=== PATIENT | female | born 1940 | race Caucasian/White ===

== ENCOUNTER → 2016-11-04 | Outpatient (CLI) | payer MEDICARE, BC ==
--- NOTE | 2016-11-06 09:23 | MM ---
Reason for exam: screening (asymptomatic). Last mammogram was performed 1 year and 6 months ago. History: Patient is postmenopausal. Family history of breast cancer in 2 maternal cousins at age 60 and breast cancer in maternal cousin. Physical Findings: A clinical breast exam by your physician is recommended on an annual basis and results should be correlated with mammographic findings. MG Screening Mammo w CAD Bilateral CC and MLO view(s) were taken. XCCM view(s) were taken of the right breast. Prior study comparison: May 02, 2015, left breast MG work up mamm w CAD LT. April 23, 2015, bilateral MG screening mammo w CAD. There are scattered fibroglandular densities. Left sided generator device. No significant changes when compared with prior studies. ASSESSMENT: Negative, BI-RAD 1 RECOMMENDATION: Routine screening mammogram of both breasts in 1 year.
== END ==
LOC: RADMAMWWP 11:15
PROVIDERS: ATTEND Internal Medicine
DX: Z12.31 Encounter for screening mammogram for malignant neoplasm of breast (principal)

== ENCOUNTER → 2017-04-24 | Outpatient (CLI) | payer MEDICARE, BC ==
--- NOTE | 2017-04-24 12:50 | XR ---
EXAMINATION TYPE: XR chest 2V DATE OF EXAM: 04/24/2017 COMPARISON: 02/20/2016 TECHNIQUE: PA and lateral views submitted. HISTORY: Shortness FINDINGS: Heart is prominent there is tiny bilateral pleural effusions with basilar subsegmental consolidation. Somewhat prominent interstitium noted. Cardiac device with atherosclerotic change aorta. Diffuse ost eopenia with arthritic changes involving the shoulders. No pneumothorax. IMPRESSION: 1. Tiny bilateral effusion with basilar atelectasis or infiltrate. Correlate for mild central venous congestion.
== END | disposition home or self-care (01) ==
LOC: RADXRMAIN 12:26
PROVIDERS: ATTEND Internal Medicine
DX: R06.02 Shortness of breath (principal); R05 Cough
CPT/HCPCS: 71046

== ENCOUNTER 2017-05-01 10:51 | Inpatient (IN) | payer MEDICARE, BC ==
[2017-05-01 12:27] LABS: Glucose,Whole Blood 152 mg/dL (75-99)
[2017-05-01] MEDS ORDERED: HYDROcodone/APAP 7.5-325MG 1 EACH TAB PO PRN (13:04)
--- NOTE | 2017-05-01 15:14 | P.HPIM ---
History of Present Illness H&P Date: 05/01/17 Chief Complaint: Right leg pain and cellulitis This is a 76-year-old female with a known past medical history of atrial fibrillation, hypertension, hypothyroidism, diabetes mellitus type 2, chronic respiratory failure home O2 dependent and congestive heart failure. Patient had been treated outpatient recently for about 10 days for an acute bronchitis. She had been on azithromycin. 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 I then developed pain and swelling of the area over the last few days. Also starting to develop a blister. Patient has multiple antibiotic ALLERGIES. She denies any fever, chills, sweats , chest pain or shortness of breath. Denies any nausea or vomiting, bowel movement changes or urinary symptoms. Venous Doppler of that right leg has been ordered to rule out DVT. We'll x-ray the right leg tibia and fibula to rule out fracture. Resume her [place] and home medications. Infectious disease has been consulted for antibiotic recommendations. Review of Systems Please refer to HPI otherwise unremarkable Past Medical History Past Medical History: Atrial Fibrillation, Asthma, Coronary Artery Disease (CAD) , Heart Failure, COPD, Diabetes Mellitus, Deep Vein Thrombosis (DVT), Eye Disorder, Hyperlipidemia, Hypertension, Myocardial Infarction (CT) Additional Past Medical History / Comment(s): Chronic respiratory failure with O2 dependence-2L/NC ATC, bronchitis, ischemic cardiomyopathy, murmur, thoracic outlet syndrome, IDDM type II, DVT left leg twice after childbirths, glaucoma R eye, arthritis multiple joints, osteoporosis, pancreatitis once, hypothyroid, past cellulitis R knee and L leg, R eye cataract, varicosities. Last Myocardial Infarction Date:: 1999 History of Any Multi-Drug Resistant Organisms: None Reported Past Surgical History: Adenoidectomy, AICD, Heart Catheterization With Stent, Hernia Repair, Hysterectomy, Tonsillectomy Additional Past Surgical History / Comment(s): 1999 PCI with stents (3), 2014 BiV AICD, L upper rib removed d/t thoracic outlet syndrome, R knee I&D, bilateral carpal tunnel releases, colonoscopy, D&C, bladder suspension, umbilical hernia repair. Past Anesthesia/Blood Transfusion Reactions: No Reported Reaction Additional Past Anesthesia/Blood Transfusion Reaction / Comment(s): Pt has never had a blood transfusion. Date of Last Stent Placement:: 1999 Type of Cardiac Device: AICD Device Placement Date:: 06-27-14 Smoking Status: Former smoker - Past Family History Brother(s) Family Medical History: Cancer Additional Family Medical History / Comment(s): Pt had 2 brothers with lung cancer. Father Family Medical History: Coronary Artery Disease (CAD), CVA/TIA, Myocardial Infarction (CT) Additional Family Medical History / Comment(s): fATHER AT 57 YRS OF AGE Mother Family Medical History: Cancer, Dementia Additional Family Medical History / Comment(s): throat cancer Medications and Allergies Home Medications Medication Instructions Recorded Confirmed Type Isosorbide Mononitrate ER [Imdur] 30 mg PO DAILY 04/24/14 03/12/15 History Montelukast [Singulair] 10 mg PO HS 04/24/14 03/12/15 History glipiZIDE [Glipizide] 10 mg PO TID 04/29/14 03/12/15 History metFORMIN HCL 1,000 mg PO DAILY 04/29/14 03/12/15 History Atorvastatin [Lipitor] 40 mg PO HS #60 tab 05/01/14 03/12/15 Rx Apixaban [Eliquis] 2.5 mg PO BID 06/02/14 03/12/15 History Nitroglycerin Sl Tabs [Nitrostat] 0.4 mg SUBLINGUAL Q5M PRN 06/02/14 03/12/15 History Amiodarone [Cordarone] 200 mg PO DAILY 06/26/14 03/12/15 History Metoprolol Tartrate [Lopressor] 50 mg PO BID 06/26/14 03/12/15 History Aspirin EC [Ecotrin Low Dose] 81 mg PO DAILY 11/18/14 03/12/15 History Bisacodyl [Dulcolax] 15 mg PO DAILY PRN 11/18/14 03/12/15 History Budesonide [Pulmicort] 0.5 mg INHALATION RT-BID 11/18/14 03/12/15 History Docusate Sodium [Dulcolax Stool 300 mg PO DAILY PRN 11/18/14 03/12/15 History Softener] Insulin Glargine [Lantus] 17 unit SQ HS 11/18/14 03/12/15 History Ipratropium-Albuterol Nebulize 3 ml INHALATION RT-QID 11/18/14 03/12/15 History [Duoneb 0.5 mg-3 mg/3 ml Soln] Latanoprost Ophth [Xalatan 0.005%] 1 drop RIGHT EYE HS 11/18/14 03/12/15 History Levothyroxine Sodium [Synthroid] 25 mcg PO AC-BRKFST 11/18/14 03/12/15 History Furosemide [Lasix] 20 mg PO DAILY #0 11/27/14 03/12/15 Rx Clindamycin [Cleocin] 300 mg PO TID #15 capsule 03/16/15 Rx Losartan-Hctz 50-12.5 mg [Hyzaar 1 each PO DAILY #30 tab 03/16/15 Rx 50-12.5] Spironolactone [Aldactone] 12.5 mg PO DAILY #30 tab 03/16/15 Rx predniSONE 10 mg PO DIRECTED #30 tab 03/16/15 Rx Allergies Allergy/AdvReac Type Severity Reaction Status Date / Time meperidine HCl [From Demerol] Allergy Severe Anaphylaxis Verified 05/01/17 11:35 cephalexin monohydrate Allergy Rash/Hives Verified 05/01/17 11:35 [From Keflex] erythromycin base Allergy Rapid Verified 05/01/17 11:35 Heart Rate lorazepam [From Ativan] Allergy Dyspnea Verified 05/01/17 11:35 Penicillins Allergy Rash/Hives Verified 05/01/17 11:35 doxycycline calcium AdvReac Nausea & Verified 05/01/17 11:35 [From Vibramycin] Vomiting doxycycline hyclate AdvReac Nausea & Verified 05/01/17 11:35 [From Vibramycin] Vomiting doxycycline monohydrate AdvReac Nausea & Verified 05/01/17 11:35 [From Vibramycin] Vomiting tetracycline AdvReac Nausea & Verified 05/01/17 11:35 Vomiting Physical Exam Vitals: Vital Signs Temp Pulse Resp BP Pulse Ox 05/01/17 12:01 99.3 F 71 16 144/55 97 Intake and Output 05/01/17 05/01/17 05/01/17 06:59 14:59 22:59 Other: Weight 108.7 kg Patient Weight 05/02/17 06:59 Weight 108.7 kg Head normocephalic Neck supple Lungs a few coarse breath sounds no wheezing no crackles Heart regular rate and rhythm S1-S2, no rub or gallop Abdomen is soft nontender nondistended positive bowel sounds no hepatosplenomegaly Extremities right leg red and swollen and tender with palpation especially along the tibia. The redness wraps all the way around the lower extremity about mid deng. There is a blister about an inch in size noted along the right tibia. Area is warm with palpation Neuro alert and orientated to 3 Results Labs: Abnormal Lab Results - Last 24 Hours (Table) 05/01/17 Range/Units 12:25 POC Glucose (mg/dL) 152 H (75-99) mg/dL Thrombosis Risk Factor Assmnt - Choose All That Apply Any of the Below Risk Factors Present?: Yes Each Factor Represents 1 point: Abnormal pulmonary function (COPD), Obesity ( BMI >25) Other Risk Factors: Yes Each Risk Factor Represents 2 Points: Age 61-74 years Each Risk Factor Represents 3 Points: History of DVT/PE Other congenital or acquired thrombophilia - If yes, enter type in comment: No Thrombosis Risk Factor Assessment Total Risk Factor Score: 7 Thrombosis Risk Factor Assessment Level: High Risk Assessment and Plan Assessment: 1. Right lower extremity cellulitis with pain and swelling. Consult infectious disease for antibiotic recommendations. Check venous Doppler to rule out DVT. Check x-ray of the right leg to rule out any fracture. Resume patient's [place] for pain control. Check blood culture and we'll place patient on normal saline at 50 mL an hour 2. Recent bronchitis treated outpatient 3. Diabetes mellitus type 2: Resume home medications metformin, glipizide and Lantus. Add sliding scale coverage 4. Hypothyroidism resume Synthroid 5. History of proximal atrial fibrillation on Eliquis for anticoagulation. Resume amiodarone 6. Chronic respiratory failure home O2 dependent 7. COPD: Stable. resume nebulizer treatments and inhalers 8. History of chronic systolic and diastolic congestive heart failure. Resume Lasix. No evidence of exacerbation 9. Essential hypertension: Stable. resume home medications GI prophylaxis Pepcid and DVT prophylaxis Eliquis Time with Patient: Greater than 30 (Greater than 50% of the total time spent in counseling and coordination of care.I performed an examination of the patient and discussed their management with the physician Director Industrial Relations. I have reviewed the Physician Director Industrial Relations's notes and agree with the documented findings and plan of care)
--- NOTE | 2017-05-01 15:22 | US ---
EXAMINATION TYPE: US venous doppler duplex LE RT DATE OF EXAM: 05/01/2017 3:06 PM COMPARISON: US dated 11/20/2014 CLINICAL HISTORY: leg swelling and pain, rule out DVT. SIDE PERFORMED: Right TECHNIQUE: The lower extremity deep venous system is examined utilizing real time linear array sonog christi with graded compression, doppler sonography and color-flow sonography. VESSELS IMAGED: External Iliac Vein (EIV) Common Femoral Vein Deep Femoral Vein Greater Saphenous Vein * Femoral Vein Popliteal Vein Proximal Calf Veins (* superficial vessels) large anechoic focus down right lower leg with increased through transmission, irregular wall, measur es15.5 x 2.1 cm at the medial aspect of the leg. Right Leg: Negative for DVT Grayscale, color doppler, spectral doppler imaging performed of the deep veins of the lower extremiti es. There is normal flow, compressibility, vascular waveforms. IMPRESSION: No evident deep venous thrombosis at or above the knee right knee. Indeterminate fluid collection could represent seroma, hematoma, correlate for possible infection
--- NOTE | 2017-05-01 15:25 | XR ---
Right leg HISTORY: Right leg pain and erythema, swelling 2 views of the right leg Correlation to lower extremity Doppler duplex 05/01/2017 Soft tissue density at the medial length corresponds to be fluid collection seen on ultrasound. Soft tissue swelling is noted. Arthropathy change noted incidentally in the right knee, chondrocalcinosis, consider crystal deposition arthropathy, osteoarthritis. Alignment is maintained. No periostitis to suggest osteomyelitis. Soft tissue calcifications likely represent vascular changes within the lower extremity. IMPRESSION: Correlate for cellulitis, indeterminate fluid collection as described in ultrasound repor [place]
[2017-05-01] MEDS: SODIUM CHLORIDE 0.9% 1,000 ML IV SCH (15:51)
[2017-05-01] MEDS ORDERED: NITROGLYCERIN SL TABS 0.4 MG TAB SUBLINGUAL PRN (16:17)
[2017-05-01] MEDS ORDERED: AMIODARONE 200 MG TAB PO SCH (16:30)
[2017-05-01] MEDS: LEVOFLOXACIN 500MG-D5W PMX 500 MG in DEXTROSE/WATER 1 100ML.BAG IVPB SCH ×2 (16:40→18:20)
[2017-05-01 16:44] LABS: Basophils # (A) 0.1 k/uL (0-0.2); Basophils % (A) 1 %; Eosinophils # (A) 0.4 k/uL (0-0.7); Eosinophils % (A) 3 %; HCT 35.6 % (34.0-46.0); HGB 10.9 gm/dL (11.4-16.0); Hypochromasia Slight; Lymphocytes # (A) 2.5 k/uL (1.0-4.8); Lymphocytes % (A) 19 %; MCH 28.7 pg (25.0-35.0); MCHC 30.5 g/dL (31.0-37.0); MCV 93.9 fL (80.0-100.0); Mean Platelet Volume 7.5; Monocytes % (A) 8 %; Neutrophils # (A) 8.9 k/uL (1.3-7.7); Neutrophils % (A) 68 %; Platelet Count 304 k/uL (150-450); RBC 3.79 m/uL (3.80-5.40); RDW 13.3 % (11.5-15.5); WBC 12.9 k/uL (3.8-10.6)
[2017-05-01 16:58] LABS: Albumin 3.1 g/dL (3.5-5.0); Calcium 9.6 mg/dL (8.4-10.2); Potassium 4.9 mmol/L (3.5-5.1); Total Bilirubin 0.5 mg/dL (0.2-1.3); Total Protein 5.5 g/dL (6.3-8.2)
[2017-05-01] MEDS: IPRATROPIUM-ALBUTEROL 3 ML NEB INHALATION SCH ×2 (17:10→19:05)
[2017-05-01] MEDS ORDERED: CLINDAMYCIN 600 MG in DEXTROSE 5% IN WATER 50 ML IVPB SCH ×2 (17:15)
[2017-05-01 17:39] LABS: Glucose,Whole Blood 181 mg/dL (75-99)
[2017-05-01] MEDS: HYDROcodone/APAP 10-325MG 1 EACH TAB PO PRN (18:16)
[2017-05-01] MEDS: INSULIN ASPART 100 UNIT/ML 1 ML 10 ML VIAL SQ SCH ×2 (18:17→21:35)
[2017-05-01] MEDS: BUDESONIDE 0.5 MG/2 ML NEBU INHALATION SCH (19:05)
[2017-05-01] MEDS: DAPTOmycin 500 MG in SODIUM CHLORIDE 0.9% 50 ML IV SCH (20:13)
[2017-05-01] MEDS: MONTELUKAST 10 MG TAB PO SCH (21:35)
[2017-05-01] MEDS: APIXABAN 2.5 MG TABLET PO SCH (21:35)
[2017-05-01] MEDS: METOPROLOL TARTRATE 50 MG TAB PO SCH (21:35)
[2017-05-01] MEDS: INSULIN DETEMIR 100 UNIT/ML 10 ML VIAL SQ SCH (21:35)
[2017-05-01] MEDS: ATORVASTATIN 40 MG TAB PO SCH (21:35)
[2017-05-01] MEDS: LATANOPROST 0.005% OPHTH DROPS 2.5 ML BTL RIGHT EYE SCH (21:35)
[2017-05-01 21:44] LABS: Glucose,Whole Blood 207 mg/dL (75-99)
--- NOTE | 2017-05-02 00:02 | P.CONS ---
History of Present Illness - Reason for Consult Consult date: 05/01/17 - Chief Complaint Right leg pain - History of Present Illness 76-year-old female presents to Hospital for further evaluation of ongoing swelling tenderness and drainage to the right lower extremity. The patient relates known history of chronic venous stasis and does utilize compression garments. She over developed significant pain and swelling to the right leg. Despite outpatient therapy she had no improvement. She was having some difficulty with exacerbation of underlying COPD. She was treated with a azithromycin. Despite that she has had some ongoing symptoms and does not feel well. She has minimal shortness of breath and cough she has some wheezing and not much sputum production. She however does have the significant discomfort swelling ulceration drainage the right lower extremity. She is denying high- grade fever chills rigors or sweats but does feel poorly overall. She has many drug ALLERGIES which makes it challenging for her antibiotic therapy. Review of Systems 76 year old a woman relates she is feeling slightly better HEENT:Denies headache or acute visual change. Denies sinus or mouth discomforts. Denies neck stiffness or pain. Denies significant oral cavity pain. Denies difficulty on swallowing. Lungs: Denies significant shortness of breath, cough, sputum production, or hemoptysis. Cardiovascular: Denies significant shortness of breath, chest pain, chest wall pain, orthopnea, dyspnea on exertion, syncope Gastrointestinal:Denies nausea, vomiting, diarrhea, constipation, hematemesis, melena, hematochezia. No no significant change of bowel habit noticed. Musculoskeletal: denies significant myalgias or arthralgias. No new joint swelling. Denies new back pain. Skin: Pain and swelling erythema and drainage right leg Neuro: Denies headache or visual change. Denies any new onset weakness or difficulty with ambulation. Denies falls or seizures. Psychiatric:Denies anxiety or depression. Endocrine: Significant fatigue Past Medical History Past Medical History: Atrial Fibrillation, Asthma, Coronary Artery Disease (CAD) , Heart Failure, COPD, Diabetes Mellitus, Deep Vein Thrombosis (DVT), Eye Disorder, Hyperlipidemia, Hypertension, Myocardial Infarction ([place]) Additional Past Medical History / Comment(s): Chronic respiratory failure with O2 dependence-2L/NC ATC, bronchitis, ischemic cardiomyopathy, murmur, thoracic outlet syndrome, IDDM type II, DVT left leg twice after childbirths, glaucoma R eye, arthritis multiple joints, osteoporosis, pancreatitis once, hypothyroid, past cellulitis R knee and L leg, R eye cataract, varicosities. Last Myocardial Infarction Date:: 1999 History of Any Multi-Drug Resistant Organisms: None Reported Past Surgical History: Adenoidectomy, AICD, Heart Catheterization With Stent, Hernia Repair, Hysterectomy, Tonsillectomy Additional Past Surgical History / Comment(s): 1999 PCI with stents (3), 2014 BiV AICD, L upper rib removed d/t thoracic outlet syndrome, R knee I&D, bilateral carpal tunnel releases, colonoscopy, D&C, bladder suspension, umbilical hernia repair. Past Anesthesia/Blood Transfusion Reactions: No Reported Reaction Additional Past Anesthesia/Blood Transfusion Reaction / Comm: Pt has never had a blood transfusion. Date of Last Stent Placement:: 1999 Type of Cardiac Device: AICD Device Placement Date:: 06-27-14 Additional Psychological History / Comment(s): and lives independently. No current tobacco use no current alcohol use. No experience no international travel no animal exposures Smoking Status: Former smoker - Past Family History Brother(s) Family Medical History: Cancer Additional Family Medical History / Comment(s): Pt had 2 brothers with lung cancer. Father Family Medical History: Coronary Artery Disease (CAD), CVA/TIA, Myocardial Infarction ([place]) Additional Family Medical History / Comment(s): fATHER AT 57 YRS OF AGE Mother Family Medical History: Cancer, Dementia Additional Family Medical History / Comment(s): throat cancer Medications and Allergies Home Medications and Allergies Comment(s): Current Medications Hydrocodone Bitart/Acetaminophen ([place] 10) 1 each PO Q6H PRN PRN Reason: Pain Last Admin: 05/01/17 18:16 Dose: 1 each Albuterol/Ipratropium (Duoneb 0.5 Mg-3 Mg/3 Ml Soln) 3 ml INHALATION RT-QID [facility] Last Admin: 05/01/17 19:05 Dose: 3 ml Amiodarone HCl (Cordarone) 100 mg PO DAILY [facility] Apixaban (Eliquis) 2.5 mg PO BID [facility] Last Admin: 05/01/17 21:35 Dose: 2.5 mg Aspirin (Aspirin) 81 mg PO DAILY [facility] Atorvastatin Calcium (Lipitor) 40 mg PO HS [facility] Last Admin: 05/01/17 21:35 Dose: 40 mg Budesonide (Pulmicort) 0.5 mg INHALATION RT-BID [facility] Last Admin: 05/01/17 19:05 Dose: 0.5 mg Ergocalciferol (Vitamin D2) 50,000 unit PO TU [facility] Famotidine (Pepcid) 20 mg PO DAILY [facility] Furosemide (Lasix) 20 mg PO DAILY@1200 [facility] HCTZ/Losartan Potassium (Hyzaar 50-12.5) 1 each PO DAILY@1200 [facility] Sodium Chloride (Saline 0.9%) 1,000 mls @ 50 mls/hr IV .Q20H [facility] Last Admin: 05/01/17 15:51 Dose: 50 mls/hr Daptomycin 500 mg/ Sodium (Chloride) 50 mls @ 100 mls/hr IV Q24H [facility] Last Admin: 05/01/17 20:13 Dose: 100 mls/hr Insulin Aspart (Novolog) 0 unit SQ ACHS [facility] PRN Reason: Protocol Last Admin: 05/01/17 21:35 Dose: 4 unit Insulin Detemir (Levemir) 44 unit SQ [facility] Last Admin: 05/01/17 21:35 Dose: 44 unit Isosorbide Mononitrate (Imdur) 30 mg PO DAILY [facility] Latanoprost (Xalatan 0.005%) 1 drops RIGHT EYE [facility] Last Admin: 05/01/17 21:35 Dose: 1 drops Levothyroxine Sodium (Synthroid) 50 mcg PO 0630 [facility] Metformin HCl (Glucophage) 1,000 mg PO W/BRKFST [facility] Metoprolol Tartrate (Lopressor) 50 mg PO BID [facility] Last Admin: 05/01/17 21:35 Dose: 50 mg Montelukast Sodium (Singulair) 10 mg PO [facility] Last Admin: 05/01/17 21:35 Dose: 10 mg Nitroglycerin (Nitrostat) 0.4 mg SUBLINGUAL Q5M PRN PRN Reason: Chest Pain Silver Sulfadiazine (Silvadene Cream) 1 applic TOPICAL DAILY [facility] Last Admin: 05/01/17 18:17 Dose: 1 applic Spironolactone (Aldactone) 12.5 mg PO DAILY@1200 [facility] Home Medications Medication Instructions Recorded Confirmed Type Isosorbide Mononitrate ER [Imdur] 30 mg PO DAILY 04/24/14 05/01/17 History Montelukast [Singulair] 10 mg PO HS 04/24/14 05/01/17 History metFORMIN HCL 1,000 mg PO DAILY 04/29/14 05/01/17 History Atorvastatin [Lipitor] 40 mg PO HS #60 tab 05/01/14 05/01/17 Rx Apixaban [Eliquis] 2.5 mg PO BID 06/02/14 05/01/17 History Nitroglycerin Sl Tabs [Nitrostat] 0.4 mg SUBLINGUAL Q5M PRN 06/02/14 05/01/17 History Amiodarone [Cordarone] 200 mg PO DAILY 06/26/14 05/01/17 History Metoprolol Tartrate [Lopressor] 50 mg PO BID 06/26/14 05/01/17 History Aspirin EC [Ecotrin Low Dose] 81 mg PO DAILY 11/18/14 05/01/17 History Budesonide [Pulmicort] 0.5 mg INHALATION RT-BID 11/18/14 05/01/17 History Insulin Glargine [Lantus] 44 unit SQ HS 11/18/14 05/01/17 History Ipratropium-Albuterol Nebulize 3 ml INHALATION RT-QID 11/18/14 05/01/17 History [Duoneb 0.5 mg-3 mg/3 ml Soln] Latanoprost Ophth [Xalatan 0.005%] 1 drop RIGHT EYE HS 11/18/14 05/01/17 History Ergocalciferol [Vitamin D2] 50,000 unit PO TU 05/01/17 05/01/17 History Furosemide [Lasix] 20 mg PO DAILY@1200 05/01/17 05/01/17 History INSULIN LISPRO (HumaLOG) [HumaLOG] 3 - 8 units SQ AC-TID 05/01/17 05/01/17 History Levothyroxine Sodium [Synthroid] 50 mcg PO DAILY 05/01/17 05/01/17 History Losartan-Hctz 50-12.5 mg [Hyzaar 1 tab PO DAILY@1200 05/01/17 05/01/17 History 50-12.5] Spironolactone [Aldactone] 12.5 mg PO DAILY@1200 05/01/17 05/01/17 History Allergies Allergy/AdvReac Type Severity Reaction Status Date / Time meperidine HCl [From Demerol] Allergy Severe Anaphylaxis Verified 05/01/17 16:08 cephalexin monohydrate Allergy Rash/Hives Verified 05/01/17 16:08 [From Keflex] erythromycin base Allergy Rapid Verified 05/01/17 16:08 Heart Rate lorazepam [From Ativan] Allergy Dyspnea Verified 05/01/17 16:08 Penicillins Allergy Rash/Hives Verified 05/01/17 16:08 doxycycline calcium AdvReac Nausea & Verified 05/01/17 16:08 [From Vibramycin] Vomiting doxycycline hyclate AdvReac Nausea & Verified 05/01/17 16:08 [From Vibramycin] Vomiting doxycycline monohydrate AdvReac Nausea & Verified 05/01/17 16:08 [From Vibramycin] Vomiting tetracycline AdvReac Nausea & Verified 05/01/17 16:08 Vomiting Physical Exam Vitals: Vital Signs Temp Pulse Pulse Resp BP Pulse Ox 05/01/17 19:15 80 05/01/17 19:05 80 05/01/17 17:23 76 05/01/17 17:12 74 05/01/17 15:00 97.3 F L 76 18 134/63 95 05/01/17 12:01 99.3 F 71 16 144/55 97 Intake and Output 05/01/17 05/01/17 05/02/17 14:59 22:59 06:59 Intake Total 1100 Balance 1100 Intake: Oral 1100 Other: Voiding Method Bedside Commode # Voids 4 Weight 108.7 kg Patient Weight 05/02/17 06:59 Weight 108.7 kg 76-year-old woman who is more comfortable at admission. HEENT: Anicteric conjunctiva are pink and moist nasal mucosa grossly intact without significant lesions, there is no thrush. Neck: The neck is supple without significant lymphadenopathy or thyromegaly. Lungs: Good bilateral air entry without significant crackles or wheezing. There is no significant bronchial sounds. There is no egophony or dullness. Heart: Regular rate and rhythm with an audible S1-S2, no S3 no S4. There is no significant murmur click or rub, PMI was nondisplaced. Abdomen: Positive bowel sounds soft and nontender without palpable masses or organomegaly. There was no guarding or rebound. Extremities: T upper extremities without open lesions. IV sites intact. Left lower extremity without new open ulcerations. Her lower extremity has evidence of the swelling, the palpable edema to the tissue of the right leg. Blister is noted. No yazmin drainage at the moment. Pulses diminished but palpable. Neuro: Awake alert oriented to person place and time. There are no acute new gross focal sensory motor deficits. Results CBC & Chem 7: 05/01/17 16:15 05/01/17 16:15 Labs: Abnormal Lab Results - Last 24 Hours (Table) 05/01/17 05/01/17 05/01/17 Range/Units 12:25 16:15 16:15 WBC 12.9 H (3.8-10.6) k/uL RBC 3.79 L (3.80-5.40) m/uL Hgb 10.9 L (11.4-16.0) gm/dL MCHC 30.5 L (31.0-37.0) g/dL Neutrophils # 8.9 H (1.3-7.7) k/uL Chloride 97 L (98-107) mmol/L Carbon Dioxide 36 H (22-30) mmol/L BUN 28 H (7-17) mg/dL Glucose 177 H (74-99) mg/dL POC Glucose (mg/dL) 152 H (75-99) mg/dL Total Protein 5.5 L (6.3-8.2) g/dL Albumin 3.1 L (3.5-5.0) g/dL 05/01/17 05/01/17 Range/Units 17:27 21:22 WBC (3.8-10.6) k/uL RBC (3.80-5.40) m/uL Hgb (11.4-16.0) gm/dL MCHC (31.0-37.0) g/dL Neutrophils # (1.3-7.7) k/uL Chloride (98-107) mmol/L Carbon Dioxide (22-30) mmol/L BUN (7-17) mg/dL Glucose (74-99) mg/dL POC Glucose (mg/dL) 181 H 207 H (75-99) mg/dL Total Protein (6.3-8.2) g/dL Albumin (3.5-5.0) g/dL Assessment and Plan (1) Cellulitis of right leg Narrative/Plan: 76-year-old female who has a history of many medical troubles that includes her lower extremity chronic edema but is developed the significant swelling and edema to the right leg with intense erythema pain and tenderness. If this time the plan will be elevation of the right lower extremity. Local wound care with Silvadene in the wrap is applied because the duplex is negative for deep venous thrombosis. Given her ALLERGIES intravenous antibiotic therapy will be utilized with daptomycin and attempts to have rapid improvement of her cellulitis. We'll then have to determine the outpatient course if she has improvement. As noted she has leukocytosis and this will be monitored. No evidence of renal failure. There is an outpatient culture from over 1 year ago that reveals evidence of MSSA. However with her penicillin and cephalosporin ALLERGY daptomycin is chosen. Patient will be monitored and expect with the current interventions that there will be somewhat rapid improvement. Current Visit: Yes Status: Acute Code(s): L03.115 - CELLULITIS OF RIGHT LOWER LIMB SNOMED Code(s): 099593324 (2) Systolic CHF, acute on chronic Current Visit: No Status: Acute Code(s): I50.23 - ACUTE ON CHRONIC SYSTOLIC (CONGESTIVE) HEART FAILURE SNOMED Code(s): 138192705 (3) Leukocytosis Current Visit: Yes Status: Acute Code(s): D72.829 - ELEVATED WHITE BLOOD CELL COUNT, UNSPECIFIED SNOMED Code(s): 729230740
[2017-05-02] MEDS: HYDROcodone/APAP 10-325MG 1 EACH TAB PO PRN ×4 (00:40→20:27)
[2017-05-02 04:47] LABS: Hemoglobin A1C 8.2 % (4.0-6.0)
[2017-05-02] MEDS: LEVOTHYROXINE 50 MCG TAB PO SCH (06:47)
[2017-05-02 07:07] LABS: Glucose,Whole Blood 70 mg/dL (75-99)
[2017-05-02] MEDS: INSULIN ASPART 100 UNIT/ML 1 ML 10 ML VIAL SQ SCH ×4 (07:32→23:05)
[2017-05-02] MEDS: metFORMIN 500 MG TAB PO SCH (07:58)
[2017-05-02] MEDS: AMIODARONE 100 MG TAB PO SCH (07:59)
[2017-05-02] MEDS: ISOSORBIDE MONONITRATE ER 30 MG TAB.ER.24H PO SCH (08:00)
[2017-05-02] MEDS: FAMOTIDINE 20 MG TAB PO SCH (08:00)
[2017-05-02] MEDS: METOPROLOL TARTRATE 50 MG TAB PO SCH ×2 (08:00→20:22)
[2017-05-02] MEDS: APIXABAN 2.5 MG TABLET PO SCH ×2 (08:00→20:22)
[2017-05-02] MEDS: ASPIRIN 81 MG PO SCH (08:00)
[2017-05-02] MEDS: SODIUM CHLORIDE 0.9% 1,000 ML IV SCH (08:01)
[2017-05-02] MEDS: IPRATROPIUM-ALBUTEROL 3 ML NEB INHALATION SCH ×4 (08:10→20:14)
[2017-05-02] MEDS: BUDESONIDE 0.5 MG/2 ML NEBU INHALATION SCH ×2 (08:10→20:13)
[2017-05-02 08:40] LABS: Basophils # (A) 0.1 k/uL (0-0.2); Basophils % (A) 1 %; Eosinophils # (A) 0.5 k/uL (0-0.7); Eosinophils % (A) 4 %; HCT 37.8 % (34.0-46.0); HGB 11.5 gm/dL (11.4-16.0); Hypochromasia Moderate; Lymphocytes # (A) 1.9 k/uL (1.0-4.8); Lymphocytes % (A) 14 %; MCH 28.8 pg (25.0-35.0); MCHC 30.4 g/dL (31.0-37.0); MCV 94.8 fL (80.0-100.0); Mean Platelet Volume 7.4; Monocytes # (A) 0.9 k/uL (0-1.0); Monocytes % (A) 7 %; Neutrophils # (A) 9.9 k/uL (1.3-7.7); Neutrophils % (A) 73 %; Platelet Count 327 k/uL (150-450); RBC 3.98 m/uL (3.80-5.40); RDW 13.2 % (11.5-15.5); WBC 13.5 k/uL (3.8-10.6)
[2017-05-02 08:56] LABS: ALT 22 U/L (9-52); AST 18 U/L (14-36); Albumin 3.2 g/dL (3.5-5.0); Alkaline Phosphatase 82 U/L (38-126); Anion Gap 7 mmol/L; Blood Urea Nitrogen 20 mg/dL (7-17); Calcium 9.3 mg/dL (8.4-10.2); Carbon Dioxide 35 mmol/L (22-30); Chloride 99 mmol/L (98-107); Glucose 100 mg/dL (74-99); Potassium 4.7 mmol/L (3.5-5.1); Sodium 141 mmol/L (137-145); Total Bilirubin 0.6 mg/dL (0.2-1.3); Total Protein 5.7 g/dL (6.3-8.2)
[2017-05-02] MEDS: SPIRONOLACTONE 25 MG TAB PO SCH (11:35)
[2017-05-02] MEDS: LOSARTAN-HCTZ 50-12.5 MG 1 EACH TAB PO SCH (11:35)
[2017-05-02] MEDS: FUROSEMIDE 20 MG TAB PO SCH (11:35)
[2017-05-02] MEDS ORDERED: IPRATROPIUM-ALBUTEROL 3 ML NEB INHALATION PRN ×2 (11:38→11:39)
--- NOTE | 2017-05-02 11:46 | P.PN ---
Subjective Progress Note Date: 05/02/17 This is a 76-year-old female with a known past medical history of atrial fibrillation, hypertension, hypothyroidism, diabetes mellitus type 2, chronic respiratory failure home O2 dependent and congestive heart failure. Patient had been treated outpatient recently for about 10 days for an acute bronchitis. She had been on azithromycin. 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 I then developed pain and swelling of the area over the last few days. Also starting to develop a blister. Patient has multiple antibiotic ALLERGIES. She denies any fever, chills, sweats , chest pain or shortness of breath. Denies any nausea or vomiting, bowel movement changes or urinary symptoms. Venous Doppler of that right leg has been ordered to rule out DVT. We'll x-ray the right leg tibia and fibula to rule out fracture. Resume her [place] and home medications. Infectious disease has been consulted for antibiotic recommendations. On 05/02/2017 patient is alert and oriented 3 she is complaining of cough and chest congestion she is complaining of back and right lower extremity pain otherwise no complaints. Objective - Vital Signs Vital signs: Vital Signs Temp 96.8 F L 05/02/17 07:00 Pulse 88 05/02/17 08:42 Resp 20 05/02/17 07:00 BP 125/68 05/02/17 07:00 Pulse Ox 94 L 05/02/17 07:00 Intake & Output 05/01/17 05/02/17 05/02/17 18:59 06:59 18:59 Intake Total 1100 1100 240 Balance 1100 1100 240 Weight 108.7 kg Intake: Oral 1100 1100 240 Other: Voiding Method Bedside Commode # Voids 4 6 - Exam In general patient is alert and oriented 3 HEENT head normocephalic and atraumatic Neck is supple no JVD no goiter no lymphadenopathy Chest exam reveals a few scattered rhonchi no wheezing Cardiac exam reveals regular heart sounds no gallops no murmurs Abdomen is soft nontender no organomegaly Extremity exam reveals minimal edema right lower extremity is wrapped was gauze wrap and [place] wrap - Labs CBC & Chem 7: 05/02/17 08:15 05/02/17 08:15 Labs: Abnormal Lab Results - Last 24 Hours (Table) 03/09/18 03/09/18 03/09/18 Range/Units 12:25 16:15 16:15 WBC 12.9 H (3.8-10.6) k/uL RBC 3.79 L (3.80-5.40) m/uL Hgb 10.9 L (11.4-16.0) gm/dL MCHC 30.5 L (31.0-37.0) g/dL Neutrophils # 8.9 H (1.3-7.7) k/uL Chloride 97 L (98-107) mmol/L Carbon Dioxide 36 H (22-30) mmol/L BUN 28 H (7-17) mg/dL Glucose 177 H (74-99) mg/dL POC Glucose (mg/dL) 152 H (75-99) mg/dL Hemoglobin A1c (4.0-6.0) % Total Protein 5.5 L (6.3-8.2) g/dL Albumin 3.1 L (3.5-5.0) g/dL 05/01/17 05/01/17 05/01/17 Range/Units 16:15 17:27 21:22 WBC (3.8-10.6) k/uL RBC (3.80-5.40) m/uL Hgb (11.4-16.0) gm/dL MCHC (31.0-37.0) g/dL Neutrophils # (1.3-7.7) k/uL Chloride (98-107) mmol/L Carbon Dioxide (22-30) mmol/L BUN (7-17) mg/dL Glucose (74-99) mg/dL POC Glucose (mg/dL) 181 H 207 H (75-99) mg/dL Hemoglobin A1c 8.2 H (4.0-6.0) % Total Protein (6.3-8.2) g/dL Albumin (3.5-5.0) g/dL 05/02/17 05/02/17 05/02/17 Range/Units 07:00 08:15 08:15 WBC 13.5 H (3.8-10.6) k/uL RBC (3.80-5.40) m/uL Hgb (11.4-16.0) gm/dL MCHC 30.4 L (31.0-37.0) g/dL Neutrophils # 9.9 H (1.3-7.7) k/uL Chloride (98-107) mmol/L Carbon Dioxide 35 H (22-30) mmol/L BUN 20 H (7-17) mg/dL Glucose 100 H (74-99) mg/dL POC Glucose (mg/dL) 70 L (75-99) mg/dL Hemoglobin A1c (4.0-6.0) % Total Protein 5.7 L (6.3-8.2) g/dL Albumin 3.2 L (3.5-5.0) g/dL Assessment and Plan Plan: #1 right lower extremity cellulitis patient was seen by Dr. Jorge and was started on IV daptomycin #2 acute bronchitis, will add Mucinex, continue DuoNeb updraft treatment, will check chest x-ray #3 underlying history of diabetes mellitus, A1c is 8.2 #4 dehydration was prerenal azotemia on presentation BUN was elevated to 28, it' s down to 20 today #5 hypothyroidism maintained on Synthroid #6 paroxysmal atrial fibrillation maintained on Eliquis and amiodarone #7 hypertension well-controlled on current medications #8 underlying history of COPD Today patient was seen and examined reviewed labs and infectious disease input, I added Colace and Mucinex to medication regimen Will recheck labs and will follow in a.m.
[2017-05-02 12:33] LABS: Glucose,Whole Blood 86 mg/dL (75-99)
[2017-05-02] MEDS: DOCUSATE 100 MG CAP PO SCH ×2 (14:19→20:22)
[2017-05-02] MEDS: guaiFENesin 600 MG TABLET.ER PO SCH ×2 (14:19→20:22)
[2017-05-02 17:43] LABS: Glucose,Whole Blood 195 mg/dL (75-99)
[2017-05-02] MEDS: DAPTOmycin 500 MG in SODIUM CHLORIDE 0.9% 50 ML IV SCH (17:59)
[2017-05-02] MEDS: MONTELUKAST 10 MG TAB PO SCH (20:22)
[2017-05-02] MEDS: ATORVASTATIN 40 MG TAB PO SCH (20:22)
[2017-05-02] MEDS: LATANOPROST 0.005% OPHTH DROPS 2.5 ML BTL RIGHT EYE SCH (20:23)
[2017-05-02 21:38] LABS: Glucose,Whole Blood 180 mg/dL (75-99)
--- NOTE | 2017-05-02 22:49 | P.PN ---
Subjective Progress Note Date: 05/02/17 Principal diagnosis: Pain and swelling to the right leg 76-year-old female presents to Hospital for further evaluation of ongoing swelling tenderness and drainage to the right lower extremity. The patient relates known history of chronic venous stasis and does utilize compression garments. She over developed significant pain and swelling to the right leg. Despite outpatient therapy she had no improvement. She was having some difficulty with exacerbation of underlying COPD. She was treated with a azithromycin. Despite that she has had some ongoing symptoms and does not feel well. She has minimal shortness of breath and cough she has some wheezing and not much sputum production. She however does have the significant discomfort swelling ulceration drainage the right lower extremity. She is denying high- grade fever chills rigors or sweats but does feel poorly overall. She has many drug ALLERGIES which makes it challenging for her antibiotic therapy. 05/02/2017 reveals the patient to have further improvement. The swelling to the leg is improved. The pain is much improved. She is quite pleased that she' s had such a rapid improvement in such a short period of time. Objective - Vital Signs Vital signs: Vital Signs Temp 97.0 F L 05/02/17 15:00 Pulse 80 05/02/17 20:27 Resp 20 05/02/17 15:00 BP 121/58 05/02/17 15:00 Pulse Ox 98 05/02/17 20:14 Intake & Output 05/02/17 05/02/17 05/03/17 06:59 18:59 07:59 Intake Total 1100 480 Balance 1100 480 Intake: Oral 1100 480 Other: Voiding Method Bedside Commode Bedside Commode # Voids 6 4 # Bowel Movements 0 - Exam 76-year-old woman who is more comfortable at admission. HEENT: Anicteric conjunctiva are pink and moist nasal mucosa grossly intact without significant lesions, there is no thrush. Neck: The neck is supple without significant lymphadenopathy or thyromegaly. Lungs: Good bilateral air entry without significant crackles or wheezing. There is no significant bronchial sounds. There is no egophony or dullness. Heart: Regular rate and rhythm with an audible S1-S2, no S3 no S4. There is no significant murmur click or rub, PMI was nondisplaced. Abdomen: Positive bowel sounds soft and nontender without palpable masses or organomegaly. There was no guarding or rebound. Extremities: The upper extremities without open lesions. IV sites intact. Left lower extremity without new open ulcerations. Her lower extremity has evidence of the swelling, the right lower extremity reveals the improvement in the last 24 hours in that there is decreased edema, increased erythema, decreased tenderness. Blister is noted. No yazmin drainage at the moment. Pulses diminished but palpable. Neuro: Awake alert oriented to person place and time. There are no acute new gross focal sensory motor deficits. - Labs CBC & Chem 7: 05/02/17 08:15 05/02/17 08:15 Labs: Abnormal Lab Results - Last 24 Hours (Table) 05/01/17 05/02/17 05/02/17 Range/Units 16:15 07:00 08:15 WBC 13.5 H (3.8-10.6) k/uL MCHC 30.4 L (31.0-37.0) g/dL Neutrophils # 9.9 H (1.3-7.7) k/uL Carbon Dioxide (22-30) mmol/L BUN (7-17) mg/dL Glucose (74-99) mg/dL POC Glucose (mg/dL) 70 L (75-99) mg/dL Hemoglobin A1c 8.2 H (4.0-6.0) % Total Protein (6.3-8.2) g/dL Albumin (3.5-5.0) g/dL 05/02/17 05/02/17 05/02/17 Range/Units 08:15 17:34 21:36 WBC (3.8-10.6) k/uL MCHC (31.0-37.0) g/dL Neutrophils # (1.3-7.7) k/uL Carbon Dioxide 35 H (22-30) mmol/L BUN 20 H (7-17) mg/dL Glucose 100 H (74-99) mg/dL POC Glucose (mg/dL) 195 H 180 H (75-99) mg/dL Hemoglobin A1c (4.0-6.0) % Total Protein 5.7 L (6.3-8.2) g/dL Albumin 3.2 L (3.5-5.0) g/dL Microbiology - Last 24 Hours (Table) 05/01/17 16:15 Blood Culture - Preliminary Blood No Growth after 24 hours Laboratory Results WBC 13.5 k/uL (3.8-10.6) H 05/02/17 08:15 RBC 3.98 m/uL (3.80-5.40) 05/02/17 08:15 Hgb 11.5 gm/dL (11.4-16.0) 05/02/17 08:15 Hct 37.8 % (34.0-46.0) 05/02/17 08:15 MCV 94.8 fL (80.0-100.0) 05/02/17 08:15 MCH 28.8 pg (25.0-35.0) 05/02/17 08:15 MCHC 30.4 g/dL (31.0-37.0) L 05/02/17 08:15 RDW 13.2 % (11.5-15.5) 05/02/17 08:15 Plt Count 327 k/uL (150-450) 05/02/17 08:15 Neutrophils % 73 % 05/02/17 08:15 Lymphocytes % 14 % 05/02/17 08:15 Monocytes % 7 % 05/02/17 08:15 Eosinophils % 4 % 05/02/17 08:15 Basophils % 1 % 05/02/17 08:15 Neutrophils # 9.9 k/uL (1.3-7.7) H 05/02/17 08:15 Lymphocytes # 1.9 k/uL (1.0-4.8) 05/02/17 08:15 Monocytes # 0.9 k/uL (0-1.0) 05/02/17 08:15 Eosinophils # 0.5 k/uL (0-0.7) 05/02/17 08:15 Basophils # 0.1 k/uL (0-0.2) 05/02/17 08:15 Hypochromasia Moderate 05/02/17 08:15 Sodium 141 mmol/L (137-145) 05/02/17 08:15 Potassium 4.7 mmol/L (3.5-5.1) 05/02/17 08:15 Chloride 99 mmol/L (98-107) 05/02/17 08:15 Carbon Dioxide 35 mmol/L (22-30) H 05/02/17 08:15 Anion Gap 7 mmol/L 05/02/17 08:15 BUN 20 mg/dL (7-17) H 05/02/17 08:15 Creatinine 0.74 mg/dL (0.52-1.04) 05/02/17 08:15 Est GFR (CKD-EPI)AfAm >90 (>60 ml/min/1.73 sqM) 05/02/17 08:15 Est GFR (CKD-EPI)NonAf 81 (>60 ml/min/1.73 sqM) 05/02/17 08:15 Glucose 100 mg/dL (74-99) H 05/02/17 08:15 POC Glucose (mg/dL) 180 mg/dL (75-99) H 05/02/17 21:36 POC Glu Saturator Operator ID Zoey Champion 05/02/17 21:[address] Glu mg/dL 189 05/01/17 16:15 Hemoglobin A1c 8.2 % (4.0-6.0) H 05/01/17 16:15 Calcium 9.3 mg/dL (8.4-10.2) 05/02/17 08:15 Total Bilirubin 0.6 mg/dL (0.2-1.3) 05/02/17 08:15 AST 18 U/L (14-36) 05/02/17 08:15 ALT 22 U/L (9-52) 05/02/17 08:15 Alkaline Phosphatase 82 U/L (38-126) 05/02/17 08:15 Total Protein 5.7 g/dL (6.3-8.2) L 05/02/17 08:15 Albumin 3.2 g/dL (3.5-5.0) L 05/02/17 08:15 Microbiology 05/01/17 16:15 Blood Blood Culture - Preliminary No Growth after 24 hours Assessment and Plan (1) Cellulitis of right leg Narrative/Plan: 76-year-old female who has a history of many medical troubles that includes her lower extremity chronic edema but is developed the significant swelling and edema to the right leg with intense erythema pain and tenderness. If this time the plan will be elevation of the right lower extremity. Local wound care with Silvadene in the wrap is applied because the duplex is negative for deep venous thrombosis. Given her ALLERGIES intravenous antibiotic therapy will be utilized with daptomycin and attempts to have rapid improvement of her cellulitis. We'll then have to determine the outpatient course if she has improvement. As noted she has leukocytosis and this will be monitored. No evidence of renal failure. There is an outpatient culture from over 1 year ago that reveals evidence of MSSA. However with her penicillin and cephalosporin ALLERGY daptomycin is chosen. Patient will be monitored and expect with the current interventions that there will be somewhat rapid improvement. 05/02/2017 reveals the patient to have a significant improvement within the last days time. Excellent response to elevation, Silvadene and local wrap as well as antibiotic therapy. The patient is pleased with her improvement. As she improves we'll have to consider the options for antibiotic therapy at discharge. Current Visit: Yes Status: Acute Code(s): L03.115 - CELLULITIS OF RIGHT LOWER LIMB SNOMED Code(s): 522590794 (2) Systolic CHF, acute on chronic Current Visit: No Status: Acute Code(s): I50.23 - ACUTE ON CHRONIC SYSTOLIC (CONGESTIVE) HEART FAILURE SNOMED Code(s): 112910582 (3) Leukocytosis Current Visit: Yes Status: Acute Code(s): D72.829 - ELEVATED WHITE BLOOD CELL COUNT, UNSPECIFIED SNOMED Code(s): 880956719
[2017-05-02] MEDS: INSULIN DETEMIR 100 UNIT/ML 10 ML VIAL SQ SCH (23:05)
[2017-05-03 00:06] LABS: Glucose,Whole Blood 179 mg/dL (75-99)
[2017-05-03] MEDS: HYDROcodone/APAP 10-325MG 1 EACH TAB PO PRN ×2 (06:29→16:14)
[2017-05-03] MEDS: LEVOTHYROXINE 50 MCG TAB PO SCH (06:29)
[2017-05-03] MEDS: SODIUM CHLORIDE 0.9% 1,000 ML IV SCH (06:33)
[2017-05-03 07:42] LABS: Glucose,Whole Blood 76 mg/dL (75-99)
[2017-05-03] MEDS: INSULIN ASPART 100 UNIT/ML 1 ML 10 ML VIAL SQ SCH ×4 (07:42→21:00)
[2017-05-03] MEDS: APIXABAN 2.5 MG TABLET PO SCH ×2 (08:02→20:19)
[2017-05-03] MEDS: DOCUSATE 100 MG CAP PO SCH ×2 (08:02→20:19)
[2017-05-03] MEDS: AMIODARONE 100 MG TAB PO SCH (08:02)
[2017-05-03] MEDS: metFORMIN 500 MG TAB PO SCH (08:02)
[2017-05-03] MEDS: ASPIRIN 81 MG PO SCH (08:02)
[2017-05-03] MEDS: FAMOTIDINE 20 MG TAB PO SCH (08:03)
[2017-05-03] MEDS: ISOSORBIDE MONONITRATE ER 30 MG TAB.ER.24H PO SCH (08:03)
[2017-05-03] MEDS: guaiFENesin 600 MG TABLET.ER PO SCH ×2 (08:03→20:19)
[2017-05-03] MEDS: METOPROLOL TARTRATE 50 MG TAB PO SCH ×2 (08:03→20:19)
[2017-05-03] MEDS: BUDESONIDE 0.5 MG/2 ML NEBU INHALATION SCH ×2 (08:16→20:46)
[2017-05-03] MEDS: IPRATROPIUM-ALBUTEROL 3 ML NEB INHALATION SCH ×4 (08:16→20:46)
[2017-05-03 09:26] LABS: Basophils % (A) 0 %; Eosinophils # (A) 0.4 k/uL (0-0.7); Eosinophils % (A) 3 %; HCT 35.5 % (34.0-46.0); HGB 10.8 gm/dL (11.4-16.0); Hypochromasia Slight; Lymphocytes # (A) 1.7 k/uL (1.0-4.8); Lymphocytes % (A) 13 %; MCH 28.6 pg (25.0-35.0); MCHC 30.3 g/dL (31.0-37.0); MCV 94.3 fL (80.0-100.0); Mean Platelet Volume 7.9; Monocytes # (A) 0.8 k/uL (0-1.0); Monocytes % (A) 7 %; Neutrophils # (A) 9.7 k/uL (1.3-7.7); Neutrophils % (A) 76 %; Platelet Count 298 k/uL (150-450); RBC 3.76 m/uL (3.80-5.40); RDW 13.2 % (11.5-15.5); WBC 12.7 k/uL (3.8-10.6)
[2017-05-03 09:41] LABS: ALT 26 U/L (9-52); AST 17 U/L (14-36); Albumin 2.9 g/dL (3.5-5.0); Alkaline Phosphatase 78 U/L (38-126); Anion Gap 6 mmol/L; Blood Urea Nitrogen 23 mg/dL (7-17); Calcium 8.8 mg/dL (8.4-10.2); Carbon Dioxide 36 mmol/L (22-30); Chloride 99 mmol/L (98-107); Glucose 144 mg/dL (74-99); Potassium 4.3 mmol/L (3.5-5.1); Sodium 141 mmol/L (137-145); Total Bilirubin 0.5 mg/dL (0.2-1.3); Total Protein 5.2 g/dL (6.3-8.2)
[2017-05-03] MEDS: FUROSEMIDE 20 MG TAB PO SCH (12:26)
[2017-05-03] MEDS: SPIRONOLACTONE 25 MG TAB PO SCH (12:27)
[2017-05-03] MEDS: LOSARTAN-HCTZ 50-12.5 MG 1 EACH TAB PO SCH (12:27)
[2017-05-03 12:33] LABS: Glucose,Whole Blood 226 mg/dL (75-99)
--- NOTE | 2017-05-03 13:59 | P.PN ---
Subjective Progress Note Date: 05/03/17 Principal diagnosis: Pain and swelling to the right leg 76-year-old female presents to Hospital for further evaluation of ongoing swelling tenderness and drainage to the right lower extremity. The patient relates known history of chronic venous stasis and does utilize compression garments. She over developed significant pain and swelling to the right leg. Despite outpatient therapy she had no improvement. She was having some difficulty with exacerbation of underlying COPD. She was treated with a azithromycin. Despite that she has had some ongoing symptoms and does not feel well. She has minimal shortness of breath and cough she has some wheezing and not much sputum production. She however does have the significant discomfort swelling ulceration drainage the right lower extremity. She is denying high- grade fever chills rigors or sweats but does feel poorly overall. She has many drug ALLERGIES which makes it challenging for her antibiotic therapy. 05/02/2017 reveals the patient to have further improvement. The swelling to the leg is improved. The pain is much improved. She is quite pleased that she' s had such a rapid improvement in such a short period of time. 05/03/2017 with the patient having further improvement. Her pain and discomfort improved. Swelling and erythema have improved. She is not back to baseline but is definitely feeling better. She is eating well without nausea or emesis. Does not believe she's had any further fever or chills. Objective - Vital Signs Vital signs: Vital Signs Temp 97.4 F L 05/03/17 07:00 Pulse 88 05/03/17 12:28 Resp 18 05/03/17 07:00 BP 143/79 05/03/17 07:00 Pulse Ox 94 L 05/03/17 07:00 Intake & Output 05/02/17 05/03/17 05/03/17 17:59 06:59 18:59 Intake Total 240 Balance 240 Intake: Oral 240 Other: Voiding Method # Voids # Bowel Movements - Exam 76-year-old woman who is more comfortable at admission. HEENT: Anicteric conjunctiva are pink and moist nasal mucosa grossly intact without significant lesions, there is no thrush. Neck: The neck is supple without significant lymphadenopathy or thyromegaly. Lungs: Good bilateral air entry without significant crackles or wheezing. There is no significant bronchial sounds. There is no egophony or dullness. Heart: Regular rate and rhythm with an audible S1-S2, no S3 no S4. There is no significant murmur click or rub, PMI was nondisplaced. Abdomen: Positive bowel sounds soft and nontender without palpable masses or organomegaly. There was no guarding or rebound. Extremities: The upper extremities without open lesions. IV sites intact. Left lower extremity without new open ulcerations. Her lower extremity has evidence of the swelling, the right lower extremity reveals further improvement in the last 24 hours in that there is decreased edema, increased erythema, decreased tenderness. Blister is noted. No yazmin drainage at the moment. Pulses diminished but palpable. Neuro: Awake alert oriented to person place and time. There are no acute new gross focal sensory motor deficits. - Labs CBC & Chem 7: 05/03/17 09:13 05/03/17 09:13 Labs: Abnormal Lab Results - Last 24 Hours (Table) 05/02/17 05/02/17 05/03/17 Range/Units 17:34 21:36 00:05 WBC (3.8-10.6) k/uL RBC (3.80-5.40) m/uL Hgb (11.4-16.0) gm/dL MCHC (31.0-37.0) g/dL Neutrophils # (1.3-7.7) k/uL Carbon Dioxide (22-30) mmol/L BUN (7-17) mg/dL Glucose (74-99) mg/dL POC Glucose (mg/dL) 195 H 180 H 179 H (75-99) mg/dL Total Protein (6.3-8.2) g/dL Albumin (3.5-5.0) g/dL 05/03/17 05/03/17 05/03/17 Range/Units 09:13 09:13 12:23 WBC 12.7 H (3.8-10.6) k/uL RBC 3.76 L (3.80-5.40) m/uL Hgb 10.8 L (11.4-16.0) gm/dL MCHC 30.3 L (31.0-37.0) g/dL Neutrophils # 9.7 H (1.3-7.7) k/uL Carbon Dioxide 36 H (22-30) mmol/L BUN 23 H (7-17) mg/dL Glucose 144 H (74-99) mg/dL POC Glucose (mg/dL) 226 H (75-99) mg/dL Total Protein 5.2 L (6.3-8.2) g/dL Albumin 2.9 L (3.5-5.0) g/dL Microbiology - Last 24 Hours (Table) 05/01/17 16:15 Blood Culture - Preliminary Blood No Growth after 24 hours Assessment and Plan (1) Cellulitis of right leg Narrative/Plan: 76-year-old female who has a history of many medical troubles that includes her lower extremity chronic edema but is developed the significant swelling and edema to the right leg with intense erythema pain and tenderness. If this time the plan will be elevation of the right lower extremity. Local wound care with Silvadene in the wrap is applied because the duplex is negative for deep venous thrombosis. Given her ALLERGIES intravenous antibiotic therapy will be utilized with daptomycin and attempts to have rapid improvement of her cellulitis. We'll then have to determine the outpatient course if she has improvement. As noted she has leukocytosis and this will be monitored. No evidence of renal failure. There is an outpatient culture from over 1 year ago that reveals evidence of MSSA. However with her penicillin and cephalosporin ALLERGY daptomycin is chosen. Patient will be monitored and expect with the current interventions that there will be somewhat rapid improvement. 05/02/2017 reveals the patient to have a significant improvement within the last days time. Excellent response to elevation, Silvadene and local wrap as well as antibiotic therapy. The patient is pleased with her improvement. As she improves we'll have to consider the options for antibiotic therapy at discharge. 05/03/2017 patient with further improvement over the last day. With elevation wrap and antibiotic therapy she is much more comfortable. Still has some tenderness in the pretibial area in the posterior aspect of the calf. Suggest at this time another 24 hours of elevation wrap and intravenous antibiotic therapy initiated being transitioned to oral antibiotic therapy at that time to complete her course of therapy. She understands the importance of protein intake, multivitamin and elevation at home to continue to allow improvement. Current Visit: Yes Status: Acute Code(s): L03.115 - CELLULITIS OF RIGHT LOWER LIMB SNOMED Code(s): 099758150 (2) Systolic CHF, acute on chronic Current Visit: No Status: Acute Code(s): I50.23 - ACUTE ON CHRONIC SYSTOLIC (CONGESTIVE) HEART FAILURE SNOMED Code(s): 733995381 (3) Leukocytosis Current Visit: Yes Status: Acute Code(s): D72.829 - ELEVATED WHITE BLOOD CELL COUNT, UNSPECIFIED SNOMED Code(s): 035904248
--- NOTE | 2017-05-03 15:15 | P.PN ---
Subjective Progress Note Date: 05/03/17 This is a 76-year-old female with a known past medical history of atrial fibrillation, hypertension, hypothyroidism, diabetes mellitus type 2, chronic respiratory failure home O2 dependent and congestive heart failure. Patient had been treated outpatient recently for about 10 days for an acute bronchitis. She had been on azithromycin. 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 I then developed pain and swelling of the area over the last few days. Also starting to develop a blister. Patient has multiple antibiotic ALLERGIES. She denies any fever, chills, sweats , chest pain or shortness of breath. Denies any nausea or vomiting, bowel movement changes or urinary symptoms. Venous Doppler of that right leg has been ordered to rule out DVT. We'll x-ray the right leg tibia and fibula to rule out fracture. Resume her [place] and home medications. Infectious disease has been consulted for antibiotic recommendations. On 05/02/2017 patient is alert and oriented 3 she is complaining of cough and chest congestion she is complaining of back and right lower extremity pain otherwise no complaints. 05/03/2017 patient is feeling better swelling and erythema in her leg has improved white blood count is down to 12.7 Objective - Vital Signs Vital signs: Vital Signs Temp 97.4 F L 05/03/17 07:00 Pulse 88 05/03/17 12:28 Resp 18 05/03/17 07:00 BP 143/79 05/03/17 07:00 Pulse Ox 94 L 05/03/17 07:00 Intake & Output 05/02/17 05/03/17 05/03/17 17:59 06:59 18:59 Intake Total 240 Balance 240 Intake: Oral 240 Other: Voiding Method # Voids # Bowel Movements - Exam In general patient is alert and oriented 3 HEENT head normocephalic and atraumatic Neck is supple no JVD no goiter no lymphadenopathy Chest exam reveals a few scattered rhonchi no wheezing Cardiac exam reveals regular heart sounds no gallops no murmurs Abdomen is soft nontender no organomegaly Extremity exam reveals minimal edema right lower extremity is wrapped was gauze wrap and [place] wrap - Labs CBC & Chem 7: 05/03/17 09:13 05/03/17 09:13 Labs: Abnormal Lab Results - Last 24 Hours (Table) 0305/02/17 05/03/17 Range/Units 17:34 21:36 00:05 WBC (3.8-10.6) k/uL RBC (3.80-5.40) m/uL Hgb (11.4-16.0) gm/dL MCHC (31.0-37.0) g/dL Neutrophils # (1.3-7.7) k/uL Carbon Dioxide (22-30) mmol/L BUN (7-17) mg/dL Glucose (74-99) mg/dL POC Glucose (mg/dL) 195 H 180 H 179 H (75-99) mg/dL Total Protein (6.3-8.2) g/dL Albumin (3.5-5.0) g/dL 05/03/17 05/03/17 05/03/17 Range/Units 09:13 09:13 12:23 WBC 12.7 H (3.8-10.6) k/uL RBC 3.76 L (3.80-5.40) m/uL Hgb 10.8 L (11.4-16.0) gm/dL MCHC 30.3 L (31.0-37.0) g/dL Neutrophils # 9.7 H (1.3-7.7) k/uL Carbon Dioxide 36 H (22-30) mmol/L BUN 23 H (7-17) mg/dL Glucose 144 H (74-99) mg/dL POC Glucose (mg/dL) 226 H (75-99) mg/dL Total Protein 5.2 L (6.3-8.2) g/dL Albumin 2.9 L (3.5-5.0) g/dL Microbiology - Last 24 Hours (Table) 05/01/17 16:15 Blood Culture - Preliminary Blood No Growth after 24 hours Assessment and Plan Plan: #1 right lower extremity cellulitis patient was seen by Dr. Jorge and was started on IV daptomycin #2 acute bronchitis, will add Mucinex, continue DuoNeb updraft treatment, will check chest x-ray #3 underlying history of diabetes mellitus, A1c is 8.2 #4 dehydration was prerenal azotemia on presentation BUN was elevated to 28, it' s down to 20 today #5 hypothyroidism maintained on Synthroid #6 paroxysmal atrial fibrillation maintained on Eliquis and amiodarone #7 hypertension well-controlled on current medications #8 underlying history of COPD Today patient was seen and examined reviewed labs and infectious disease input, Will recheck labs and will follow in a.m. Possible discharge to home tomorrow
[2017-05-03 17:47] LABS: Glucose,Whole Blood 111 mg/dL (75-99)
[2017-05-03] MEDS: MONTELUKAST 10 MG TAB PO SCH (20:19)
[2017-05-03] MEDS: ATORVASTATIN 40 MG TAB PO SCH (20:19)
[2017-05-03] MEDS: LATANOPROST 0.005% OPHTH DROPS 2.5 ML BTL RIGHT EYE SCH (20:19)
[2017-05-03] MEDS: DAPTOmycin 500 MG in SODIUM CHLORIDE 0.9% 50 ML IV SCH (20:19)
[2017-05-03 20:42] LABS: Glucose,Whole Blood 156 mg/dL (75-99)
[2017-05-03] MEDS: INSULIN DETEMIR 100 UNIT/ML 10 ML VIAL SQ SCH (21:00)
[2017-05-04] MEDS: SODIUM CHLORIDE 0.9% 1,000 ML IV SCH (01:51)
[2017-05-04] MEDS: HYDROcodone/APAP 10-325MG 1 EACH TAB PO PRN ×2 (01:51→11:22)
[2017-05-04] MEDS: LEVOTHYROXINE 50 MCG TAB PO SCH (06:29)
[2017-05-04 06:37] VITALS: TEMP 97.2
[2017-05-04] MEDS: IPRATROPIUM-ALBUTEROL 3 ML NEB INHALATION SCH ×3 (06:58→15:44)
[2017-05-04] MEDS: BUDESONIDE 0.5 MG/2 ML NEBU INHALATION SCH (06:58)
[2017-05-04 07:57] LABS: Glucose,Whole Blood 81 mg/dL (75-99)
[2017-05-04] MEDS: INSULIN ASPART 100 UNIT/ML 1 ML 10 ML VIAL SQ SCH ×2 (08:49→11:21)
[2017-05-04] MEDS: metFORMIN 500 MG TAB PO SCH (08:50)
[2017-05-04] MEDS: DOCUSATE 100 MG CAP PO SCH (08:50)
[2017-05-04] MEDS: FAMOTIDINE 20 MG TAB PO SCH (08:50)
[2017-05-04] MEDS: ASPIRIN 81 MG PO SCH (08:50)
[2017-05-04] MEDS: AMIODARONE 100 MG TAB PO SCH (08:51)
[2017-05-04] MEDS: guaiFENesin 600 MG TABLET.ER PO SCH (08:51)
[2017-05-04] MEDS: METOPROLOL TARTRATE 50 MG TAB PO SCH (08:51)
[2017-05-04] MEDS: APIXABAN 2.5 MG TABLET PO SCH (08:51)
[2017-05-04] MEDS: ISOSORBIDE MONONITRATE ER 30 MG TAB.ER.24H PO SCH (08:51)
[2017-05-04 09:51] LABS: Basophils # (A) 0.1 k/uL (0-0.2); Basophils % (A) 0 %; Eosinophils # (A) 0.4 k/uL (0-0.7); Eosinophils % (A) 4 %; HCT 36.4 % (34.0-46.0); HGB 11.4 gm/dL (11.4-16.0); Lymphocytes % (A) 17 %; MCH 29.1 pg (25.0-35.0); MCHC 31.3 g/dL (31.0-37.0); MCV 92.9 fL (80.0-100.0); Monocytes # (A) 0.7 k/uL (0-1.0); Monocytes % (A) 7 %; Neutrophils # (A) 8.2 k/uL (1.3-7.7); Neutrophils % (A) 71 %; Platelet Count 315 k/uL (150-450); RBC 3.92 m/uL (3.80-5.40); RDW 13.2 % (11.5-15.5); WBC 11.5 k/uL (3.8-10.6)
[2017-05-04 10:01] LABS: ALT 24 U/L (9-52); AST 20 U/L (14-36); Albumin 2.9 g/dL (3.5-5.0); Alkaline Phosphatase 80 U/L (38-126); Anion Gap 5 mmol/L; Blood Urea Nitrogen 20 mg/dL (7-17); Carbon Dioxide 36 mmol/L (22-30); Chloride 98 mmol/L (98-107); Glucose 186 mg/dL (74-99); Potassium 4.5 mmol/L (3.5-5.1); Sodium 139 mmol/L (137-145); Total Bilirubin 0.5 mg/dL (0.2-1.3); Total Protein 5.3 g/dL (6.3-8.2)
[2017-05-04 11:18] LABS: Glucose,Whole Blood 137 mg/dL (75-99)
[2017-05-04] MEDS: FUROSEMIDE 20 MG TAB PO SCH (11:21)
[2017-05-04] MEDS: SPIRONOLACTONE 25 MG TAB PO SCH (11:22)
[2017-05-04] MEDS: LOSARTAN-HCTZ 50-12.5 MG 1 EACH TAB PO SCH (11:22)
--- NOTE | 2017-05-04 14:57 | P.DS ---
Providers Date of admission: 05/01/17 10:56 Expected date of discharge: 05/04/17 Attending physician: Farzana Levine Consults: 05/01/17 14:20 Consult Physician Routine Consulting Provider: Pawel Jorge Consult Reason/Comments: right leg cellulitis Do you want consulting provider notified?: Yes Primary care physician: Farzana [facility] Hospital Course: Discharge diagnosis #1 right lower extremity cellulitis patient was seen by Dr. Jorge. Her leg is improving. Dr. Jorge is recommending Bactrim at time of discharge #2 acute bronchitis, will add Mucinex, continue DuoNeb updraft treatment, #3 underlying history of diabetes mellitus, A1c is 8.2 #4 dehydration was prerenal azotemia on presentation BUN was elevated to 28, it' s down to 20 today #5 hypothyroidism maintained on Synthroid #6 paroxysmal atrial fibrillation maintained on Eliquis and amiodarone #7 hypertension well-controlled on current medications #8 underlying history of COPD Hospital course This is a 76-year-old female with a known past medical history of atrial fibrillation, hypertension, hypothyroidism, diabetes mellitus type 2, chronic respiratory failure home O2 dependent and congestive heart failure. Patient had been treated outpatient recently for about 10 days for an acute bronchitis. She had been on azithromycin. Patient reports she went to see her maintenance person and had bumped her right leg. I then developed pain and swelling of the area over the last few days. Also starting to develop a blister. Patient has multiple antibiotic ALLERGIES. She denies any fever, chills, sweats , chest pain or shortness of breath. Denies any nausea or vomiting, bowel movement changes or urinary symptoms. Venous Doppler of that right leg has been ordered to rule out DVT. We'll x-ray the right leg tibia and fibula to rule out fracture. Resume her [place] and home medications. Infectious disease has been consulted for antibiotic recommendations. Patient was seen by infectious disease. She was placed on IV daptomycin. She is remained afebrile. White count has trended down. White count at discharge is 11.5. Blood culture remains negative. Venous Doppler was negative for DVT and x-ray of the right tibia fibula reports correlate for cellulitis and indeterminate fluid collection. Venous Doppler shows no evidence of DVT of the right leg indeterminate fluid collection could represent a seroma, hematoma or correlate for possible infection. Again patient seen by infectious disease. The recommending Bactrim at time of discharge for 5 more days. Patient's symptoms have improved. Patient will follow up with Dr. Levine in 1 week I performed an examination of the patient and discussed their management with the physician Cob Sawyer. I have reviewed the Physician Cob Sawyer's notes and agree with the documented findings and plan of care Patient Condition at Discharge: Stable Plan - Discharge Summary Discharge Rx Participant: No New Discharge Prescriptions: New Sulfamethox-Tmp 400-80Mg [Bactrim SS 400-80 mg] 1 tab PO Q12HR #10 tablet Amiodarone [Cordarone] 100 mg PO DAILY tab Continue Montelukast [Singulair] 10 mg PO HS Isosorbide Mononitrate ER [Imdur] 30 mg PO DAILY metFORMIN HCL 1,000 mg PO DAILY Atorvastatin [Lipitor] 40 mg PO HS #60 tab Nitroglycerin Sl Tabs [Nitrostat] 0.4 mg SUBLINGUAL Q5M PRN PRN Reason: Chest Pain Apixaban [Eliquis] 2.5 mg PO BID Metoprolol Tartrate [Lopressor] 50 mg PO BID Insulin Glargine [Lantus] 44 unit SQ HS Ipratropium-Albuterol Nebulize [Duoneb 0.5 mg-3 mg/3 ml Soln] 3 ml INHALATION RT-QID Aspirin EC [Ecotrin Low Dose] 81 mg PO DAILY Budesonide [Pulmicort] 0.5 mg INHALATION RT-BID Latanoprost Ophth [Xalatan 0.005%] 1 drop RIGHT EYE HS INSULIN LISPRO (HumaLOG) [humaLOG] 3 - 8 units SQ AC-TID Ergocalciferol [Vitamin D2 (DRISDOL)] 50,000 unit PO TU Spironolactone [Aldactone] 12.5 mg PO DAILY@1200 Levothyroxine Sodium [Synthroid] 50 mcg PO DAILY Furosemide [Lasix] 20 mg PO DAILY@1200 Losartan-Hctz 50-12.5 mg [Hyzaar 50-12.5] 1 tab PO DAILY@1200 Discontinued Amiodarone [Cordarone] 200 mg PO DAILY Discharge Medication List Isosorbide Mononitrate ER [Imdur] 30 mg PO DAILY 04/24/14 [History] Montelukast [Singulair] 10 mg PO HS 03/02/15 [History] metFORMIN HCL 1,000 mg PO DAILY 04/29/14 [History] Atorvastatin [Lipitor] 40 mg PO HS #60 tab 05/01/14 [Rx] Apixaban [Eliquis] 2.5 mg PO BID 06/02/14 [History] Nitroglycerin Sl Tabs [Nitrostat] 0.4 mg SUBLINGUAL Q5M PRN 06/02/14 [History] Metoprolol Tartrate [Lopressor] 50 mg PO BID 06/26/14 [History] Aspirin EC [Ecotrin Low Dose] 81 mg PO DAILY 11/18/14 [History] Budesonide [Pulmicort] 0.5 mg INHALATION RT-BID 11/18/14 [History] Insulin Glargine [Lantus] 44 unit SQ HS 11/18/14 [History] Ipratropium-Albuterol Nebulize [Duoneb 0.5 mg-3 mg/3 ml Soln] 3 ml INHALATION RT -QID 11/18/14 [History] Latanoprost Ophth [Xalatan 0.005%] 1 drop RIGHT EYE HS 11/18/14 [History] Ergocalciferol [Vitamin D2 (DRISDOL)] 50,000 unit PO TU 05/01/17 [History] Furosemide [Lasix] 20 mg PO DAILY@1200 05/01/17 [History] INSULIN LISPRO (HumaLOG) [humaLOG] 3 - 8 units SQ AC-TID 05/01/17 [History] Levothyroxine Sodium [Synthroid] 50 mcg PO DAILY 05/01/17 [History] Losartan-Hctz 50-12.5 mg [Hyzaar 50-12.5] 1 tab PO DAILY@1200 05/01/17 [History] Spironolactone [Aldactone] 12.5 mg PO DAILY@1200 05/01/17 [History] Amiodarone [Cordarone] 100 mg PO DAILY tab 05/04/17 [Rx] Sulfamethox-Tmp 400-80Mg [Bactrim SS 400-80 mg] 1 tab PO Q12HR #10 tablet [Rx] Follow up Appointment(s)/Referral(s): Farzana Levine MD [Primary Care Provider] - 1 Week Patient Instructions/Handouts: Cellulitis (DC) Activity/Diet/Wound Care/Special Instructions: Diet: cardiac, diabetic Activity: as tolerated. keep leg elevated Discharge Disposition: HOME SELF-CARE
[2017-05-04 14:58] VITALS: BP 111/60; RESP 18
[2017-05-04 16:00] VITALS: PULSE 88
--- NOTE | 2017-05-04 23:55 | P.PN ---
Subjective Progress Note Date: 05/04/17 Principal diagnosis: Pain and swelling to the right leg 76-year-old female presents to Hospital for further evaluation of ongoing swelling tenderness and drainage to the right lower extremity. The patient relates known history of chronic venous stasis and does utilize compression garments. She over developed significant pain and swelling to the right leg. Despite outpatient therapy she had no improvement. She was having some difficulty with exacerbation of underlying COPD. She was treated with a azithromycin. Despite that she has had some ongoing symptoms and does not feel well. She has minimal shortness of breath and cough she has some wheezing and not much sputum production. She however does have the significant discomfort swelling ulceration drainage the right lower extremity. She is denying high- grade fever chills rigors or sweats but does feel poorly overall. She has many drug ALLERGIES which makes it challenging for her antibiotic therapy. 05/02/2017 reveals the patient to have further improvement. The swelling to the leg is improved. The pain is much improved. She is quite pleased that she' s had such a rapid improvement in such a short period of time. 05/03/2017 with the patient having further improvement. Her pain and discomfort improved. Swelling and erythema have improved. She is not back to baseline but is definitely feeling better. She is eating well without nausea or emesis. Does not believe she's had any further fever or chills. 05/04/2017 reveals a patient with much further improvement. Feeling quite well. Looks for to going home. Pain fever chills all resolved. Objective - Vital Signs Vital signs: Vital Signs Temp 97.2 F L 05/04/17 14:58 Pulse 88 05/04/17 15:59 Resp 18 05/04/17 14:58 BP 111/60 05/04/17 14:58 Pulse Ox 93 L 05/04/17 14:58 Intake & Output 05/04/17 05/04/17 05/05/17 06:59 18:59 06:59 Intake Total 480 Balance 480 Intake: Oral 480 Other: # Voids 3 4 - Exam 76-year-old woman who is more comfortable at admission. HEENT: Anicteric conjunctiva are pink and moist nasal mucosa grossly intact without significant lesions, there is no thrush. Neck: The neck is supple without significant lymphadenopathy or thyromegaly. Lungs: Good bilateral air entry without significant crackles or wheezing. There is no significant bronchial sounds. There is no egophony or dullness. Heart: Regular rate and rhythm with an audible S1-S2, no S3 no S4. There is no significant murmur click or rub, PMI was nondisplaced. Abdomen: Positive bowel sounds soft and nontender without palpable masses or organomegaly. There was no guarding or rebound. Extremities: The upper extremities without open lesions. IV sites intact. Left lower extremity without new open ulcerations. Her lower extremity has evidence of the swelling, the right lower extremity reveals further improvement in the last 24 hours in that there is decreased edema, improved erythema, decreased tenderness. Blister is resolved. No yazmin drainage at the moment. Pulses diminished but palpable. Neuro: Awake alert oriented to person place and time. There are no acute new gross focal sensory motor deficits. - Labs CBC & Chem 7: 05/04/17 09:02 05/04/17 09:02 Labs: Abnormal Lab Results - Last 24 Hours (Table) 05/04/17 05/04/17 05/04/17 Range/Units 09: 09:02 11:16 WBC 11.5 H (3.8-10.6) k/uL Neutrophils # 8.2 H (1.3-7.7) k/uL Carbon Dioxide 36 H (22-30) mmol/L BUN 20 H (7-17) mg/dL Glucose 186 H (74-99) mg/dL POC Glucose (mg/dL) 137 H (75-99) mg/dL Total Protein 5.3 L (6.3-8.2) g/dL Albumin 2.9 L (3.5-5.0) g/dL Microbiology - Last 24 Hours (Table) 05/01/17 16:15 Blood Culture - Preliminary Blood No Growth after 72 hours Laboratory Results WBC 11.5 k/uL (3.8-10.6) H 05/04/17 09:02 RBC 3.92 m/uL (3.80-5.40) 05/04/17 09:02 Hgb 11.4 gm/dL (11.4-16.0) 05/04/17 09:02 Hct 36.4 % (34.0-46.0) 05/04/17 09:02 MCV 92.9 fL (80.0-100.0) 05/04/17 09:02 MCH 29.1 pg (25.0-35.0) 05/04/17 09:02 MCHC 31.3 g/dL (31.0-37.0) 05/04/17 09:02 RDW 13.2 % (11.5-15.5) 05/04/17 09:02 Plt Count 315 k/uL (150-450) 05/04/17 09: Neutrophils % 71 % 05/04/17 09:02 Lymphocytes % 17 % 05/04/17 09:02 Monocytes % 7 % 05/04/17 09:02 Eosinophils % 4 % 05/04/17 09: Basophils % 0 % 05/04/17 09:02 Neutrophils # 8.2 k/uL (1.3-7.7) H 05/04/17 09:02 Lymphocytes # 2.0 k/uL (1.0-4.8) 05/04/17 09:02 Monocytes # 0.7 k/uL (0-1.0) 05/04/17 09: Eosinophils # 0.4 k/uL (0-0.7) 05/04/17 09: Basophils # 0.1 k/uL (0-0.2) 05/04/17 09:02 Hypochromasia Slight 05/03/17 09:13 Sodium 139 mmol/L (137-145) 05/04/17 09:02 Potassium 4.5 mmol/L (3.5-5.1) 05/04/17 09: Chloride 98 mmol/L (98-107) 05/04/17 09:02 Carbon Dioxide 36 mmol/L (22-30) H 05/04/17 09:02 Anion Gap 5 mmol/L 05/04/17 09:02 BUN 20 mg/dL (7-17) H 05/04/17 09:02 Creatinine 0.68 mg/dL (0.52-1.04) 05/04/17 09:02 Est GFR (CKD-EPI)AfAm >90 (>60 ml/min/1.73 sqM) 05/04/17: Est GFR (CKD-EPI)NonAf 86 (>60 ml/min/1.73 sqM) 05/04/17 09: Glucose 186 mg/dL (74-99) H 05/04/17 09:02 POC Glucose (mg/dL) 137 mg/dL (75-99) H 05/04/17 11:16 POC Glu [employer] Debbi Morales 05/04/17 11:[address] Glu mg/dL 189 05/01/17 16:15 Hemoglobin A1c 8.2 % (4.0-6.0) H 05/01/17 16:15 Calcium 9.0 mg/dL (8.4-10.2) 05/04/17 09:02 Total Bilirubin 0.5 mg/dL (0.2-1.3) 05/04/17 09:02 AST 20 U/L (14-36) 05/04/17 09:02 ALT 24 U/L (9-52) 05/04/17 09:02 Alkaline Phosphatase 80 U/L (38-126) 05/04/17 09:02 Total Protein 5.3 g/dL (6.3-8.2) L 05/04/17 09:02 Albumin 2.9 g/dL (3.5-5.0) L 05/04/17 09:02 Assessment and Plan (1) Cellulitis of right leg Narrative/Plan: 76-year-old female who has a history of many medical troubles that includes her lower extremity chronic edema but is developed the significant swelling and edema to the right leg with intense erythema pain and tenderness. If this time the plan will be elevation of the right lower extremity. Local wound care with Silvadene in the wrap is applied because the duplex is negative for deep venous thrombosis. Given her ALLERGIES intravenous antibiotic therapy will be utilized with daptomycin and attempts to have rapid improvement of her cellulitis. We'll then have to determine the outpatient course if she has improvement. As noted she has leukocytosis and this will be monitored. No evidence of renal failure. There is an outpatient culture from over 1 year ago that reveals evidence of MSSA. However with her penicillin and cephalosporin ALLERGY daptomycin is chosen. Patient will be monitored and expect with the current interventions that there will be somewhat rapid improvement. 05/02/2017 reveals the patient to have a significant improvement within the last days time. Excellent response to elevation, Silvadene and local wrap as well as antibiotic therapy. The patient is pleased with her improvement. As she improves we'll have to consider the options for antibiotic therapy at discharge. 05/03/2017 patient with further improvement over the last day. With elevation wrap and antibiotic therapy she is much more comfortable. Still has some tenderness in the pretibial area in the posterior aspect of the calf. Suggest at this time another 24 hours of elevation wrap and intravenous antibiotic therapy initiated being transitioned to oral antibiotic therapy at that time to complete her course of therapy. She understands the importance of protein intake, multivitamin and elevation at home to continue to allow improvement. 05/04/2017 the patient is now much improved. She ready for discharge to home. Outpatient oral antibiotic therapy is sent to pharmacy with trimethoprim sulfamethoxazole single strength one twice per day 5 days to complete a course of therapy. She can follow in the office if there is no further improvement. Status: Acute Code(s): L03.115 - CELLULITIS OF RIGHT LOWER LIMB SNOMED Code( s): 892091484 (2) Systolic CHF, acute on chronic Status: Acute Code(s): I50.23 - ACUTE ON CHRONIC SYSTOLIC (CONGESTIVE) HEART FAILURE SNOMED Code(s): 916085646 (3) Leukocytosis Status: Acute Code(s): D72.829 - ELEVATED WHITE BLOOD CELL COUNT, UNSPECIFIED SNOMED Code(s): 038501697
[2017-05-05] MEDS ORDERED: ERGOCALCIFEROL 50,000 UNIT CAP PO SCH (12:00)
--- NOTE | 2017-05-06 11:14 | CDI ---
Documentation Clarification Form Date: 05/07/2017 12:00:00 AM From: Kristin Zacarias Phone: If you have question, contact Tatum Cabelloseamusmiriam, Leadership Development Manager at [phone] Admit Date: 05/01/2017 10:56:00 AM Patient Name: Maryam Rhodes Visit Number: [id number] Discharge Date: 05/04/17 ATTENTION: The Clinical Documentation Specialists (CDI) and [facility] Coding Staff appreciate your assistance in clarifying documentation. Please respond to the clarification below the line at the bottom and electronically sign. The CDI & [facility] Coding staff will review the response and follow-up if needed. Please note: Queries are made part of the Legal Health Record. If you have any questions, please contact the author of this message via ITS. Dr. Farzana Levine Conflicting documentation has been found in the medical record. On the H&P, dated 05/01, it is documented "history of chronic systolic and diastolic congestive heart failure. Resume Lasix. No evidence of exacerbation." In the progress notes, starting 05/02, it is documented "systolic CHF, acute on chronic". The type and acuity of this patient's CHF isn't clarified on the discharge summary. Further clarification regarding the type and acuity of CHF is needed for proper reporting purposes. In your opinion what is the most clinically appropriate diagnosis for this patient? *acute on chronic systolic CHF *chronic systolic CHF *acute on chronic diastolic CHF *chronic diastolic CHF *acute on chronic systolic and diastolic CHF *chronic systolic and diastolic CHF *Other explanation of clinical findings *Unable to determine (no explanation for clinical findings) Thank you for your time. MTDD
--- NOTE | 2017-05-13 07:46 | CDI ---
Documentation Clarification Form Date: 05/07/2017 12:00:00 AM From: Kristin Zacarias Phone: If you have question, contact Tatum Cabelloseamusmiriam, Voice Systems Engineer at Admit Date: 05/01/2017 10:56:00 AM Patient Name: Maryam Rhodes Visit Number: [id number] Discharge Date: 05/04/17 ATTENTION: The Clinical Documentation Specialists (CDI) and [facility] Coding Staff appreciate your assistance in clarifying documentation. Please respond to the clarification below the line at the bottom and electronically sign. The CDI & [facility] Coding staff will review the response and follow-up if needed. Please note: Queries are made part of the Legal Health Record. If you have any questions, please contact the author of this message via ITS. Dr. Farzana Levine Conflicting documentation has been found in the medical record. On the H&P, dated 05/01, it is documented "history of chronic systolic and diastolic congestive heart failure. Resume Lasix. No evidence of exacerbation." In the progress notes, starting 05/02, it is documented "systolic CHF, acute on chronic". The type and acuity of this patient's CHF isn't clarified on the discharge summary. Further clarification regarding the type and acuity of CHF is needed for proper reporting purposes. In your opinion what is the most clinically appropriate diagnosis for this patient? *acute on chronic systolic CHF *chronic systolic CHF *acute on chronic diastolic CHF *chronic diastolic CHF *acute on chronic systolic and diastolic CHF *chronic systolic and diastolic CHF *Other explanation of clinical findings *Unable to determine (no explanation for clinical findings) Thank you for your time. MTDD
== END 2017-05-04 16:48 | disposition home or self-care (01) | DRG 603 ==
LOC: 4MS4W 10:56
PROVIDERS: ADMIT Internal Medicine; ATTEND Internal Medicine
DX: L03.115 Cellulitis of right lower limb (principal); J96.10 Chronic respiratory failure, unspecified whether with hypoxia or hypercapnia; I48.0 Paroxysmal atrial fibrillation; I11.0 Hypertensive heart disease with heart failure; Z99.81 Dependence on supplemental oxygen; I50.22 Chronic systolic (congestive) heart failure; J44.0 Chronic obstructive pulmonary disease with (acute) lower respiratory infection; E86.0 Dehydration; E03.9 Hypothyroidism, unspecified; E11.9 Type 2 diabetes mellitus without complications; J20.9 Acute bronchitis, unspecified; I87.8 Other specified disorders of veins; E78.5 Hyperlipidemia, unspecified; I25.10 Atherosclerotic heart disease of native coronary artery without angina pectoris; H57.9 Unspecified disorder of eye and adnexa; R01.1 Cardiac murmur, unspecified; I25.5 Ischemic cardiomyopathy; Z79.02 Long term (current) use of antithrombotics/antiplatelets; Z79.899 Other long term (current) drug therapy; Z87.891 Personal history of nicotine dependence; Z82.49 Family history of ischemic heart disease and other diseases of the circulatory system; Z80.1 Family history of malignant neoplasm of trachea, bronchus and lung; Z88.1 Allergy status to other antibiotic agents; Z88.0 Allergy status to penicillin; Z86.19 Personal history of other infectious and parasitic diseases; I25.2 Old myocardial infarction; Z98.61 Coronary angioplasty status; Z79.4 Long term (current) use of insulin; Z80.8 Family history of malignant neoplasm of other organs or systems; Z90.710 Acquired absence of both cervix and uterus
CPT/HCPCS: 80053; 83036; 85025; 87040; 94640; 94760

== ENCOUNTER 2017-05-05 10:08 | Inpatient (IN) | payer MEDICARE, BC ==
[2017-05-05 10:50] LABS: Basophils % (A) 0 %; Eosinophils # (A) 0.2 k/uL (0-0.7); Eosinophils % (A) 2 %; HCT 36.6 % (34.0-46.0); HGB 11.4 gm/dL (11.4-16.0); Hypochromasia Slight; Lymphocytes # (A) 1.6 k/uL (1.0-4.8); Lymphocytes % (A) 12 %; MCH 28.9 pg (25.0-35.0); MCHC 31.1 g/dL (31.0-37.0); MCV 92.8 fL (80.0-100.0); Mean Platelet Volume 7.3; Monocytes # (A) 0.7 k/uL (0-1.0); Monocytes % (A) 6 %; Neutrophils # (A) 10.4 k/uL (1.3-7.7); Neutrophils % (A) 80 %; Platelet Count 309 k/uL (150-450); RBC 3.94 m/uL (3.80-5.40); RDW 13.4 % (11.5-15.5); WBC 13.1 k/uL (3.8-10.6)
[2017-05-05 10:59] LABS: ALT 25 U/L (9-52); AST 20 U/L (14-36); Albumin 3.1 g/dL (3.5-5.0); Alkaline Phosphatase 92 U/L (38-126); Anion Gap 7 mmol/L; Blood Urea Nitrogen 25 mg/dL (7-17); Calcium 9.1 mg/dL (8.4-10.2); Carbon Dioxide 33 mmol/L (22-30); Chloride 100 mmol/L (98-107); Glucose 222 mg/dL (74-99); Magnesium 1.6 mg/dL (1.6-2.3); Potassium 4.8 mmol/L (3.5-5.1); Sodium 140 mmol/L (137-145); Total Bilirubin 0.5 mg/dL (0.2-1.3); Total Protein 5.5 g/dL (6.3-8.2)
[2017-05-05 11:00] LABS: Prothrombin Time 9.5 sec (9.0-12.0)
--- NOTE | 2017-05-05 11:05 | ED ---
General Adult HPI - General Chief complaint: Recheck/Abnormal Lab/Rx Stated complaint: defibrillator Time Seen by Provider: 05/05/17 10:25 Source: patient, EMS, RN notes reviewed, old records reviewed Mode of arrival: EMS Limitations: no limitations - History of Present Illness Initial comments: 76-year-old female presents for evaluation of defibrillator discharge. Patient was at home, no specific complaints, she felt a sharp pain in her chest. Patient states that prior to this her pulse oximeter was reading high heart rates in the 130s to 160s. She did not have any palpitations. No chest pain. Patient was recently discharged from the hospital she was admitted with a case of right lower extremity cellulitis. Denies any symptoms at the time of my evaluation. She's had no nausea vomiting or diarrhea. No fever or chills. - Related Data Home Medications Medication Instructions Recorded Confirmed Isosorbide Mononitrate ER [Imdur] 30 mg PO DAILY 04/24/14 05/05/17 Montelukast [Singulair] 10 mg PO HS 04/24/14 05/05/17 metFORMIN HCL 1,000 mg PO DAILY 04/29/14 05/05/17 Apixaban [Eliquis] 2.5 mg PO BID 06/02/14 05/05/17 Nitroglycerin Sl Tabs [Nitrostat] 0.4 mg SUBLINGUAL Q5M PRN 06/02/14 05/05/17 Metoprolol Tartrate [Lopressor] 50 mg PO BID 06/26/14 05/05/17 Aspirin EC [Ecotrin Low Dose] 81 mg PO DAILY 11/18/14 05/05/17 Budesonide [Pulmicort] 0.5 mg INHALATION RT-BID 11/18/14 05/05/17 Insulin Glargine [Lantus] 44 unit SQ 11/18/14 05/05/17 Ipratropium-Albuterol Nebulize 3 ml INHALATION RT-QID 11/18/14 05/05/17 [Duoneb 0.5 mg-3 mg/3 ml Soln] Latanoprost Ophth [Xalatan 0.005%] 1 drop RIGHT EYE 11/18/14 05/05/17 Ergocalciferol [Vitamin D2 50,000 unit PO TU 05/01/17 05/05/17 (DRISDOL)] Furosemide [Lasix] 20 mg PO DAILY@1200 05/01/17 05/05/17 INSULIN LISPRO (HumaLOG) [humaLOG] 3 - 8 units SQ AC-TID 05/01/17 05/05/17 Levothyroxine Sodium [Synthroid] 50 mcg PO DAILY 05/01/17 05/05/17 Losartan-Hctz 50-12.5 mg [Hyzaar 1 tab PO DAILY@1200 05/01/17 05/05/17 50-12.5] Spironolactone [Aldactone] 12.5 mg PO DAILY@1200 05/01/17 05/05/17 Previous Rx's Medication Instructions Recorded Atorvastatin [Lipitor] 40 mg PO HS #60 tab 05/01/14 Amiodarone [Cordarone] 100 mg PO DAILY tab 05/04/17 HYDROcodone/APAP 10-325MG [[place] 1 tab PO Q6H PRN #40 tab 05/04/17 10-325] Sulfamethox-Tmp 400-80Mg [Bactrim 1 tab PO Q12HR #10 tablet 05/04/17 SS 400-80 mg] Allergies Allergy/AdvReac Type Severity Reaction Status Date / Time meperidine HCl [From Demerol] Allergy Severe Anaphylaxis Verified 05/05/17 10:43 cephalexin monohydrate Allergy Rash/Hives Verified 05/05/17 10:43 [From Keflex] erythromycin base Allergy Rapid Verified 05/05/17 10:43 Heart Rate lorazepam [From Ativan] Allergy Dyspnea Verified 05/05/17 10:43 Penicillins Allergy Rash/Hives Verified 05/05/17 10:43 doxycycline calcium AdvReac Nausea & Verified 05/05/17 10:43 [From Vibramycin] Vomiting doxycycline hyclate AdvReac Nausea & Verified 05/05/17 10:43 [From Vibramycin] Vomiting doxycycline monohydrate AdvReac Nausea & Verified 05/05/17 10:43 [From Vibramycin] Vomiting tetracycline AdvReac Nausea & Verified 05/05/17 10:43 Vomiting Review of Systems ROS Statement: Those systems with pertinent positive or pertinent negative responses have been documented in the HPI. ROS Other: All systems not noted in ROS Statement are negative. Past Medical History Past Medical History: Atrial Fibrillation, Asthma, Coronary Artery Disease (CAD) , Heart Failure, COPD, Diabetes Mellitus, Deep Vein Thrombosis (DVT), Eye Disorder, Hyperlipidemia, Hypertension, Myocardial Infarction ([place]) Additional Past Medical History / Comment(s): Chronic respiratory failure with O2 dependence-2L/NC ATC, bronchitis, ischemic cardiomyopathy, murmur, thoracic outlet syndrome, IDDM type II, DVT left leg twice after childbirths, glaucoma R eye, arthritis multiple joints, osteoporosis, pancreatitis once, hypothyroid, past cellulitis R knee and L leg, R eye cataract, varicosities. Last Myocardial Infarction Date:: 1999 History of Any Multi-Drug Resistant Organisms: None Reported Past Surgical History: Adenoidectomy, AICD, Heart Catheterization With Stent, Hernia Repair, Hysterectomy, Tonsillectomy Additional Past Surgical History / Comment(s): 1999 PCI with stents (3), 2014 BiV AICD, L upper rib removed d/t thoracic outlet syndrome, R knee I&D, bilateral carpal tunnel releases, colonoscopy, D&C, bladder suspension, umbilical hernia repair. Past Anesthesia/Blood Transfusion Reactions: No Reported Reaction Additional Past Anesthesia/Blood Transfusion Reaction / Comment(s): Pt has never had a blood transfusion. Date of Last Stent Placement:: 1999 Type of Cardiac Device: AICD Device Placement Date:: 06-27-14 Past Psychological History: No Psychological Hx Reported Smoking Status: Former smoker - Past Family History Brother(s) Family Medical History: Cancer Additional Family Medical History / Comment(s): Pt had 2 brothers with lung cancer. Father Family Medical History: Coronary Artery Disease (CAD), CVA/TIA, Myocardial Infarction ([place]) Additional Family Medical History / Comment(s): fATHER AT 57 YRS OF AGE Mother Family Medical History: Cancer, Dementia Additional Family Medical History / Comment(s): throat cancer General Exam Limitations: no limitations General appearance: alert, in no apparent distress Head exam: Present: atraumatic, normocephalic Eye exam: Present: normal appearance, PERRL, EOMI ENT exam: Present: normal exam Neck exam: Present: normal inspection. Absent: tenderness, meningismus Respiratory exam: Present: normal lung sounds bilaterally. Absent: respiratory distress Cardiovascular Exam: Present: regular rate, normal rhythm GI/Abdominal exam: Present: soft. Absent: distended, tenderness Neurological exam: Present: alert, oriented X3 Psychiatric exam: Present: normal affect, normal mood Skin exam: Present: warm, dry. Absent: cyanosis, diaphoretic Course Vital Signs 05/05/17 05/05/17 05/05/17 10:22 11:18 12:57 Temperature 99 F Pulse Rate 99 90 97 Respiratory 16 16 19 Rate Blood Pressure 163/74 152/69 171/73 O2 Sat by Pulse 93 L 95 96 Oximetry EKG Findings - EKG Comments: EKG Findings:: EKG shows atrial sensed ventricular paced rhythm, biventricular pacing, rate of 96, IL interval 124, QRS duration 142, QTC 507 Medical Decision Making - Medical Decision Making 76-year-old female presenting with AICD discharge. Patient is asymptomatic at the time my evaluation. She denied any preceding symptoms. White blood cell count mildly elevated at 13.1, hemoglobin 11.4, magnesium 1.6 which is replaced , all other electrolytes are within normal limits. Troponin is mildly elevated at 0.038 likely secondary to discharge, chest x-ray negative for heart failure or focal pneumonia. Patient will be placed in observation, serial cardiac enzymes will be obtained to ensure down trending, cardiology will be placed on consult. Patient is anticoagulated on Eliquis. - Lab Data Result diagrams: 05/05/17 10:36 05/05/17 10:36 Lab Results 05/05/17 05/05/17 05/05/17 Range/Units 10:36 10:36 10:36 WBC 13.1 H (3.8-10.6) k/uL RBC 3.94 (3.80-5.40) m/uL Hgb 11.4 (11.4-16.0) gm/dL Hct 36.6 (34.0-46.0) % MCV 92.8 (80.0-100.0) fL MCH 28.9 (25.0-35.0) pg MCHC 31.1 (31.0-37.0) g/dL RDW 13.4 (11.5-15.5) % Plt Count 309 (150-450) k/uL Neutrophils % 80 % Lymphocytes % 12 % Monocytes % 6 % Eosinophils % 2 % Basophils % 0 % Neutrophils # 10.4 H (1.3-7.7) k/uL Lymphocytes # 1.6 (1.0-4.8) k/uL Monocytes # 0.7 (0-1.0) k/uL Eosinophils # 0.2 (0-0.7) k/uL Basophils # 0.0 (0-0.2) k/uL Hypochromasia Slight PT (9.0-12.0) sec INR (<1.2) APTT (22.0-30.0) sec Sodium 140 (137-145) mmol/L Potassium 4.8 (3.5-5.1) mmol/L Chloride 100 (98-107) mmol/L Carbon Dioxide 33 H (22-30) mmol/L Anion Gap 7 mmol/L BUN 25 H (7-17) mg/dL Creatinine 0.68 (0.52-1.04) mg/dL Est GFR (CKD-EPI)AfAm >90 (>60 ml/min/1.73 sqM) Est GFR (CKD-EPI)NonAf 86 (>60 ml/min/1.73 sqM) Glucose 222 H (74-99) mg/dL POC Glucose (mg/dL) (75-99) mg/dL POC Glu [employer]ater Room Helper ID Calcium 9.1 (8.4-10.2) mg/dL Magnesium 1.6 (1.6-2.3) mg/dL Total Bilirubin 0.5 (0.2-1.3) mg/dL AST 20 (14-36) U/L ALT 25 (9-52) U/L Alkaline Phosphatase 92 (38-126) U/L Total Creatine Kinase 54 (30-135) U/L CK-MB (CK-2) 1.4 (0.0-2.4) ng/mL CK-MB (CK-2) Rel Index 2.6 Troponin I 0.038 H* (0.000-0.034) ng/mL NT-Pro-B Natriuret Pep pg/mL Total Protein 5.5 L (6.3-8.2) g/dL Albumin 3.1 L (3.5-5.0) g/dL 05/05/17 05/05/17 05/05/17 Range/Units 10:36 10:36 12:13 WBC (3.8-10.6) k/uL RBC (3.80-5.40) m/uL Hgb (11.4-16.0) gm/dL Hct (34.0-46.0) % MCV (80.0-100.0) fL MCH (25.0-35.0) pg MCHC (31.0-37.0) g/dL RDW (11.5-15.5) % Plt Count (150-450) k/uL Neutrophils % % Lymphocytes % % Monocytes % % Eosinophils % % Basophils % % Neutrophils # (1.3-7.7) k/uL Lymphocytes # (1.0-4.8) k/uL Monocytes # (0-1.0) k/uL Eosinophils # (0-0.7) k/uL Basophils # (0-0.2) k/uL Hypochromasia PT 9.5 (9.0-12.0) sec INR 1.0 (<1.2) APTT 20.9 L (22.0-30.0) sec Sodium (137-145) mmol/L Potassium (3.5-5.1) mmol/L Chloride (98-107) mmol/L Carbon Dioxide (22-30) mmol/L Anion Gap mmol/L BUN (7-17) mg/dL Creatinine (0.52-1.04) mg/dL Est GFR (CKD-EPI)AfAm (>60 ml/min/1.73 sqM) Est GFR (CKD-EPI)NonAf (>60 ml/min/1.73 sqM) Glucose (74-99) mg/dL POC Glucose (mg/dL) 205 H (75-99) mg/dL POC Glu [employer]ater Room Helper ID Stacey Omer Calcium (8.4-10.2) mg/dL Magnesium (1.6-2.3) mg/dL Total Bilirubin (0.2-1.3) mg/dL AST (14-36) U/L ALT (9-52) U/L Alkaline Phosphatase (38-126) U/L Total Creatine Kinase (30-135) U/L CK-MB (CK-2) (0.0-2.4) ng/mL CK-MB (CK-2) Rel Index Troponin I (0.000-0.034) ng/mL NT-Pro-B Natriuret Pep 1110 pg/mL Total Protein (6.3-8.2) g/dL Albumin (3.5-5.0) g/dL Disposition Clinical Impression: AICD discharge Disposition: ADMITTED IP TO THIS HOSP Condition: Stable Referrals: Farzana Levine MD [Primary Care Provider] - 1-2 days Decision to Admit Reason: Admit from EC Decision Date: 05/05/17 Decision Time: 13:23
[2017-05-05 11:14] LABS: Partial Thromboplastin Time 20.9 sec (22.0-30.0)
--- NOTE | 2017-05-05 11:21 | XR ---
EXAMINATION TYPE: XR chest 1V portable DATE OF EXAM: 05/05/2017 HISTORY: Shortness of breath. COMPARISON: April 24, 2017 TECHNIQUE: Single view of the chest is submitted. FINDINGS: Demonstrated are scattered senescent parenchymal change. There is no evidence for focal infiltrate. The heart is enlarged. No evidence for overt failure. Pacer device unchanged. Hilar and mediastinal structures are within normal limits. Degenerative changes are seen of the dorsal spine. IMPRESSION: 1. Chronic changes without evidence for acute pulmonary disease.
[2017-05-05 11:27] LABS: Creatine Kinase MB 1.4 ng/mL (0.0-2.4); Troponin I 0.038 ng/mL (0.000-0.034)
[2017-05-05 12:17] LABS: Glucose,Whole Blood 205 mg/dL (75-99)
[2017-05-05] MEDS ORDERED: MAGNESIUM SULFATE-D5W PMX 1 GM in DEXTROSE/WATER 1 100ML.BAG IVPB ONE (12:28)
[2017-05-05] MEDS ORDERED: NALOXONE 0.4 MG/ML 1 ML VIAL IV PRN (13:20)
[2017-05-05] MEDS ORDERED: HYDROcodone/APAP 5-325MG 1 EACH TAB PO STA (13:26)
[2017-05-05] MEDS ORDERED: NITROGLYCERIN SL TABS 0.4 MG TAB SUBLINGUAL PRN (15:12)
--- NOTE | 2017-05-05 15:36 | P.HPIM ---
History of Present Illness H&P Date: 05/05/17 Chief Complaint: AICD discharge This is a 76-year-old female with a known past medical history of ischemic cardiomyopathy status post AICD placed about 3 years ago, atrial fibrillation, hypertension, hypothyroidism, diabetes mellitus type 2, chronic respiratory failure home O2 dependent, congestive heart failure and COPD. Patient was just discharged from the hospital yesterday for being treated for right lower extremity cellulitis. She was discharged home with Bactrim for 5 more days. Patient at that time had a venous Doppler which was negative for DVT and x-ray of the right tibia fibula which showed evidence of cellulitis but no fracture. Patient reports this morning she was plugging in her toaster to make bagel for breakfast and she felt this shock in her chest from her AICD. Initially she thought she got shocked from the toaster. She was concerned she called EMS and was brought into the emergency room for further evaluation and treatment. Patient reports that she was having a heart rate last night that was in the 130s to 160s at home. She reports she was having difficulty sleeping and Checking her heart rate. She denies any chest pain or heart palpitations. She does admit to having some shortness of breath in which she had been treated for acute bronchitis during her hospitalization as well. She denies any dizziness or lightheadedness. Denies any vomiting. She reports her chest pain was right at the defibrillator site. Denies a bowel movement changes or urinary symptoms. She is still complaining of some swelling and redness and pain in her right leg. Cardiology has been consulted for AICD interrogation. Review of Systems Please refer to HPI otherwise unremarkable Past Medical History Past Medical History: Atrial Fibrillation, Asthma, Coronary Artery Disease (CAD) , Heart Failure, COPD, Diabetes Mellitus, Deep Vein Thrombosis (DVT), Eye Disorder, Hyperlipidemia, Hypertension, Myocardial Infarction (NE) Additional Past Medical History / Comment(s): Pt recently admitted to [facility] on with R lower extremity cellulitis. Other Hx: Chronic respiratory failure with O2 dependence-2L/NC ATC, bronchitis, ischemic cardiomyopathy, murmur, thoracic outlet syndrome, IDDM type II, DVT left leg twice after childbirths, glaucoma R eye, arthritis multiple joints, osteoporosis, pancreatitis once, hypothyroid, past cellulitis R knee and L leg, R eye cataract , varicosities. Last Myocardial Infarction Date:: 1999 History of Any Multi-Drug Resistant Organisms: None Reported Past Surgical History: Adenoidectomy, AICD, Heart Catheterization With Stent, Hernia Repair, Hysterectomy, Tonsillectomy Additional Past Surgical History / Comment(s): 1999 PCI with stents (3), 2014 BiV AICD, L upper rib removed d/t thoracic outlet syndrome, R knee I&D, bilateral carpal tunnel releases, colonoscopy, D&C, bladder suspension, umbilical hernia repair. Past Anesthesia/Blood Transfusion Reactions: No Reported Reaction Additional Past Anesthesia/Blood Transfusion Reaction / Comment(s): Pt has never had a blood transfusion. Date of Last Stent Placement:: 1999 Type of Cardiac Device: AICD Device Placement Date:: 06-27-14 Smoking Status: Former smoker - Past Family History Brother(s) Family Medical History: Cancer Additional Family Medical History / Comment(s): Pt had 2 brothers with lung cancer. Father Family Medical History: Coronary Artery Disease (CAD), CVA/TIA, Myocardial Infarction (NE) Additional Family Medical History / Comment(s): fATHER AT 57 YRS OF AGE Mother Family Medical History: Cancer, Dementia Additional Family Medical History / Comment(s): throat cancer Medications and Allergies Home Medications Medication Instructions Recorded Confirmed Type Isosorbide Mononitrate ER [Imdur] 30 mg PO DAILY 04/24/14 05/05/17 History Montelukast [Singulair] 10 mg PO HS 04/24/14 05/05/17 History metFORMIN HCL 1,000 mg PO DAILY 04/29/14 05/05/17 History Atorvastatin [Lipitor] 40 mg PO HS #60 tab 05/01/14 05/05/17 Rx Apixaban [Eliquis] 2.5 mg PO BID 06/02/14 05/05/17 History Nitroglycerin Sl Tabs [Nitrostat] 0.4 mg SUBLINGUAL Q5M PRN 06/02/14 05/05/17 History Metoprolol Tartrate [Lopressor] 50 mg PO BID 06/26/14 05/05/17 History Aspirin EC [Ecotrin Low Dose] 81 mg PO DAILY 11/18/14 05/05/17 History Budesonide [Pulmicort] 0.5 mg INHALATION RT-BID 11/18/14 05/05/17 History Insulin Glargine [Lantus] 44 unit SQ HS 11/18/14 05/05/17 History Ipratropium-Albuterol Nebulize 3 ml INHALATION RT-QID 11/18/14 05/05/17 History [Duoneb 0.5 mg-3 mg/3 ml Soln] Latanoprost Ophth [Xalatan 0.005%] 1 drop RIGHT EYE HS 11/18/14 05/05/17 History Ergocalciferol [Vitamin D2 50,000 unit PO TU 05/01/17 05/05/17 History (DRISDOL)] Furosemide [Lasix] 20 mg PO DAILY@1200 05/01/17 05/05/17 History INSULIN LISPRO (HumaLOG) [humaLOG] 3 - 8 units SQ AC-TID 05/01/17 05/05/17 History Levothyroxine Sodium [Synthroid] 50 mcg PO DAILY 05/01/17 05/05/17 History Losartan-Hctz 50-12.5 mg [Hyzaar 1 tab PO DAILY@1200 05/01/17 05/05/17 History 50-12.5] Spironolactone [Aldactone] 12.5 mg PO DAILY@1200 05/01/17 05/05/17 History Amiodarone [Cordarone] 100 mg PO DAILY tab 05/04/17 05/05/17 Rx HYDROcodone/APAP 10-325MG [[place] 1 tab PO Q6H PRN #40 tab 05/04/17 05/05/17 Rx 10-325] Sulfamethox-Tmp 400-80Mg [Bactrim 1 tab PO Q12HR #10 tablet 05/04/17 05/05/17 Rx SS 400-80 mg] Allergies Allergy/AdvReac Type Severity Reaction Status Date / Time meperidine HCl [From Demerol] Allergy Severe Anaphylaxis Verified 05/05/17 10:43 cephalexin monohydrate Allergy Rash/Hives Verified 05/05/17 10:43 [From Keflex] erythromycin base Allergy Rapid Verified 05/05/17 10:43 Heart Rate lorazepam [From Ativan] Allergy Dyspnea Verified 05/05/17 10:43 Penicillins Allergy Rash/Hives Verified 05/05/17 10:43 doxycycline calcium AdvReac Nausea & Verified 05/05/17 10:43 [From Vibramycin] Vomiting doxycycline hyclate AdvReac Nausea & Verified 05/05/17 10:43 [From Vibramycin] Vomiting doxycycline monohydrate AdvReac Nausea & Verified 05/05/17 10:43 [From Vibramycin] Vomiting tetracycline AdvReac Nausea & Verified 05/05/17 10:43 Vomiting Physical Exam Vitals: Vital Signs Temp Pulse Resp BP Pulse Ox 05/05/17 13:41 91 20 139/63 94 L 05/05/17 12:57 97 19 171/73 96 05/05/17 11:18 90 16 152/69 95 05/05/17 10:22 99 F 99 16 163/74 93 L Intake and Output 05/05/17 05/05/17 05/05/17 06:59 14:59 22:59 Other: Weight 108.862 kg Patient Weight 05/06/17 06:59 Weight 108.862 kg Head normocephalic Neck supple Lungs clear to auscultation bilaterally no wheezing or crackles Heart regular rate and rhythm S1-S2, no rub or gallop Abdomen is soft nontender nondistended positive bowel sounds no hepatosplenomegaly Extremities right leg erythema in the tibia area is warm and red wraps around calf. There is a hematoma along the right tibia about an inch in size. The blister on the medial aspect of the right tibia has drained. Bruising noted along the tibia area as well Neuro alert and orientated to 3 Results CBC & Chem 7: 05/05/17 10:36 05/05/17 10:36 Labs: Abnormal Lab Results - Last 24 Hours (Table) 05/05/17 05/05/17 05/05/17 Range/Units 10:36 10:36 10:36 WBC 13.1 H (3.8-10.6) k/uL Neutrophils # 10.4 H (1.3-7.7) k/uL APTT (22.0-30.0) sec Carbon Dioxide 33 H (22-30) mmol/L BUN 25 H (7-17) mg/dL Glucose 222 H (74-99) mg/dL POC Glucose (mg/dL) (75-99) mg/dL Troponin I 0.038 H* (0.000-0.034) ng/mL Total Protein 5.5 L (6.3-8.2) g/dL Albumin 3.1 L (3.5-5.0) g/dL 05/05/17 05/05/17 Range/Units 10:36 12:13 WBC (3.8-10.6) k/uL Neutrophils # (1.3-7.7) k/uL APTT 20.9 L (22.0-30.0) sec Carbon Dioxide (22-30) mmol/L BUN (7-17) mg/dL Glucose (74-99) mg/dL POC Glucose (mg/dL) 205 H (75-99) mg/dL Troponin I (0.000-0.034) ng/mL Total Protein (6.3-8.2) g/dL Albumin (3.5-5.0) g/dL Thrombosis Risk Factor Assmnt - Choose All That Apply Any of the Below Risk Factors Present?: Yes Each Factor Represents 1 point: Abnormal pulmonary function (COPD), Obesity ( BMI >25) Other Risk Factors: Yes Each Risk Factor Represents 2 Points: Age 61-74 years Each Risk Factor Represents 3 Points: History of DVT/PE Other congenital or acquired thrombophilia - If yes, enter type in comment: No Thrombosis Risk Factor Assessment Total Risk Factor Score: 7 Thrombosis Risk Factor Assessment Level: High Risk Assessment and Plan Assessment: 1. AICD discharge: Cardiology consulted for AICD interrogation. Minimal elevation in troponin of 0.038 possibly related to the AICD discharge. Repeat cardiac enzymes ordered in the ER 2. History of ischemic cardiomyopathy status post AICD placement about 3 years ago 3. Right lower extremity cellulitis recently discharged from the hospital on May 04. Resume Bactrim twice a day. Keep leg elevated. Restart Silvadene cream with Kerlix wrap 4. Recent bronchitis. Continue nebulizer treatment. Chest x-ray shows chronic changes with no acute change 5. Leukocytosis could be reactive from the AICD discharge as well as her cellulitis. 6. Diabetes mellitus type 2 with A1c of 8.2. Resume metformin and home insulin. Add sliding scale coverage. Blood sugar on admission elevated at 222 7. History of paroxysmal atrial fibrillation maintained on Eliquis and amiodarone 8. Chronic respiratory failure home O2 dependent 9. Hypomagnesemia: Magnesium 1.6. Received magnesium sulfate 1 g in the ER. Repeat magnesium level and AM DVT prophylaxis Eliquis and GI prophylaxis Time with Patient: Greater than 30 (Greater than 50% of the total time spent in counseling and coordination of care.I performed an examination of the patient and discussed their management with the physician [facility] Specialist. I have reviewed the Physician [facility] Specialist's notes and agree with the documented findings and plan of care)
[2017-05-05] MEDS: IPRATROPIUM-ALBUTEROL 3 ML NEB INHALATION SCH ×2 (17:47→20:04)
[2017-05-05 17:48] LABS: Creatine Kinase MB 1.5 ng/mL (0.0-2.4)
[2017-05-05 17:54] LABS: Troponin I 0.083 ng/mL (0.000-0.034)
[2017-05-05] MEDS: ASPIRIN 81 MG PO SCH (18:12)
[2017-05-05] MEDS: FUROSEMIDE 20 MG TAB PO SCH ×2 (18:13→18:14)
[2017-05-05 18:14] LABS: Glucose,Whole Blood 213 mg/dL (75-99)
[2017-05-05] MEDS: LEVOTHYROXINE 50 MCG TAB PO SCH (18:14)
[2017-05-05] MEDS: ISOSORBIDE MONONITRATE ER 30 MG TAB.ER.24H PO SCH (18:14)
[2017-05-05] MEDS: INSULIN ASPART 100 UNIT/ML 1 ML 10 ML VIAL SQ SCH ×3 (18:19→21:26)
[2017-05-05] MEDS: DAPTOmycin 500 MG in SODIUM CHLORIDE 0.9% 50 ML IVPB SCH (18:37)
[2017-05-05] MEDS: HYDROcodone/APAP 10-325MG 1 EACH TAB PO PRN (20:01)
[2017-05-05] MEDS: BUDESONIDE 0.5 MG/2 ML NEBU INHALATION SCH (20:04)
[2017-05-05] MEDS: ATORVASTATIN 40 MG TAB PO SCH (20:48)
[2017-05-05] MEDS: APIXABAN 2.5 MG TABLET PO SCH (20:48)
[2017-05-05] MEDS: LATANOPROST 0.005% OPHTH DROPS 2.5 ML BTL RIGHT EYE SCH (20:49)
[2017-05-05] MEDS: METOPROLOL TARTRATE 50 MG TAB PO SCH (20:49)
[2017-05-05 20:59] LABS: Glucose,Whole Blood 184 mg/dL (75-99)
[2017-05-05] MEDS ORDERED: INSULIN DETEMIR 100 UNIT/ML 10 ML VIAL SQ SCH (21:00)
[2017-05-05] MEDS ORDERED: SULFAMETHOX-TMP 400-80MG 1 EACH TAB PO SCH (21:00)
[2017-05-05 23:01] LABS: Creatine Kinase MB 1.3 ng/mL (0.0-2.4)
[2017-05-05 23:06] LABS: Troponin I 0.088 ng/mL (0.000-0.034)
[2017-05-06] MEDS: HYDROcodone/APAP 10-325MG 1 EACH TAB PO PRN ×3 (05:15→20:09)
[2017-05-06 05:52] LABS: Glucose,Whole Blood 109 mg/dL (75-99)
[2017-05-06] MEDS: INSULIN ASPART 100 UNIT/ML 1 ML 10 ML VIAL SQ SCH ×7 (06:00→21:13)
[2017-05-06] MEDS: LEVOTHYROXINE 50 MCG TAB PO SCH (06:05)
[2017-05-06] MEDS: metFORMIN 500 MG TAB PO SCH (06:05)
[2017-05-06 07:06] LABS: Basophils % (A) 0 %; Eosinophils # (A) 0.4 k/uL (0-0.7); Eosinophils % (A) 4 %; HGB 11.3 gm/dL (11.4-16.0); Hypochromasia Slight; Lymphocytes # (A) 1.6 k/uL (1.0-4.8); Lymphocytes % (A) 16 %; MCH 29.4 pg (25.0-35.0); MCHC 31.3 g/dL (31.0-37.0); MCV 93.9 fL (80.0-100.0); Monocytes # (A) 0.7 k/uL (0-1.0); Monocytes % (A) 7 %; Neutrophils # (A) 7.1 k/uL (1.3-7.7); Neutrophils % (A) 72 %; Platelet Count 328 k/uL (150-450); RBC 3.84 m/uL (3.80-5.40); RDW 13.2 % (11.5-15.5); WBC 9.9 k/uL (3.8-10.6)
[2017-05-06 07:17] LABS: Anion Gap 5 mmol/L; Blood Urea Nitrogen 21 mg/dL (7-17); Calcium 9.3 mg/dL (8.4-10.2); Carbon Dioxide 37 mmol/L (22-30); Chloride 101 mmol/L (98-107); Glucose 90 mg/dL (74-99); Potassium 4.6 mmol/L (3.5-5.1); Sodium 143 mmol/L (137-145)
[2017-05-06] MEDS: APIXABAN 2.5 MG TABLET PO SCH ×2 (09:02→20:05)
[2017-05-06] MEDS: METOPROLOL TARTRATE 50 MG TAB PO SCH (09:02)
[2017-05-06] MEDS: AMIODARONE 100 MG TAB PO SCH (09:02)
[2017-05-06] MEDS: FAMOTIDINE 20 MG TAB PO SCH (09:02)
[2017-05-06] MEDS: ASPIRIN 81 MG PO SCH (09:03)
[2017-05-06] MEDS: ISOSORBIDE MONONITRATE ER 30 MG TAB.ER.24H PO SCH (09:03)
[2017-05-06] MEDS: IPRATROPIUM-ALBUTEROL 3 ML NEB INHALATION SCH ×4 (09:33→21:19)
[2017-05-06] MEDS: BUDESONIDE 0.5 MG/2 ML NEBU INHALATION SCH ×2 (09:33→21:19)
[2017-05-06 11:37] LABS: Glucose,Whole Blood 171 mg/dL (75-99)
[2017-05-06] MEDS ORDERED: LOSARTAN-HCTZ 50-12.5 MG 1 EACH TAB PO SCH (12:00)
[2017-05-06] MEDS ORDERED: SPIRONOLACTONE 25 MG TAB PO SCH (12:00)
[2017-05-06] MEDS: FUROSEMIDE 20 MG TAB PO SCH (12:31)
[2017-05-06] MEDS ORDERED: ONDANSETRON 4 MG/2 ML VIAL IVP PRN (13:07)
[2017-05-06] MEDS: DOCUSATE 100 MG CAP PO SCH ×2 (13:25→20:05)
--- NOTE | 2017-05-06 13:38 | P.PN ---
Subjective Progress Note Date: 05/06/17 This is a 76-year-old female with a known past medical history of ischemic cardiomyopathy status post AICD placed about 3 years ago, atrial fibrillation, hypertension, hypothyroidism, diabetes mellitus type 2, chronic respiratory failure home O2 dependent, congestive heart failure and COPD. Patient was just discharged from the hospital yesterday for being treated for right lower extremity cellulitis. She was discharged home with Bactrim for 5 more days. Patient at that time had a venous Doppler which was negative for DVT and x-ray of the right tibia fibula which showed evidence of cellulitis but no fracture. Patient reports this morning she was plugging in her toaster to make bagel for breakfast and she felt this shock in her chest from her AICD. Initially she thought she got shocked from the toaster. She was concerned she called EMS and was brought into the emergency room for further evaluation and treatment. Patient reports that she was having a heart rate last night that was in the 130s to 160s at home. She reports she was having difficulty sleeping and Checking her heart rate. She denies any chest pain or heart palpitations. She does admit to having some shortness of breath in which she had been treated for acute bronchitis during her hospitalization as well. She denies any dizziness or lightheadedness. Denies any vomiting. She reports her chest pain was right at the defibrillator site. Denies a bowel movement changes or urinary symptoms. She is still complaining of some swelling and redness and pain in her right leg. Cardiology has been consulted for AICD interrogation. On 05/06/2017 patient is alert and oriented she is complaining of severe nausea she is complaining of constipation she denies any chest pain or shortness of breath no palpitation no cough no dizziness Patient was recently discharged from [facility] after being admitted for right lower extremity cellulitis She felt a shock from her AICD and was brought to [facility] emergency room and readmitted to telemetry floor for further evaluation by cardiology Objective - Vital Signs Vital signs: Vital Signs Temp 97.3 F L 05/06/17 12:00 Pulse 84 05/06/17 12:00 Resp 18 05/06/17 12:00 BP 147/75 05/06/17 12:00 Pulse Ox 93 L 05/06/17 12:00 Intake & Output 03/05/06/17 05/06/17 18:59 06:59 18:59 Intake Total 240 Output Total 200 1000 Balance -200 -760 Weight 108.862 kg 109 kg Intake: Oral 240 Output: Urine 200 1000 Other: # Voids 4 - Exam Head normocephalic and atraumatic Neck supple no JVD no goiter no lymphadenopathy Lungs clear to auscultation bilaterally no wheezing or crackles Heart regular rate and rhythm S1-S2, no rub or gallop Abdomen is soft nontender nondistended positive bowel sounds no hepatosplenomegaly Extremities right leg erythema in the tibia area is warm and red wraps around calf. There is a hematoma along the right tibia about an inch in size. The blister on the medial aspect of the right tibia has drained. Bruising noted along the tibia area as well Neuro alert and orientated to 3 - Labs CBC & Chem 7: 05/06/17 06:03 05/06/17 06:03 Labs: Abnormal Lab Results - Last 24 Hours (Table) 05/05/17 05/05/17 05/05/17 Range/Units 16:36 18:09 20:55 Hgb (11.4-16.0) gm/dL Carbon Dioxide (22-30) mmol/L BUN (7-17) mg/dL POC Glucose (mg/dL) 213 H 184 H (75-99) mg/dL Troponin I 0.083 H* (0.000-0.034) ng/mL 05/05/17 05/06/17 05/06/17 Range/Units 22:15 05:51 06:03 Hgb 11.3 L (11.4-16.0) gm/dL Carbon Dioxide (22-30) mmol/L BUN (7-17) mg/dL POC Glucose (mg/dL) 109 H (75-99) mg/dL Troponin I 0.088 H* (0.000-0.034) ng/mL 05/06/17 05/06/17 Range/Units 06:03 11:31 Hgb (11.4-16.0) gm/dL Carbon Dioxide 37 H (22-30) mmol/L BUN 21 H (7-17) mg/dL POC Glucose (mg/dL) 171 H (75-99) mg/dL Troponin I (0.000-0.034) ng/mL Assessment and Plan Plan: 1. AICD discharge: Cardiology consulted for AICD interrogation. Minimal elevation in troponin of 0.038 possibly related to the AICD discharge. Repeat cardiac enzymes ordered in the ER 2. History of ischemic cardiomyopathy status post AICD placement about 3 years ago 3. Right lower extremity cellulitis recently discharged from the hospital on May 04. Resume Bactrim twice a day. Keep leg elevated. Restart Silvadene cream with Kerlix wrap 4. Recent bronchitis. Continue nebulizer treatment. Chest x-ray shows chronic changes with no acute change 5. Leukocytosis could be reactive from the AICD discharge as well as her cellulitis. 6. Diabetes mellitus type 2 with A1c of 8.2. Resume metformin and home insulin. Add sliding scale coverage. Blood sugar on admission elevated at 222 7. History of paroxysmal atrial fibrillation maintained on Eliquis and amiodarone 8. Chronic respiratory failure home O2 dependent 9. Hypomagnesemia: Magnesium 1.6. Received magnesium sulfate 1 g in the ER. Repeat magnesium level and AM DVT prophylaxis Eliquis and GI prophylaxis
--- NOTE | 2017-05-06 13:41 | P.CRDCN ---
History of Present Illness History of present illness: 76-year-old female presented with an ICD shock. She is a biventricular ICD She denied any premonitory symptoms such as chest discomfort dizziness shortness of breath or palpitations. She was at home when she suddenly received the ICD shock. The ICD was interrogated and it shows atrial fibrillation related ICD shock, inappropriate ICD shock. She is already on metoprolol 50 g twice daily and amiodarone 100 mg daily She denies any chest discomfort or undue shortness of breath no dizziness lightheadedness for palpitations My review of systems she does have swelling in the right leg Telemetry shows A. fib with RVR Past medical history of atrial fibrillation as well as CAD heart failure COPD diabetes DVT On examination pulse rate is in the 70s respirations 14-16, blood pressure 147/ 75 and his mercury afebrile 97.3F Breath sounds are reduced battery with the no rhonchi no crackles Heart sounds S1 and S2 are irregular Abdomen soft nontender 70s warm no edema Impression Atrial fibrillation with RVR with inappropriate ICD shock Normally functioning biventricular ICD Ischemic cardiomyopathy Chronic heart failure Suggest Increase the dose of metoprolol to 75 mg twice daily In the future if need be the dose can be increased further to 100 mg twice daily or even switch to long-acting metoprolol If blood pressure becomes an issue hydrochlorothiazide can be withdrawn Continue low-dose amiodarone Check TSH Past Medical History Past Medical History: Atrial Fibrillation, Asthma, Coronary Artery Disease (CAD) , Heart Failure, COPD, Diabetes Mellitus, Deep Vein Thrombosis (DVT), Eye Disorder, Hyperlipidemia, Hypertension, Myocardial Infarction (TN) Additional Past Medical History / Comment(s): Pt recently admitted to [facility] on with R lower extremity cellulitis. Other Hx: Chronic respiratory failure with O2 dependence-2L/NC ATC, bronchitis, ischemic cardiomyopathy, murmur, thoracic outlet syndrome, IDDM type II, DVT left leg twice after childbirths, glaucoma R eye, arthritis multiple joints, osteoporosis, pancreatitis once, hypothyroid, past cellulitis R knee and L leg, R eye cataract , varicosities. Last Myocardial Infarction Date:: 1999 History of Any Multi-Drug Resistant Organisms: None Reported Past Surgical History: Adenoidectomy, AICD, Heart Catheterization With Stent, Hernia Repair, Hysterectomy, Tonsillectomy Additional Past Surgical History / Comment(s): 1999 PCI with stents (3), 2014 BiV AICD, L upper rib removed d/t thoracic outlet syndrome, R knee I&D, bilateral carpal tunnel releases, colonoscopy, D&C, bladder suspension, umbilical hernia repair. Past Anesthesia/Blood Transfusion Reactions: No Reported Reaction Additional Past Anesthesia/Blood Transfusion Reaction / Comment(s): Pt has never had a blood transfusion. Date of Last Stent Placement:: 1999 Type of Cardiac Device: AICD Device Placement Date:: 06-27-14 Smoking Status: Former smoker - Past Family History Brother(s) Family Medical History: Cancer Additional Family Medical History / Comment(s): Pt had 2 brothers with lung cancer. Father Family Medical History: Coronary Artery Disease (CAD), CVA/TIA, Myocardial Infarction (TN) Additional Family Medical History / Comment(s): fATHER AT 57 YRS OF AGE Mother Family Medical History: Cancer, Dementia Additional Family Medical History / Comment(s): throat cancer Medications and Allergies Home Medications Medication Instructions Recorded Confirmed Type Isosorbide Mononitrate ER [Imdur] 30 mg PO DAILY 04/24/14 05/05/17 History Montelukast [Singulair] 10 mg PO HS 04/24/14 05/05/17 History metFORMIN HCL 1,000 mg PO DAILY 04/29/14 05/05/17 History Atorvastatin [Lipitor] 40 mg PO HS #60 tab 05/01/14 05/05/17 Rx Apixaban [Eliquis] 2.5 mg PO BID 06/02/14 05/05/17 History Nitroglycerin Sl Tabs [Nitrostat] 0.4 mg SUBLINGUAL Q5M PRN 06/02/14 05/05/17 History Metoprolol Tartrate [Lopressor] 50 mg PO BID 06/26/14 05/05/17 History Aspirin EC [Ecotrin Low Dose] 81 mg PO DAILY 11/18/14 05/05/17 History Budesonide [Pulmicort] 0.5 mg INHALATION RT-BID 11/18/14 05/05/17 History Insulin Glargine [Lantus] 44 unit SQ HS 11/18/14 05/05/17 History Ipratropium-Albuterol Nebulize 3 ml INHALATION RT-QID 11/18/14 05/05/17 History [Duoneb 0.5 mg-3 mg/3 ml Soln] Latanoprost Ophth [Xalatan 0.005%] 1 drop RIGHT EYE HS 11/18/14 05/05/17 History Ergocalciferol [Vitamin D2 50,000 unit PO TU 05/01/17 05/05/17 History (DRISDOL)] Furosemide [Lasix] 20 mg PO DAILY@1200 05/01/17 05/05/17 History INSULIN LISPRO (HumaLOG) [humaLOG] 3 - 8 units SQ AC-TID 05/01/17 05/05/17 History Levothyroxine Sodium [Synthroid] 50 mcg PO DAILY 05/01/17 05/05/17 History Losartan-Hctz 50-12.5 mg [Hyzaar 1 tab PO DAILY@1200 05/01/17 05/05/17 History 50-12.5] Spironolactone [Aldactone] 12.5 mg PO DAILY@1200 05/01/17 05/05/17 History Amiodarone [Cordarone] 100 mg PO DAILY tab 05/04/17 05/05/17 Rx HYDROcodone/APAP 10-325MG [[place] 1 tab PO Q6H PRN #40 tab 05/04/17 05/05/17 Rx 10-325] Sulfamethox-Tmp 400-80Mg [Bactrim 1 tab PO Q12HR #10 tablet 05/04/17 05/05/17 Rx SS 400-80 mg] Allergies Allergy/AdvReac Type Severity Reaction Status Date / Time meperidine HCl [From Demerol] Allergy Severe Anaphylaxis Verified 05/05/17 10:43 cephalexin monohydrate Allergy Rash/Hives Verified 05/05/17 10:43 [From Keflex] erythromycin base Allergy Rapid Verified 05/05/17 10:43 Heart Rate lorazepam [From Ativan] Allergy Dyspnea Verified 05/05/17 10:43 Penicillins Allergy Rash/Hives Verified 05/05/17 10:43 doxycycline calcium AdvReac Nausea & Verified 05/05/17 10:43 [From Vibramycin] Vomiting doxycycline hyclate AdvReac Nausea & Verified 05/05/17 10:43 [From Vibramycin] Vomiting doxycycline monohydrate AdvReac Nausea & Verified 05/05/17 10:43 [From Vibramycin] Vomiting tetracycline AdvReac Nausea & Verified 05/05/17 10:43 Vomiting Physical Exam Vitals: Vital Signs Temp Pulse Pulse Resp BP BP Pulse Ox 05/06/17 12:00 97.3 F L 84 18 147/75 93 L 05/06/17 09:49 76 05/06/17 09:34 76 05/06/17 08:00 98.1 F 86 20 125/64 96 05/06/17 03:57 98.2 F 78 13 131/65 98 05/06/17 00:00 98 F 91 16 128/78 92 L 05/05/17 20:18 64 18 05/05/17 20:07 63 18 05/05/17 20:00 98.7 F 91 16 133/65 94 L 05/05/17 18:58 97.4 F L 97 18 139/70 94 L 05/05/17 18:05 100.1 F H 94 18 125/59 94 L 05/05/17 17:47 86 05/05/17 16:33 97.9 F 88 16 140/62 96 Intake and Output 05/05/17 05/06/17 05/06/17 22:59 06:59 14:59 Intake Total 240 Output Total 200 1000 Balance -200 -760 Intake: Oral 240 Output: Urine 200 1000 Other: # Voids 4 Weight 109 kg Results 05/06/17 06:03 05/06/17 06:03 Cardiac Enzymes 05/05/17 05/05/17 Range/Units 16:36 22:15 CK-MB (CK-2) 1.5 1.3 (0.0-2.4) ng/mL Troponin I 0.083 H* 0.088 H* (0.000-0.034) ng/mL CBC 05/06/17 Range/Units 06:03 WBC 9.9 (3.8-10.6) k/uL RBC 3.84 (3.80-5.40) m/uL Hgb 11.3 L (11.4-16.0) gm/dL Hct 36.0 (34.0-46.0) % Plt Count 328 (150-450) k/uL Comprehensive Metabolic Panel 05/06/17 Range/Units 06:03 Sodium 143 (137-145) mmol/L Potassium 4.6 (3.5-5.1) mmol/L Chloride 101 (98-107) mmol/L Carbon Dioxide 37 H (22-30) mmol/L BUN 21 H (7-17) mg/dL Creatinine 0.68 (0.52-1.04) mg/dL Glucose 90 (74-99) mg/dL Calcium 9.3 (8.4-10.2) mg/dL Current Medications Generic Name Dose Route Start Last Admin Trade Name Freq PRN Reason Stop Dose Admin Hydrocodone Bitart/Acetaminophen 1 each 05/05/17 15:12 05/06/17 12:31 [place] 10 PO 1 each Q6H PRN Administration Moderate Pain Albuterol/Ipratropium 3 ml 05/05/17 16:00 05/06/17 13:23 Duoneb 0.5 Mg-3 Mg/3 Ml Soln INHALATION Not Given RT-QID HANNAH Amiodarone HCl 100 mg 05/06/17 09:00 05/06/17 09:02 Cordarone PO 100 mg DAILY HANNAH Administration Apixaban 2.5 mg 05/05/17 21:00 05/06/17 09:02 Eliquis PO 2.5 mg BID HANNAH Administration Aspirin 81 mg 05/05/17 16:00 05/06/17 09:03 Aspirin PO 81 mg DAILY HANNAH Administration Atorvastatin Calcium 40 mg 05/05/17 21:00 05/05/17 20:48 Lipitor PO 40 mg HS HANNAH Administration Budesonide 0.5 mg 05/05/17 20:00 05/06/17 09:33 Pulmicort INHALATION 0.5 mg RT-BID HANNAH Administration Docusate Sodium 100 mg 05/06/17 13:15 05/06/17 13:25 Colace PO 100 mg BID HANNAH Administration Ergocalciferol 50,000 unit 05/12/17 09:00 Vitamin D2 PO TU HANANH Famotidine 20 mg 05/06/17 09:00 05/06/17 09:02 Pepcid PO 20 mg DAILY HANNAH Administration Furosemide 20 mg 05/05/17 16:00 05/06/17 12:31 Lasix PO 20 mg DAILY@1200 HANNAH Administration HCTZ/Losartan Potassium 1 each 05/06/17 12:00 05/06/17 12:30 Hyzaar 50-12.5 PO 1 each DAILY@1200 HANNAH Administration Daptomycin 500 mg/ Sodium 50 mls @ 100 mls/hr 05/05/17 16:00 05/05/17 18:37 Chloride IVPB 100 mls/hr Q24H HANNAH Administration Insulin Aspart 3 unit 05/05/17 17:30 05/06/17 12:42 Novolog SQ 3 unit AC-TID HANNAH Administration Insulin Aspart 0 unit 05/05/17 17:30 05/06/17 12:43 Novolog SQ 2 unit ACHS HANNAH Administration Protocol Insulin Detemir 44 unit 05/06/17 21:00 Levemir SQ HS [facility] Isosorbide Mononitrate 30 mg 05/05/17 16:00 05/06/17 09:03 Imdur PO 30 mg DAILY HANNAH Administration Latanoprost 1 drops 05/05/17 21:00 05/05/17 20:49 Xalatan 0.005% RIGHT EYE 1 drops HS [facility] Administration Levothyroxine Sodium 50 mcg 05/05/17 16:00 05/06/17 06:05 Synthroid PO 50 mcg DAILY@0630 [facility] Administration Metformin HCl 1,000 mg 05/06/17 07:30 05/06/17 06:05 Glucophage PO 1,000 mg AC-[id number] [facility] Administration Metoprolol Tartrate 75 mg 05/06/17 13:37 Lopressor PO BID [facility] Naloxone HCl 0.2 mg 05/05/17 13:20 Narcan IV Q2M PRN Opioid Reversal Nitroglycerin 0.4 mg 05/05/17 15:12 Nitrostat SUBLINGUAL Q5M PRN Chest Pain Ondansetron HCl 4 mg 05/06/17 13:07 05/06/17 13:25 Zofran IVP 4 mg Q6HR PRN Administration Nausea And Vomiting Silver Sulfadiazine 1 applic 05/05/17 16:00 05/06/17 09:03 Silvadene Cream TOPICAL 1 applic DAILY [facility] Administration Spironolactone 12.5 mg 05/06/17 12:00 05/06/17 12:31 Aldactone PO 12.5 mg DAILY@1200 [facility] Administration Intake and Output 05/05/17 05/06/17 05/06/17 22:59 06:59 14:59 Intake Total 240 Output Total 200 1000 Balance -200 -760 Intake: Oral 240 Output: Urine 200 1000 Other: # Voids 4 Weight 109 kg 05/06/17 06:03 05/06/17 06:03
[2017-05-06 17:19] LABS: Glucose,Whole Blood 122 mg/dL (75-99)
[2017-05-06] MEDS: DAPTOmycin 500 MG in SODIUM CHLORIDE 0.9% 50 ML IVPB SCH (18:00)
[2017-05-06] MEDS: ATORVASTATIN 40 MG TAB PO SCH (20:05)
[2017-05-06] MEDS: LATANOPROST 0.005% OPHTH DROPS 2.5 ML BTL RIGHT EYE SCH (20:06)
[2017-05-06] MEDS: METOPROLOL TARTRATE 25 MG TAB PO SCH (20:08)
[2017-05-06 20:42] LABS: Glucose,Whole Blood 203 mg/dL (75-99)
[2017-05-06] MEDS ORDERED: INSULIN DETEMIR 100 UNIT/ML 10 ML VIAL SQ SCH (21:00)
[2017-05-06 23:57] VITALS: RESP 20
[2017-05-07 06:10] LABS: Glucose,Whole Blood 149 mg/dL (75-99)
[2017-05-07 06:19] LABS: Basophils % (A) 0 %; Eosinophils # (A) 0.2 k/uL (0-0.7); Eosinophils % (A) 3 %; HCT 36.8 % (34.0-46.0); HGB 11.8 gm/dL (11.4-16.0); Hypochromasia Slight; Lymphocytes # (A) 1.3 k/uL (1.0-4.8); Lymphocytes % (A) 13 %; MCH 29.9 pg (25.0-35.0); MCHC 31.9 g/dL (31.0-37.0); MCV 93.6 fL (80.0-100.0); Mean Platelet Volume 6.9; Monocytes # (A) 0.5 k/uL (0-1.0); Monocytes % (A) 5 %; Neutrophils # (A) 7.4 k/uL (1.3-7.7); Neutrophils % (A) 78 %; Platelet Count 308 k/uL (150-450); RBC 3.93 m/uL (3.80-5.40); WBC 9.6 k/uL (3.8-10.6)
[2017-05-07] MEDS: metFORMIN 500 MG TAB PO SCH (06:31)
[2017-05-07] MEDS: INSULIN ASPART 100 UNIT/ML 1 ML 10 ML VIAL SQ SCH ×2 (06:31)
[2017-05-07 06:32] LABS: ALT 25 U/L (9-52); AST 26 U/L (14-36); Albumin 3.1 g/dL (3.5-5.0); Alkaline Phosphatase 68 U/L (38-126); Anion Gap 6 mmol/L; Blood Urea Nitrogen 24 mg/dL (7-17); Calcium 8.3 mg/dL (8.4-10.2); Carbon Dioxide 36 mmol/L (22-30); Chloride 98 mmol/L (98-107); Glucose 68 mg/dL (74-99); Potassium 4.6 mmol/L (3.5-5.1); Sodium 140 mmol/L (137-145); Total Bilirubin 0.5 mg/dL (0.2-1.3); Total Protein 5.4 g/dL (6.3-8.2)
[2017-05-07] MEDS: LEVOTHYROXINE 50 MCG TAB PO SCH (06:56)
[2017-05-07] MEDS: IPRATROPIUM-ALBUTEROL 3 ML NEB INHALATION SCH ×2 (08:11→11:42)
[2017-05-07] MEDS: BUDESONIDE 0.5 MG/2 ML NEBU INHALATION SCH (08:11)
[2017-05-07] MEDS ORDERED: APIXABAN 5 MG TAB PO SCH (09:15)
[2017-05-07] MEDS: ASPIRIN 81 MG PO SCH (10:04)
[2017-05-07] MEDS: AMIODARONE 100 MG TAB PO SCH (10:04)
[2017-05-07] MEDS: DOCUSATE 100 MG CAP PO SCH (10:04)
[2017-05-07] MEDS: FAMOTIDINE 20 MG TAB PO SCH (10:04)
[2017-05-07] MEDS: METOPROLOL TARTRATE 25 MG TAB PO SCH (10:05)
[2017-05-07] MEDS: ISOSORBIDE MONONITRATE ER 30 MG TAB.ER.24H PO SCH (10:05)
[2017-05-07 12:13] LABS: Glucose,Whole Blood 77 mg/dL (75-99)
--- NOTE | 2017-05-07 12:36 | P.DS ---
Providers Date of admission: 05/07/17 08:52 Expected date of discharge: 05/07/17 Attending physician: Farzana Levine Consults: 05/05/17 13:21 Consult Physician Urgent Consulting Provider: Timbo Villagomez Consult Reason/Comments: AICD discharge Do you want consulting provider notified?: Yes Primary care physician: Farzana Levine [facility] Course: Discharge diagnosis 1. AICD discharge: With inappropriate shock after atrial fibrillation with rapid ventricular response. Cardiology has increased metoprolol to 150 mg daily. TSH level normal. Minimal elevated troponin levels likely secondary to the AICD discharge. Patient evaluated by cardiology 2. History of ischemic cardiomyopathy status post AICD placement about 3 years ago 3. Right lower extremity cellulitis recently discharged from the hospital on May 04. Resume Bactrim twice a day. Keep leg elevated. Restart Silvadene cream with Kerlix wrap 4. Recent bronchitis. Continue nebulizer treatment. Chest x-ray shows chronic changes with no acute change 5. Leukocytosis could be reactive from the AICD discharge as well as her cellulitis. White count has normalized 6. Diabetes mellitus type 2 with A1c of 8.2. Resume metformin and home insulin. Add sliding scale coverage. Blood sugar on admission elevated at 222 7. History of paroxysmal atrial fibrillation maintained on Eliquis and amiodarone 8. Chronic respiratory failure home O2 dependent 9. Hypomagnesemia: Resolved Hospital course This is a 76-year-old female with a known past medical history of ischemic cardiomyopathy status post AICD placed about 3 years ago, atrial fibrillation, hypertension, hypothyroidism, diabetes mellitus type 2, chronic respiratory failure home O2 dependent, congestive heart failure and COPD. Patient was just discharged from the hospital yesterday for being treated for right lower extremity cellulitis. She was discharged home with Bactrim for 5 more days. Patient at that time had a venous Doppler which was negative for DVT and x-ray of the right tibia fibula which showed evidence of cellulitis but no fracture. Patient reports this morning she was plugging in her toaster to make bagel for breakfast and she felt this shock in her chest from her AICD. Initially she thought she got shocked from the toaster. She was concerned she called EMS and was brought into the emergency room for further evaluation and treatment. Patient reports that she was having a heart rate last night that was in the 130s to 160s at home. She reports she was having difficulty sleeping and Checking her heart rate. She denies any chest pain or heart palpitations. She does admit to having some shortness of breath in which she had been treated for acute bronchitis during her hospitalization as well. She denies any dizziness or lightheadedness. Denies any vomiting. She reports her chest pain was right at the defibrillator site. Denies a bowel movement changes or urinary symptoms. She is still complaining of some swelling and redness and pain in her right leg. Cardiology has been consulted for AICD interrogation Patient was seen and evaluated by cardiology. Her device was interrogated. And found that there was an inappropriate shock for atrial fibrillation with RVR. Cardiology increased metoprolol to 150 mg daily. Patient is medically stable for discharge and cleared by cardiology for discharge. She'll continue her Bactrim for her lower extremity cellulitis. She did go back on the daptomycin while she was in the hospital. The redness has improved she still has some swelling and fluid collection on the right tibia. Again imaging was done on her last admission. I'll keep leg elevated and she is medically stable for discharge. We'll have her follow up with Dr. Levine in 1 week. Also note that cardiology increased the Eliquis to 5 mg twice a day I performed an examination of the patient and discussed their management with the physician Cellophane Bath Mixer. I have reviewed the Physician Cellophane Bath Mixer's notes and agree with the documented findings and plan of care Patient Condition at Discharge: Stable Plan - Discharge Summary Discharge Rx Participant: No New Discharge Prescriptions: New Metoprolol Succinate (ER) [Toprol XL] 150 mg PO DAILY #100 tab Apixaban [Eliquis] 5 mg PO BID #60 tab Continue Montelukast [Singulair] 10 mg PO HS Isosorbide Mononitrate ER [Imdur] 30 mg PO DAILY metFORMIN HCL 1,000 mg PO DAILY Atorvastatin [Lipitor] 40 mg PO HS #60 tab Nitroglycerin Sl Tabs [Nitrostat] 0.4 mg SUBLINGUAL Q5M PRN PRN Reason: Chest Pain Insulin Glargine [Lantus] 44 unit SQ HS Ipratropium-Albuterol Nebulize [Duoneb 0.5 mg-3 mg/3 ml Soln] 3 ml INHALATION RT-QID Aspirin EC [Ecotrin Low Dose] 81 mg PO DAILY Budesonide [Pulmicort] 0.5 mg INHALATION RT-BID Latanoprost Ophth [Xalatan 0.005%] 1 drop RIGHT EYE HS INSULIN LISPRO (HumaLOG) [humaLOG] 3 - 8 units SQ AC-TID Ergocalciferol [Vitamin D2 (DRISDOL)] 50,000 unit PO TU Spironolactone [Aldactone] 12.5 mg PO DAILY@1200 Levothyroxine Sodium [Synthroid] 50 mcg PO DAILY Furosemide [Lasix] 20 mg PO DAILY@1200 Losartan-Hctz 50-12.5 mg [Hyzaar 50-12.5] 1 tab PO DAILY@1200 Sulfamethox-Tmp 400-80Mg [Bactrim SS 400-80 mg] 1 tab PO Q12HR #10 tablet Amiodarone [Cordarone] 100 mg PO DAILY tab HYDROcodone/APAP 10-325MG [[place] 10-325] 1 tab PO Q6H PRN #40 tab PRN Reason: Pain Discontinued Apixaban [Eliquis] 2.5 mg PO BID Metoprolol Tartrate [Lopressor] 50 mg PO BID Discharge Medication List Isosorbide Mononitrate ER [Imdur] 30 mg PO DAILY 04/24/14 [History] Montelukast [Singulair] 10 mg PO HS 04/24/14 [History] metFORMIN HCL 1,000 mg PO DAILY 04/29/14 [History] Atorvastatin [Lipitor] 40 mg PO HS #60 tab 05/01/14 [Rx] Nitroglycerin Sl Tabs [Nitrostat] 0.4 mg SUBLINGUAL Q5M PRN 06/02/14 [History] Aspirin EC [Ecotrin Low Dose] 81 mg PO DAILY 11/18/14 [History] Budesonide [Pulmicort] 0.5 mg INHALATION RT-BID 11/18/14 [History] Insulin Glargine [Lantus] 44 unit SQ HS 11/18/14 [History] Ipratropium-Albuterol Nebulize [Duoneb 0.5 mg-3 mg/3 ml Soln] 3 ml INHALATION RT -QID 11/18/14 [History] Latanoprost Ophth [Xalatan 0.005%] 1 drop RIGHT EYE HS 11/18/14 [History] Ergocalciferol [Vitamin D2 (DRISDOL)] 50,000 unit PO TU 05/01/17 [History] Furosemide [Lasix] 20 mg PO DAILY@1200 05/01/17 [History] INSULIN LISPRO (HumaLOG) [humaLOG] 3 - 8 units SQ AC-TID 05/01/17 [History] Levothyroxine Sodium [Synthroid] 50 mcg PO DAILY 05/01/17 [History] Losartan-Hctz 50-12.5 mg [Hyzaar 50-12.5] 1 tab PO DAILY@1200 05/01/17 [History] Spironolactone [Aldactone] 12.5 mg PO DAILY@1200 05/01/17 [History] Amiodarone [Cordarone] 100 mg PO DAILY tab 05/04/17 [Rx] HYDROcodone/APAP 10-325MG [[place] 10-325] 1 tab PO Q6H PRN #40 tab 05/04/17 [Rx] Sulfamethox-Tmp 400-80Mg [Bactrim SS 400-80 mg] 1 tab PO Q12HR #10 tablet [Rx] Metoprolol Succinate (ER) [Toprol XL] 150 mg PO DAILY #100 tab 05/06/17 [Rx] Apixaban [Eliquis] 5 mg PO BID #60 tab 05/07/17 [Rx] Follow up Appointment(s)/Referral(s): Elda Alfaro MD [STAFF PHYSICIAN] - 05/21/17 3:00 pm ( Previously scheduled appointment) Farzana Levine MD [Primary Care Provider] - 05/11/17 3:00 pm (Previously scheduled appointment) Patient Instructions/Handouts: Implantable Cardioverter Defibrillator (DC) Activity/Diet/Wound Care/Special Instructions: Patient may go home from a cardiac standpoint Metoprolol succinate 150 mg by mouth daily instead of metoprolol tartrate Follow-up with primary cryptoanalysis teacher within 2-4 weeks Diet: cardiac Activity: as tolerated Discharge Disposition: HOME SELF-CARE
--- NOTE | 2017-05-07 12:46 | P.PN ---
Subjective Progress Note Date: 05/07/17 This is a 76-year-old female who presented to the hospital following a shock from her AICD. She has a biventricular AICD. Patient denied any premonitory symptoms such as chest discomfort, dizziness, shortness of breath or palpitations. She was at home when she suddenly received a shock from her AICD. Her AICD was interrogated and revealed atrial fibrillation related ICD shock, inappropriate ICD shock. Patient was seen in consultation by Dr. Villagomez. He increased her dose of metoprolol. Blood pressure today 118/68 with a heart rate in the 70s to 80s. TSH 1.56. Objective - Vital Signs Vital signs: Vital Signs Temp 98.6 F 05/07/17 04:00 Pulse 66 05/07/17 11:44 Resp 20 05/07/17 04:00 BP 118/68 05/07/17 04:00 Pulse Ox 93 L 05/07/17 08:14 Intake & Output 05/06/17 05/07/17 05/07/17 18:59 06:59 18:59 Intake Total 240 150 Output Total 2200 300 Balance -1960 -150 Weight 109.1 kg Intake: Oral 240 150 Output: Urine 2200 300 Other: Voiding Method Bedside Commode Bedside Commode # Voids 4 3 - Exam PHYSICAL EXAMINATION: HEENT: Head is atraumatic, normocephalic. Pupils equal, round. Neck is supple. There is no elevated jugular venous pressure. HEART EXAMINATION: Heart S1, S2 normal. No murmur or gallop heard. CHEST EXAMINATION: Lungs are clear to auscultation and precussion. No chest wall tenderness is noted on palpation or with deep breathing. ABDOMEN: Soft, nontender. Bowel sounds are heard. No organomegaly noted. EXTREMITIES: 1+ peripheral pulses with no evidence of right leg erythema. . NEUROLOGIC patient is awake, alert and oriented -3. . - Labs CBC & Chem 7: 05/07/17 05:33 05/07/17 05:33 Labs: Abnormal Lab Results - Last 24 Hours (Table) 05/06/17 05/06/17 05/07/17 Range/Units 16:43 20:40 05:33 Carbon Dioxide 36 H (22-30) mmol/L BUN 24 H (7-17) mg/dL Glucose 68 L (74-99) mg/dL POC Glucose (mg/dL) 122 H 203 H (75-99) mg/dL Calcium 8.3 L (8.4-10.2) mg/dL Total Protein 5.4 L (6.3-8.2) g/dL Albumin 3.1 L (3.5-5.0) g/dL 05/07/17 Range/Units 06:08 Carbon Dioxide (22-30) mmol/L BUN (7-17) mg/dL Glucose (74-99) mg/dL POC Glucose (mg/dL) 149 H (75-99) mg/dL Calcium (8.4-10.2) mg/dL Total Protein (6.3-8.2) g/dL Albumin (3.5-5.0) g/dL Assessment and Plan Plan: Assessment and plan Assessment and plan 1. AICD discharge: With inappropriate shock after atrial fibrillation with rapid ventricular response. 2. History of ischemic cardiomyopathy status post AICD placement about 3 years ago 3. Right lower extremity cellulitis 4. Recent bronchitis. 5. Hypomagnesemia 6. Diabetes mellitus type 2 with A1c of 8.2. 7. History of paroxysmal atrial fibrillation maintained on Eliquis and amiodarone 8. Chronic respiratory failure home O2 dependent Plan From cardiology's perspective, we'll continue the patient on her current medications. She may be able to be discharged once cleared by primary, a follow -up appointment will be made in the office post discharge.
[2017-05-07 14:22] VITALS: PULSE 64; TEMP 97
[2017-05-07 14:28] VITALS: BP 115/51
[2017-05-07 16:59] LABS: Glucose,Whole Blood 126 mg/dL (75-99)
[2017-05-12] MEDS ORDERED: ERGOCALCIFEROL 50,000 UNIT CAP PO SCH (09:00)
== END 2017-05-07 17:38 | disposition home or self-care (01) | DRG 309 ==
LOC: EC 10:08 → 6SEL 13:20 → OBSVTOIN 05-07 08:52
PROVIDERS: ADMIT Internal Medicine; ATTEND Internal Medicine
DX: I48.0 Paroxysmal atrial fibrillation (principal); I50.22 Chronic systolic (congestive) heart failure; J96.10 Chronic respiratory failure, unspecified whether with hypoxia or hypercapnia; E83.42 Hypomagnesemia; I11.0 Hypertensive heart disease with heart failure; L03.115 Cellulitis of right lower limb; Z99.81 Dependence on supplemental oxygen; I25.5 Ischemic cardiomyopathy; I25.10 Atherosclerotic heart disease of native coronary artery without angina pectoris; E11.9 Type 2 diabetes mellitus without complications; E03.9 Hypothyroidism, unspecified; E78.5 Hyperlipidemia, unspecified; I25.2 Old myocardial infarction; J44.9 Chronic obstructive pulmonary disease, unspecified; Z79.01 Long term (current) use of anticoagulants; Z79.4 Long term (current) use of insulin; Z79.899 Other long term (current) drug therapy; Z80.1 Family history of malignant neoplasm of trachea, bronchus and lung; Z80.8 Family history of malignant neoplasm of other organs or systems; Z82.49 Family history of ischemic heart disease and other diseases of the circulatory system; Z87.891 Personal history of nicotine dependence; Z90.710 Acquired absence of both cervix and uterus; Z95.810 Presence of automatic (implantable) cardiac defibrillator; Z98.61 Coronary angioplasty status; Z88.1 Allergy status to other antibiotic agents; Z88.5 Allergy status to narcotic agent; Z88.0 Allergy status to penicillin
CPT/HCPCS: 36415; 71045; 80048; 80053; 82550; 82553; 83735; 83880; 84443; 84484; 85025; 85610; 85730; 93005; 94640; 94760; 96365; 96366; 99285

== ENCOUNTER 2017-05-12 13:20 | Emergency (ER) | payer MEDICARE, BC ==
[2017-05-12 13:29] VITALS: BP 158/69; PULSE 89; RESP 20; TEMP 98
--- NOTE | 2017-05-12 13:52 | ED ---
Wound/Laceration HPI - General Chief Complaint: Wound/Laceration Stated Complaint: fall/knee lac Time Seen by Provider: 05/12/17 13:30 Source: patient, RN notes reviewed Mode of arrival: wheelchair Limitations: no limitations - History of Present Illness Initial Comments: This a 76-year-old female presents emergency Department chief complaint of right knee laceration. Patient states that she is trying to tripped and fell to her right knee. Patient states his laceration. Patient believes her tetanus was updated 4 years ago when she had surgery for hematoma. Patient states she does have good range of motion the right knee there is mild to moderate discomfort no other injuries noted. Patient states is no active bleeding. - Related Data Home Medications Medication Instructions Recorded Confirmed Isosorbide Mononitrate ER [Imdur] 30 mg PO DAILY 04/24/14 05/05/17 Montelukast [Singulair] 10 mg PO HS 04/24/14 05/05/17 metFORMIN HCL 1,000 mg PO DAILY 04/29/14 05/05/17 Nitroglycerin Sl Tabs [Nitrostat] 0.4 mg SUBLINGUAL Q5M PRN 06/02/14 05/05/17 Aspirin EC [Ecotrin Low Dose] 81 mg PO DAILY 11/18/14 05/05/17 Budesonide [Pulmicort] 0.5 mg INHALATION RT-BID 11/18/14 05/05/17 Insulin Glargine [Lantus] 44 unit SQ HS 11/18/14 05/05/17 Ipratropium-Albuterol Nebulize 3 ml INHALATION RT-QID 11/18/14 05/05/17 [Duoneb 0.5 mg-3 mg/3 ml Soln] Latanoprost Ophth [Xalatan 0.005%] 1 drop RIGHT EYE 11/18/14 05/05/17 Ergocalciferol [Vitamin D2 50,000 unit PO TU 05/01/17 05/05/17 (DRISDOL)] Furosemide [Lasix] 20 mg PO DAILY@1200 05/01/17 05/05/17 INSULIN LISPRO (HumaLOG) [humaLOG] 3 - 8 units SQ AC-TID 05/01/17 05/05/17 Levothyroxine Sodium [Synthroid] 50 mcg PO DAILY 05/01/17 05/05/17 Losartan-Hctz 50-12.5 mg [Hyzaar 1 tab PO DAILY@1200 05/01/17 05/05/17 50-12.5] Spironolactone [Aldactone] 12.5 mg PO DAILY@1200 05/01/17 05/05/17 Previous Rx's Medication Instructions Recorded Atorvastatin [Lipitor] 40 mg PO HS #60 tab 05/01/14 Amiodarone [Cordarone] 100 mg PO DAILY tab 05/04/17 HYDROcodone/APAP 10-325MG [[place] 1 tab PO Q6H PRN #40 tab 05/04/17 10-325] Sulfamethox-Tmp 400-80Mg [Bactrim 1 tab PO Q12HR #10 tablet 05/04/17 SS 400-80 mg] Metoprolol Succinate (ER) [Toprol 150 mg PO DAILY #100 tab 05/06/17 XL] Apixaban [Eliquis] 5 mg PO BID #60 tab 05/07/17 Allergies Allergy/AdvReac Type Severity Reaction Status Date / Time meperidine HCl [From Demerol] Allergy Severe Anaphylaxis Verified 05/12/17 13:29 cephalexin monohydrate Allergy Rash/Hives Verified 05/12/17 13:29 [From Keflex] erythromycin base Allergy Rapid Verified 05/12/17 13:29 Heart Rate lorazepam [From Ativan] Allergy Dyspnea Verified 05/12/17 13:29 Penicillins Allergy Rash/Hives Verified 05/12/17 13:29 doxycycline calcium AdvReac Nausea & Verified 05/12/17 13:29 [From Vibramycin] Vomiting doxycycline hyclate AdvReac Nausea & Verified 05/12/17 13:29 [From Vibramycin] Vomiting doxycycline monohydrate AdvReac Nausea & Verified 05/12/17 13:29 [From Vibramycin] Vomiting tetracycline AdvReac Nausea & Verified 05/12/17 13:29 Vomiting Review of Systems ROS Statement: Those systems with pertinent positive or pertinent negative responses have been documented in the HPI. ROS Other: All systems not noted in ROS Statement are negative. Past Medical History Past Medical History: Atrial Fibrillation, Asthma, Coronary Artery Disease (CAD) , Heart Failure, COPD, Diabetes Mellitus, Deep Vein Thrombosis (DVT), Eye Disorder, Hyperlipidemia, Hypertension, Myocardial Infarction (MA) Additional Past Medical History / Comment(s): Pt recently admitted to [facility] on with R lower extremity cellulitis. Other Hx: Chronic respiratory failure with O2 dependence-2L/NC ATC, bronchitis, ischemic cardiomyopathy, murmur, thoracic outlet syndrome, IDDM type II, DVT left leg twice after childbirths, glaucoma R eye, arthritis multiple joints, osteoporosis, pancreatitis once, hypothyroid, past cellulitis R knee and L leg, R eye cataract , varicosities. Last Myocardial Infarction Date:: 1999 History of Any Multi-Drug Resistant Organisms: None Reported Past Surgical History: Adenoidectomy, AICD, Heart Catheterization With Stent, Hernia Repair, Hysterectomy, Tonsillectomy Additional Past Surgical History / Comment(s): 1999 PCI with stents (3), 2014 BiV AICD, L upper rib removed d/t thoracic outlet syndrome, R knee I&D, bilateral carpal tunnel releases, colonoscopy, D&C, bladder suspension, umbilical hernia repair. Past Anesthesia/Blood Transfusion Reactions: No Reported Reaction Additional Past Anesthesia/Blood Transfusion Reaction / Comment(s): Pt has never had a blood transfusion. Date of Last Stent Placement:: 1999 Type of Cardiac Device: AICD Device Placement Date:: 06-27-14 Past Psychological History: No Psychological Hx Reported Smoking Status: Former smoker Past Alcohol Use History: None Reported Past Drug Use History: None Reported - Past Family History Brother(s) Family Medical History: Cancer Additional Family Medical History / Comment(s): Pt had 2 brothers with lung cancer. Father Family Medical History: Coronary Artery Disease (CAD), CVA/TIA, Myocardial Infarction (MA) Additional Family Medical History / Comment(s): fATHER AT 57 YRS OF AGE Mother Family Medical History: Cancer, Dementia Additional Family Medical History / Comment(s): throat cancer General Exam Limitations: no limitations General appearance: alert, in no apparent distress Eye exam: Present: normal appearance, PERRL, EOMI. Absent: scleral icterus, conjunctival injection, periorbital swelling Respiratory exam: Present: normal lung sounds bilaterally. Absent: respiratory distress, wheezes, rales, rhonchi, stridor Cardiovascular Exam: Present: regular rate, normal rhythm, normal heart sounds. Absent: systolic murmur, diastolic murmur, rubs, gallop, clicks Extremities exam: Present: other (Right knee there is an L-shaped laceration 3 cm x 3 cm, no active bleeding there is some subcutaneous tissue noted patient has full range of motion minimal discomfort there is chronic changes noted to the right lower extremity pedal pulses equal bilaterally) Skin exam: Present: warm, dry, intact, normal color. Absent: rash Course Vital Signs 05/12/17 13:25 Temperature 98.0 F Pulse Rate 89 Respiratory 20 Rate Blood Pressure 158/69 O2 Sat by Pulse 95 Oximetry Procedures - Laceration Laceration #1 Consent Obtained: verbal consent Indication: laceration Site: lower extremity (Right knee) Size (cm): 6 Description: flap, irregular Depth: simple, single layer Anesthetic Used: lidocaine 1%, without epi Anesthesia Technique: local infiltration Amount (mls): 10 Pre-repair: wound explored, irrigated extensively, deep structures intact Type of Sutures: nylon Size of Sutures: 4-0 Number of Sutures: 10 Technique: simple, interrupted Patient Tolerated Procedure: well, no complications Additional Comments: Bacitracin applied Medical Decision Making - Medical Decision Making 76-year-old female presented emergency department For fall, right knee laceration. X-ray reviewed no acute abnormality no foreign body. The wound was thoroughly cleaned, sutured using 4-0 Ethilon 10 sutures. Patient tolerated well no complications. This was dressed with bacitracin nonstick gauze. Patient advised to wash daily soap and water do not soak she is return 14 days for suture removal have a wound recheck in 2 days and return any time for any signs of infection as outlined. Disposition Clinical Impression: Laceration of right knee Disposition: HOME SELF-CARE Condition: Stable Instructions: Laceration (ED), Care For Your Stitches (ED) Additional Instructions: Have sutures removed in 14 days.Please return to the Emergency Department if symptoms worsen or any other concerns. Referrals: Farzana Levine MD [Primary Care Provider] - 1-2 days Time of Disposition: 14:34
--- NOTE | 2017-05-12 14:20 | XR ---
EXAMINATION TYPE: XR knee complete RT DATE OF EXAM: 05/12/2017 CLINICAL HISTORY: Right knee pain TECHNIQUE: Three views of the right knee are obtained. COMPARISON: Right leg x-ray May 01, 2017. FINDINGS: There is no acute fracture/dislocation evident in right knee. Moderate joint space loss an d mild spurring patellofemoral compartment is redemonstrated. Moderate to severe joint space loss and moderate spurring medial tibiofemoral compartment is again seen. Scattered soft tissue phleboliths a re redemonstrated. Mild diffuse subcutaneous edema is noted. More focal fluid remains present in the medial leg subcutaneous tissue below knee joint. IMPRESSION: There is no acute fracture or dislocation in the right knee. No significant change from recent right leg x-ray.
== END 2017-05-12 15:01 | disposition home or self-care (01) ==
LOC: EC 13:20
DX: S81.011A Laceration without foreign body, right knee, initial encounter (principal); I25.10 Atherosclerotic heart disease of native coronary artery without angina pectoris; I11.0 Hypertensive heart disease with heart failure; I50.9 Heart failure, unspecified; J44.9 Chronic obstructive pulmonary disease, unspecified; I25.2 Old myocardial infarction; E11.9 Type 2 diabetes mellitus without complications; E03.9 Hypothyroidism, unspecified; Z95.810 Presence of automatic (implantable) cardiac defibrillator; Z95.5 Presence of coronary angioplasty implant and graft; Z87.891 Personal history of nicotine dependence; Z79.4 Long term (current) use of insulin; Z79.82 Long term (current) use of aspirin; Z79.52 Long term (current) use of systemic steroids; Z79.899 Other long term (current) drug therapy; Z88.5 Allergy status to narcotic agent; Z88.1 Allergy status to other antibiotic agents; Z88.8 Allergy status to other drugs, medicaments and biological substances; Z88.0 Allergy status to penicillin; W01.0XXA Fall on same level from slipping, tripping and stumbling without subsequent striking against object, initial encounter
CPT/HCPCS: 12002; 99283

== ENCOUNTER → 2017-05-18 | Outpatient (CLI) | payer MEDICARE, BC ==
--- NOTE | 2017-05-18 17:34 | XR ---
EXAMINATION TYPE: XR lumbosacral spine min 4V DATE OF EXAM: 05/18/2017 COMPARISON: None HISTORY: Back pain TECHNIQUE: 6 views FINDINGS: The lumbar vertebra have fairly normal alignment. There is narrowing of disc spaces through out the lumbar spine with spurring of the endplates. There is no compression fracture. Abdominal aort a is atheromatous. The posterior elements are intact. Sacroiliac joints are intact. IMPRESSION: Multilevel spondylosis. No fracture seen.
== END | disposition home or self-care (01) ==
LOC: RADXRMAIN 16:36
PROVIDERS: ATTEND Internal Medicine
DX: M47.817 Spondylosis without myelopathy or radiculopathy, lumbosacral region (principal)
CPT/HCPCS: 72110

== ENCOUNTER 2017-05-25 17:26 | Inpatient (IN) | payer MEDICARE, BC ==
[2017-05-25] MEDS ORDERED: SODIUM CHLORIDE 0.9% 1,000 ML IV STA (19:37)
[2017-05-25] MEDS ORDERED: MORPHINE SULF 5MG/10ML VL IVP STA ×3 (19:37→22:30)
--- NOTE | 2017-05-25 19:42 | ED ---
General Adult HPI - General Chief complaint: Abdominal Pain Stated complaint: Back pain Time Seen by Provider: 05/25/17 19:22 Source: patient Mode of arrival: wheelchair Limitations: no limitations - History of Present Illness Initial comments: 76-year-old female patient presents to the emergency department today for evaluation of severe lower back pain and constipation. Patient states that she has had 2 falls over the last month or so. States that since the second fall she has been having severe low back pain. States that she did have a x-ray ordered by her primary care physician that she has not gotten results yet. Patient states she has been taking pain medication for this and they're making her constipated. States that she does have intermittent abdominal discomfort. States that her last bowel movement was 4 days ago. Patient denies any radiation of the pain down her legs. Denies any new numbness or tingling to her lower extremities. Denies any saddle anesthesia. Denies any loss of bowel or bladder control. She denies any fevers or chills with this. Denies any difficulty urinating. Patient denies any recent rash, shortness breath, chest pain, nausea, vomiting, dizziness, weakness, hematuria, dysuria, urinary urgency , urinary frequency, headache, visual changes, or any other complaints. - Related Data Home Medications Medication Instructions Recorded Confirmed Isosorbide Mononitrate ER [Imdur] 30 mg PO DAILY 04/24/14 05/25/17 Montelukast [Singulair] 10 mg PO 04/24/14 05/25/17 metFORMIN HCL 1,000 mg PO DAILY 04/29/14 05/25/17 Nitroglycerin Sl Tabs [Nitrostat] 0.4 mg SUBLINGUAL Q5M PRN 06/02/14 05/25/17 Aspirin EC [Ecotrin Low Dose] 81 mg PO DAILY 11/18/14 05/25/17 Budesonide [Pulmicort] 0.5 mg INHALATION RT-BID 11/18/14 05/25/17 Insulin Glargine [Lantus] 44 unit SQ 11/18/14 05/25/17 Ipratropium-Albuterol Nebulize 3 ml INHALATION RT-QID 11/18/14 05/25/17 [Duoneb 0.5 mg-3 mg/3 ml Soln] Latanoprost Ophth [Xalatan 0.005%] 1 drop RIGHT EYE HS 11/18/14 05/25/17 Ergocalciferol [Vitamin D2 50,000 unit PO TU 05/01/17 05/25/17 (DRISDOL)] Furosemide [Lasix] 20 mg PO DAILY@1200 05/01/17 05/25/17 INSULIN LISPRO (HumaLOG) [humaLOG] 3 - 8 units SQ AC-TID 05/01/17 05/25/17 Levothyroxine Sodium [Synthroid] 50 mcg PO DAILY 05/01/17 05/25/17 Losartan-Hctz 50-12.5 mg [Hyzaar 1 tab PO DAILY@1200 05/01/17 05/25/17 50-12.5] Spironolactone [Aldactone] 12.5 mg PO DAILY@1200 05/01/17 05/25/17 HYDROmorphone [Dilaudid] 4 mg PO QID PRN 05/25/17 05/25/17 Previous Rx's Medication Instructions Recorded Atorvastatin [Lipitor] 40 mg PO HS #60 tab 05/01/14 Amiodarone [Cordarone] 100 mg PO DAILY tab 05/04/17 HYDROcodone/APAP 10-325MG [Stoddard 1 tab PO Q6H PRN #40 tab 05/04/17 10-325] Sulfamethox-Tmp 400-80Mg [Bactrim 1 tab PO Q12HR #10 tablet 05/04/17 SS 400-80 mg] Metoprolol Succinate (ER) [Toprol 150 mg PO DAILY #100 tab 05/06/17 XL] Apixaban [Eliquis] 5 mg PO BID #60 tab 05/07/17 Allergies Allergy/AdvReac Type Severity Reaction Status Date / Time meperidine HCl [From Demerol] Allergy Severe Anaphylaxis Verified 05/25/17 19:39 cephalexin monohydrate Allergy Rash/Hives Verified 05/25/17 19:39 [From Keflex] erythromycin base Allergy Rapid Verified 05/25/17 19:39 Heart Rate lorazepam [From Ativan] Allergy Dyspnea Verified 05/25/17 19:39 Penicillins Allergy Rash/Hives Verified 05/25/17 19:39 doxycycline calcium AdvReac Nausea & Verified 05/25/17 19:39 [From Vibramycin] Vomiting doxycycline hyclate AdvReac Nausea & Verified 05/25/17 19:39 [From Vibramycin] Vomiting doxycycline monohydrate AdvReac Nausea & Verified 05/25/17 19:39 [From Vibramycin] Vomiting tetracycline AdvReac Nausea & Verified 05/25/17 19:39 Vomiting Review of Systems ROS Statement: Those systems with pertinent positive or pertinent negative responses have been documented in the HPI. ROS Other: All systems not noted in ROS Statement are negative. Past Medical History Past Medical History: Atrial Fibrillation, Asthma, Coronary Artery Disease (CAD) , Heart Failure, COPD, Diabetes Mellitus, Deep Vein Thrombosis (DVT), Eye Disorder, Hyperlipidemia, Hypertension, [place]ocardial Infarction ([place]) Additional Past Medical History / Comment(s): Pt recently admitted to [facility] on with R lower extremity cellulitis. Other Hx: Chronic respiratory failure with O2 dependence-2L/NC ATC, bronchitis, ischemic cardiomyopathy, murmur, thoracic outlet syndrome, IDDM type II, DVT left leg twice after childbirths, glaucoma R eye, arthritis multiple joints, osteoporosis, pancreatitis once, hypothyroid, past cellulitis R knee and L leg, R eye cataract , varicosities. Last Myocardial Infarction Date:: 1999 History of Any Multi-Drug Resistant Organisms: None Reported Past Surgical History: Adenoidectomy, AICD, Heart Catheterization With Stent, Hernia Repair, Hysterectomy, Tonsillectomy Additional Past Surgical History / Comment(s): 1999 PCI with stents (3), 2014 BiV AICD, L upper rib removed d/t thoracic outlet syndrome, R knee I&D, bilateral carpal tunnel releases, colonoscopy, D&C, bladder suspension, umbilical hernia repair. Past Anesthesia/Blood Transfusion Reactions: No Reported Reaction Additional Past Anesthesia/Blood Transfusion Reaction / Comment(s): Pt has never had a blood transfusion. Date of Last Stent Placement:: 1999 Type of Cardiac Device: AICD Device Placement Date:: 06-27-14 Past Psychological History: No Psychological Hx Reported Smoking Status: Former smoker Past Alcohol Use History: None Reported Past Drug Use History: None Reported - Past Family History Brother(s) Family Medical History: Cancer Additional Family Medical History / Comment(s): Pt had 2 brothers with lung cancer. Father Family Medical History: Coronary Artery Disease (CAD), CVA/TIA, Myocardial Infarction ([place]) Additional Family Medical History / Comment(s): fATHER AT 57 YRS OF AGE Mother Family Medical History: Cancer, Dementia Additional Family Medical History / Comment(s): throat cancer General Exam Limitations: no limitations General appearance: alert, in no apparent distress, other (This is a well- developed, well-nourished adult female patient in mild distress related to pain. Vital signs upon presentation are temperature 98.5F, pulse 77, respirations 18, blood pressure 107/56, pulse ox 93% on 2 L.) Eye exam: Present: normal appearance, PERRL, EOMI. Absent: scleral icterus, conjunctival injection, periorbital swelling ENT exam: Present: normal exam, normal oropharynx, mucous membranes moist Respiratory exam: Present: normal lung sounds bilaterally. Absent: respiratory distress, wheezes, rales, rhonchi, stridor Cardiovascular Exam: Present: regular rate, normal rhythm, normal heart sounds. Absent: systolic murmur, diastolic murmur, rubs, gallop, clicks Extremities exam: Present: full ROM, normal capillary refill, other (Patient has an L-shaped laceration to the right knee that is well approximated with sutures. Appears well-healed. The right lower leg exhibits brownish discoloration the patient reports is chronic for her.). Absent: normal inspection, tenderness, pedal edema, joint swelling, calf tenderness Neurological exam: Present: alert, oriented X3, CN II-XII intact Psychiatric exam: Present: normal affect, normal mood Skin exam: Present: warm, dry, intact, normal color. Absent: rash Course Vital Signs 05/25/17 05/25/17 05/25/17 17:54 20:47 22:39 Temperature 98.5 F 99.7 F H Pulse Rate 77 73 76 Respiratory 18 22 20 Rate Blood Pressure 107/56 139/67 O2 Sat by Pulse 93 L 97 96 Oximetry 05/25/17 05/26/17 05/26/17 23:34 00:00 00:09 Temperature 98.9 F Pulse Rate 71 77 Respiratory 22 Rate Blood Pressure 104/52 O2 Sat by Pulse 97 100 Oximetry Medical Decision Making - Medical Decision Making 76-year-old female patient presents to the emergency department today complaining of lower back pain, intermittent abdominal pain, and constipation. Physical examination did reveal generalized abdominal tenderness, does have a healing laceration to the right knee. Some brownish discoloration to the right lower leg. Patient is quite uncomfortable during exam due to her back pain. Labs reviewed and did reveal an elevated white blood cell count of 14.5. Neutrophils are 11.8. BUN is 40, creatinine 1.15. Urinalysis did show cloudy appearance with trace protein, trace ketones, small amount of blood, 1+ bilirubin, moderate leukocyte esterase, 54 reds and 13 white cells, few acid crystals, occasional bacteria, 15 hyaline casts, and rare mucous. Did perform CT of the abdomen and pelvis without contrast due to her kidney function, this did show probable ileus and right middle and left lower lobe pneumonia. I did review lumbar x-rays obtained outpatient a couple of days ago, there is no acute osseous abnormalities. I did discuss findings with the patient. I did recommend admission for IV antibiotics. She agrees with this plan. Did discuss the case with Dr. Burnett who spoke to Dr. Diehl who accepts patient. We will start her on Levaquin and aztreonam for possible pseudomonal pneumonia, patient was recently discharged from the hospital. - Lab Data Result diagrams: 05/25/17 20:35 05/25/17 20:35 Lab Results 05/25/17 05/25/17 05/25/17 Range/Units 20:20 20:35 20:35 WBC 14.5 H (3.8-10.6) k/uL RBC 4.54 (3.80-5.40) m/uL Hgb 13.3 (11.4-16.0) gm/dL Hct 41.7 (34.0-46.0) % MCV 91.9 (80.0-100.0) fL MCH 29.3 (25.0-35.0) pg MCHC 31.9 (31.0-37.0) g/dL RDW 13.5 (11.5-15.5) % Plt Count 382 (150-450) k/uL Neutrophils % 81 % Lymphocytes % 12 % Monocytes % 4 % Eosinophils % 1 % Basophils % 0 % Neutrophils # 11.8 H (1.3-7.7) k/uL Lymphocytes # 1.7 (1.0-4.8) k/uL Monocytes # 0.6 (0-1.0) k/uL Eosinophils # 0.2 (0-0.7) k/uL Basophils # 0.0 (0-0.2) k/uL Sodium 137 (137-145) mmol/L Potassium 5.1 (3.5-5.1) mmol/L Chloride 97 L (98-107) mmol/L Carbon Dioxide 30 (22-30) mmol/L Anion Gap 10 mmol/L BUN 40 H (7-17) mg/dL Creatinine 1.15 H (0.52-1.04) mg/dL Est GFR (CKD-EPI)AfAm 54 (>60 ml/min/1.73 sqM) Est GFR (CKD-EPI)NonAf 47 (>60 ml/min/1.73 sqM) Glucose 90 (74-99) mg/dL POC Glucose (mg/dL) (75-99) mg/dL POC Glu Laminating Machine Feeder ID Calcium 9.5 (8.4-10.2) mg/dL Total Bilirubin 0.5 (0.2-1.3) mg/dL AST 26 (14-36) U/L ALT 24 (9-52) U/L Alkaline Phosphatase 119 (38-126) U/L Total Protein 6.2 L (6.3-8.2) g/dL Albumin 3.6 (3.5-5.0) g/dL Amylase 35 (30-110) U/L Lipase 40 (23-300) U/L Urine Color Dark Yellow Urine Appearance Cloudy H (Clear) Urine pH 5.5 (5.0-8.0) Ur Specific Lyle 1.027 (1.001-1.035) Urine Protein Trace H (Negative) Urine Glucose (UA) Negative (Negative) Urine Ketones Trace H (Negative) Urine Blood Small H (Negative) Urine Nitrite Negative (Negative) Urine Bilirubin 1+ H (Negative) Urine Urobilinogen 3.0 (<2.0) mg/dL Ur Leukocyte Esterase Moderate H (Negative) Urine RBC 54 H (0-5) /hpf Urine WBC 13 H (0-5) /hpf Ur Squamous Epith Cells 2 (0-4) /hpf Uric Acid Crystals Few H (None) /hpf Urine Bacteria Occasional H (None) /hpf Hyaline Casts 15 H (0-2) /lpf Urine Mucus Rare H (None) /hpf 05/25/17 Range/Units 23:14 WBC (3.8-10.6) k/uL RBC (3.80-5.40) m/uL Hgb (11.4-16.0) gm/dL Hct (34.0-46.0) % MCV (80.0-100.0) fL MCH (25.0-35.0) pg MCHC (31.0-37.0) g/dL RDW (11.5-15.5) % Plt Count (150-450) k/uL Neutrophils % % Lymphocytes % % Monocytes % % Eosinophils % % Basophils % % Neutrophils # (1.3-7.7) k/uL Lymphocytes # (1.0-4.8) k/uL Monocytes # (0-1.0) k/uL Eosinophils # (0-0.7) k/uL Basophils # (0-0.2) k/uL Sodium (137-145) mmol/L Potassium (3.5-5.1) mmol/L Chloride (98-107) mmol/L Carbon Dioxide (22-30) mmol/L Anion Gap mmol/L BUN (7-17) mg/dL Creatinine (0.52-1.04) mg/dL Est GFR (CKD-EPI)AfAm (>60 ml/min/1.73 sqM) Est GFR (CKD-EPI)NonAf (>60 ml/min/1.73 sqM) Glucose (74-99) mg/dL POC Glucose (mg/dL) 74 L (75-99) mg/dL POC Glu Laminating Machine Feeder ID Ginny Isabel Calcium (8.4-10.2) mg/dL Total Bilirubin (0.2-1.3) mg/dL AST (14-36) U/L ALT (9-52) U/L Alkaline Phosphatase (38-126) U/L Total Protein (6.3-8.2) g/dL Albumin (3.5-5.0) g/dL Amylase (30-110) U/L Lipase (23-300) U/L Urine Color Urine Appearance (Clear) Urine pH (5.0-8.0) Ur Specific Lyle (1.001-1.035) Urine Protein (Negative) Urine Glucose (UA) (Negative) Urine Ketones (Negative) Urine Blood (Negative) Urine Nitrite (Negative) Urine Bilirubin (Negative) Urine Urobilinogen (<2.0) mg/dL Ur Leukocyte Esterase (Negative) Urine RBC (0-5) /hpf Urine WBC (0-5) /hpf Ur Squamous Epith Cells (0-4) /hpf Uric Acid Crystals (None) /hpf Urine Bacteria (None) /hpf Hyaline Casts (0-2) /lpf Urine Mucus (None) /hpf - Radiology Data Radiology results: report reviewed, image reviewed Two-view x-ray of the abdomen shows no sign of intestinal obstruction or pneumoperitoneum. There is air throughout the large bowel. There are no pathologic calcifications over the kidneys. Impression by Dr. Schuler shows large bowel gas consistent with ileus. No free air. CT of the abdomen and pelvis without contrast was obtained. Report was reviewed in its entirety. Impression by Dr. Schuler shows large bowel fluid levels consistent with diarrhea and ileus. No free air. Normal appendix. Atherosclerotic vascular disease. Right middle lobe and left lower lobe linear infiltrate and atelectasis. Cardiomegaly. Nonobstructing right renal calculus. Mild sigmoid diverticulosis. Disposition Clinical Impression: Right middle lobe pneumonia, Right lower lobe pneumonia, Urinary tract infection, Intractable back pain, Ileus Disposition: ADMITTED IP TO THIS [facility] Condition: Serious Decision to Admit Reason: Admit from EC Decision Date: 05/25/17 Decision Time: 23:55
[2017-05-25 20:36] LABS: Appearance,Urine Cloudy (Clear); Bacteria,Urine Occasional /hpf; Bilirubin,Urine 1+ (Negative); Blood,Urine Small (Negative); Color,Urine Dark Yellow; Glucose,Urine (UA) Negative (Negative); Hyaline Casts,Urine 15 /lpf (0-2); Ketones,Urine Trace (Negative); Leukocyte Esterase,Urine Moderate (Negative); Mucus,Urine Rare /hpf; Nitrite,Urine Negative (Negative); PH, Urine 5.5 (5.0-8.0); Protein,Urine Trace (Negative); RBC,Urine 54 /hpf (0-5); Specific Gravity,Urine 1.027 (1.001-1.035); Squamous Epithelial Cell,Urine 2 /hpf (0-4); Uric Acid Crystals,Urine Few /hpf; WBC,Urine 13 /hpf (0-5)
[2017-05-25 20:45] LABS: Basophils % (A) 0 %; Eosinophils # (A) 0.2 k/uL (0-0.7); Eosinophils % (A) 1 %; HCT 41.7 % (34.0-46.0); HGB 13.3 gm/dL (11.4-16.0); Lymphocytes # (A) 1.7 k/uL (1.0-4.8); Lymphocytes % (A) 12 %; MCH 29.3 pg (25.0-35.0); MCHC 31.9 g/dL (31.0-37.0); MCV 91.9 fL (80.0-100.0); Mean Platelet Volume 6.7; Monocytes # (A) 0.6 k/uL (0-1.0); Monocytes % (A) 4 %; Neutrophils # (A) 11.8 k/uL (1.3-7.7); Neutrophils % (A) 81 %; Platelet Count 382 k/uL (150-450); RBC 4.54 m/uL (3.80-5.40); RDW 13.5 % (11.5-15.5); WBC 14.5 k/uL (3.8-10.6)
[2017-05-25 21:01] LABS: Albumin 3.6 g/dL (3.5-5.0); Calcium 9.5 mg/dL (8.4-10.2); Potassium 5.1 mmol/L (3.5-5.1); Total Bilirubin 0.5 mg/dL (0.2-1.3); Total Protein 6.2 g/dL (6.3-8.2)
--- NOTE | 2017-05-25 22:21 | CT ---
EXAMINATION TYPE: CT abdomen pelvis wo con DATE OF EXAM: 05/25/2017 COMPARISON: NONE HISTORY: Back pain CT DLP: 1479.7 mGycm Automated exposure control for dose reduction was used. TECHNIQUE: Helical acquisition of images was performed from the lung bases through the pelvis. FINDINGS: There is a small area of interstitial infiltrate and atelectasis in the right middle lobe. Heart is e nlarged. There is similar atelectasis at the left posterior lung base. There is no pleural effusion. Liver shows no focal defect. Gallbladder appears normal. Spleen appears normal. There is no sign of p ancreatic mass. There is no adrenal mass. There is a 4 mm calcification in the right kidney. There is no hydronephrosis. Abdominal aorta is atheromatous. There is no retroperitoneal adenopathy. There is no ascites. There is no sign of free air. Bladder distends smoothly. There is no evidence of a pelvi c mass. There are a few sigmoid diverticula. There is no evidence of diverticulitis. There are fluid levels in the transverse colon. I see no large bowel wall thickening. I see no bony destructive proce ss. There are spondylotic changes in the lumbar spine. There is 10% anterior wedging of L1 vertebral body. IMPRESSION: LARGE BOWEL FLUID LEVELS CONSISTENT WITH DIARRHEA AND ILEUS. NO FREE AIR. NORMAL APPENDIX. ATHEROSCLE ROTIC VASCULAR DISEASE. RIGHT MIDDLE LOBE AND LEFT LOWER LOBE LINEAR INFILTRATE AND ATELECTASIS. CARD IOMEGALY. NONOBSTRUCTING RIGHT RENAL CALCULUS. MILD SIGMOID DIVERTICULOSIS.
[2017-05-25 23:16] LABS: Glucose,Whole Blood 74 mg/dL (75-99)
--- NOTE | 2017-05-25 23:22 | XR ---
EXAMINATION TYPE: XR KUB DATE OF EXAM: 05/25/2017 COMPARISON: NONE HISTORY: Obstipation. Back pain. TECHNIQUE: 2 views FINDINGS: There is no sign of intestinal obstruction or pneumoperitoneum. There is air throughout the large bowel. There are no pathologic calcifications over the kidneys. IMPRESSION: Large bowel gas consistent with ileus. No free air.
[2017-05-25] MEDS ORDERED: NALOXONE 0.4 MG/ML 1 ML VIAL IV PRN (23:41)
[2017-05-25] MEDS ORDERED: PNEUMONIA PROTOCOL UTILIZED 1 EACH MISC PO PRN (23:44)
[2017-05-25] MEDS ORDERED: AZTREONAM 2 GM in SODIUM CHLORIDE 0.9% 100 ML IVPB STA (23:44)
[2017-05-25] MEDS ORDERED: LEVOFLOXACIN 750MG-D5W PMX 750 MG in DEXTROSE/WATER 1 150ML.BAG IVPB STA (23:44)
[2017-05-25] MEDS ORDERED: SODIUM CHLORIDE 0.9% 1,000 ML IV SCH (23:45)
[2017-05-26] MEDS ORDERED: IPRATROPIUM-ALBUTEROL 3 ML NEB INHALATION PRN (00:03)
[2017-05-26] MEDS ORDERED: IPRATROPIUM-ALBUTEROL 3 ML NEB INHALATION STA (00:03)
[2017-05-26] MEDS: MORPHINE SULF 5MG/10ML VL IVP PRN ×2 (02:54→06:28)
[2017-05-26] MEDS ORDERED: IPRATROPIUM-ALBUTEROL 3 ML NEB INHALATION SCH ×2 (04:00→12:00)
[2017-05-26 06:57] LABS: Glucose,Whole Blood 117 mg/dL (75-99)
[2017-05-26] MEDS: IPRATROPIUM-ALBUTEROL 3 ML NEB INHALATION SCH ×4 (07:05→20:55)
[2017-05-26] MEDS: AZTREONAM 2 GM in SODIUM CHLORIDE 0.9% 100 ML IVPB SCH ×2 (08:35→16:56)
[2017-05-26] MEDS ORDERED: NITROGLYCERIN SL TABS 0.4 MG TAB SUBLINGUAL PRN (08:42)
[2017-05-26 09:54] LABS: Albumin 2.9 g/dL (3.5-5.0); Calcium 8.6 mg/dL (8.4-10.2); Potassium 4.9 mmol/L (3.5-5.1); Total Bilirubin 0.4 mg/dL (0.2-1.3); Total Protein 5.2 g/dL (6.3-8.2)
[2017-05-26 10:00] LABS: Basophils % (A) 0 %; Eosinophils % (A) 0 %; HCT 37.3 % (34.0-46.0); HGB 11.7 gm/dL (11.4-16.0); Hypochromasia Slight; Lymphocytes % (A) 9 %; MCH 29.4 pg (25.0-35.0); MCHC 31.5 g/dL (31.0-37.0); MCV 93.3 fL (80.0-100.0); Mean Platelet Volume 7.1; Monocytes # (A) 0.6 k/uL (0-1.0); Monocytes % (A) 5 %; Neutrophils # (A) 9.5 k/uL (1.3-7.7); Neutrophils % (A) 84 %; Platelet Count 301 k/uL (150-450); RDW 13.4 % (11.5-15.5); WBC 11.4 k/uL (3.8-10.6)
--- NOTE | 2017-05-26 10:12 | XR ---
EXAMINATION TYPE: XR chest 2V DATE OF EXAM: 05/26/2017 COMPARISON: 05/05/2017 TECHNIQUE: PA and lateral views submitted. HISTORY: Chest pain FINDINGS: There is a cardiac device with multiple cardiac leads. There is arthropathy of the shoulders. Mild ce ntral interstitial prominence. Right basilar infiltrate and tiny effusion. Hypertrophic change of the spine noted with a severe compression deformity near the thoracolumbar junction which appears new fr om the chest x-ray of 04/24/2017. IMPRESSION: 1. Cardiomegaly with right basilar atelectasis or infiltrate and tiny effusion. Mild central venous c ongestion in the differential diagnosis. 2. There is a severe compression fracture near the thoracolumbar junction. This was not seen with cer taintdhiraj on the CT scan of 05/25/2017. Correlate clinically. Findings suggest a new compression fracture. Report called to the patient's nurse.
[2017-05-26] MEDS: HYDROmorphone 4 MG TABLET PO PRN ×2 (10:32→16:48)
[2017-05-26] MEDS: AMIODARONE 100 MG TAB PO SCH (10:35)
[2017-05-26] MEDS: ASPIRIN 81 MG PO SCH (10:36)
[2017-05-26] MEDS: ISOSORBIDE MONONITRATE ER 30 MG TAB.ER.24H PO SCH (10:36)
[2017-05-26] MEDS: APIXABAN 5 MG TAB PO SCH ×2 (10:36→22:12)
[2017-05-26] MEDS: LEVOTHYROXINE 50 MCG TAB PO SCH (10:37)
[2017-05-26] MEDS: HYDROcodone/APAP 10-325MG 1 EACH TAB PO PRN ×2 (10:38→16:48)
[2017-05-26] MEDS: METOPROLOL SUCCINATE (ER) 50 MG TAB.ER.24H PO SCH (10:38)
[2017-05-26 11:14] LABS: Glucose,Whole Blood 130 mg/dL (75-99)
[2017-05-26] MEDS ORDERED: LACTULOSE 20 GM/30 ML CUP PO ONE (11:15)
--- NOTE | 2017-05-26 11:18 | P.HPIM ---
History of Present Illness H&P Date: 05/26/17 Chief Complaint: Lower back pain This is a 76-year-old female with a known past medical history of ischemic cardiomyopathy with AICD, diabetes mellitus, as well atrial fibrillation anticoagulated with Eliquis, chronic respiratory failure home O2 dependent, hyperlipidemia, hypertension and coronary artery disease with stents. Patient has been having falls at home. She is complaining of lower back pain. She initially had an x-ray May 18 which showed no fracture of the lumbar spine. However, patient is reporting that the pain in her lower back is worsening. She also has a cough and has been having issues with constipation and a few episodes of vomiting. She's had a decrease in her appetite. She also has 2 more days of Bactrim for her cellulitis of the right leg. He had been hospitalized earlier in April for her right leg cellulitis. X-ray of that leg was negative for fracture. And venous Doppler was negative for DVT. Did reveal indeterminant fluid collection could represent seroma, hematoma and correlate for possible infection. Patient also being treated for UTI. Placed on Aztreonam in the emergency room. White count 14.5 she did have some evidence of dehydration with a creatinine of 1.15 likely related to her vomiting and poor oral intake. Computed tomography scan of the abdomen shows large bowel fluid levels consistent with diarrhea and ileus. No free air. Right middle lobe and left lower lobe linear infiltrate and atelectasis. Cardiomegaly. Nonobstructing right renal calculus and mild sigmoid diverticulosis. Chest x-ray showed cardiomegaly with right basilar atelectasis or infiltrate and tiny effusion. Mild central venous congestion in the differential diagnosis. There is a severe compression fracture near the thoracolumbar junction. Patient is currently on antibiotics. Infectious disease consulted. And Dr. Carlisle will be consulted in regards to her spinal fracture. Patient does admit to having low-grade fevers at home with some chills and sweats. Admits having a productive cough. A few episodes of vomiting which are brown in color. No bowel movement for 5 days. Her main source of pain is her lower back. She reports that she has been able to walk however it hurts her back to walk. She admits to urinary frequency which is not new for her. But denies any burning with urination. Review of Systems Please refer to HPI otherwise unremarkable Past Medical History Past Medical History: Atrial Fibrillation, Asthma, Coronary Artery Disease (CAD) , Heart Failure, COPD, Diabetes Mellitus, Deep Vein Thrombosis (DVT), Eye Disorder, Hyperlipidemia, Hypertension, Myocardial Infarction (CA) Additional Past Medical History / Comment(s): Pt recently admitted to [facility] on with R lower extremity cellulitis. Other Hx: Chronic respiratory failure with O2 dependence-2L/NC ATC, bronchitis, ischemic cardiomyopathy, murmur, thoracic outlet syndrome, IDDM type II, DVT left leg twice after childbirths, glaucoma R eye, arthritis multiple joints, osteoporosis, pancreatitis once, hypothyroid, past cellulitis R knee and L leg, R eye cataract , varicosities. Last Myocardial Infarction Date:: 1999 History of Any Multi-Drug Resistant Organisms: None Reported Past Surgical History: Adenoidectomy, AICD, Heart Catheterization With Stent, Hernia Repair, Hysterectomy, Tonsillectomy Additional Past Surgical History / Comment(s): 1999 PCI with stents (3), 2014 BiV AICD, L upper rib removed d/t thoracic outlet syndrome, R knee I&D, bilateral carpal tunnel releases, colonoscopy, D&C, bladder suspension, umbilical hernia repair. Past Anesthesia/Blood Transfusion Reactions: No Reported Reaction Additional Past Anesthesia/Blood Transfusion Reaction / Comment(s): Pt has never had a blood transfusion. Date of Last Stent Placement:: 1999 Type of Cardiac Device: AICD Device Placement Date:: 06-27-14 Past Psychological History: No Psychological Hx Reported Additional Psychological History / Comment(s): and lives independently, states son lives with her. No current tobacco use no current alcohol use. No experience no international travel no animal exposures. Pt has glucometer, nebulizer, O2, and a walker at home. She is independent with her ADLs. Smoking Status: Former smoker Past Alcohol Use History: None Reported Additional Past Alcohol Use History / Comment(s): Pt smoked from 1975 to 1999. She denies any medical marijuana, marijuana, street drug or alcohol use. Past Drug Use History: None Reported - Past Family History Brother(s) Family Medical History: Cancer Additional Family Medical History / Comment(s): Pt had 2 brothers with lung cancer. Father Family Medical History: Coronary Artery Disease (CAD), CVA/TIA, Myocardial Infarction (CA) Additional Family Medical History / Comment(s): fATHER AT 57 YRS OF AGE Mother Family Medical History: Cancer, Dementia Additional Family Medical History / Comment(s): throat cancer Medications and Allergies Home Medications Medication Instructions Recorded Confirmed Type Isosorbide Mononitrate ER [Imdur] 30 mg PO DAILY 04/24/14 05/25/17 History Montelukast [Singulair] 10 mg PO HS 04/24/14 05/25/17 History metFORMIN HCL 1,000 mg PO DAILY 04/29/14 05/25/17 History Atorvastatin [Lipitor] 40 mg PO HS #60 tab 05/01/14 05/25/17 Rx Nitroglycerin Sl Tabs [Nitrostat] 0.4 mg SUBLINGUAL Q5M PRN 06/02/14 05/25/17 History Aspirin EC [Ecotrin Low Dose] 81 mg PO DAILY 11/18/14 05/25/17 History Budesonide [Pulmicort] 0.5 mg INHALATION RT-BID 11/18/14 05/25/17 History Insulin Glargine [Lantus] 44 unit SQ HS 11/18/14 05/25/17 History Ipratropium-Albuterol Nebulize 3 ml INHALATION RT-QID 11/18/14 05/25/17 History [Duoneb 0.5 mg-3 mg/3 ml Soln] Latanoprost Ophth [Xalatan 0.005%] 1 drop RIGHT EYE HS 11/18/14 05/25/17 History Ergocalciferol [Vitamin D2 50,000 unit PO TU 05/01/17 05/25/17 History (DRISDOL)] Furosemide [Lasix] 20 mg PO DAILY@119905/01/17 05/25/17 History INSULIN LISPRO (HumaLOG) [humaLOG] 3 - 8 units SQ AC-TID 05/01/17 05/25/17 History Levothyroxine Sodium [Synthroid] 50 mcg PO DAILY 05/01/17 05/25/17 History Losartan-Hctz 50-12.5 mg [Hyzaar 1 tab PO DAILY@1200 05/01/17 05/25/17 History 50-12.5] Spironolactone [Aldactone] 12.5 mg PO DAILY@1200 05/01/17 05/25/17 History Amiodarone [Cordarone] 100 mg PO DAILY tab 05/04/17 05/25/17 Rx HYDROcodone/APAP 10-325MG [[place] 1 tab PO Q6H PRN #40 tab 05/04/17 05/25/17 Rx 10-325] Sulfamethox-Tmp 400-80Mg [Bactrim 1 tab PO Q12HR #10 tablet 05/04/17 05/25/17 Rx SS 400-80 mg] Metoprolol Succinate (ER) [Toprol 150 mg PO DAILY #100 tab 05/06/17 05/25/17 Rx XL] Apixaban [Eliquis] 5 mg PO BID #60 tab 05/07/17 05/25/17 Rx HYDROmorphone [Dilaudid] 4 mg PO QID PRN 05/25/17 05/25/17 History Allergies Allergy/AdvReac Type Severity Reaction Status Date / Time meperidine HCl [From Demerol] Allergy Severe Anaphylaxis Verified 05/25/17 19:39 cephalexin monohydrate Allergy Rash/Hives Verified 05/25/17 19:39 [From Keflex] erythromycin base Allergy Rapid Verified 05/25/17 19:39 Heart Rate lorazepam [From Ativan] Allergy Dyspnea Verified 05/25/17 19:39 Penicillins Allergy Rash/Hives Verified 05/25/17 19:39 doxycycline calcium AdvReac Nausea & Verified 05/25/17 19:39 [From Vibramycin] Vomiting doxycycline hyclate AdvReac Nausea & Verified 05/25/17 19:39 [From Vibramycin] Vomiting doxycycline monohydrate AdvReac Nausea & Verified 05/25/17 19:39 [From Vibramycin] Vomiting tetracycline AdvReac Nausea & Verified 05/25/17 19:39 Vomiting Physical Exam Vitals: Vital Signs Temp Pulse Pulse Resp BP BP Pulse Ox 05/26/17 08:00 18 05/26/17 07:19 82 05/26/17 07:09 78 94 L 05/26/17 07:00 98.6 F 86 18 151/88 97 05/26/17 00:52 98 F 86 20 122/71 95 05/26/17 00:09 77 05/26/17 00:00 98.9 F 71 22 104/52 100 05/25/17 23:34 97 05/25/17 22:39 99.7 F H 76 20 139/67 96 05/25/17 20:47 73 22 97 05/25/17 17:54 98.5 F 77 18 107/56 93 L Intake and Output 05/25/17 05/26/17 05/26/17 22:59 06:59 14:59 Intake Total 1500 50 Balance 1500 50 Intake: Amount of Fluid Infused ( 1200 ml) Oral 300 50 Other: Voiding Method Bedside Commode # Voids 3 1 Weight 108.862 kg Head normocephalic Neck supple Lungs diminished bilaterally with coarse cough Heart regular rate and rhythm S1-S2, no rub or gallop Abdomen is soft nontender nondistended positive bowel sounds no hepatosplenomegaly Extremities right tibia area still having some cellulitis type changes swelling noted at the distal aspect of the tibia. Warm to touch. Neuro alert and orientated to 3 Results CBC & Chem 7: 05/26/17 09:11 05/26/17 09:11 Labs: Abnormal Lab Results - Last 24 Hours (Table) 05/25/17 05/25/17 05/25/17 Range/Units 20:20 20:35 20:35 WBC 14.5 H (3.8-10.6) k/uL Neutrophils # 11.8 H (1.3-7.7) k/uL Sodium (137-145) mmol/L Chloride 97 L (98-107) mmol/L BUN 40 H (7-17) mg/dL Creatinine 1.15 H (0.52-1.04) mg/dL Glucose (74-99) mg/dL POC Glucose (mg/dL) (75-99) mg/dL Total Protein 6.2 L (6.3-8.2) g/dL Albumin (3.5-5.0) g/dL Urine Appearance Cloudy H (Clear) Urine Protein Trace H (Negative) Urine Ketones Trace H (Negative) Urine Blood Small H (Negative) Urine Bilirubin 1+ H (Negative) Ur Leukocyte Esterase Moderate H (Negative) Urine RBC 54 H (0-5) /hpf Urine WBC 13 H (0-5) /hpf Uric Acid Crystals Few H (None) /hpf Urine Bacteria Occasional H (None) /hpf Hyaline Casts 15 H (0-2) /lpf Urine Mucus Rare H (None) /hpf 05/25/17 05/26/17 05/26/17 Range/Units 23:14 06:54 09:11 WBC 11.4 H (3.8-10.6) k/uL Neutrophils # 9.5 H (1.3-7.7) k/uL Sodium (137-145) mmol/L Chloride (98-107) mmol/L BUN (7-17) mg/dL Creatinine (0.52-1.04) mg/dL Glucose (74-99) mg/dL POC Glucose (mg/dL) 74 L 117 H (75-99) mg/dL Total Protein (6.3-8.2) g/dL Albumin (3.5-5.0) g/dL Urine Appearance (Clear) Urine Protein (Negative) Urine Ketones (Negative) Urine Blood (Negative) Urine Bilirubin (Negative) Ur Leukocyte Esterase (Negative) Urine RBC (0-5) /hpf Urine WBC (0-5) /hpf Uric Acid Crystals (None) /hpf Urine Bacteria (None) /hpf Hyaline Casts (0-2) /lpf Urine Mucus (None) /hpf 05/26/17 Range/Units 09:11 WBC (3.8-10.6) k/uL Neutrophils # (1.3-7.7) k/uL Sodium 136 L (137-145) mmol/L Chloride (98-107) mmol/L BUN 34 H (7-17) mg/dL Creatinine (0.52-1.04) mg/dL Glucose 134 H (74-99) mg/dL POC Glucose (mg/dL) (75-99) mg/dL Total Protein 5.2 L (6.3-8.2) g/dL Albumin 2.9 L (3.5-5.0) g/dL Urine Appearance (Clear) Urine Protein (Negative) Urine Ketones (Negative) Urine Blood (Negative) Urine Bilirubin (Negative) Ur Leukocyte Esterase (Negative) Urine RBC (0-5) /hpf Urine WBC (0-5) /hpf Uric Acid Crystals (None) /hpf Urine Bacteria (None) /hpf Hyaline Casts (0-2) /lpf Urine Mucus (None) /hpf Thrombosis Risk Factor Assmnt - Choose All That Apply Any of the Below Risk Factors Present?: Yes Each Factor Represents 1 point: Obesity (BMI >25) Other Risk Factors: Yes Each Risk Factor Represents 2 Points: Age 61-74 years Each Risk Factor Represents 3 Points: History of DVT/PE Thrombosis Risk Factor Assessment Total Risk Factor Score: 6 Thrombosis Risk Factor Assessment Level: High Risk Assessment and Plan Assessment: 1. Intractable back pain with severe compression fracture near the thoracolumbar junction noted on chest x-ray. Dr. Carlisle will be consulted. I will resume patient's [place] and oral Dilaudid. Continue the IV morphine as needed 2. Pneumonia: Continue Aztreonam. Consult infectious disease. Check sputum culture 3. UTI: Check urine culture. Continue antibiotic 4. Right lower extremity cellulitis. Had been on Bactrim outpatient. Bactrim discontinued. Continue with current antibiotic until seen by infectious disease. Had previous venous Doppler in April which was negative for DVT. It did note a fluid collection along the tibia. 5. Constipation: Likely related to pain meds. with a computed tomography scan of the abdomen showing evidence of large bowel fluid levels consistent with diarrhea and ileus. Will give patient lactulose and stool softener. Also will start her MiraLAX tonight. If no results with the lactulose will give a soapsuds enema 6. Acute kidney injury likely related to dehydration from patient's vomiting showing improvement. Will resume patient's home dose of diuretics and Hep-Lock IV fluids 7. History of ischemic cardiomyopathy status post AICD 8. Diabetes mellitus type 2: Resume patient's insulin and add sliding scale coverage 9. History of paroxysmal atrial fibrillation: Continue metoprolol amiodarone and Eliquis for anticoagulation 10. Chronic respiratory failure home O2 dependent 11. Essential hypertension 12. Hyperlipidemia GI prophylaxis Pepcid and DVT prophylaxis Eliquis Time with Patient: Greater than 30 (Greater than 50% of the total time spent in counseling and coordination of care.I performed an examination of the patient and discussed their management with the physician Ax Survey Worker. I have reviewed the Physician Ax Survey Worker's notes and agree with the documented findings and plan of care)
[2017-05-26] MEDS ORDERED: ERGOCALCIFEROL 50,000 UNIT CAP PO SCH (12:00)
[2017-05-26] MEDS: INSULIN ASPART 100 UNIT/ML 1 ML 10 ML VIAL SQ SCH ×5 (13:07→22:06)
[2017-05-26] MEDS: FAMOTIDINE 20 MG TAB PO SCH (13:11)
[2017-05-26] MEDS: LOSARTAN-HCTZ 50-12.5 MG 1 EACH TAB PO SCH (13:11)
[2017-05-26] MEDS: FUROSEMIDE 20 MG TAB PO SCH (13:12)
[2017-05-26] MEDS: SPIRONOLACTONE 25 MG TAB PO SCH (13:12)
[2017-05-26] MEDS: DOCUSATE 100 MG CAP PO SCH ×2 (13:12→22:12)
--- NOTE | 2017-05-26 13:13 | CDI ---
Last Revision, January 2017 Documentation Clarification Form Date: 05/26/2017 From: Debbi Russ CCS, CCDS Admit Date: 05/25/2017 11:44:00 PM Patient Name: Maryam Rhodes Visit Number: [id number] Discharge Date: ATTENTION: The Clinical Documentation Specialists (CDI) and [facility] Coding Staff appreciate your assistance in clarifying documentation. Please respond to the clarification below the line at the bottom and electronically sign. The CDI & [facility] Coding staff will review the response and follow-up if needed. Please note: Queries are made part of the Legal Health Record. If you have any questions, please contact the author of this message via ITS. Dr. Farzana Levine: Patient presented with lower back pain after several falls at home, diagnosed with a compression fracture thoracolumbar region. History/Risk Factors: Ischemic cardiomyopathy w/AICD, DM, A Fib, CAD w/stents, Chronic respiratory failure on Home O2 & hypertension. Clinical Indicators: Also c/o cough, constipation, vomiting, decreased appetite , being treated with Bactrim for a UTI & cellulitis of her right leg. VS: PO 93 ra/2Lnc Chest X Ray: Cardiomegaly with right basilar atelectasis or infiltrate & tiny effusion. Mild central venous congestion. Home meds: Lasix 20 mg daily, Nitro sl, Singulair, Insulin sq, Metformin, Lipitor, Aldactone, Toprol XL, Losartan, Synthroid, Imdur, DuoNeb, [place], Eliquis, Cordarone Treatment: Consults: ID & Ortho/Spine surgeon. Blood, sputum & urine cultures. IV fl bolus, IV Ms x2, IV Aztreonam, IV Levaquin, Albuterol INH, O2. In your professional opinion, can you please clarify the acuity and type of CHF if known? Systolic Heart Failure: o Acute o Chronic o Acute on Chronic Diastolic Heart Failure: o Acute o Chronic o Acute on Chronic Systolic & Diastolic Heart Failure: o Acute o Chronic o Acute on Chronic Heart Failure Unable to Determine Other, please specify Please continue to document in your progress notes and discharge summary in order to capture severity of illness and risk of mortality. Include clinical findings that support your diagnosis. Chronic systolic congestive heart failure MTDD
[2017-05-26 17:03] LABS: Glucose,Whole Blood 98 mg/dL (75-99)
[2017-05-26 20:30] LABS: Glucose,Whole Blood 81 mg/dL (75-99)
[2017-05-26] MEDS: BUDESONIDE 0.5 MG/2 ML NEBU INHALATION SCH (20:54)
[2017-05-26] MEDS: INSULIN DETEMIR 100 UNIT/ML 10 ML VIAL SQ SCH (22:07)
[2017-05-26] MEDS: ATORVASTATIN 40 MG TAB PO SCH (22:12)
[2017-05-26] MEDS: POLYETHYLENE GLYCOL 3350 17 GM POWD.PACK PO SCH (22:13)
[2017-05-26] MEDS: MONTELUKAST 10 MG TAB PO SCH (22:13)
[2017-05-26] MEDS: LATANOPROST 0.005% OPHTH DROPS 2.5 ML BTL RIGHT EYE SCH (22:13)
[2017-05-26] MEDS: PETROLAT,WHITE/LAN/8-HYDROXYQU 227 GM OINT TOPICAL SCH (22:14)
--- NOTE | 2017-05-26 23:40 | P.CONS ---
History of Present Illness - Reason for Consult Consult date: 05/26/17 - Chief Complaint Constipation and back pain - History of Present Illness 76 year old woman presents to the ER complaining of worsening abdominal pain associated with constipation and worsening back pain. She had had some outpatient evaluation for her back pain with it yet to receive any input. Because of her worsening status she presented to the emergency center. Imaging studies were performed and there were concerns to potential ileus and constipation, possible diverticulosis and is well as the new thoracic or lumbar compression fracture which is significant and causing severe pain. The patient does have a relatively recent history of the injury and fall to the right leg resulting in the injury and the suturing to the knee. She had a secondary cellulitis responding well to antibiotic therapy with trimethoprim sulfamethoxazole. The extensive cellulitis and generally resolved. She however now he has the difficulties with the significant pain is noted was also having some cough and likely was having some new pneumonic infiltrations also occurring. She subsequently has been admitted in the infectious diseases and orthopedic consults have been requested. Review of Systems HEENT:Denies headache or acute visual change. Denies sinus or mouth discomforts. Denies neck stiffness or pain. Denies significant oral cavity pain. Denies difficulty on swallowing. Lungs: Denies significant shortness of breath, cough, sputum production, or hemoptysis. Cardiovascular: Denies significant shortness of breath, chest pain, chest wall pain, orthopnea, dyspnea on exertion, syncope Gastrointestinal: Has had some nausea minimal emesis no diarrhea positive constipation no melena or hematochezia no hematemesis Musculoskeletal: Severe back pain Skin: Denies new rash or lesions. No new ulcers or wounds are related.. The wounds to the right leg are healing well cellulitis resolved Neuro: Denies headache or visual change. Denies any new onset weakness or difficulty with ambulation. Denies falls or seizures. Psychiatric:Denies anxiety or depression. Endocrine: Denies significant fatigue, denies significant weight loss or weight gain. Past Medical History Past Medical History: Atrial Fibrillation, Asthma, Coronary Artery Disease (CAD) , Heart Failure, COPD, Diabetes Mellitus, Deep Vein Thrombosis (DVT), Eye Disorder, Hyperlipidemia, Hypertension, Myocardial Infarction (AL) Additional Past Medical History / Comment(s): Pt recently admitted to [facility] on with R lower extremity cellulitis. Other Hx: Chronic respiratory failure with O2 dependence-2L/NC ATC, bronchitis, ischemic cardiomyopathy, murmur, thoracic outlet syndrome, IDDM type II, DVT left leg twice after childbirths, glaucoma R eye, arthritis multiple joints, osteoporosis, pancreatitis once, hypothyroid, past cellulitis R knee and L leg, R eye cataract , varicosities. Last Myocardial Infarction Date:: 1999 History of Any Multi-Drug Resistant Organisms: None Reported Past Surgical History: Adenoidectomy, AICD, Heart Catheterization With Stent, Hernia Repair, Hysterectomy, Tonsillectomy Additional Past Surgical History / Comment(s): 1999 PCI with stents (3), 2014 BiV AICD, L upper rib removed d/t thoracic outlet syndrome, R knee I&D, bilateral carpal tunnel releases, colonoscopy, D&C, bladder suspension, umbilical hernia repair. Past Anesthesia/Blood Transfusion Reactions: No Reported Reaction Additional Past Anesthesia/Blood Transfusion Reaction / Comm: Pt has never had a blood transfusion. Date of Last Stent Placement:: 1999 Type of Cardiac Device: AICD Device Placement Date:: 06-27-14 Past Psychological History: No Psychological Hx Reported Additional Psychological History / Comment(s): and lives independently, states son lives with her. No current tobacco use no current alcohol use. No experience no international travel no animal exposures. Pt has glucometer, nebulizer, O2, and a walker at home. She is independent with her ADLs. Smoking Status: Former smoker Past Alcohol Use History: None Reported Additional Past Alcohol Use History / Comment(s): Pt smoked from 1975 to 1999. She denies any medical marijuana, marijuana, street drug or alcohol use. Past Drug Use History: None Reported - Past Family History Brother(s) Family Medical History: Cancer Additional Family Medical History / Comment(s): Pt had 2 brothers with lung cancer. Father Family Medical History: Coronary Artery Disease (CAD), CVA/TIA, Myocardial Infarction (AL) Additional Family Medical History / Comment(s): fATHER AT 57 YRS OF AGE Mother Family Medical History: Cancer, Dementia Additional Family Medical History / Comment(s): throat cancer Medications and Allergies Home Medications and Allergies Comment(s): Current Medications Hydrocodone Bitart/Acetaminophen (Gunpowder 10) 1 each PO Q6H PRN PRN Reason: Pain Last Admin: 05/26/17 16:48 Dose: 1 each Albuterol/Ipratropium (Duoneb 0.5 Mg-3 Mg/3 Ml Soln) 3 ml INHALATION RT-Q2H PRN PRN Reason: Shortness Of Breath Or Wheezing Albuterol/Ipratropium (Duoneb 0.5 Mg-3 Mg/3 Ml Soln) 3 ml INHALATION RT-QID [facility] Last Admin: 05/26/17 20:55 Dose: Not Given Amiodarone HCl (Cordarone) 100 mg PO DAILY [facility] Last Admin: 05/26/17 10:35 Dose: 100 mg Apixaban (Eliquis) 5 mg PO BID [facility] Last Admin: 05/26/17 22:12 Dose: 5 mg Aspirin (Aspirin) 81 mg PO DAILY [facility] Last Admin: 05/26/17 10:36 Dose: 81 mg Atorvastatin Calcium (Lipitor) 40 mg PO HS [facility] Last Admin: 05/26/17 22:12 Dose: 40 mg Budesonide (Pulmicort) 0.5 mg INHALATION RT-BID [facility] Last Admin: 05/26/17 20:54 Dose: Not Given Docusate Sodium (Colace) 100 mg PO BID [facility] Last Admin: 05/26/17 22:12 Dose: 100 mg Ergocalciferol (Vitamin D2) 50,000 unit PO Tu@1200 [facility] Last Admin: 05/26/17 13:12 Dose: 50,000 unit Famotidine (Pepcid) 20 mg PO DAILY [facility] Last Admin: 05/26/17 13:11 Dose: 20 mg Furosemide (Lasix) 20 mg PO DAILY@1200 [facility] Last Admin: 05/26/17 13:12 Dose: 20 mg HCTZ/Losartan Potassium (Hyzaar 50-12.5) 1 each PO DAILY@1200 [facility] Last Admin: 05/26/17 13:11 Dose: 1 each Hydromorphone HCl (Dilaudid) 4 mg PO QID PRN PRN Reason: Severe Pain Last Admin: 05/26/17 16:48 Dose: 4 mg Hydroxyquinoline/Petrolatum/Lanolin ([place]) 1 gm TOPICAL TID [facility] Last Admin: 05/26/17 22:14 Dose: 1 gm Aztreonam 2 gm/ Sodium (Chloride) 100 mls @ 100 mls/hr IVPB Q8HR [facility] Stop: 06/03/17 08:01 Last Admin: 05/26/17 16:56 Dose: 100 mls/hr Insulin Aspart (Novolog) 3 unit SQ AC-TID [facility] Last Admin: 05/26/17 17:50 Dose: 3 unit Insulin Aspart (Novolog) 0 unit SQ ACHS [facility] PRN Reason: Protocol Last Admin: 05/26/17 22:06 Dose: Not Given Insulin Detemir (Levemir) 44 unit SQ [facility] Last Admin: 05/26/17 22:07 Dose: Not Given Isosorbide Mononitrate (Imdur) 30 mg PO DAILY [facility] Last Admin: 05/26/17 10:36 Dose: 30 mg Latanoprost (Xalatan 0.005%) 1 drops RIGHT EYE [facility] Last Admin: 05/26/17 22:13 Dose: 1 drops Levothyroxine Sodium (Synthroid) 50 mcg PO DAILY@0630 [facility] Last Admin: 05/26/17 10:37 Dose: 50 mcg Metoprolol Succinate (Toprol Xl) 150 mg PO DAILY [facility] Last Admin: 05/26/17 10:38 Dose: 150 mg Miscellaneous Information (Pneumonia Protocol Utilized) 1 each PO ONCE PRN PRN Reason: Per Protocol Montelukast Sodium (Singulair) 10 mg PO [facility] Last Admin: 05/26/17 22:13 Dose: 10 mg Morphine Sulfate (Morphine Oral Evie 2mg/Ml) 3 mg PO Q3HR PRN PRN Reason: Pain Naloxone HCl (Narcan) 0.2 mg IV Q2M PRN PRN Reason: Opioid Reversal Nitroglycerin (Nitrostat) 0.4 mg SUBLINGUAL Q5M PRN PRN Reason: Chest Pain Polyethylene Glycol (Miralax) 17 gm PO [facility] Last Admin: 05/26/17 22:13 Dose: 17 gm Spironolactone (Aldactone) 12.5 mg PO DAILY@1200 [facility] Last Admin: 05/26/17 13:12 Dose: 12.5 mg Home Medications Medication Instructions Recorded Confirmed Type Isosorbide Mononitrate ER [Imdur] 30 mg PO DAILY 04/24/14 05/25/17 History Montelukast [Singulair] 10 mg PO HS 04/24/14 05/25/17 History metFORMIN HCL 1,000 mg PO DAILY 04/29/14 05/25/17 History Atorvastatin [Lipitor] 40 mg PO HS #60 tab 05/01/14 05/25/17 Rx Nitroglycerin Sl Tabs [Nitrostat] 0.4 mg SUBLINGUAL Q5M PRN 06/02/14 05/25/17 History Aspirin EC [Ecotrin Low Dose] 81 mg PO DAILY 11/18/14 05/25/17 History Budesonide [Pulmicort] 0.5 mg INHALATION RT-BID 11/18/14 05/25/17 History Insulin Glargine [Lantus] 44 unit SQ HS 11/18/14 05/25/17 History Ipratropium-Albuterol Nebulize 3 ml INHALATION RT-QID 11/18/14 05/25/17 History [Duoneb 0.5 mg-3 mg/3 ml Soln] Latanoprost Ophth [Xalatan 0.005%] 1 drop RIGHT EYE HS 11/18/14 05/25/17 History Ergocalciferol [Vitamin D2 50,000 unit PO TU 05/01/17 05/25/17 History (DRISDOL)] Furosemide [Lasix] 20 mg PO DAILY@1200 05/01/17 05/25/17 History INSULIN LISPRO (HumaLOG) [humaLOG] 3 - 8 units SQ AC-TID 05/01/17 05/25/17 History Levothyroxine Sodium [Synthroid] 50 mcg PO DAILY 05/01/17 05/25/17 History Losartan-Hctz 50-12.5 mg [Hyzaar 1 tab PO DAILY@1200 05/01/17 05/25/17 History 50-12.5] Spironolactone [Aldactone] 12.5 mg PO DAILY@1200 05/01/17 05/25/17 History Amiodarone [Cordarone] 100 mg PO DAILY tab 05/04/17 05/25/17 Rx HYDROcodone/APAP 10-325MG [Gunpowder 1 tab PO Q6H PRN #40 tab 05/04/17 05/25/17 Rx 10-325] Sulfamethox-Tmp 400-80Mg [Bactrim 1 tab PO Q12HR #10 tablet 05/04/17 05/25/17 Rx SS 400-80 mg] Metoprolol Succinate (ER) [Toprol 150 mg PO DAILY #100 tab 05/06/17 05/25/17 Rx XL] Apixaban [Eliquis] 5 mg PO BID #60 tab 05/07/17 05/25/17 Rx HYDROmorphone [Dilaudid] 4 mg PO QID PRN 05/25/17 05/25/17 History Allergies Allergy/AdvReac Type Severity Reaction Status Date / Time meperidine HCl [From Demerol] Allergy Severe Anaphylaxis Verified 05/25/17 19:39 cephalexin monohydrate Allergy Rash/Hives Verified 05/25/17 19:39 [From Keflex] erythromycin base Allergy Rapid Verified 05/25/17 19:39 Heart Rate lorazepam [From Ativan] Allergy Dyspnea Verified 05/25/17 19:39 Penicillins Allergy Rash/Hives Verified 05/25/17 19:39 doxycycline calcium AdvReac Nausea & Verified 05/25/17 19:39 [From Vibramycin] Vomiting doxycycline hyclate AdvReac Nausea & Verified 05/25/17 19:39 [From Vibramycin] Vomiting doxycycline monohydrate AdvReac Nausea & Verified 05/25/17 19:39 [From Vibramycin] Vomiting tetracycline AdvReac Nausea & Verified 05/25/17 19:39 Vomiting Physical Exam Vitals: Vital Signs Temp Pulse Pulse Resp BP BP Pulse Ox 05/26/17 21:00 97.8 F 72 16 130/80 93 L 05/26/17 16:24 80 05/26/17 16:16 78 05/26/17 14:13 98 F 79 16 114/61 96 05/26/17 11:58 80 05/26/17 11:45 80 05/26/17 08:00 18 05/26/17 07:19 82 05/26/17 07:09 78 94 L 05/26/17 07:00 98.6 F 86 18 151/88 97 05/26/17 00:52 98 F 86 20 122/71 95 05/26/17 00:09 77 05/26/17 00:00 98.9 F 71 22 104/52 100 05/25/17 23:34 97 Intake and Output 05/26/17 05/26/17 05/27/17 14:59 22:59 06:59 Intake Total 100 880 Output Total 1 Balance 100 879 Intake: Oral 100 880 Output: Stool 1 Other: Voiding Method Bedside Commode Bedpan # Voids 1 1 # Bowel Movements 2 76-year-old woman who is quite uncomfortable because of her back pain. HEENT: Anicteric conjunctiva are pink and moist nasal mucosa grossly intact without significant lesions, there is no thrush. Neck: The neck is supple without significant lymphadenopathy or thyromegaly. Lungs: Good bilateral air entry without significant crackles or wheezing. There is no significant bronchial sounds. There is no egophony or dullness. Heart: Regular rate and rhythm with an audible S1-S2, no S3 no S4. There is no significant murmur click or rub, PMI was nondisplaced. Abdomen: Obese, Positive bowel sounds soft and nontender without palpable masses or organomegaly. There was no guarding or rebound. Extremities: The upper extremities have excellent pulses they are symmetric, no significant petechiae or telangiectasia. No splinter hemorrhages were noted. Left lower extremity fails to reveal evidence of any significant lesions. Right leg has the recent injury the patellar laceration is healing well without significant erythema exudates or purulence and swelling distally is much improved. Cellulitis is resolved. Patient has significant tenderness to the lumbosacral spine Neuro: Awake alert oriented to person place and time. There are no acute new gross focal sensory motor deficits. Cranial nerves II through XII are intact. She has intact motor and sensory ability to the bilateral lower extremities. There is no difficulty with bowel or bladder incontinence. Results CBC & Chem 7: 05/26/17 09:11 05/26/17 09:11 Labs: Abnormal Lab Results - Last 24 Hours (Table) 05/26/17 05/26/17 05/26/17 Range/Units 06:54 09:11 09:11 WBC 11.4 H (3.8-10.6) k/uL Neutrophils # 9.5 H (1.3-7.7) k/uL Sodium 136 L (137-145) mmol/L BUN 34 H (7-17) mg/dL Glucose 134 H (74-99) mg/dL POC Glucose (mg/dL) 117 H (75-99) mg/dL Total Protein 5.2 L (6.3-8.2) g/dL Albumin 2.9 L (3.5-5.0) g/dL 05/26/17 Range/Units 11:12 WBC (3.8-10.6) k/uL Neutrophils # (1.3-7.7) k/uL Sodium (137-145) mmol/L BUN (7-17) mg/dL Glucose (74-99) mg/dL POC Glucose (mg/dL) 130 H (75-99) mg/dL Total Protein (6.3-8.2) g/dL Albumin (3.5-5.0) g/dL Laboratory Results WBC 11.4 k/uL (3.8-10.6) H 05/26/17 09:11 RBC 4.00 m/uL (3.80-5.40) 05/26/17 09:11 Hgb 11.7 gm/dL (11.4-16.0) 05/26/17 09:11 Hct 37.3 % (34.0-46.0) 05/26/17 09:11 MCV 93.3 fL (80.0-100.0) 05/26/17 09:11 MCH 29.4 pg (25.0-35.0) 05/26/17 09:11 MCHC 31.5 g/dL (31.0-37.0) 05/26/17 09:11 RDW 13.4 % (11.5-15.5) 05/26/17 09:11 Plt Count 301 k/uL (150-450) 05/26/17 09:11 Neutrophils % 84 % 05/26/17 09:11 Lymphocytes % 9 % 05/26/17 09:11 Monocytes % 5 % 05/26/17 09:11 Eosinophils % 0 % 05/26/17 09:11 Basophils % 0 % 05/26/17 09:11 Neutrophils # 9.5 k/uL (1.3-7.7) H 05/26/17 09:11 Lymphocytes # 1.0 k/uL (1.0-4.8) 05/26/17 09:11 Monocytes # 0.6 k/uL (0-1.0) 05/26/17 09:11 Eosinophils # 0.0 k/uL (0-0.7) 05/26/17 09:11 Basophils # 0.0 k/uL (0-0.2) 05/26/17 09:11 Hypochromasia Slight 05/26/17 09:11 Sodium 136 mmol/L (137-145) L 05/26/17 09:11 Potassium 4.9 mmol/L (3.5-5.1) 05/26/17 09:11 Chloride 99 mmol/L (98-107) 05/26/17 09:11 Carbon Dioxide 28 mmol/L (22-30) 05/26/17 09:11 Anion Gap 9 mmol/L 05/26/17 09:11 BUN 34 mg/dL (7-17) H 05/26/17 09:11 Creatinine 0.96 mg/dL (0.52-1.04) 05/26/17 09:11 Est GFR (CKD-EPI)AfAm 67 (>60 ml/min/1.73 sqM) 05/26/17 09:11 Est GFR (CKD-EPI)NonAf 59 (>60 ml/min/1.73 sqM) 05/26/17 09:11 Glucose 134 mg/dL (74-99) H 05/26/17 09:11 POC Glucose (mg/dL) 81 mg/dL (75-99) 05/26/17 20:23 POC Glu [employer] Representative [employer] Tatiana Sanchez 05/26/17 20:23 Plasma Lactic Acid Jose Alejandro 0.8 mmol/L (0.7-2.0) 05/25/17 23:51 Calcium 8.6 mg/dL (8.4-10.2) 05/26/17 09:11 Total Bilirubin 0.4 mg/dL (0.2-1.3) 05/26/17 09:11 AST 24 U/L (14-36) 05/26/17 09:11 ALT 23 U/L (9-52) 05/26/17 09:11 Alkaline Phosphatase 97 U/L (38-126) 05/26/17 09:11 NT-Pro-B Natriuret Pep 2030 pg/mL 05/26/17 09:11 Total Protein 5.2 g/dL (6.3-8.2) L 05/26/17 09:11 Albumin 2.9 g/dL (3.5-5.0) L 05/26/17 09:11 Amylase 35 U/L (30-110) 05/25/17 20:35 Lipase 40 U/L (23-300) 05/25/17 20:35 Urine Color Dark Yellow 05/25/17 20:20 Urine Appearance Cloudy (Clear) H 05/25/17 20:20 Urine pH 5.5 (5.0-8.0) 05/25/17 20:20 Ur Specific [place] 1.027 (1.001-1.035) 05/25/17 20:20 Urine Protein Trace (Negative) H 05/25/17 20:20 Urine Glucose (UA) Negative (Negative) 05/25/17 20:20 Urine Ketones Trace (Negative) H 05/25/17 20:20 Urine Blood Small (Negative) H 05/25/17 20:20 Urine Nitrite Negative (Negative) 05/25/17 20:20 Urine Bilirubin 1+ (Negative) H 05/25/17 20:20 Urine Urobilinogen 3.0 mg/dL (<2.0) 05/25/17 20:20 Ur Leukocyte Esterase Moderate (Negative) H 05/25/17 20:20 Urine RBC 54 /hpf (0-5) H 05/25/17 20:20 Urine WBC 13 /hpf (0-5) H 05/25/17 20:20 Ur Squamous Epith Cells 2 /hpf (0-4) 05/25/17 20:20 Uric Acid Crystals Few /hpf (None) H 05/25/17 20:20 Urine Bacteria Occasional /hpf (None) H 05/25/17 20:20 Hyaline Casts 15 /lpf (0-2) H 05/25/17 20:20 Urine Mucus Rare /hpf (None) H 05/25/17 20:20 Comments: X-ray with the L5-S1 compression fracture Computed tomography scan reveals evidence of the pneumonic infiltration right middle lobe left lower lobe as well as ileus and constipation Assessment and Plan (1) Ileus Current Visit: Yes Status: Acute Code(s): K56.7 - ILEUS, UNSPECIFIED SNOMED Code(s): 246334928 (2) Intractable back pain Current Visit: Yes Status: Acute Code(s): M54.9 - DORSALGIA, UNSPECIFIED SNOMED Code(s): 306126374 (3) Right lower lobe pneumonia Current Visit: Yes Status: Acute Code(s): J18.1 - LOBAR PNEUMONIA, UNSPECIFIED ORGANISM SNOMED Code(s): 189653093 (4) Right middle lobe pneumonia Narrative/Plan: 76-year-old woman presents to Hospital with multiple symptoms occurring. She is having difficulties with abdominal distention and pain as well as significant back pain. Imaging reveal evidence of an ileus and some constipation that is starting to improve. She over does also have some cough and shortness of breath was not evidence of right middle lobe and left lower lobe pneumonia. His multiple ALLERGIES in and about except been started with Azactam. Vancomycin will be added at this point in time pending further data. Orthopedic spine is been consulted for further evaluation about the compression fracture of her spine. She is leukocytosis that is like in the basis of the many issues going on including the pneumonia. She does not appear to have intra -abdominal infection at this time. The recent injury to the right lower extremity appears to be healing well without further ongoing significant infection to that site. A knee-high PARTH hose can be utilized to help with her edema and elevated at rest. In some Lac- Hydrin for the dry skin can be utilized. She believes she is up-to-date with her tetanus vaccine. Pain control will be maximized until she can have orthopedic evaluation. Current Visit: Yes Status: Acute Code(s): J18.1 - LOBAR PNEUMONIA, UNSPECIFIED ORGANISM SNOMED Code(s): 664059601
[2017-05-26] MEDS ORDERED: VANCOMYCIN IV PER PHARMACY 1 EACH MISC MISCELLANE PRN (23:41)
[2017-05-27] MEDS ORDERED: VANCOMYCIN 1,750 MG in SODIUM CHLORIDE 0.9% 250 ML IVPB ONE ×2
[2017-05-27] MEDS: HYDROmorphone 4 MG TABLET PO PRN ×3 (00:07→12:20)
[2017-05-27] MEDS: HYDROcodone/APAP 10-325MG 1 EACH TAB PO PRN ×4 (00:08→23:21)
[2017-05-27] MEDS: AZTREONAM 2 GM in SODIUM CHLORIDE 0.9% 100 ML IVPB SCH ×4 (00:08→23:44)
[2017-05-27] MEDS: LEVOTHYROXINE 50 MCG TAB PO SCH (06:21)
[2017-05-27 07:04] LABS: Glucose,Whole Blood 93 mg/dL (75-99)
[2017-05-27 07:14] LABS: Basophils # (A) 0.1 k/uL (0-0.2); Basophils % (A) 1 %; Eosinophils # (A) 0.5 k/uL (0-0.7); Eosinophils % (A) 5 %; HCT 35.3 % (34.0-46.0); HGB 10.9 gm/dL (11.4-16.0); Hypochromasia Moderate; Lymphocytes # (A) 1.6 k/uL (1.0-4.8); Lymphocytes % (A) 18 %; MCH 28.8 pg (25.0-35.0); MCHC 30.8 g/dL (31.0-37.0); MCV 93.6 fL (80.0-100.0); Mean Platelet Volume 7.3; Monocytes # (A) 0.7 k/uL (0-1.0); Monocytes % (A) 8 %; Neutrophils # (A) 5.9 k/uL (1.3-7.7); Neutrophils % (A) 66 %; Platelet Count 285 k/uL (150-450); RBC 3.77 m/uL (3.80-5.40); RDW 13.4 % (11.5-15.5); WBC 8.9 k/uL (3.8-10.6)
[2017-05-27] MEDS: IPRATROPIUM-ALBUTEROL 3 ML NEB INHALATION SCH ×4 (07:18→19:40)
[2017-05-27] MEDS: BUDESONIDE 0.5 MG/2 ML NEBU INHALATION SCH ×2 (07:18→19:40)
[2017-05-27 07:23] LABS: Albumin 2.7 g/dL (3.5-5.0); Calcium 8.6 mg/dL (8.4-10.2); Total Bilirubin 0.3 mg/dL (0.2-1.3); Total Protein 4.9 g/dL (6.3-8.2)
[2017-05-27 07:24] LABS: Potassium 4.9 mmol/L (3.5-5.1)
--- NOTE | 2017-05-27 08:09 | P.PN ---
Subjective Progress Note Date: 05/27/17 This is a 76-year-old female with a known past medical history of ischemic cardiomyopathy with AICD, diabetes mellitus, as well atrial fibrillation anticoagulated with Eliquis, chronic respiratory failure home O2 dependent, hyperlipidemia, hypertension and coronary artery disease with stents. Patient has been having falls at home. She is complaining of lower back pain. She initially had an x-ray May 18 which showed no fracture of the lumbar spine. However, patient is reporting that the pain in her lower back is worsening. She also has a cough and has been having issues with constipation and a few episodes of vomiting. She's had a decrease in her appetite. She also has 2 more days of Bactrim for her cellulitis of the right leg. He had been hospitalized earlier in April for her right leg cellulitis. X-ray of that leg was negative for fracture. And venous Doppler was negative for DVT. Did reveal indeterminant fluid collection could represent seroma, hematoma and correlate for possible infection. Patient also being treated for UTI. Placed on Aztreonam in the emergency room. White count 14.5 she did have some evidence of dehydration with a creatinine of 1.15 likely related to her vomiting and poor oral intake. Computed tomography scan of the abdomen shows large bowel fluid levels consistent with diarrhea and ileus. No free air. Right middle lobe and left lower lobe linear infiltrate and atelectasis. Cardiomegaly. Nonobstructing right renal calculus and mild sigmoid diverticulosis. Chest x-ray showed cardiomegaly with right basilar atelectasis or infiltrate and tiny effusion. Mild central venous congestion in the differential diagnosis. There is a severe compression fracture near the thoracolumbar junction. Patient is currently on antibiotics. Infectious disease consulted. And Dr. Carlisle will be consulted in regards to her spinal fracture. Patient does admit to having low-grade fevers at home with some chills and sweats. Admits having a productive cough. A few episodes of vomiting which are brown in color. No bowel movement for 5 days. Her main source of pain is her lower back. She reports that she has been able to walk however it hurts her back to walk. She admits to urinary frequency which is not new for her. But denies any burning with urination. On 05/27/2017 patient is alert and oriented 3 she is laying in bed complaining of severe back pain, otherwise no complaints at this time, she had constipation for several days but had a bowel movement yesterday after she was given lactulose and MiraLAX, she is having difficulty eating her food, she has severe pain when she tries to sit up. Objective - Vital Signs Vital signs: Vital Signs Temp 97.6 F 05/27/17 02:00 Pulse 80 05/27/17 07:32 Resp 18 05/27/17 02:00 BP 107/66 05/27/17 02:00 Pulse Ox 96 05/27/17 07:20 Intake & Output 05/26/17 05/27/17 05/27/17 18:59 06:59 18:59 Intake Total 200 1929 Output Total 1 300 Balance 199 1629 Intake: Intake, IV Titration 869 Amount Aztreonam 2 gm In Sodium 100 Chloride 0.9% 100 ml @ 100 mls/hr IVPB Q8HR [facility] Rx#:[id number] Sodium Chloride 0.9% 1, 519 000 ml @ 75 mls/hr IV . [id number] [facility] Rx#:[id number] Vancomycin 1,750 mg In 250 Sodium Chloride 0.9% 250 ml @ 125 mls/hr IVPB Q24H [facility] Rx#:[id number] Oral 200 1060 Output: Urine 300 Stool 1 Other: Voiding Method Bedside Commode Bedpan # Voids 4 3 # Bowel Movements 2 - Exam Head normocephalic and atraumatic Neck supple no JVD no goiter no lymphadenopathy Lungs diminished bilaterally with coarse crackles no wheezing Heart regular rate and rhythm S1-S2, no rub or gallop Abdomen is soft nontender nondistended positive bowel sounds no hepatosplenomegaly Extremities right tibia area still having some cellulitis type changes swelling noted at the distal aspect of the tibia. Warm to touch. Neuro alert and orientated x3 no gross focal deficit - Labs CBC & Chem 7: 05/27/17 06:36 05/27/17 06:36 Labs: Abnormal Lab Results - Last 24 Hours (Table) 05/26/17 05/26/17 05/26/17 Range/Units 09:11 09:11 11:12 WBC 11.4 H (3.8-10.6) k/uL RBC (3.80-5.40) m/uL Hgb (11.4-16.0) gm/dL MCHC (31.0-37.0) g/dL Neutrophils # 9.5 H (1.3-7.7) k/uL Sodium 136 L (137-145) mmol/L Carbon Dioxide (22-30) mmol/L BUN 34 H (7-17) mg/dL Glucose 134 H (74-99) mg/dL POC Glucose (mg/dL) 130 H (75-99) mg/dL Total Protein 5.2 L (6.3-8.2) g/dL Albumin 2.9 L (3.5-5.0) g/dL 05/27/17 05/27/17 Range/Units 06:36 06:36 WBC (3.8-10.6) k/uL RBC 3.77 L (3.80-5.40) m/uL Hgb 10.9 L (11.4-16.0) gm/dL MCHC 30.8 L (31.0-37.0) g/dL Neutrophils # (1.3-7.7) k/uL Sodium (137-145) mmol/L Carbon Dioxide 32 H (22-30) mmol/L BUN 29 H (7-17) mg/dL Glucose (74-99) mg/dL POC Glucose (mg/dL) (75-99) mg/dL Total Protein 4.9 L (6.3-8.2) g/dL Albumin 2.7 L (3.5-5.0) g/dL Microbiology - Last 24 Hours (Table) 05/25/17 23:51 Blood Culture - Preliminary Blood No Growth after 24 hours 05/26/17 16:30 Urine Culture - Preliminary Urine,Clean Catch Assessment and Plan Plan: 1. Intractable back pain with severe compression fracture near the thoracolumbar junction noted on chest x-ray. Dr. Carlisle will be consulted. I will resume patient's [place] and oral Dilaudid. Continue the IV morphine as needed 2. Pneumonia: Continue Aztreonam. Consult infectious disease. Check sputum culture 3. UTI: Check urine culture. Continue antibiotic 4. Right lower extremity cellulitis. Had been on Bactrim outpatient. Bactrim discontinued. Continue with current antibiotic until seen by infectious disease. Had previous venous Doppler in April which was negative for DVT. It did note a fluid collection along the tibia. 5. Constipation: Likely related to pain meds. with a computed tomography scan of the abdomen showing evidence of large bowel fluid levels consistent with diarrhea and ileus. Will give patient lactulose and stool softener. Also will start her MiraLAX tonight. If no results with the lactulose will give a soapsuds enema 6. Acute kidney injury likely related to dehydration from patient's vomiting showing improvement. Will resume patient's home dose of diuretics and Hep-Lock IV fluids 7. History of ischemic cardiomyopathy status post AICD 8. Diabetes mellitus type 2: Resume patient's insulin and add sliding scale coverage 9. History of paroxysmal atrial fibrillation: Continue metoprolol amiodarone and Eliquis for anticoagulation 10. Chronic respiratory failure home O2 dependent 11. Essential hypertension 12. Hyperlipidemia
[2017-05-27] MEDS: INSULIN ASPART 100 UNIT/ML 1 ML 10 ML VIAL SQ SCH ×7 (08:39→21:23)
[2017-05-27] MEDS: AMIODARONE 100 MG TAB PO SCH (08:42)
[2017-05-27] MEDS: ASPIRIN 81 MG PO SCH (08:42)
[2017-05-27] MEDS: APIXABAN 5 MG TAB PO SCH ×2 (08:42→21:22)
[2017-05-27] MEDS: METOPROLOL SUCCINATE (ER) 50 MG TAB.ER.24H PO SCH (08:42)
[2017-05-27] MEDS: ISOSORBIDE MONONITRATE ER 30 MG TAB.ER.24H PO SCH (08:42)
[2017-05-27] MEDS: DOCUSATE 100 MG CAP PO SCH ×2 (08:42→21:22)
[2017-05-27] MEDS: PETROLAT,WHITE/LAN/8-HYDROXYQU 227 GM OINT TOPICAL SCH ×3 (08:45→21:23)
[2017-05-27] MEDS ORDERED: LEVOFLOXACIN 750MG-D5W PMX 750 MG in DEXTROSE/WATER 1 150ML.BAG IVPB SCH (09:00)
[2017-05-27] MEDS: FAMOTIDINE 20 MG TAB PO SCH (09:00)
[2017-05-27] MEDS ORDERED: LISINOPRIL 10 MG TAB PO SCH (09:00)
[2017-05-27] MEDS: AMMONIUM LACTATE 12% CREAM 140 GM TUBE TOPICAL SCH ×2 (11:15→21:22)
[2017-05-27 11:31] LABS: Glucose,Whole Blood 124 mg/dL (75-99)
[2017-05-27] MEDS: SPIRONOLACTONE 25 MG TAB PO SCH (12:20)
[2017-05-27] MEDS: FUROSEMIDE 20 MG TAB PO SCH (12:20)
[2017-05-27] MEDS: LOSARTAN-HCTZ 50-12.5 MG 1 EACH TAB PO SCH (12:21)
[2017-05-27] MEDS: MORPHINE ORAL SOLN 10 MG/5 ML CUP PO PRN (16:34)
[2017-05-27 17:06] LABS: Glucose,Whole Blood 209 mg/dL (75-99)
[2017-05-27 20:02] LABS: Glucose,Whole Blood 107 mg/dL (75-99)
[2017-05-27] MEDS: VANCOMYCIN 1,750 MG in SODIUM CHLORIDE 0.9% 250 ML IVPB SCH (21:14)
[2017-05-27] MEDS: LATANOPROST 0.005% OPHTH DROPS 2.5 ML BTL RIGHT EYE SCH (21:22)
[2017-05-27] MEDS: MONTELUKAST 10 MG TAB PO SCH (21:22)
[2017-05-27] MEDS: INSULIN DETEMIR 100 UNIT/ML 10 ML VIAL SQ SCH (21:22)
[2017-05-27] MEDS: POLYETHYLENE GLYCOL 3350 17 GM POWD.PACK PO SCH (21:22)
[2017-05-27] MEDS: ATORVASTATIN 40 MG TAB PO SCH (21:22)
--- NOTE | 2017-05-27 22:08 | P.PN ---
Subjective Progress Note Date: 05/27/17 Principal diagnosis: back pain 76 year old woman presents to the ER complaining of worsening abdominal pain associated with constipation and worsening back pain. She had had some outpatient evaluation for her back pain with it yet to receive any input. Because of her worsening status she presented to the emergency center. Imaging studies were performed and there were concerns to potential ileus and constipation, possible diverticulosis and is well as the new thoracic or lumbar compression fracture which is significant and causing severe pain. The patient does have a relatively recent history of the injury and fall to the right leg resulting in the injury and the suturing to the knee. She had a secondary cellulitis responding well to antibiotic therapy with trimethoprim sulfamethoxazole. The extensive cellulitis and generally resolved. She however now he has the difficulties with the significant pain is noted was also having some cough and likely was having some new pneumonic infiltrations also occurring. She subsequently has been admitted in the infectious diseases and orthopedic consults have been requested. 05/27/2017 reveals the patient to have further improvement. She does have a significant ongoing back pain. With the addition of the female external urinary drainage device she is much more comfortable because she did not have any get up and down for urination. This is allowing some improvement of her status today. Await orthopedic evaluation. Objective - Vital Signs Vital signs: Vital Signs Temp 98.3 F 05/27/17 20:11 Pulse 66 05/27/17 20:11 Resp 16 05/27/17 20:11 BP 97/53 05/27/17 20:11 Pulse Ox 98 05/27/17 20:11 Intake & Output 05/27/17 05/27/17 05/28/17 06:59 18:59 06:59 Intake Total 1929 Output Total 300 150 Balance 1629 -150 Intake: Intake, IV Titration 869 Amount Aztreonam 2 gm In Sodium 100 Chloride 0.9% 100 ml @ 100 mls/hr IVPB Q8HR [facility] Rx#:[id number] Sodium Chloride 0.9% 1, 519 000 ml @ 75 mls/hr IV . [id number] [facility] Rx#:[id number] Vancomycin 1,750 mg In 250 Sodium Chloride 0.9% 250 ml @ 125 mls/hr IVPB Q24H [facility] Rx#:[id number] Oral 1060 Output: Urine 300 150 Other: Voiding Method Bedside Commode Bedpan # Voids 3 - Exam 76-year-old woman who is quite uncomfortable because of her back pain. HEENT: Anicteric conjunctiva are pink and moist nasal mucosa grossly intact without significant lesions, there is no thrush. Neck: The neck is supple without significant lymphadenopathy or thyromegaly. Lungs: Good bilateral air entry without significant crackles or wheezing. There is no significant bronchial sounds. There is no egophony or dullness. Heart: Regular rate and rhythm with an audible S1-S2, no S3 no S4. There is no significant murmur click or rub, PMI was nondisplaced. Abdomen: Obese, Positive bowel sounds soft and nontender without palpable masses or organomegaly. There was no guarding or rebound. Extremities: The upper extremities have excellent pulses they are symmetric, no significant petechiae or telangiectasia. No splinter hemorrhages were noted. Left lower extremity fails to reveal evidence of any significant lesions. Right leg has the recent injury the patellar laceration is healing well without significant erythema exudates or purulence and swelling distally is much improved. Cellulitis is resolved. Patient has significant tenderness to the lumbosacral spine Neuro: Awake alert oriented to person place and time. There are no acute new gross focal sensory motor deficits. Cranial nerves II through XII are intact. She has intact motor and sensory ability to the bilateral lower extremities. There is no difficulty with bowel or bladder incontinence. - Labs CBC & Chem 7: 05/27/17 06:36 05/27/17 06:36 Labs: Abnormal Lab Results - Last 24 Hours (Table) 05/27/17 05/27/17 05/27/17 Range/Units 06:36 06:36 11:25 RBC 3.77 L (3.80-5.40) m/uL Hgb 10.9 L (11.4-16.0) gm/dL MCHC 30.8 L (31.0-37.0) g/dL Carbon Dioxide 32 H (22-30) mmol/L BUN 29 H (7-17) mg/dL POC Glucose (mg/dL) 124 H (75-99) mg/dL Total Protein 4.9 L (6.3-8.2) g/dL Albumin 2.7 L (3.5-5.0) g/dL 05/27/17 05/27/17 Range/Units 17:02 19:59 RBC (3.80-5.40) m/uL Hgb (11.4-16.0) gm/dL MCHC (31.0-37.0) g/dL Carbon Dioxide (22-30) mmol/L BUN (7-17) mg/dL POC Glucose (mg/dL) 209 H 107 H (75-99) mg/dL Total Protein (6.3-8.2) g/dL Albumin (3.5-5.0) g/dL Microbiology - Last 24 Hours (Table) 05/26/17 16:30 Urine Culture - Final Urine,Clean Catch 05/25/17 23:51 Blood Culture - Preliminary Blood No Growth after 24 hours Laboratory Results WBC 8.9 k/uL (3.8-10.6) 05/27/17 06:36 RBC 3.77 m/uL (3.80-5.40) L 05/27/17 06:36 Hgb 10.9 gm/dL (11.4-16.0) L 05/27/17 06:36 Hct 35.3 % (34.0-46.0) 05/27/17 06:36 MCV 93.6 fL (80.0-100.0) 05/27/17 06:36 MCH 28.8 pg (25.0-35.0) 05/27/17 06:36 MCHC 30.8 g/dL (31.0-37.0) L 05/27/17 06:36 RDW 13.4 % (11.5-15.5) 05/27/17 06:36 Plt Count 285 k/uL (150-450) 05/27/17 06:36 Neutrophils % 66 % 05/27/17 06:36 Lymphocytes % 18 % 05/27/17 06:36 Monocytes % 8 % 05/27/17 06:36 Eosinophils % 5 % 05/27/17 06:36 Basophils % 1 % 05/27/17 06:36 Neutrophils # 5.9 k/uL (1.3-7.7) 05/27/17 06:36 Lymphocytes # 1.6 k/uL (1.0-4.8) 05/27/17 06:36 Monocytes # 0.7 k/uL (0-1.0) 05/27/17 06:36 Eosinophils # 0.5 k/uL (0-0.7) 05/27/17 06:36 Basophils # 0.1 k/uL (0-0.2) 05/27/17 06:36 Hypochromasia Moderate 05/27/17 06:36 Sodium 137 mmol/L (137-145) 05/27/17 06:36 Potassium 4.9 mmol/L (3.5-5.1) 05/27/17 06:36 Chloride 100 mmol/L (98-107) 05/27/17 06:36 Carbon Dioxide 32 mmol/L (22-30) H 05/27/17 06:36 Anion Gap 5 mmol/L 05/27/17 06:36 BUN 29 mg/dL (7-17) H 05/27/17 06:36 Creatinine 0.89 mg/dL (0.52-1.04) 05/27/17 06:36 Est GFR (CKD-EPI)AfAm 74 (>60 ml/min/1.73 sqM) 05/27/17 06:36 Est GFR (CKD-EPI)NonAf 64 (>60 ml/min/1.73 sqM) 05/27/17 06:36 Glucose 88 mg/dL (74-99) 05/27/17 06:36 POC Glucose (mg/dL) 107 mg/dL (75-99) H 05/27/17 19:59 POC Glu Procedure Analyst TORI Tatiana Malcolm 05/27/17 19:59 Plasma Lactic Acid Jose Alejandro 0.8 mmol/L (0.7-2.0) 05/25/17 23:51 Calcium 8.6 mg/dL (8.4-10.2) 05/27/17 06:36 Total Bilirubin 0.3 mg/dL (0.2-1.3) 05/27/17 06:36 AST 22 U/L (14-36) 05/27/17 06:36 ALT 23 U/L (9-52) 05/27/17 06:36 Alkaline Phosphatase 82 U/L (38-126) 05/27/17 06:36 NT-Pro-B Natriuret Pep 2030 pg/mL 05/26/17 09:11 Total Protein 4.9 g/dL (6.3-8.2) L 05/27/17 06:36 Albumin 2.7 g/dL (3.5-5.0) L 05/27/17 06:36 Amylase 35 U/L (30-110) 05/25/17 20:35 Lipase 40 U/L (23-300) 05/25/17 20:35 Urine Color Dark Yellow 05/25/17 20:20 Urine Appearance Cloudy (Clear) H 05/25/17 20:20 Urine pH 5.5 (5.0-8.0) 05/25/17 20:20 Ur Specific [place] 1.027 (1.001-1.035) 05/25/17 20:20 Urine Protein Trace (Negative) H 05/25/17 20:20 Urine Glucose (UA) Negative (Negative) 05/25/17 20:20 Urine Ketones Trace (Negative) H 05/25/17 20:20 Urine Blood Small (Negative) H 05/25/17 20:20 Urine Nitrite Negative (Negative) 05/25/17 20:20 Urine Bilirubin 1+ (Negative) H 05/25/17 20:20 Urine Urobilinogen 3.0 mg/dL (<2.0) 05/25/17 20:20 Ur Leukocyte Esterase Moderate (Negative) H 05/25/17 20:20 Urine RBC 54 /hpf (0-5) H 05/25/17 20:20 Urine WBC 13 /hpf (0-5) H 05/25/17 20:20 Ur Squamous Epith Cells 2 /hpf (0-4) 05/25/17 20:20 Uric Acid Crystals Few /hpf (None) H 05/25/17 20:20 Urine Bacteria Occasional /hpf (None) H 05/25/17 20:20 Hyaline Casts 15 /lpf (0-2) H 05/25/17 20:20 Urine Mucus Rare /hpf (None) H 05/25/17 20:20 Assessment and Plan (1) Ileus Current Visit: Yes Status: Acute Code(s): K56.7 - ILEUS, UNSPECIFIED SNOMED Code(s): 420866995 (2) Intractable back pain Current Visit: Yes Status: Acute Code(s): M54.9 - DORSALGIA, UNSPECIFIED SNOMED Code(s): 315027747 (3) Right lower lobe pneumonia Current Visit: Yes Status: Acute Code(s): J18.1 - LOBAR PNEUMONIA, UNSPECIFIED ORGANISM SNOMED Code(s): 972719816 (4) Right middle lobe pneumonia Narrative/Plan: 76-year-old woman presents to Hospital with multiple symptoms occurring. She is having difficulties with abdominal distention and pain as well as significant back pain. Imaging reveal evidence of an ileus and some constipation that is starting to improve. She over does also have some cough and shortness of breath was not evidence of right middle lobe and left lower lobe pneumonia. His multiple ALLERGIES in and about except been started with Azactam. Vancomycin will be added at this point in time pending further data. Orthopedic spine is been consulted for further evaluation about the compression fracture of her spine. She is leukocytosis that is like in the basis of the many issues going on including the pneumonia. She does not appear to have intra -abdominal infection at this time. The recent injury to the right lower extremity appears to be healing well without further ongoing significant infection to that site. A knee-high PARTH hose can be utilized to help with her edema and elevated at rest. In some Lac- Hydrin for the dry skin can be utilized. She believes she is up-to-date with her tetanus vaccine. Pain control will be maximized until she can have orthopedic evaluation. 05/27/2017 reveals the patient is to be very uncomfortable. Both the addition of the urinary external drainage is much more comfortable because she does not need to get up and down for urination. Continues to have some dry skin and hopefully Lac-Hydrin will give her some further improvement. Pain control with morphine seems to be helping. Await orthopedic evaluation for the next possible step. Current Visit: Yes Status: Acute Code(s): J18.1 - LOBAR PNEUMONIA, UNSPECIFIED ORGANISM SNOMED Code(s): 717991122
[2017-05-28] MEDS: MORPHINE ORAL SOLN 10 MG/5 ML CUP PO PRN ×5 (00:45→19:16)
[2017-05-28] MEDS: HYDROcodone/APAP 10-325MG 1 EACH TAB PO PRN ×3 (05:13→18:00)
[2017-05-28] MEDS: LEVOTHYROXINE 50 MCG TAB PO SCH (06:23)
[2017-05-28 06:52] LABS: Basophils # (A) 0.1 k/uL (0-0.2); Basophils % (A) 1 %; Eosinophils # (A) 0.5 k/uL (0-0.7); Eosinophils % (A) 7 %; HCT 36.3 % (34.0-46.0); HGB 11.2 gm/dL (11.4-16.0); Hypochromasia Slight; Lymphocytes # (A) 1.6 k/uL (1.0-4.8); Lymphocytes % (A) 22 %; MCH 29.2 pg (25.0-35.0); MCHC 30.8 g/dL (31.0-37.0); Mean Platelet Volume 6.8; Monocytes # (A) 0.7 k/uL (0-1.0); Monocytes % (A) 9 %; Neutrophils # (A) 4.5 k/uL (1.3-7.7); Neutrophils % (A) 60 %; Platelet Count 315 k/uL (150-450); RBC 3.82 m/uL (3.80-5.40); RDW 13.2 % (11.5-15.5); WBC 7.5 k/uL (3.8-10.6)
[2017-05-28 07:12] LABS: ALT 20 U/L (9-52); AST 20 U/L (14-36); Albumin 2.7 g/dL (3.5-5.0); Alkaline Phosphatase 76 U/L (38-126); Anion Gap 6 mmol/L; Blood Urea Nitrogen 27 mg/dL (7-17); Calcium 8.9 mg/dL (8.4-10.2); Carbon Dioxide 33 mmol/L (22-30); Chloride 102 mmol/L (98-107); Glucose 63 mg/dL (74-99); Potassium 4.7 mmol/L (3.5-5.1); Sodium 141 mmol/L (137-145); Total Bilirubin 0.2 mg/dL (0.2-1.3)
[2017-05-28] MEDS: INSULIN ASPART 100 UNIT/ML 1 ML 10 ML VIAL SQ SCH ×7 (07:28→20:28)
[2017-05-28 07:32] LABS: Glucose,Whole Blood 60 mg/dL (75-99)
[2017-05-28 07:44] LABS: Glucose,Whole Blood 117 mg/dL (75-99)
[2017-05-28] MEDS: BUDESONIDE 0.5 MG/2 ML NEBU INHALATION SCH ×2 (07:48→19:32)
[2017-05-28] MEDS: IPRATROPIUM-ALBUTEROL 3 ML NEB INHALATION SCH ×4 (07:48→19:31)
[2017-05-28] MEDS: AZTREONAM 2 GM in SODIUM CHLORIDE 0.9% 100 ML IVPB SCH ×3 (08:51→22:53)
[2017-05-28] MEDS: ASPIRIN 81 MG PO SCH (08:56)
[2017-05-28] MEDS: APIXABAN 5 MG TAB PO SCH ×2 (08:56→20:10)
[2017-05-28] MEDS: AMIODARONE 100 MG TAB PO SCH (08:56)
[2017-05-28] MEDS: FAMOTIDINE 20 MG TAB PO SCH (08:57)
[2017-05-28] MEDS: DOCUSATE 100 MG CAP PO SCH ×2 (08:57→20:10)
[2017-05-28] MEDS: ISOSORBIDE MONONITRATE ER 30 MG TAB.ER.24H PO SCH (08:57)
[2017-05-28] MEDS: METOPROLOL SUCCINATE (ER) 50 MG TAB.ER.24H PO SCH (08:58)
[2017-05-28] MEDS: AMMONIUM LACTATE 12% CREAM 140 GM TUBE TOPICAL SCH ×2 (09:00→20:09)
[2017-05-28] MEDS: PETROLAT,WHITE/LAN/8-HYDROXYQU 227 GM OINT TOPICAL SCH ×3 (09:01→20:12)
[2017-05-28 11:19] LABS: Glucose,Whole Blood 152 mg/dL (75-99)
[2017-05-28] MEDS: FUROSEMIDE 20 MG TAB PO SCH (12:57)
[2017-05-28] MEDS: LOSARTAN-HCTZ 50-12.5 MG 1 EACH TAB PO SCH (12:57)
[2017-05-28] MEDS: SPIRONOLACTONE 25 MG TAB PO SCH (12:57)
--- NOTE | 2017-05-28 16:38 | P.PN ---
Subjective Progress Note Date: 05/28/17 This is a 76-year-old female with a known past medical history of ischemic cardiomyopathy with AICD, diabetes mellitus, as well atrial fibrillation anticoagulated with Eliquis, chronic respiratory failure home O2 dependent, hyperlipidemia, hypertension and coronary artery disease with stents. Patient has been having falls at home. She is complaining of lower back pain. She initially had an x-ray May 18 which showed no fracture of the lumbar spine. However, patient is reporting that the pain in her lower back is worsening. She also has a cough and has been having issues with constipation and a few episodes of vomiting. She's had a decrease in her appetite. She also has 2 more days of Bactrim for her cellulitis of the right leg. He had been hospitalized earlier in April for her right leg cellulitis. X-ray of that leg was negative for fracture. And venous Doppler was negative for DVT. Did reveal indeterminant fluid collection could represent seroma, hematoma and correlate for possible infection. Patient also being treated for UTI. Placed on Aztreonam in the emergency room. White count 14.5 she did have some evidence of dehydration with a creatinine of 1.15 likely related to her vomiting and poor oral intake. Computed tomography scan of the abdomen shows large bowel fluid levels consistent with diarrhea and ileus. No free air. Right middle lobe and left lower lobe linear infiltrate and atelectasis. Cardiomegaly. Nonobstructing right renal calculus and mild sigmoid diverticulosis. Chest x-ray showed cardiomegaly with right basilar atelectasis or infiltrate and tiny effusion. Mild central venous congestion in the differential diagnosis. There is a severe compression fracture near the thoracolumbar junction. Patient is currently on antibiotics. Infectious disease consulted. And Dr. Carlisle will be consulted in regards to her spinal fracture. Patient does admit to having low-grade fevers at home with some chills and sweats. Admits having a productive cough. A few episodes of vomiting which are brown in color. No bowel movement for 5 days. Her main source of pain is her lower back. She reports that she has been able to walk however it hurts her back to walk. She admits to urinary frequency which is not new for her. But denies any burning with urination. On 05/27/2017 patient is alert and oriented 3 she is laying in bed complaining of severe back pain, otherwise no complaints at this time, she had constipation for several days but had a bowel movement yesterday after she was given lactulose and MiraLAX, she is having difficulty eating her food, she has severe pain when she tries to sit up. On 05/28/2017 patient is alert and oriented 3 still complaining of severe back pain, complaining of constipation, complaining of right lower extremity swelling and tenderness, otherwise she denies any complaints there is no fever or chills no headache no dizziness no cough no nausea or vomiting no abdominal pain and no urinary symptoms Objective - Vital Signs Vital signs: Vital Signs Temp 97.4 F L 05/28/17 14:35 Pulse 78 05/28/17 16:27 Resp 16 05/28/17 16:27 BP 107/49 05/28/17 14:35 Pulse Ox 97 05/28/17 16:17 Intake & Output 05/27/17 05/28/17 05/28/17 18:59 06:59 18:59 Intake Total 460 Output Total 150 451 700 Balance -150 -451 -240 Intake: Oral 460 Output: Urine 150 450 700 Stool 1 Other: Voiding Method Bedside Commode Bedpan # Voids 1 - Exam Head normocephalic and atraumatic Neck supple no JVD no goiter no lymphadenopathy Lungs diminished bilaterally with coarse crackles no wheezing Heart regular rate and rhythm S1-S2, no rub or gallop Abdomen is soft nontender nondistended positive bowel sounds no hepatosplenomegaly Extremities right tibia area still having some cellulitis type changes swelling noted at the distal aspect of the tibia. Warm to touch. Neuro alert and orientated x3 no gross focal deficit - Labs CBC & Chem 7: 05/28/17 06:25 05/28/17 06:25 Labs: Abnormal Lab Results - Last 24 Hours (Table) 05/27/17 05/27/17 05/28/17 Range/Units 17:02 19:59 06:25 Hgb 11.2 L (11.4-16.0) gm/dL MCHC 30.8 L (31.0-37.0) g/dL Carbon Dioxide (22-30) mmol/L BUN (7-17) mg/dL Glucose (74-99) mg/dL POC Glucose (mg/dL) 209 H 107 H (75-99) mg/dL Total Protein (6.3-8.2) g/dL Albumin (3.5-5.0) g/dL 05/28/17 05/28/17 05/28/17 Range/Units 06:25 07:18 07:41 Hgb (11.4-16.0) gm/dL MCHC (31.0-37.0) g/dL Carbon Dioxide 33 H (22-30) mmol/L BUN 27 H (7-17) mg/dL Glucose 63 L (74-99) mg/dL POC Glucose (mg/dL) 60 L 117 H (75-99) mg/dL Total Protein 5.0 L (6.3-8.2) g/dL Albumin 2.7 L (3.5-5.0) g/dL 05/28/17 Range/Units 11:14 Hgb (11.4-16.0) gm/dL MCHC (31.0-37.0) g/dL Carbon Dioxide (22-30) mmol/L BUN (7-17) mg/dL Glucose (74-99) mg/dL POC Glucose (mg/dL) 152 H (75-99) mg/dL Total Protein (6.3-8.2) g/dL Albumin (3.5-5.0) g/dL Microbiology - Last 24 Hours (Table) 05/25/17 23:51 Blood Culture - Preliminary Blood No Growth after 48 hours 05/27/17 11:45 Gram Stain - Preliminary Sputum 05/26/17 16:30 Urine Culture - Final Urine,Clean Catch Assessment and Plan Plan: 1. Intractable back pain with severe compression fracture near the thoracolumbar junction noted on chest x-ray. Dr. Carlisle will be consulted. I will resume patient's [place] and oral Dilaudid. Continue the IV morphine as needed 2. Pneumonia: Continue Aztreonam. Consult infectious disease. Check sputum culture 3. UTI: Check urine culture. Continue antibiotic 4. Right lower extremity cellulitis. Had been on Bactrim outpatient. Bactrim discontinued. Continue with current antibiotic until seen by infectious disease. Had previous venous Doppler in April which was negative for DVT. It did note a fluid collection along the tibia. 5. Constipation: Likely related to pain meds. with a computed tomography scan of the abdomen showing evidence of large bowel fluid levels consistent with diarrhea and ileus. Will give patient lactulose and stool softener. Also will start her MiraLAX tonight. If no results with the lactulose will give a soapsuds enema 6. Acute kidney injury likely related to dehydration from patient's vomiting showing improvement. Will resume patient's home dose of diuretics and Hep-Lock IV fluids 7. History of ischemic cardiomyopathy status post AICD 8. Diabetes mellitus type 2: Resume patient's insulin and add sliding scale coverage 9. History of paroxysmal atrial fibrillation: Continue metoprolol amiodarone and Eliquis for anticoagulation 10. Chronic respiratory failure home O2 dependent 11. Essential hypertension 12. Hyperlipidemia
[2017-05-28 17:27] LABS: Glucose,Whole Blood 111 mg/dL (75-99)
[2017-05-28] MEDS: LACTULOSE 20 GM/30 ML CUP PO SCH (18:00)
[2017-05-28 19:52] LABS: Glucose,Whole Blood 159 mg/dL (75-99)
[2017-05-28] MEDS: VANCOMYCIN 1,750 MG in SODIUM CHLORIDE 0.9% 250 ML IVPB SCH (20:07)
[2017-05-28] MEDS: LATANOPROST 0.005% OPHTH DROPS 2.5 ML BTL RIGHT EYE SCH (20:09)
[2017-05-28] MEDS: POLYETHYLENE GLYCOL 3350 17 GM POWD.PACK PO SCH (20:09)
[2017-05-28] MEDS: ATORVASTATIN 40 MG TAB PO SCH (20:10)
[2017-05-28] MEDS: MONTELUKAST 10 MG TAB PO SCH (20:12)
[2017-05-28] MEDS: INSULIN DETEMIR 100 UNIT/ML 10 ML VIAL SQ SCH (20:57)
[2017-05-28] MEDS: HYDROmorphone 4 MG TABLET PO PRN (22:50)
--- NOTE | 2017-05-28 22:59 | P.PN ---
Subjective Progress Note Date: 05/28/17 Principal diagnosis: back pain 76 year old woman presents to the ER complaining of worsening abdominal pain associated with constipation and worsening back pain. She had had some outpatient evaluation for her back pain with it yet to receive any input. Because of her worsening status she presented to the emergency center. Imaging studies were performed and there were concerns to potential ileus and constipation, possible diverticulosis and is well as the new thoracic or lumbar compression fracture which is significant and causing severe pain. The patient does have a relatively recent history of the injury and fall to the right leg resulting in the injury and the suturing to the knee. She had a secondary cellulitis responding well to antibiotic therapy with trimethoprim sulfamethoxazole. The extensive cellulitis and generally resolved. She however now he has the difficulties with the significant pain is noted was also having some cough and likely was having some new pneumonic infiltrations also occurring. She subsequently has been admitted in the infectious diseases and orthopedic consults have been requested. 05/27/2017 reveals the patient to have further improvement. She does have a significant ongoing back pain. With the addition of the female external urinary drainage device she is much more comfortable because she did not have any get up and down for urination. This is allowing some improvement of her status today. Await orthopedic evaluation. 05/28/2017 patient is comfortable with current pain medications, obtaining relatively good relief of her pain with morphine sulfate orally. She awaits the orthopedic consultation in the morning so that a plan can be devised for her acute compression fracture. Objective - Vital Signs Vital signs: Vital Signs Temp 97.7 F 05/28/17 19:11 Pulse 82 05/28/17 19:44 Resp 16 05/28/17 19:44 BP 106/65 05/28/17 19:11 Pulse Ox 97 05/28/17 19:11 Intake & Output 05/28/17 05/28/17 05/29/17 06:59 18:59 06:59 Intake Total 580 474 Output Total 451 1500 150 Balance -451 -920 324 Intake: Intake, IV Titration 234 Amount Vancomycin 1,750 mg In 234 Sodium Chloride 0.9% 250 ml @ 125 mls/hr IVPB Q24H [facility]ANNA[facility] Rx#:[id number] Oral 580 240 Output: Urine 450 1500 150 Stool 1 Other: Voiding Method Bedside Commode Diaper Bedpan # Voids 1 - Exam 76-year-old woman who is quite uncomfortable because of her back pain. HEENT: Anicteric conjunctiva are pink and moist nasal mucosa grossly intact without significant lesions, there is no thrush. Neck: The neck is supple without significant lymphadenopathy or thyromegaly. Lungs: Good bilateral air entry without significant crackles or wheezing. There is no significant bronchial sounds. There is no egophony or dullness. Heart: Regular rate and rhythm with an audible S1-S2, no S3 no S4. There is no significant murmur click or rub, PMI was nondisplaced. Abdomen: Obese, Positive bowel sounds soft and nontender without palpable masses or organomegaly. There was no guarding or rebound. Extremities: The upper extremities have excellent pulses they are symmetric, no significant petechiae or telangiectasia. No splinter hemorrhages were noted. Left lower extremity fails to reveal evidence of any significant lesions. Right leg has the recent injury the patellar laceration is healing well without significant erythema exudates or purulence and swelling distally is much improved. Cellulitis is resolved. Patient has significant tenderness to the lumbosacral spine Neuro: Awake alert oriented to person place and time. There are no acute new gross focal sensory motor deficits. Cranial nerves II through XII are intact. She has intact motor and sensory ability to the bilateral lower extremities. There is no difficulty with bowel or bladder incontinence. - Labs CBC & Chem 7: 05/28/17 06:25 05/28/17 06:25 Labs: Abnormal Lab Results - Last 24 Hours (Table) 05/28/17 05/28/17 05/28/17 Range/Units 06:25 06:25 07:18 Hgb 11.2 L (11.4-16.0) gm/dL MCHC 30.8 L (31.0-37.0) g/dL Carbon Dioxide 33 H (22-30) mmol/L BUN 27 H (7-17) mg/dL Glucose 63 L (74-99) mg/dL POC Glucose (mg/dL) 60 L (75-99) mg/dL Total Protein 5.0 L (6.3-8.2) g/dL Albumin 2.7 L (3.5-5.0) g/dL 05/28/17 05/28/17 05/28/17 Range/Units 07:41 11:14 17:07 Hgb (11.4-16.0) gm/dL MCHC (31.0-37.0) g/dL Carbon Dioxide (22-30) mmol/L BUN (7-17) mg/dL Glucose (74-99) mg/dL POC Glucose (mg/dL) 117 H 152 H 111 H (75-99) mg/dL Total Protein (6.3-8.2) g/dL Albumin (3.5-5.0) g/dL 05/28/17 Range/Units 19:48 Hgb (11.4-16.0) gm/dL MCHC (31.0-37.0) g/dL Carbon Dioxide (22-30) mmol/L BUN (7-17) mg/dL Glucose (74-99) mg/dL POC Glucose (mg/dL) 159 H (75-99) mg/dL Total Protein (6.3-8.2) g/dL Albumin (3.5-5.0) g/dL Microbiology - Last 24 Hours (Table) 05/25/17 23:51 Blood Culture - Preliminary Blood No Growth after 48 hours 05/27/17 11:45 Gram Stain - Preliminary Sputum 05/26/17 16:30 Urine Culture - Final Urine,Clean Catch Laboratory Results WBC 7.5 k/uL (3.8-10.6) 05/28/17 06:25 RBC 3.82 m/uL (3.80-5.40) 05/28/17 06:25 Hgb 11.2 gm/dL (11.4-16.0) L 05/28/17 06:25 Hct 36.3 % (34.0-46.0) 05/28/17 06:25 MCV 95.0 fL (80.0-100.0) 05/28/17 06:25 MCH 29.2 pg (25.0-35.0) 05/28/17 06:25 MCHC 30.8 g/dL (31.0-37.0) L 05/28/17 06:25 RDW 13.2 % (11.5-15.5) 05/28/17 06:25 Plt Count 315 k/uL (150-450) 05/28/17 06:25 Neutrophils % 60 % 05/28/17 06:25 Lymphocytes % 22 % 05/28/17 06:25 Monocytes % 9 % 05/28/17 06:25 Eosinophils % 7 % 05/28/17 06:25 Basophils % 1 % 05/28/17 06:25 Neutrophils # 4.5 k/uL (1.3-7.7) 05/28/17 06:25 Lymphocytes # 1.6 k/uL (1.0-4.8) 05/28/17 06:25 Monocytes # 0.7 k/uL (0-1.0) 05/28/17 06:25 Eosinophils # 0.5 k/uL (0-0.7) 05/28/17 06:25 Basophils # 0.1 k/uL (0-0.2) 05/28/17 06:25 Hypochromasia Slight 05/28/17 06:25 Sodium 141 mmol/L (137-145) 05/28/17 06:25 Potassium 4.7 mmol/L (3.5-5.1) 05/28/17 06:25 Chloride 102 mmol/L (98-107) 05/28/17 06:25 Carbon Dioxide 33 mmol/L (22-30) H 05/28/17 06:25 Anion Gap 6 mmol/L 05/28/17 06:25 BUN 27 mg/dL (7-17) H 05/28/17 06:25 Creatinine 0.74 mg/dL (0.52-1.04) 05/28/17 06:25 Est GFR (CKD-EPI)AfAm >90 (>60 ml/min/1.73 sqM) 05/28/17 06:25 Est GFR (CKD-EPI)NonAf 81 (>60 ml/min/1.73 sqM) 05/28/17 06:25 Glucose 63 mg/dL (74-99) L 05/28/17 06:25 POC Glucose (mg/dL) 159 mg/dL (75-99) H 05/28/17 19:48 POC Glu Associate Agent Insurance Sales ID Yamileth Torres 05/28/17 19:48 Plasma Lactic Acid Jose Alejandro 0.8 mmol/L (0.7-2.0) 05/25/17 23:51 Calcium 8.9 mg/dL (8.4-10.2) 05/28/17 06:25 Total Bilirubin 0.2 mg/dL (0.2-1.3) 05/28/17 06:25 AST 20 U/L (14-36) 05/28/17 06:25 ALT 20 U/L (9-52) 05/28/17 06:25 Alkaline Phosphatase 76 U/L (38-126) 05/28/17 06:25 NT-Pro-B Natriuret Pep 2030 pg/mL 05/26/17 09:11 Total Protein 5.0 g/dL (6.3-8.2) L 05/28/17 06:25 Albumin 2.7 g/dL (3.5-5.0) L 05/28/17 06:25 Amylase 35 U/L (30-110) 05/25/17 20:35 Lipase 40 U/L (23-300) 05/25/17 20:35 Urine Color Dark Yellow 05/25/17 20:20 Urine Appearance Cloudy (Clear) H 05/25/17 20:20 Urine pH 5.5 (5.0-8.0) 05/25/17 20:20 Ur Specific [place] 1.027 (1.001-1.035) 05/25/17 20:20 Urine Protein Trace (Negative) H 05/25/17 20:20 Urine Glucose (UA) Negative (Negative) 05/25/17 20:20 Urine Ketones Trace (Negative) H 05/25/17 20:20 Urine Blood Small (Negative) H 05/25/17 20:20 Urine Nitrite Negative (Negative) 05/25/17 20:20 Urine Bilirubin 1+ (Negative) H 05/25/17 20:20 Urine Urobilinogen 3.0 mg/dL (<2.0) 05/25/17 20:20 Ur Leukocyte Esterase Moderate (Negative) H 05/25/17 20:20 Urine RBC 54 /hpf (0-5) H 05/25/17 20:20 Urine WBC 13 /hpf (0-5) H 05/25/17 20:20 Ur Squamous Epith Cells 2 /hpf (0-4) 05/25/17 20:20 Uric Acid Crystals Few /hpf (None) H 05/25/17 20:20 Urine Bacteria Occasional /hpf (None) H 05/25/17 20:20 Hyaline Casts 15 /lpf (0-2) H 05/25/17 20:20 Urine Mucus Rare /hpf (None) H 05/25/17 20:20 Microbiology 05/25/17 23:51 Blood Blood Culture - Preliminary No Growth after 48 hours 05/27/17 11:45 Sputum Gram Stain - Preliminary 05/26/17 16:30 Urine,Clean Catch Urine Culture - Final Assessment and Plan (1) Ileus Current Visit: Yes Status: Acute Code(s): K56.7 - ILEUS, UNSPECIFIED SNOMED Code(s): 228000402 (2) Intractable back pain Current Visit: Yes Status: Acute Code(s): M54.9 - DORSALGIA, UNSPECIFIED SNOMED Code(s): 694170984 (3) Right lower lobe pneumonia Current Visit: Yes Status: Acute Code(s): J18.1 - LOBAR PNEUMONIA, UNSPECIFIED ORGANISM SNOMED Code(s): 232058056 (4) Right middle lobe pneumonia Narrative/Plan: 76-year-old woman presents to Hospital with multiple symptoms occurring. She is having difficulties with abdominal distention and pain as well as significant back pain. Imaging reveal evidence of an ileus and some constipation that is starting to improve. She over does also have some cough and shortness of breath was not evidence of right middle lobe and left lower lobe pneumonia. His multiple ALLERGIES in and about except been started with Azactam. Vancomycin will be added at this point in time pending further data. Orthopedic spine is been consulted for further evaluation about the compression fracture of her spine. She is leukocytosis that is like in the basis of the many issues going on including the pneumonia. She does not appear to have intra -abdominal infection at this time. The recent injury to the right lower extremity appears to be healing well without further ongoing significant infection to that site. A knee-high PARTH hose can be utilized to help with her edema and elevated at rest. In some Lac- Hydrin for the dry skin can be utilized. She believes she is up-to-date with her tetanus vaccine. Pain control will be maximized until she can have orthopedic evaluation. 05/27/2017 reveals the patient is to be very uncomfortable. Both the addition of the urinary external drainage is much more comfortable because she does not need to get up and down for urination. Continues to have some dry skin and hopefully Lac-Hydrin will give her some further improvement. Pain control with morphine seems to be helping. Await orthopedic evaluation for the next possible step. 05/28/2017 patient uncomfortable but is receiving moderate pain control with oral morphine sulfate. Denying other acute issues. Her breathing is improving. Tolerating the Azactam and vancomycin well. Sputum culture has been obtained. Cultures are negative so far. Await the orthopedic spine evaluation for a planned. We'll be able to arrange a course of antibiotic therapy depending on the above findings. Current Visit: Yes Status: Acute Code(s): J18.1 - LOBAR PNEUMONIA, UNSPECIFIED ORGANISM SNOMED Code(s): 427853720
[2017-05-29] MEDS: MORPHINE ORAL SOLN 10 MG/5 ML CUP PO PRN ×2 (02:22→07:37)
[2017-05-29] MEDS: HYDROcodone/APAP 10-325MG 1 EACH TAB PO PRN ×3 (03:58→16:25)
[2017-05-29] MEDS: HYDROmorphone 4 MG TABLET PO PRN ×3 (04:46→19:42)
[2017-05-29] MEDS: LEVOTHYROXINE 50 MCG TAB PO SCH (06:12)
[2017-05-29 06:51] LABS: Glucose,Whole Blood 109 mg/dL (75-99)
[2017-05-29] MEDS: INSULIN ASPART 100 UNIT/ML 1 ML 10 ML VIAL SQ SCH ×7 (07:31→21:35)
[2017-05-29] MEDS: AMMONIUM LACTATE 12% CREAM 140 GM TUBE TOPICAL SCH ×2 (07:40→21:18)
[2017-05-29] MEDS: APIXABAN 5 MG TAB PO SCH ×2 (07:40→21:17)
[2017-05-29] MEDS: METOPROLOL SUCCINATE (ER) 50 MG TAB.ER.24H PO SCH (07:41)
[2017-05-29] MEDS: PETROLAT,WHITE/LAN/8-HYDROXYQU 227 GM OINT TOPICAL SCH ×3 (07:42→21:19)
[2017-05-29] MEDS: IPRATROPIUM-ALBUTEROL 3 ML NEB INHALATION SCH ×4 (07:44→20:49)
[2017-05-29] MEDS: BUDESONIDE 0.5 MG/2 ML NEBU INHALATION SCH ×2 (07:44→20:49)
[2017-05-29 07:47] LABS: Basophils % (A) 1 %; Eosinophils # (A) 0.5 k/uL (0-0.7); Eosinophils % (A) 6 %; HCT 38.7 % (34.0-46.0); HGB 11.8 gm/dL (11.4-16.0); Hypochromasia Moderate; Lymphocytes # (A) 1.4 k/uL (1.0-4.8); Lymphocytes % (A) 16 %; MCH 28.9 pg (25.0-35.0); MCHC 30.4 g/dL (31.0-37.0); MCV 95.1 fL (80.0-100.0); Mean Platelet Volume 7.2; Monocytes # (A) 0.7 k/uL (0-1.0); Monocytes % (A) 8 %; Neutrophils # (A) 6.1 k/uL (1.3-7.7); Neutrophils % (A) 68 %; Platelet Count 313 k/uL (150-450); RBC 4.07 m/uL (3.80-5.40); RDW 13.1 % (11.5-15.5); WBC 8.9 k/uL (3.8-10.6)
[2017-05-29 08:08] LABS: ALT 27 U/L (9-52); AST 24 U/L (14-36); Albumin 2.8 g/dL (3.5-5.0); Alkaline Phosphatase 79 U/L (38-126); Anion Gap 8 mmol/L; Blood Urea Nitrogen 23 mg/dL (7-17); Calcium 8.8 mg/dL (8.4-10.2); Carbon Dioxide 30 mmol/L (22-30); Chloride 102 mmol/L (98-107); Glucose 96 mg/dL (74-99); Sodium 140 mmol/L (137-145); Total Bilirubin 0.2 mg/dL (0.2-1.3); Total Protein 5.1 g/dL (6.3-8.2)
--- NOTE | 2017-05-29 08:45 | P.CNOR ---
History of Present Illness - [facility] Consult date: 05/29/17 Requesting physician: Farzana Levine Consult reason: fracture (Acute traumatic L1 compression fracture), low back pain History of present illness: Patient is a very pleasant 76-year-old female who is seen and examined at the bedside after consultation was placed for further evaluation for an acute L1 compression fracture deformity. Patient was seen in her primary care provider' s office earlier this week. She was sent for evaluation at our office at [facility] today, 05/29/2017. Her symptoms became too severe and she presented to the hospital for further evaluation. At the time of her ER evaluation, she was experiencing severe low back pain along with constipation. She was also diagnosed with pneumonia, urinary tract infection, and ileus is currently being treated for these medical diagnoses. Patient does have a history of recent fall and has had severe low back pain since that time. Resulting injury also caused an injury to the right lower extremity requiring suturing at the knee. She has subsequently began to have cellulitis in the leg lower extremity. She is currently receiving antibiotic treatment through IV which has been significantly improve the cellulitis. Patient is also had significant improvement of her constipation since are admittance. Nursing states patient had 2 bowel movements yesterday. Patient denies any abdominal pain. She continues to be treated for pneumonia and is currently on an O2 nasal cannula. Patient states her most significant symptom is her severe low back pain. She has significant difficulty with ambulation and mobility. Her mobility has slightly improved since admittance. She does ambulate with the assistance of a wheeled walker. She denies any lower extremity weakness or radiculopathy bilaterally. She states her pain is centered along the midline of the lumbar spine and also towards the left lateral hip posteriorly. Patient had been experiencing pain at the end of April 2017. X-rays the lumbar spine were taken at that time which radiology did not see evidence of the L1 fracture. After reviewing the lumbar x-rays myself, it does appear there is an inferior endplate compression fracture deformity at L1. During this admission, CT of the abdomen and pelvis was performed which showed a large bowel fluid level consistent with diarrhea and ileus along with evidence of L1 compression fracture. Patient continues to be followed by Dr. Jorge in infectious disease and Dr. Levine in medicine. Patient has been receiving Holmen 10 mg/325 mg, Dilaudid, and morphine for some control of her symptoms. Past Medical History Past Medical History: Atrial Fibrillation, Asthma, Coronary Artery Disease (CAD) , Heart Failure, COPD, Diabetes Mellitus, Deep Vein Thrombosis (DVT), Eye Disorder, Hyperlipidemia, Hypertension, Myocardial Infarction (ND) Additional Past Medical History / Comment(s): Pt recently admitted to [facility] on with R lower extremity cellulitis. Other Hx: Chronic respiratory failure with O2 dependence-2L/NC ATC, bronchitis, ischemic cardiomyopathy, murmur, thoracic outlet syndrome, IDDM type II, DVT left leg twice after childbirths, glaucoma R eye, arthritis multiple joints, osteoporosis, pancreatitis once, hypothyroid, past cellulitis R knee and L leg, R eye cataract , varicosities. Last Myocardial Infarction Date:: 1999 History of Any Multi-Drug Resistant Organisms: None Reported Past Surgical History: Adenoidectomy, AICD, Heart Catheterization With Stent, Hernia Repair, Hysterectomy, Tonsillectomy Additional Past Surgical History / Comment(s): 1999 PCI with stents (3), 2014 BiV AICD, L upper rib removed d/t thoracic outlet syndrome, R knee I&D, bilateral carpal tunnel releases, colonoscopy, D&C, bladder suspension, umbilical hernia repair. Past Anesthesia/Blood Transfusion Reactions: No Reported Reaction Additional Past Anesthesia/Blood Transfusion Reaction / Comm: Pt has never had a blood transfusion. Date of Last Stent Placement:: 1999 Type of Cardiac Device: AICD Device Placement Date:: 06-27-14 Past Psychological History: No Psychological Hx Reported Additional Psychological History / Comment(s): and lives independently, states son lives with her. No current tobacco use no current alcohol use. No experience no international travel no animal exposures. Pt has glucometer, nebulizer, O2, and a walker at home. She is independent with her ADLs. Smoking Status: Former smoker Past Alcohol Use History: None Reported Additional Past Alcohol Use History / Comment(s): Pt smoked from 1975 to 1999. She denies any medical marijuana, marijuana, street drug or alcohol use. Past Drug Use History: None Reported - Past Family History Brother(s) Family Medical History: Cancer Additional Family Medical History / Comment(s): Pt had 2 brothers with lung cancer. Father Family Medical History: Coronary Artery Disease (CAD), CVA/TIA, Myocardial Infarction (ND) Additional Family Medical History / Comment(s): fATHER AT 57 YRS OF AGE Mother Family Medical History: Cancer, Dementia Additional Family Medical History / Comment(s): throat cancer Medications and Allergies Home Medications Medication Instructions Recorded Confirmed Type Isosorbide Mononitrate ER [Imdur] 30 mg PO DAILY 04/24/14 05/25/17 History Montelukast [Singulair] 10 mg PO HS 04/24/14 05/25/17 History metFORMIN HCL 1,000 mg PO DAILY 04/29/14 05/25/17 History Atorvastatin [Lipitor] 40 mg PO HS #60 tab 05/01/14 05/25/17 Rx Nitroglycerin Sl Tabs [Nitrostat] 0.4 mg SUBLINGUAL Q5M PRN 06/02/14 05/25/17 History Aspirin EC [Ecotrin Low Dose] 81 mg PO DAILY 11/18/14 05/25/17 History Budesonide [Pulmicort] 0.5 mg INHALATION RT-BID 11/18/14 05/25/17 History Insulin Glargine [Lantus] 44 unit SQ HS 11/18/14 05/25/17 History Ipratropium-Albuterol Nebulize 3 ml INHALATION RT-QID 11/18/14 05/25/17 History [Duoneb 0.5 mg-3 mg/3 ml Soln] Latanoprost Ophth [Xalatan 0.005%] 1 drop RIGHT EYE 11/18/14 05/25/17 History Ergocalciferol [Vitamin D2 50,000 unit PO TU 05/01/17 05/25/17 History (DRISDOL)] Furosemide [Lasix] 20 mg PO DAILY@119905/01/17 05/25/17 History INSULIN LISPRO (HumaLOG) [humaLOG] 3 - 8 units SQ AC-TID 05/01/17 05/25/17 History Levothyroxine Sodium [Synthroid] 50 mcg PO DAILY 05/01/17 05/25/17 History Losartan-Hctz 50-12.5 mg [Hyzaar 1 tab PO DAILY@119905/01/17 05/25/17 History 50-12.5] Spironolactone [Aldactone] 12.5 mg PO DAILY@1200 05/01/17 05/25/17 History Amiodarone [Cordarone] 100 mg PO DAILY tab 05/04/17 05/25/17 Rx HYDROcodone/APAP 10-325MG [Holmen 1 tab PO Q6H PRN #40 tab 05/04/17 05/25/17 Rx 10-325] Sulfamethox-Tmp 400-80Mg [Bactrim 1 tab PO Q12HR #10 tablet 05/04/17 05/25/17 Rx SS 400-80 mg] Metoprolol Succinate (ER) [Toprol 150 mg PO DAILY #100 tab 05/06/17 05/25/17 Rx XL] Apixaban [Eliquis] 5 mg PO BID #60 tab 05/07/17 05/25/17 Rx HYDROmorphone [Dilaudid] 4 mg PO QID PRN 05/25/17 05/25/17 History Allergies Allergy/AdvReac Type Severity Reaction Status Date / Time meperidine HCl [From Demerol] Allergy Severe Anaphylaxis Verified 05/25/17 19:39 cephalexin monohydrate Allergy Rash/Hives Verified 05/25/17 19:39 [From Keflex] erythromycin base Allergy Rapid Verified 05/25/17 19:39 Heart Rate lorazepam [From Ativan] Allergy Dyspnea Verified 05/25/17 19:39 Penicillins Allergy Rash/Hives Verified 05/25/17 19:39 doxycycline calcium AdvReac Nausea & Verified 05/25/17 19:39 [From Vibramycin] Vomiting doxycycline hyclate AdvReac Nausea & Verified 05/25/17 19:39 [From Vibramycin] Vomiting doxycycline monohydrate AdvReac Nausea & Verified 05/25/17 19:39 [From Vibramycin] Vomiting tetracycline AdvReac Nausea & Verified 05/25/17 19:39 Vomiting Physical Examination Physical exam: Patient is awake, alert, and oriented 3 Vital signs stable Good chest excursion with deep inspiration and expiration; patient currently on O2 nasal cannula; she appears to be breathing appropriately Abdomen soft nontender Examination of lumbar spine reveals skin is intact with no abrasions, lacerations, or bruises; no erythema, purulence or signs of infection Significant pain with palpation along the midline of the lumbar spine at approximately L1 Some pain with palpation of the left lateral lumbar spine Dorsiflexion, plantarflexion, and extensor hallucis longus positive sustained bilaterally Lower extremity strength 5/5 bilaterally No signs or symptoms of DVT; no calf pain Evidence of a dressing over the right calf Evidence of a healing wound over the right knee No pain with internal and external rotation of the hips bilaterally Neurovascularly intact Results Pertinent studies: CT abdomen and pelvis taken on 05/25/2017: L1 compression fracture deformity of the inferior endplate with approximately 20% height loss centrally; L2-3 and L3- 4 severe degenerative disc disease; large bowel fluid level consistent with diarrhea and ileus X-rays lumbosacral spine taken on 05/18/2017: Evidence of L1 compression fracture deformity of the inferior endplate; spondylosis throughout the lumbar spine; lumbar degenerative disc disease - Labs Labs: Abnormal Lab Results - Last 24 Hours (Table) 05/28/17 05/28/17 05/28/17 Range/Units 11:14 17:07 19:48 MCHC (31.0-37.0) g/dL BUN (7-17) mg/dL POC Glucose (mg/dL) 152 H 111 H 159 H (75-99) mg/dL Total Protein (6.3-8.2) g/dL Albumin (3.5-5.0) g/dL 05/29/17 05/29/17 05/29/17 Range/Units 06:15 06:15 06:46 MCHC 30.4 L (31.0-37.0) g/dL BUN 23 H (7-17) mg/dL POC Glucose (mg/dL) 109 H (75-99) mg/dL Total Protein 5.1 L (6.3-8.2) g/dL Albumin 2.8 L (3.5-5.0) g/dL Microbiology - Last 24 Hours (Table) 05/25/17 23:51 Blood Culture - Preliminary Blood No Growth after 72 hours H & H 05/25/17 05/26/17 05/27/17 Range/Units 20:35 09:11 06:36 Hgb 13.3 11.7 10.9 L (11.4-16.0) gm/dL Hct 41.7 37.3 35.3 (34.0-46.0) % 05/28/17 05/29/17 Range/Units 06:25 06:15 Hgb 11.2 L 11.8 (11.4-16.0) gm/dL Hct 36.3 38.7 (34.0-46.0) % Result Diagrams: 05/29/17 06:15 05/29/17 06:15 Assessment and Plan Assessment: Assessment: Acute traumatic L1 compression fracture deformity status post fall Intractable low back pain Lumbar degenerative disc disease Lumbar spondylosis Pneumonia Ileus Urinary tract infection (1) Traumatic compression fracture of L1 lumbar vertebra Current Visit: Yes Status: Acute Code(s): S32.010A - WEDGE COMPRESSION FRACTURE OF FIRST LUMBAR VERTEBRA, INIT SNOMED Code(s): 180976939 (2) Lumbar degenerative disc disease Current Visit: Yes Status: Acute Code(s): M51.36 - OTHER INTERVERTEBRAL DISC DEGENERATION, LUMBAR REGION SNOMED Code(s): 35013455 (3) Lumbar facet arthropathy Current Visit: Yes Status: Acute Code(s): M46.96 - UNSPECIFIED INFLAMMATORY SPONDYLOPATHY, LUMBAR REGION SNOMED Code(s): 879695137 (4) Ileus Current Visit: Yes Status: Acute Code(s): K56.7 - ILEUS, UNSPECIFIED SNOMED Code(s): 105871713 (5) Intractable back pain Current Visit: Yes Status: Acute Code(s): M54.9 - DORSALGIA, UNSPECIFIED SNOMED Code(s): 891907283 (6) Pneumonia Current Visit: No Status: Acute Code(s): J18.9 - PNEUMONIA, UNSPECIFIED ORGANISM SNOMED Code(s): 022759387 Plan: Plan: 1. After physical examination the patient, reviewing of imaging, and discussion with the patient, we will currently planned to continue with conservative treatment in regards to her acute traumatic L1 compression fracture deformity. We will plan to obtain a Spinomed TLSO brace. Once this brace has been delivered and fitted properly, she should wear this brace while sitting upright at greater than 45, during ambulation, during increase activities, and while working with physical therapy. Brace does not have to be worn while lying in bed or while bathing. Prescription has been written for this brace and given to case management. We did discuss if this brace is unable to be fitted appropriately, brace should not be provided to the patient. We would then try to obtain an Exos LSO brace to see if this brace would fit more appropriately for her. Once this brace has been delivered and fitted appropriately, patient may begin to work with physical therapy to increase mobility and ambulation. At that time, she will also be cleared for discharge from orthopedic spine standpoint. We discussed following discharge, patient will plan to follow-up in approximately 2 weeks for further evaluation at our office at [facility]. She should avoid excessive bending, twisting, and lifting. No lifting greater than 10 pounds. 2. Continue pain control as prescribed by medicine; patient is currently receiving Holmen 10 mg/325 mg, Dilaudid, and morphine as prescribed as needed for control of her symptoms. 3. Dr. Jorge in infectious disease and Dr. Levine in medicine will continue to follow patient closely for her other medical diagnoses including pneumonia, urinary tract infection, and ileus 4. Following discharge, patient may follow-up with Jeromy Curtis PA-C or Dr. Jose L Carlisle at [facility] in approximately 2 weeks for further evaluation 5. Patient will be discussed in detail with Dr. Jose L Carlisle Time with Patient: Less than 30
[2017-05-29] MEDS: AZTREONAM 2 GM in SODIUM CHLORIDE 0.9% 100 ML IVPB SCH ×3 (09:53→23:56)
[2017-05-29] MEDS: AMIODARONE 100 MG TAB PO SCH (09:54)
[2017-05-29] MEDS: DOCUSATE 100 MG CAP PO SCH ×2 (09:54→21:17)
[2017-05-29] MEDS: FAMOTIDINE 20 MG TAB PO SCH (09:55)
[2017-05-29] MEDS: ASPIRIN 81 MG PO SCH (09:55)
[2017-05-29] MEDS: ISOSORBIDE MONONITRATE ER 30 MG TAB.ER.24H PO SCH (09:55)
[2017-05-29] MEDS: LACTULOSE 20 GM/30 ML CUP PO SCH (09:56)
[2017-05-29] MEDS: FUROSEMIDE 20 MG TAB PO SCH (09:57)
[2017-05-29] MEDS: LOSARTAN-HCTZ 50-12.5 MG 1 EACH TAB PO SCH (09:58)
[2017-05-29] MEDS: SPIRONOLACTONE 25 MG TAB PO SCH (09:58)
[2017-05-29 11:12] LABS: Glucose,Whole Blood 139 mg/dL (75-99)
--- NOTE | 2017-05-29 13:48 | P.PN ---
Subjective Progress Note Date: 05/29/17 This is a 76-year-old female with a known past medical history of ischemic cardiomyopathy with AICD, diabetes mellitus, as well atrial fibrillation anticoagulated with Eliquis, chronic respiratory failure home O2 dependent, hyperlipidemia, hypertension and coronary artery disease with stents. Patient has been having falls at home. She is complaining of lower back pain. She initially had an x-ray May 18 which showed no fracture of the lumbar spine. However, patient is reporting that the pain in her lower back is worsening. She also has a cough and has been having issues with constipation and a few episodes of vomiting. She's had a decrease in her appetite. She also has 2 more days of Bactrim for her cellulitis of the right leg. He had been hospitalized earlier in April for her right leg cellulitis. X-ray of that leg was negative for fracture. And venous Doppler was negative for DVT. Did reveal indeterminant fluid collection could represent seroma, hematoma and correlate for possible infection. Patient also being treated for UTI. Placed on Aztreonam in the emergency room. White count 14.5 she did have some evidence of dehydration with a creatinine of 1.15 likely related to her vomiting and poor oral intake. Computed tomography scan of the abdomen shows large bowel fluid levels consistent with diarrhea and ileus. No free air. Right middle lobe and left lower lobe linear infiltrate and atelectasis. Cardiomegaly. Nonobstructing right renal calculus and mild sigmoid diverticulosis. Chest x-ray showed cardiomegaly with right basilar atelectasis or infiltrate and tiny effusion. Mild central venous congestion in the differential diagnosis. There is a severe compression fracture near the thoracolumbar junction. Patient is currently on antibiotics. Infectious disease consulted. And Dr. Carlisle will be consulted in regards to her spinal fracture. Patient does admit to having low-grade fevers at home with some chills and sweats. Admits having a productive cough. A few episodes of vomiting which are brown in color. No bowel movement for 5 days. Her main source of pain is her lower back. She reports that she has been able to walk however it hurts her back to walk. She admits to urinary frequency which is not new for her. But denies any burning with urination. On 05/27/2017 patient is alert and oriented 3 she is laying in bed complaining of severe back pain, otherwise no complaints at this time, she had constipation for several days but had a bowel movement yesterday after she was given lactulose and MiraLAX, she is having difficulty eating her food, she has severe pain when she tries to sit up. On 05/28/2017 patient is alert and oriented 3 still complaining of severe back pain, complaining of constipation, complaining of right lower extremity swelling and tenderness, otherwise she denies any complaints there is no fever or chills no headache no dizziness no cough no nausea or vomiting no abdominal pain and no urinary symptoms. On 05/29/2017 patient is alert and oriented 3 complaining of severe back pain constipation resolved with the use of lactulose patient was seen by neurosurgery Dr. Pena, and back brace was ordered, continue was current pain management, no intervention recommended at this time, otherwise patient denies any fever or chills no headache or dizziness no cough no chest pain or shortness of breath no nausea or vomiting no abdominal pain and no urinary symptoms. Objective - Vital Signs Vital signs: Vital Signs Temp 97.9 F 05/29/17 07:00 Pulse 76 05/29/17 11:58 Resp 20 05/29/17 00:03 BP 167/81 05/29/17 07:00 Pulse Ox 100 05/29/17 07:00 Intake & Output 05/28/17 05/29/17 05/29/17 18:59 06:59 18:59 Intake Total 580 714 400 Output Total 1500 550 Balance -920 164 400 Intake: Intake, IV Titration 234 Amount Vancomycin 1,750 mg In 234 Sodium Chloride 0.9% 250 ml @ 125 mls/hr IVPB Q24H [facility] Rx#:[id number] Oral 580 480 400 Output: Urine 1500 550 Other: Voiding Method Bedside Commode Diaper Diaper Bedpan # Voids 1 # Bowel Movements 1 - Exam Head normocephalic and atraumatic Neck supple no JVD no goiter no lymphadenopathy Lungs diminished bilaterally with coarse crackles no wheezing Heart regular rate and rhythm S1-S2, no rub or gallop Abdomen is soft nontender nondistended positive bowel sounds no hepatosplenomegaly Extremities right tibia area still having some cellulitis type changes swelling noted at the distal aspect of the tibia. Warm to touch. Neuro alert and orientated x3 no gross focal deficit - Labs CBC & Chem 7: 05/29/17 06:15 05/29/17 06:15 Labs: Abnormal Lab Results - Last 24 Hours (Table) 05/28/17 05/28/17 05/29/17 Range/Units 17:07 19:48 06:15 MCHC 30.4 L (31.0-37.0) g/dL BUN (7-17) mg/dL POC Glucose (mg/dL) 111 H 159 H (75-99) mg/dL Total Protein (6.3-8.2) g/dL Albumin (3.5-5.0) g/dL 05/29/17 05/29/17 05/29/17 Range/Units 06:15 06:46 11:08 MCHC (31.0-37.0) g/dL BUN 23 H (7-17) mg/dL POC Glucose (mg/dL) 109 H 139 H (75-99) mg/dL Total Protein 5.1 L (6.3-8.2) g/dL Albumin 2.8 L (3.5-5.0) g/dL Microbiology - Last 24 Hours (Table) 05/27/17 11:45 Gram Stain - Final Sputum Sputum Culture - Final 05/25/17 23:51 Blood Culture - Preliminary Blood No Growth after 72 hours Assessment and Plan Plan: 1. Intractable back pain with severe compression fracture near the thoracolumbar junction noted on chest x-ray. Dr. Carlisle will be consulted. I will resume patient's [place] and oral Dilaudid. Continue the IV morphine as needed, input from Dr. Carlisle reviewed awaiting a back brace delivery and fitting 2. Pneumonia: Continue Aztreonam. Consult infectious disease. Check sputum culture 3. UTI: Check urine culture. Continue antibiotic 4. Right lower extremity cellulitis. Had been on Bactrim outpatient. Bactrim discontinued. Continue with current antibiotic until seen by infectious disease. Had previous venous Doppler in April which was negative for DVT. It did note a fluid collection along the tibia. 5. Constipation: Likely related to pain meds. with a computed tomography scan of the abdomen showing evidence of large bowel fluid levels consistent with diarrhea and ileus. Will give patient lactulose and stool softener. Also will start her MiraLAX tonight. If no results with the lactulose will give a soapsuds enema 6. Acute kidney injury likely related to dehydration from patient's vomiting showing improvement. Will resume patient's home dose of diuretics and Hep-Lock IV fluids 7. History of ischemic cardiomyopathy status post AICD 8. Diabetes mellitus type 2: Resume patient's insulin and add sliding scale coverage 9. History of paroxysmal atrial fibrillation: Continue metoprolol amiodarone and Eliquis for anticoagulation 10. Chronic respiratory failure home O2 dependent 11. Essential hypertension 12. Hyperlipidemia
[2017-05-29] MEDS: VANCOMYCIN 1,750 MG in SODIUM CHLORIDE 0.9% 250 ML IVPB SCH (15:35)
[2017-05-29 17:16] LABS: Glucose,Whole Blood 153 mg/dL (75-99)
[2017-05-29 21:03] LABS: Glucose,Whole Blood 160 mg/dL (75-99)
[2017-05-29] MEDS: ATORVASTATIN 40 MG TAB PO SCH (21:16)
[2017-05-29] MEDS: LATANOPROST 0.005% OPHTH DROPS 2.5 ML BTL RIGHT EYE SCH (21:17)
[2017-05-29] MEDS: MONTELUKAST 10 MG TAB PO SCH (21:18)
[2017-05-29] MEDS: POLYETHYLENE GLYCOL 3350 17 GM POWD.PACK PO SCH (21:19)
[2017-05-29] MEDS: INSULIN DETEMIR 100 UNIT/ML 10 ML VIAL SQ SCH (21:36)
--- NOTE | 2017-05-30 00:16 | P.PN ---
Subjective Progress Note Date: 05/29/17 Principal diagnosis: back pain 76 year old woman presents to the ER complaining of worsening abdominal pain associated with constipation and worsening back pain. She had had some outpatient evaluation for her back pain with it yet to receive any input. Because of her worsening status she presented to the emergency center. Imaging studies were performed and there were concerns to potential ileus and constipation, possible diverticulosis and is well as the new thoracic or lumbar compression fracture which is significant and causing severe pain. The patient does have a relatively recent history of the injury and fall to the right leg resulting in the injury and the suturing to the knee. She had a secondary cellulitis responding well to antibiotic therapy with trimethoprim sulfamethoxazole. The extensive cellulitis and generally resolved. She however now he has the difficulties with the significant pain is noted was also having some cough and likely was having some new pneumonic infiltrations also occurring. She subsequently has been admitted in the infectious diseases and orthopedic consults have been requested. 05/27/2017 reveals the patient to have further improvement. She does have a significant ongoing back pain. With the addition of the female external urinary drainage device she is much more comfortable because she did not have any get up and down for urination. This is allowing some improvement of her status today. Await orthopedic evaluation. 05/28/2017 patient is comfortable with current pain medications, obtaining relatively good relief of her pain with morphine sulfate orally. She awaits the orthopedic consultation in the morning so that a plan can be devised for her acute compression fracture. 05/29/2017 patient is more comfortable. She's been seen by orthopedic spine and a brace has been requested. We will follow the outpatient setting. Objective - Vital Signs Vital signs: Vital Signs Temp 98.3 F 05/29/17 21:37 Pulse 60 05/29/17 21:37 Resp 16 05/29/17 21:37 BP 133/67 05/29/17 21:37 Pulse Ox 99 05/29/17 21:37 Intake & Output 05/29/17 05/29/17 05/30/17 06:59 18:59 06:59 Intake Total 714 637 480 Output Total 550 1 Balance 164 636 480 Intake: Intake, IV Titration 234 Amount Vancomycin 1,750 mg In 234 Sodium Chloride 0.9% 250 ml @ 125 mls/hr IVPB Q24H [facility] Rx#:[id number] Oral 480 637 480 Output: Urine 550 Stool 1 Other: Voiding Method Diaper Diaper Diaper # Voids 1 3 2 # Bowel Movements 1 2 - Exam 76-year-old woman who is quite uncomfortable because of her back pain. HEENT: Anicteric conjunctiva are pink and moist nasal mucosa grossly intact without significant lesions, there is no thrush. Neck: The neck is supple without significant lymphadenopathy or thyromegaly. Lungs: Good bilateral air entry without significant crackles or wheezing. There is no significant bronchial sounds. There is no egophony or dullness. Heart: Regular rate and rhythm with an audible S1-S2, no S3 no S4. There is no significant murmur click or rub, PMI was nondisplaced. Abdomen: Obese, Positive bowel sounds soft and nontender without palpable masses or organomegaly. There was no guarding or rebound. Extremities: The upper extremities have excellent pulses they are symmetric, no significant petechiae or telangiectasia. No splinter hemorrhages were noted. Left lower extremity fails to reveal evidence of any significant lesions. Right leg has the recent injury the patellar laceration is healing well without significant erythema exudates or purulence and swelling distally is much improved. Cellulitis is resolved. Patient has significant tenderness to the lumbosacral spine Neuro: Awake alert oriented to person place and time. There are no acute new gross focal sensory motor deficits. Cranial nerves II through XII are intact. She has intact motor and sensory ability to the bilateral lower extremities. There is no difficulty with bowel or bladder incontinence. - Labs CBC & Chem 7: 05/29/17 06:15 05/29/17 06:15 Labs: Abnormal Lab Results - Last 24 Hours (Table) 05/29/17 05/29/17 05/29/17 Range/Units 06:15 06:15 06:46 MCHC 30.4 L (31.0-37.0) g/dL BUN 23 H (7-17) mg/dL POC Glucose (mg/dL) 109 H (75-99) mg/dL Total Protein 5.1 L (6.3-8.2) g/dL Albumin 2.8 L (3.5-5.0) g/dL 05/29/17 05/29/17 05/29/17 Range/Units 11:08 17:10 20:55 MCHC (31.0-37.0) g/dL BUN (7-17) mg/dL POC Glucose (mg/dL) 139 H 153 H 160 H (75-99) mg/dL Total Protein (6.3-8.2) g/dL Albumin (3.5-5.0) g/dL Microbiology - Last 24 Hours (Table) 05/27/17 11:45 Gram Stain - Final Sputum Sputum Culture - Final 05/25/17 23:51 Blood Culture - Preliminary Blood No Growth after 72 hours Laboratory Results WBC 8.9 k/uL (3.8-10.6) 05/29/17 06:15 RBC 4.07 m/uL (3.80-5.40) 05/29/17 06:15 Hgb 11.8 gm/dL (11.4-16.0) 05/29/17 06:15 Hct 38.7 % (34.0-46.0) 05/29/17 06:15 MCV 95.1 fL (80.0-100.0) 05/29/17 06:15 MCH 28.9 pg (25.0-35.0) 05/29/17 06:15 MCHC 30.4 g/dL (31.0-37.0) L 05/29/17 06:15 RDW 13.1 % (11.5-15.5) 05/29/17 06:15 Plt Count 313 k/uL (150-450) 05/29/17 06:15 Neutrophils % 68 % 05/29/17 06:15 Lymphocytes % 16 % 05/29/17 06:15 Monocytes % 8 % 05/29/17 06:15 Eosinophils % 6 % 05/29/17 06:15 Basophils % 1 % 05/29/17 06:15 Neutrophils # 6.1 k/uL (1.3-7.7) 05/29/17 06:15 Lymphocytes # 1.4 k/uL (1.0-4.8) 05/29/17 06:15 Monocytes # 0.7 k/uL (0-1.0) 05/29/17 06:15 Eosinophils # 0.5 k/uL (0-0.7) 05/29/17 06:15 Basophils # 0.0 k/uL (0-0.2) 05/29/17 06:15 Hypochromasia Moderate 05/29/17 06:15 Sodium 140 mmol/L (137-145) 05/29/17 06:15 Potassium 5.0 mmol/L (3.5-5.1) 05/29/17 06:15 Chloride 102 mmol/L (98-107) 05/29/17 06:15 Carbon Dioxide 30 mmol/L (22-30) 05/29/17 06:15 Anion Gap 8 mmol/L 05/29/17 06:15 BUN 23 mg/dL (7-17) H 05/29/17 06:15 Creatinine 0.67 mg/dL (0.52-1.04) 05/29/17 06:15 Est GFR (CKD-EPI)AfAm >90 (>60 ml/min/1.73 sqM) 05/29/17 06:15 Est GFR (CKD-EPI)NonAf 87 (>60 ml/min/1.73 sqM) 05/29/17 06:15 Glucose 96 mg/dL (74-99) 05/29/17 06:15 POC Glucose (mg/dL) 160 mg/dL (75-99) H 05/29/17 20:55 POC Glu Caramel Cutter Machine ID Shirlene Gomez 05/29/17 20:55 Plasma Lactic Acid Jose Alejandro 0.8 mmol/L (0.7-2.0) 05/25/17 23:51 Calcium 8.8 mg/dL (8.4-10.2) 05/29/17 06:15 Total Bilirubin 0.2 mg/dL (0.2-1.3) 05/29/17 06:15 AST 24 U/L (14-36) 05/29/17 06:15 ALT 27 U/L (9-52) 05/29/17 06:15 Alkaline Phosphatase 79 U/L (38-126) 05/29/17 06:15 NT-Pro-B Natriuret Pep 2030 pg/mL 05/26/17 09:11 Total Protein 5.1 g/dL (6.3-8.2) L 05/29/17 06:15 Albumin 2.8 g/dL (3.5-5.0) L 05/29/17 06:15 Amylase 35 U/L (30-110) 05/25/17 20:35 Lipase 40 U/L (23-300) 05/25/17 20:35 Urine Color Dark Yellow 05/25/17 20:20 Urine Appearance Cloudy (Clear) H 05/25/17 20:20 Urine pH 5.5 (5.0-8.0) 05/25/17 20:20 Ur Specific [place] 1.027 (1.001-1.035) 05/25/17 20:20 Urine Protein Trace (Negative) H 05/25/17 20:20 Urine Glucose (UA) Negative (Negative) 05/25/17 20:20 Urine Ketones Trace (Negative) H 05/25/17 20:20 Urine Blood Small (Negative) H 05/25/17 20:20 Urine Nitrite Negative (Negative) 05/25/17 20:20 Urine Bilirubin 1+ (Negative) H 05/25/17 20:20 Urine Urobilinogen 3.0 mg/dL (<2.0) 05/25/17 20:20 Ur Leukocyte Esterase Moderate (Negative) H 05/25/17 20:20 Urine RBC 54 /hpf (0-5) H 05/25/17 20:20 Urine WBC 13 /hpf (0-5) H 05/25/17 20:20 Ur Squamous Epith Cells 2 /hpf (0-4) 05/25/17 20:20 Uric Acid Crystals Few /hpf (None) H 05/25/17 20:20 Urine Bacteria Occasional /hpf (None) H 05/25/17 20:20 Hyaline Casts 15 /lpf (0-2) H 05/25/17 20:20 Urine Mucus Rare /hpf (None) H 05/25/17 20:20 Microbiology 05/27/17 11:45 Sputum Gram Stain - Final 05/27/17 11:45 Sputum Sputum Culture - Final 05/25/17 23:51 Blood Blood Culture - Preliminary No Growth after 72 hours 05/26/17 16:30 Urine,Clean Catch Urine Culture - Final Assessment and Plan (1) Ileus Current Visit: Yes Status: Acute Code(s): K56.7 - ILEUS, UNSPECIFIED SNOMED Code(s): 782978345 (2) Intractable back pain Current Visit: Yes Status: Acute Code(s): M54.9 - DORSALGIA, UNSPECIFIED SNOMED Code(s): 240926248 (3) Right lower lobe pneumonia Current Visit: Yes Status: Acute Code(s): J18.1 - LOBAR PNEUMONIA, UNSPECIFIED ORGANISM SNOMED Code(s): 801122012 (4) Right middle lobe pneumonia Narrative/Plan: 76-year-old woman presents to Hospital with multiple symptoms occurring. She is having difficulties with abdominal distention and pain as well as significant back pain. Imaging reveal evidence of an ileus and some constipation that is starting to improve. She over does also have some cough and shortness of breath was not evidence of right middle lobe and left lower lobe pneumonia. His multiple ALLERGIES in and about except been started with Azactam. Vancomycin will be added at this point in time pending further data. Orthopedic spine is been consulted for further evaluation about the compression fracture of her spine. She is leukocytosis that is like in the basis of the many issues going on including the pneumonia. She does not appear to have intra -abdominal infection at this time. The recent injury to the right lower extremity appears to be healing well without further ongoing significant infection to that site. A knee-high PARTH hose can be utilized to help with her edema and elevated at rest. In some Lac- Hydrin for the dry skin can be utilized. She believes she is up-to-date with her tetanus vaccine. Pain control will be maximized until she can have orthopedic evaluation. 05/27/2017 reveals the patient is to be very uncomfortable. Both the addition of the urinary external drainage is much more comfortable because she does not need to get up and down for urination. Continues to have some dry skin and hopefully Lac-Hydrin will give her some further improvement. Pain control with morphine seems to be helping. Await orthopedic evaluation for the next possible step. 05/28/2017 patient uncomfortable but is receiving moderate pain control with oral morphine sulfate. Denying other acute issues. Her breathing is improving. Tolerating the Azactam and vancomycin well. Sputum culture has been obtained. Cultures are negative so far. Await the orthopedic spine evaluation for a planned. We'll be able to arrange a course of antibiotic therapy depending on the above findings. 05/29/2017 patient is improving. Oral morphine is allowing pain control. She' s been seen by orthopedic spine in her braces been requested. Will likely go to rehabilitation to complete her course of rehab and allow follow with orthopedics in the outpatient setting. Sputum culture is negative. Her pneumonia appears to be improving and will transition to oral antimicrobial therapy at her discharge, her ALLERGIES do make it somewhat challenging but a completion therapy with trimethoprim sulfamethoxazole will likely be utilized. Current Visit: Yes Status: Acute Code(s): J18.1 - LOBAR PNEUMONIA, UNSPECIFIED ORGANISM SNOMED Code(s): 275488974
[2017-05-30] MEDS: HYDROcodone/APAP 10-325MG 1 EACH TAB PO PRN ×4 (00:28→21:12)
[2017-05-30] MEDS: HYDROmorphone 4 MG TABLET PO PRN ×5 (01:44→21:13)
[2017-05-30] MEDS: VANCOMYCIN 1,750 MG in SODIUM CHLORIDE 0.9% 250 ML IVPB SCH ×2 (05:08→21:12)
[2017-05-30] MEDS: MORPHINE ORAL SOLN 10 MG/5 ML CUP PO PRN (05:21)
[2017-05-30] MEDS: LEVOTHYROXINE 50 MCG TAB PO SCH (05:38)
[2017-05-30] MEDS: IPRATROPIUM-ALBUTEROL 3 ML NEB INHALATION SCH ×4 (06:58→19:05)
[2017-05-30] MEDS: BUDESONIDE 0.5 MG/2 ML NEBU INHALATION SCH ×2 (06:58→19:05)
[2017-05-30 07:08] LABS: Glucose,Whole Blood 98 mg/dL (75-99)
[2017-05-30 07:30] LABS: Basophils % (A) 0 %; Eosinophils # (A) 0.7 k/uL (0-0.7); Eosinophils % (A) 8 %; HCT 38.2 % (34.0-46.0); HGB 11.8 gm/dL (11.4-16.0); Hypochromasia Moderate; Lymphocytes # (A) 1.8 k/uL (1.0-4.8); Lymphocytes % (A) 22 %; MCH 29.3 pg (25.0-35.0); MCV 94.5 fL (80.0-100.0); Mean Platelet Volume 6.9; Monocytes # (A) 0.7 k/uL (0-1.0); Monocytes % (A) 8 %; Neutrophils # (A) 4.6 k/uL (1.3-7.7); Neutrophils % (A) 58 %; Platelet Count 304 k/uL (150-450); RBC 4.04 m/uL (3.80-5.40); RDW 13.1 % (11.5-15.5)
[2017-05-30 07:46] LABS: ALT 20 U/L (9-52); AST 22 U/L (14-36); Albumin 2.7 g/dL (3.5-5.0); Alkaline Phosphatase 84 U/L (38-126); Anion Gap 6 mmol/L; Blood Urea Nitrogen 19 mg/dL (7-17); Carbon Dioxide 38 mmol/L (22-30); Chloride 96 mmol/L (98-107); Glucose 90 mg/dL (74-99); Potassium 4.5 mmol/L (3.5-5.1); Sodium 140 mmol/L (137-145); Total Bilirubin 0.3 mg/dL (0.2-1.3)
[2017-05-30] MEDS: INSULIN ASPART 100 UNIT/ML 1 ML 10 ML VIAL SQ SCH ×7 (09:26→21:13)
[2017-05-30] MEDS: AZTREONAM 2 GM in SODIUM CHLORIDE 0.9% 100 ML IVPB SCH ×2 (09:29→18:00)
[2017-05-30] MEDS: AMIODARONE 100 MG TAB PO SCH (09:30)
[2017-05-30] MEDS: APIXABAN 5 MG TAB PO SCH ×2 (09:31→21:14)
[2017-05-30] MEDS: ASPIRIN 81 MG PO SCH (09:33)
[2017-05-30] MEDS: FAMOTIDINE 20 MG TAB PO SCH (09:34)
[2017-05-30] MEDS: DOCUSATE 100 MG CAP PO SCH ×2 (09:34→21:14)
[2017-05-30] MEDS: ISOSORBIDE MONONITRATE ER 30 MG TAB.ER.24H PO SCH (09:36)
[2017-05-30] MEDS: METOPROLOL SUCCINATE (ER) 50 MG TAB.ER.24H PO SCH (09:36)
[2017-05-30 11:30] LABS: Glucose,Whole Blood 122 mg/dL (75-99)
--- NOTE | 2017-05-30 12:07 | P.PN ---
Subjective Progress Note Date: 05/30/17 This is a 76-year-old female with a known past medical history of ischemic cardiomyopathy with AICD, diabetes mellitus, as well atrial fibrillation anticoagulated with Eliquis, chronic respiratory failure home O2 dependent, hyperlipidemia, hypertension and coronary artery disease with stents. Patient has been having falls at home. She is complaining of lower back pain. She initially had an x-ray May 18 which showed no fracture of the lumbar spine. However, patient is reporting that the pain in her lower back is worsening. She also has a cough and has been having issues with constipation and a few episodes of vomiting. She's had a decrease in her appetite. She also has 2 more days of Bactrim for her cellulitis of the right leg. He had been hospitalized earlier in April for her right leg cellulitis. X-ray of that leg was negative for fracture. And venous Doppler was negative for DVT. Did reveal indeterminant fluid collection could represent seroma, hematoma and correlate for possible infection. Patient also being treated for UTI. Placed on Aztreonam in the emergency room. White count 14.5 she did have some evidence of dehydration with a creatinine of 1.15 likely related to her vomiting and poor oral intake. Computed tomography scan of the abdomen shows large bowel fluid levels consistent with diarrhea and ileus. No free air. Right middle lobe and left lower lobe linear infiltrate and atelectasis. Cardiomegaly. Nonobstructing right renal calculus and mild sigmoid diverticulosis. Chest x-ray showed cardiomegaly with right basilar atelectasis or infiltrate and tiny effusion. Mild central venous congestion in the differential diagnosis. There is a severe compression fracture near the thoracolumbar junction. Patient is currently on antibiotics. Infectious disease consulted. And Dr. Carlisle will be consulted in regards to her spinal fracture. Patient does admit to having low-grade fevers at home with some chills and sweats. Admits having a productive cough. A few episodes of vomiting which are brown in color. No bowel movement for 5 days. Her main source of pain is her lower back. She reports that she has been able to walk however it hurts her back to walk. She admits to urinary frequency which is not new for her. But denies any burning with urination. On 05/27/2017 patient is alert and oriented 3 she is laying in bed complaining of severe back pain, otherwise no complaints at this time, she had constipation for several days but had a bowel movement yesterday after she was given lactulose and MiraLAX, she is having difficulty eating her food, she has severe pain when she tries to sit up. On 05/28/2017 patient is alert and oriented 3 still complaining of severe back pain, complaining of constipation, complaining of right lower extremity swelling and tenderness, otherwise she denies any complaints there is no fever or chills no headache no dizziness no cough no nausea or vomiting no abdominal pain and no urinary symptoms. On 05/29/2017 patient is alert and oriented 3 complaining of severe back pain constipation resolved with the use of lactulose patient was seen by neurosurgery Dr. Pena, and back brace was ordered, continue was current pain management, no intervention recommended at this time, otherwise patient denies any fever or chills no headache or dizziness no cough no chest pain or shortness of breath no nausea or vomiting no abdominal pain and no urinary symptoms. On 05/30/2017 patient is alert and oriented 3 in no apparent distress still complaining of back pain otherwise no complaints at this time, still awaiting delivery and fitting of back brace, patient denies any chest pain or shortness of breath no headache no dizziness no cough no nausea or vomiting no abdominal pain and no urinary symptoms Objective - Vital Signs Vital signs: Vital Signs Temp 98.3 F 05/30/17 07:00 Pulse 82 05/30/17 11:13 Resp 16 05/30/17 07:00 BP 157/70 05/30/17 07:00 Pulse Ox 97 05/30/17 07:00 Intake & Output 05/29/17 05/30/17 05/30/17 18:59 06:59 18:59 Intake Total 637 730 240 Output Total 1 500 Balance 636 230 240 Intake: Intake, IV Titration 250 Amount Vancomycin 1,750 mg In 250 Sodium Chloride 0.9% 250 ml @ 125 mls/hr IVPB Q16H [facility] Rx#:[id number] Oral 637 480 240 Output: Urine 500 Stool 1 Other: Voiding Method Diaper Diaper # Voids 3 2 # Bowel Movements 2 - Exam Head normocephalic and atraumatic no conjunctival icterus Neck supple no JVD no goiter no lymphadenopathy Lungs diminished bilaterally with coarse crackles no wheezing Heart regular rate and rhythm S1-S2, no rub or gallop Abdomen is soft nontender nondistended positive bowel sounds no hepatosplenomegaly Extremities right tibia area has erythema and swelling noted at the distal aspect of the tibia. Neuro alert and orientated x3 no gross focal deficit - Labs CBC & Chem 7: 05/30/17 06:50 05/30/17 06:50 Labs: Abnormal Lab Results - Last 24 Hours (Table) 05/29/17 05/29/17 05/30/17 Range/Units 17:10 20:55 06:50 Chloride 96 L (98-107) mmol/L Carbon Dioxide 38 H (22-30) mmol/L BUN 19 H (7-17) mg/dL POC Glucose (mg/dL) 153 H 160 H (75-99) mg/dL Total Protein 5.0 L (6.3-8.2) g/dL Albumin 2.7 L (3.5-5.0) g/dL 05/30/17 Range/Units 11:28 Chloride (98-107) mmol/L Carbon Dioxide (22-30) mmol/L BUN (7-17) mg/dL POC Glucose (mg/dL) 122 H (75-99) mg/dL Total Protein (6.3-8.2) g/dL Albumin (3.5-5.0) g/dL Microbiology - Last 24 Hours (Table) 05/25/17 23:51 Blood Culture - Preliminary Blood No Growth after 96 hours 05/27/17 11:45 Gram Stain - Final Sputum Sputum Culture - Final Assessment and Plan Plan: 1. Intractable back pain with severe compression fracture near the thoracolumbar junction noted on chest x-ray. Dr. Carlisle will be consulted. I will resume patient's [place] and oral Dilaudid. Continue the IV morphine as needed, input from Dr. Carlisle reviewed awaiting a back brace delivery and fitting. Continue was pain management 2. Pneumonia: Continue Aztreonam. infectious disease following . Check sputum culture 3. UTI: Check urine culture. Continue antibiotic 4. Right lower extremity cellulitis. Had been on Bactrim outpatient. Bactrim discontinued. Continue with current antibiotic until seen by infectious disease. Had previous venous Doppler in April which was negative for DVT. It did note a fluid collection along the tibia. 5. Constipation: Likely related to pain meds. with a computed tomography scan of the abdomen showing evidence of large bowel fluid levels consistent with diarrhea and ileus. Will give patient lactulose and stool softener. Also will start her MiraLAX tonight. If no results with the lactulose will give a soapsuds enema 6. Acute kidney injury likely related to dehydration from patient's vomiting showing improvement. Will resume patient's home dose of diuretics and Hep-Lock IV fluids 7. History of ischemic cardiomyopathy status post AICD 8. Diabetes mellitus type 2: Resume patient's insulin and add sliding scale coverage 9. History of paroxysmal atrial fibrillation: Continue metoprolol amiodarone and Eliquis for anticoagulation 10. Chronic respiratory failure home O2 dependent 11. Essential hypertension for DVT prophylaxis patient on Eliquis for GI prophylaxis patient on Pepcid continue with current management will follow closely
--- NOTE | 2017-05-30 12:28 | P.PN ---
Progress Note - Text Progress Note Date: 05/30/17 Patient is a very pleasant 76-year-old female who is seen and examined at the bedside for follow-up evaluation for her known L1 compression fracture deformity. Since being seen and examined yesterday, she has not had any improvement or change in her symptoms. Continues to experience severe low back pain that is exacerbated with increased activities. She is currently lying comfortably in bed. She has been able to ambulate to the restroom but has some increased back pain while doing so. At admittance, she was also diagnosed with pneumonia, urinary tract infection, and ileus is currently being treated for these medical diagnoses. She continues to have improvement of her constipation patient since admittance. Patient denies any abdominal pain. She continues to be treated for pneumonia and is currently on an O2 nasal cannula. Patient states her most significant symptom is her severe low back pain. Patient continues to be followed by Dr. Jorge in infectious disease and Dr. Levine in medicine. Patient has been receiving [place] 10 mg/325 mg, Dilaudid, and morphine for some control of her symptoms. A prescription for a Spinomed TLSO was written and ordered yesterday. This brace has been delivered but did not fit appropriately. A second brace is scheduled to be delivered and fitted hopefully today. Physical exam: Patient is awake, alert, and oriented 3 Vital signs stable Good chest excursion with deep inspiration and expiration; patient currently on O2 nasal cannula; she appears to be breathing appropriately Abdomen soft nontender Examination of lumbar spine reveals skin is intact with no abrasions, lacerations, or bruises; no erythema, purulence or signs of infection Significant pain with palpation along the midline of the lumbar spine at approximately L1 Some pain with palpation of the left lateral lumbar spine Dorsiflexion, plantarflexion, and extensor hallucis longus positive sustained bilaterally Lower extremity strength 5/5 bilaterally No signs or symptoms of DVT; no calf pain Evidence of a dressing over the right calf Evidence of a healing wound over the right knee No pain with internal and external rotation of the hips bilaterally Neurovascularly intact Pertinent studies: CT abdomen and pelvis taken on 05/25/2017: L1 compression fracture deformity of the inferior endplate with approximately 20% height loss centrally; L2-3 and L3- 4 severe degenerative disc disease; large bowel fluid level consistent with diarrhea and ileus X-rays lumbosacral spine taken on 05/18/2017: Evidence of L1 compression fracture deformity of the inferior endplate; spondylosis throughout the lumbar spine; lumbar degenerative disc disease Assessment: Acute traumatic L1 compression fracture deformity status post fall Intractable low back pain Lumbar degenerative disc disease Lumbar spondylosis Pneumonia Ileus Urinary tract infection Plan: 1. We will continue with our plan as set forth yesterday. After physical examination the patient, reviewing of imaging, and discussion with the patient, we will currently planned to continue with conservative treatment in regards to her acute traumatic L1 compression fracture deformity. Yesterday a prescription was written for a Spinomed TLSO brace. This brace had been delivered but did not fit appropriately. Nursing states a second brace is planning to be delivered hopefully today that may fit the patient more appropriately. Once this brace has been delivered and fitted properly, she should wear this brace while sitting upright at greater than 45, during ambulation, during increase activities, and while working with physical therapy. Brace does not have to be worn while lying in bed or while bathing. We discussed patient may ambulate to the restroom without the brace intact but should avoid working through formal physical therapy until this brace is delivered and fitted appropriately. Once this brace has been delivered and fitted appropriately, patient may begin to work with physical therapy to increase mobility and ambulation. At that time, she will also be cleared for discharge from orthopedic spine standpoint. We discussed following discharge, patient will plan to follow-up in approximately 2 weeks for further evaluation at our office at [facility]. She should avoid excessive bending, twisting, and lifting. No lifting greater than 10 pounds. 2. Continue pain control as prescribed by medicine; patient is currently receiving [place] 10 mg/325 mg, Dilaudid, and morphine as prescribed as needed for control of her symptoms. 3. Dr. Jorge in infectious disease and Dr. Levine in medicine will continue to follow patient closely for her other medical diagnoses including pneumonia, urinary tract infection, and ileus 4. Following discharge, patient may follow-up with Jeromy Curtis PA-C or Dr. Jose L Carlisle at [facility] in approximately 2 weeks for further evaluation 5. Patient will be discussed in detail with Dr. Jose L Carlisle
[2017-05-30] MEDS: LOSARTAN-HCTZ 50-12.5 MG 1 EACH TAB PO SCH (13:19)
[2017-05-30] MEDS: AMMONIUM LACTATE 12% CREAM 140 GM TUBE TOPICAL SCH ×2 (13:19→21:14)
[2017-05-30] MEDS: FUROSEMIDE 20 MG TAB PO SCH (13:20)
[2017-05-30] MEDS: PETROLAT,WHITE/LAN/8-HYDROXYQU 227 GM OINT TOPICAL SCH ×2 (13:21→19:58)
[2017-05-30] MEDS: SPIRONOLACTONE 25 MG TAB PO SCH (13:21)
[2017-05-30 17:26] LABS: Glucose,Whole Blood 180 mg/dL (75-99)
[2017-05-30 20:18] LABS: Glucose,Whole Blood 192 mg/dL (75-99)
[2017-05-30] MEDS: LATANOPROST 0.005% OPHTH DROPS 2.5 ML BTL RIGHT EYE SCH (21:14)
[2017-05-30] MEDS: INSULIN DETEMIR 100 UNIT/ML 10 ML VIAL SQ SCH (21:14)
[2017-05-30] MEDS: MONTELUKAST 10 MG TAB PO SCH (21:14)
[2017-05-30] MEDS: POLYETHYLENE GLYCOL 3350 17 GM POWD.PACK PO SCH (21:14)
[2017-05-30] MEDS: ATORVASTATIN 40 MG TAB PO SCH (21:14)
--- NOTE | 2017-05-30 23:53 | P.PN ---
Subjective Progress Note Date: 05/30/17 Principal diagnosis: back pain 76 year old woman presents to the ER complaining of worsening abdominal pain associated with constipation and worsening back pain. She had had some outpatient evaluation for her back pain with it yet to receive any input. Because of her worsening status she presented to the emergency center. Imaging studies were performed and there were concerns to potential ileus and constipation, possible diverticulosis and is well as the new thoracic or lumbar compression fracture which is significant and causing severe pain. The patient does have a relatively recent history of the injury and fall to the right leg resulting in the injury and the suturing to the knee. She had a secondary cellulitis responding well to antibiotic therapy with trimethoprim sulfamethoxazole. The extensive cellulitis and generally resolved. She however now he has the difficulties with the significant pain is noted was also having some cough and likely was having some new pneumonic infiltrations also occurring. She subsequently has been admitted in the infectious diseases and orthopedic consults have been requested. 05/27/2017 reveals the patient to have further improvement. She does have a significant ongoing back pain. With the addition of the female external urinary drainage device she is much more comfortable because she did not have any get up and down for urination. This is allowing some improvement of her status today. Await orthopedic evaluation. 05/28/2017 patient is comfortable with current pain medications, obtaining relatively good relief of her pain with morphine sulfate orally. She awaits the orthopedic consultation in the morning so that a plan can be devised for her acute compression fracture. 05/29/2017 patient is more comfortable. She's been seen by orthopedic spine and a brace has been requested. We will follow the outpatient setting. 05/30/2017 reveals the patient to more comfortable. She's been seen by orthopedics. Await the brace. She is doing well from a pulmonary standpoint and has tolerated antibiotic therapy well. Objective - Vital Signs Vital signs: Vital Signs Temp 97.6 F 05/30/17 20:00 Pulse 64 05/30/17 20:00 Resp 18 05/30/17 20:00 BP 120/63 05/30/17 20:00 Pulse Ox 93 L 05/30/17 20:00 Intake & Output 05/30/17 05/30/17 05/31/17 06:59 18:59 06:59 Intake Total 730 480 Output Total 500 500 300 Balance 230 -20 -300 Intake: Intake, IV Titration 250 Amount Vancomycin 1,750 mg In 250 Sodium Chloride 0.9% 250 ml @ 125 mls/hr IVPB Q16H [facility] Rx#:[id number] Oral 480 480 Output: Urine 500 500 300 Other: Voiding Method Diaper Diaper # Voids 2 - Exam 76-year-old woman who is quite uncomfortable because of her back pain. HEENT: Anicteric conjunctiva are pink and moist nasal mucosa grossly intact without significant lesions, there is no thrush. Neck: The neck is supple without significant lymphadenopathy or thyromegaly. Lungs: Good bilateral air entry without significant crackles or wheezing. There is no significant bronchial sounds. There is no egophony or dullness. Heart: Regular rate and rhythm with an audible S1-S2, no S3 no S4. There is no significant murmur click or rub, PMI was nondisplaced. Abdomen: Obese, Positive bowel sounds soft and nontender without palpable masses or organomegaly. There was no guarding or rebound. Extremities: The upper extremities have excellent pulses they are symmetric, no significant petechiae or telangiectasia. No splinter hemorrhages were noted. Left lower extremity fails to reveal evidence of any significant lesions. Right leg has the recent injury the patellar laceration is healing well without significant erythema exudates or purulence and swelling distally is much improved. Cellulitis is resolved. Patient has significant tenderness to the lumbosacral spine Neuro: Awake alert oriented to person place and time. There are no acute new gross focal sensory motor deficits. Cranial nerves II through XII are intact. She has intact motor and sensory ability to the bilateral lower extremities. There is no difficulty with bowel or bladder incontinence. - Labs CBC & Chem 7: 05/30/17 06:50 05/30/17 06:50 Labs: Abnormal Lab Results - Last 24 Hours (Table) 05/30/17 05/30/17 05/30/17 Range/Units 06:50 11:28 17:17 Chloride 96 L (98-107) mmol/L Carbon Dioxide 38 H (22-30) mmol/L BUN 19 H (7-17) mg/dL POC Glucose (mg/dL) 122 H 180 H (75-99) mg/dL Total Protein 5.0 L (6.3-8.2) g/dL Albumin 2.7 L (3.5-5.0) g/dL 05/30/17 Range/Units 20:10 Chloride (98-107) mmol/L Carbon Dioxide (22-30) mmol/L BUN (7-17) mg/dL POC Glucose (mg/dL) 192 H (75-99) mg/dL Total Protein (6.3-8.2) g/dL Albumin (3.5-5.0) g/dL Microbiology - Last 24 Hours (Table) 05/25/17 23:51 Blood Culture - Preliminary Blood No Growth after 96 hours Laboratory Results WBC 8.0 k/uL (3.8-10.6) 05/30/17 06:50 RBC 4.04 m/uL (3.80-5.40) 05/30/17 06:50 Hgb 11.8 gm/dL (11.4-16.0) 05/30/17 06:50 Hct 38.2 % (34.0-46.0) 05/30/17 06:50 MCV 94.5 fL (80.0-100.0) 05/30/17 06:50 MCH 29.3 pg (25.0-35.0) 05/30/17 06:50 MCHC 31.0 g/dL (31.0-37.0) 05/30/17 06:50 RDW 13.1 % (11.5-15.5) 05/30/17 06:50 Plt Count 304 k/uL (150-450) 05/30/17 06:50 Neutrophils % 58 % 05/30/17 06:50 Lymphocytes % 22 % 05/30/17 06:50 Monocytes % 8 % 05/30/17 06:50 Eosinophils % 8 % 05/30/17 06:50 Basophils % 0 % 05/30/17 06:50 Neutrophils # 4.6 k/uL (1.3-7.7) 05/30/17 06:50 Lymphocytes # 1.8 k/uL (1.0-4.8) 05/30/17 06:50 Monocytes # 0.7 k/uL (0-1.0) 05/30/17 06:50 Eosinophils # 0.7 k/uL (0-0.7) 05/30/17 06:50 Basophils # 0.0 k/uL (0-0.2) 05/30/17 06:50 Hypochromasia Moderate 05/30/17 06:50 Sodium 140 mmol/L (137-145) 05/30/17 06:50 Potassium 4.5 mmol/L (3.5-5.1) 05/30/17 06:50 Chloride 96 mmol/L (98-107) L 05/30/17 06:50 Carbon Dioxide 38 mmol/L (22-30) H 05/30/17 06:50 Anion Gap 6 mmol/L 05/30/17 06:50 BUN 19 mg/dL (7-17) H 05/30/17 06:50 Creatinine 0.70 mg/dL (0.52-1.04) 05/30/17 06:50 Est GFR (CKD-EPI)AfAm >90 (>60 ml/min/1.73 sqM) 05/30/17 06:50 Est GFR (CKD-EPI)NonAf 86 (>60 ml/min/1.73 sqM) 05/30/17 06:50 Glucose 90 mg/dL (74-99) 05/30/17 06:50 POC Glucose (mg/dL) 192 mg/dL (75-99) H 05/30/17 20:10 POC Glu Lead Installer Huong Taylor 05/30/17 20:10 Plasma Lactic Acid Jose Alejandro 0.8 mmol/L (0.7-2.0) 05/25/17 23:51 Calcium 9.0 mg/dL (8.4-10.2) 05/30/17 06:50 Total Bilirubin 0.3 mg/dL (0.2-1.3) 05/30/17 06:50 AST 22 U/L (14-36) 05/30/17 06:50 ALT 20 U/L (9-52) 05/30/17 06:50 Alkaline Phosphatase 84 U/L (38-126) 05/30/17 06:50 NT-Pro-B Natriuret Pep 2030 pg/mL 05/26/17 09:11 Total Protein 5.0 g/dL (6.3-8.2) L 05/30/17 06:50 Albumin 2.7 g/dL (3.5-5.0) L 05/30/17 06:50 Amylase 35 U/L (30-110) 05/25/17 20:35 Lipase 40 U/L (23-300) 05/25/17 20:35 Urine Color Dark Yellow 05/25/17 20:20 Urine Appearance Cloudy (Clear) H 05/25/17 20:20 Urine pH 5.5 (5.0-8.0) 05/25/17 20:20 Ur Specific [place] 1.027 (1.001-1.035) 05/25/17 20:20 Urine Protein Trace (Negative) H 05/25/17 20:20 Urine Glucose (UA) Negative (Negative) 05/25/17 20:20 Urine Ketones Trace (Negative) H 05/25/17 20:20 Urine Blood Small (Negative) H 05/25/17 20:20 Urine Nitrite Negative (Negative) 05/25/17 20:20 Urine Bilirubin 1+ (Negative) H 05/25/17 20:20 Urine Urobilinogen 3.0 mg/dL (<2.0) 05/25/17 20:20 Ur Leukocyte Esterase Moderate (Negative) H 05/25/17 20:20 Urine RBC 54 /hpf (0-5) H 05/25/17 20:20 Urine WBC 13 /hpf (0-5) H 05/25/17 20:20 Ur Squamous Epith Cells 2 /hpf (0-4) 05/25/17 20:20 Uric Acid Crystals Few /hpf (None) H 05/25/17 20:20 Urine Bacteria Occasional /hpf (None) H 05/25/17 20:20 Hyaline Casts 15 /lpf (0-2) H 05/25/17 20:20 Urine Mucus Rare /hpf (None) H 05/25/17 20:20 Microbiology 05/25/17 23:51 Blood Blood Culture - Preliminary No Growth after 96 hours 05/27/17 11:45 Sputum Gram Stain - Final 05/27/17 11:45 Sputum Sputum Culture - Final 05/26/17 16:30 Urine,Clean Catch Urine Culture - Final Assessment and Plan (1) Ileus Current Visit: Yes Status: Acute Code(s): K56.7 - ILEUS, UNSPECIFIED SNOMED Code(s): 219869740 (2) Intractable back pain Current Visit: Yes Status: Acute Code(s): M54.9 - DORSALGIA, UNSPECIFIED SNOMED Code(s): 106048973 (3) Right lower lobe pneumonia Current Visit: Yes Status: Acute Code(s): J18.1 - LOBAR PNEUMONIA, UNSPECIFIED ORGANISM SNOMED Code(s): 887586349 (4) Right middle lobe pneumonia Narrative/Plan: 76-year-old woman presents to Hospital with multiple symptoms occurring. She is having difficulties with abdominal distention and pain as well as significant back pain. Imaging reveal evidence of an ileus and some constipation that is starting to improve. She over does also have some cough and shortness of breath was not evidence of right middle lobe and left lower lobe pneumonia. His multiple ALLERGIES in and about except been started with Azactam. Vancomycin will be added at this point in time pending further data. Orthopedic spine is been consulted for further evaluation about the compression fracture of her spine. She is leukocytosis that is like in the basis of the many issues going on including the pneumonia. She does not appear to have intra -abdominal infection at this time. The recent injury to the right lower extremity appears to be healing well without further ongoing significant infection to that site. A knee-high PARTH hose can be utilized to help with her edema and elevated at rest. In some Lac- Hydrin for the dry skin can be utilized. She believes she is up-to-date with her tetanus vaccine. Pain control will be maximized until she can have orthopedic evaluation. 05/27/2017 reveals the patient is to be very uncomfortable. Both the addition of the urinary external drainage is much more comfortable because she does not need to get up and down for urination. Continues to have some dry skin and hopefully Lac-Hydrin will give her some further improvement. Pain control with morphine seems to be helping. Await orthopedic evaluation for the next possible step. 05/28/2017 patient uncomfortable but is receiving moderate pain control with oral morphine sulfate. Denying other acute issues. Her breathing is improving. Tolerating the Azactam and vancomycin well. Sputum culture has been obtained. Cultures are negative so far. Await the orthopedic spine evaluation for a planned. We'll be able to arrange a course of antibiotic therapy depending on the above findings. 05/29/2017 patient is improving. Oral morphine is allowing pain control. She' s been seen by orthopedic spine in her braces been requested. Will likely go to rehabilitation to complete her course of rehab and allow follow with orthopedics in the outpatient setting. Sputum culture is negative. Her pneumonia appears to be improving and will transition to oral antimicrobial therapy at her discharge, her ALLERGIES do make it somewhat challenging but a completion therapy with trimethoprim sulfamethoxazole will likely be utilized. 05/30/2017 shows a patient with further improvement. He medication has been effective. She's been seen by orthopedics in the new brace is awaited. She did have potential pneumonia at admission and is now doing well. We'll transition her antibiotic therapy from Azactam and vancomycin to oral clindamycin to complete the treatment of her pulmonary process as well as a cellulitis of the right leg which is showing further improvement. She will be going to extended care to receive her physical therapy. Follow-up with orthopedics in outpatient setting for any potential interventions. Current Visit: Yes Status: Acute Code(s): J18.1 - LOBAR PNEUMONIA, UNSPECIFIED ORGANISM SNOMED Code(s): 609323275
[2017-05-31] MEDS: PETROLAT,WHITE/LAN/8-HYDROXYQU 227 GM OINT TOPICAL SCH ×4 (00:27→22:06)
[2017-05-31] MEDS: CLINDAMYCIN 150 MG CAP PO SCH ×4 (00:28→22:00)
[2017-05-31 03:04] VITALS: RESP 16
[2017-05-31] MEDS: HYDROcodone/APAP 10-325MG 1 EACH TAB PO PRN ×5 (03:46→22:00)
[2017-05-31] MEDS: HYDROmorphone 4 MG TABLET PO PRN ×4 (03:47→18:44)
[2017-05-31] MEDS: LEVOTHYROXINE 50 MCG TAB PO SCH (06:33)
[2017-05-31] MEDS: IPRATROPIUM-ALBUTEROL 3 ML NEB INHALATION SCH ×4 (06:58→19:55)
[2017-05-31] MEDS: BUDESONIDE 0.5 MG/2 ML NEBU INHALATION SCH ×2 (06:58→19:55)
[2017-05-31 07:28] LABS: Glucose,Whole Blood 86 mg/dL (75-99)
[2017-05-31] MEDS: INSULIN ASPART 100 UNIT/ML 1 ML 10 ML VIAL SQ SCH ×7 (09:31→22:05)
[2017-05-31] MEDS: AMMONIUM LACTATE 12% CREAM 140 GM TUBE TOPICAL SCH ×2 (10:03→22:00)
--- NOTE | 2017-05-31 10:03 | P.PN ---
Subjective Progress Note Date: 05/31/17 This is a 76-year-old female with a known past medical history of ischemic cardiomyopathy with AICD, diabetes mellitus, as well atrial fibrillation anticoagulated with Eliquis, chronic respiratory failure home O2 dependent, hyperlipidemia, hypertension and coronary artery disease with stents. Patient has been having falls at home. She is complaining of lower back pain. She initially had an x-ray May 18 which showed no fracture of the lumbar spine. However, patient is reporting that the pain in her lower back is worsening. She also has a cough and has been having issues with constipation and a few episodes of vomiting. She's had a decrease in her appetite. She also has 2 more days of Bactrim for her cellulitis of the right leg. He had been hospitalized earlier in April for her right leg cellulitis. X-ray of that leg was negative for fracture. And venous Doppler was negative for DVT. Did reveal indeterminant fluid collection could represent seroma, hematoma and correlate for possible infection. Patient also being treated for UTI. Placed on Aztreonam in the emergency room. White count 14.5 she did have some evidence of dehydration with a creatinine of 1.15 likely related to her vomiting and poor oral intake. Computed tomography scan of the abdomen shows large bowel fluid levels consistent with diarrhea and ileus. No free air. Right middle lobe and left lower lobe linear infiltrate and atelectasis. Cardiomegaly. Nonobstructing right renal calculus and mild sigmoid diverticulosis. Chest x-ray showed cardiomegaly with right basilar atelectasis or infiltrate and tiny effusion. Mild central venous congestion in the differential diagnosis. There is a severe compression fracture near the thoracolumbar junction. Patient is currently on antibiotics. Infectious disease consulted. And Dr. Carlisle will be consulted in regards to her spinal fracture. Patient does admit to having low-grade fevers at home with some chills and sweats. Admits having a productive cough. A few episodes of vomiting which are brown in color. No bowel movement for 5 days. Her main source of pain is her lower back. She reports that she has been able to walk however it hurts her back to walk. She admits to urinary frequency which is not new for her. But denies any burning with urination. On 05/27/2017 patient is alert and oriented 3 she is laying in bed complaining of severe back pain, otherwise no complaints at this time, she had constipation for several days but had a bowel movement yesterday after she was given lactulose and MiraLAX, she is having difficulty eating her food, she has severe pain when she tries to sit up. On 05/28/2017 patient is alert and oriented 3 still complaining of severe back pain, complaining of constipation, complaining of right lower extremity swelling and tenderness, otherwise she denies any complaints there is no fever or chills no headache no dizziness no cough no nausea or vomiting no abdominal pain and no urinary symptoms. On 05/29/2017 patient is alert and oriented 3 complaining of severe back pain constipation resolved with the use of lactulose patient was seen by neurosurgery Dr. Pena, and back brace was ordered, continue was current pain management, no intervention recommended at this time, otherwise patient denies any fever or chills no headache or dizziness no cough no chest pain or shortness of breath no nausea or vomiting no abdominal pain and no urinary symptoms. On 05/30/2017 patient is alert and oriented 3 in no apparent distress still complaining of back pain otherwise no complaints at this time, still awaiting delivery and fitting of back brace, patient denies any chest pain or shortness of breath no headache no dizziness no cough no nausea or vomiting no abdominal pain and no urinary symptoms On 05/31/2017 patient was seen and examined she is alert and oriented 3 back pain is somewhat better maintained on [place] 10 mg 1 every 6 hours when necessary , she denies any chest pain or shortness of breath no cough no nausea or vomiting no abdominal pain no diarrhea and no urinary symptoms, lower extremity cellulitis improving gradually. Objective - Vital Signs Vital signs: Vital Signs Temp 97.6 F 05/31/17 01:50 Pulse 74 05/31/17 07:17 Resp 16 05/31/17 01:50 BP 146/69 05/31/17 01:50 Pulse Ox 98 05/31/17 07:00 Intake & Output 05/30/17 05/31/17 05/31/17 18:59 06:59 18:59 Intake Total 480 Output Total 500 625 Balance -20 -625 Intake: Oral 480 Output: Urine 500 625 Other: Voiding Method Diaper Diaper - Exam Head normocephalic and atraumatic no conjunctival icterus Neck supple no JVD no goiter no lymphadenopathy Lungs diminished bilaterally with coarse crackles no wheezing Heart regular rate and rhythm S1-S2, no rub or gallop Abdomen is soft nontender nondistended positive bowel sounds no hepatosplenomegaly Extremities right tibia area has erythema and swelling noted at the distal aspect of the tibia. Improving gradually. Neuro alert and orientated x3 no gross focal deficit - Labs CBC & Chem 7: 05/30/17 06:50 05/30/17 06:50 Labs: Abnormal Lab Results - Last 24 Hours (Table) 05/30/17 05/30/17 05/30/17 Range/Units 11:28 17:17 20:10 POC Glucose (mg/dL) 122 H 180 H 192 H (75-99) mg/dL Microbiology - Last 24 Hours (Table) 05/25/17 23:51 Blood Culture - Preliminary Blood No Growth after 120 hours Assessment and Plan Plan: 1. Intractable back pain with severe compression fracture near the thoracolumbar junction noted on chest x-ray. Dr. Carlisle will be consulted. I will resume patient's [place] and oral Dilaudid. Continue the IV morphine as needed, input from Dr. Carlisle reviewed awaiting a back brace delivery and fitting. Continue was pain management. 2. Pneumonia: Continue Aztreonam. infectious disease following . Check sputum culture 3. UTI: Check urine culture. Continue antibiotic 4. Right lower extremity cellulitis. Had been on Bactrim outpatient. Bactrim discontinued. Continue with current antibiotic until seen by infectious disease. Had previous venous Doppler in April which was negative for DVT. It did note a fluid collection along the tibia. 5. Constipation: Likely related to pain meds. with a computed tomography scan of the abdomen showing evidence of large bowel fluid levels consistent with diarrhea and ileus. Will give patient lactulose and stool softener. Also will start her MiraLAX tonight. If no results with the lactulose will give a soapsuds enema 6. Acute kidney injury likely related to dehydration from patient's vomiting showing improvement. Will resume patient's home dose of diuretics and Hep-Lock IV fluids 7. History of ischemic cardiomyopathy status post AICD 8. Diabetes mellitus type 2: Resume patient's insulin and add sliding scale coverage 9. History of paroxysmal atrial fibrillation: Continue metoprolol amiodarone and Eliquis for anticoagulation 10. Chronic respiratory failure home O2 dependent 11. Essential hypertension for DVT prophylaxis patient on Eliquis for GI prophylaxis patient on Pepcid continue with current management will follow closely
[2017-05-31] MEDS: AMIODARONE 100 MG TAB PO SCH (10:06)
[2017-05-31] MEDS: ASPIRIN 81 MG PO SCH (10:06)
[2017-05-31] MEDS: APIXABAN 5 MG TAB PO SCH ×2 (10:06→22:01)
[2017-05-31] MEDS: DOCUSATE 100 MG CAP PO SCH ×2 (10:07→22:00)
[2017-05-31] MEDS: FAMOTIDINE 20 MG TAB PO SCH (10:08)
[2017-05-31] MEDS: METOPROLOL SUCCINATE (ER) 50 MG TAB.ER.24H PO SCH (10:10)
[2017-05-31] MEDS: ISOSORBIDE MONONITRATE ER 30 MG TAB.ER.24H PO SCH (10:10)
--- NOTE | 2017-05-31 10:45 | P.PN ---
Progress Note - Text Progress Note Date: 05/31/17 Patient is a very pleasant 76-year-old female who is seen and examined at the bedside for follow-up evaluation for her known L1 compression fracture deformity. Since being seen and examined yesterday, she has not had any significant improvement or change in her symptoms. Continues to experience severe low back pain that is exacerbated with increased activities. She is currently lying comfortably in bed. She has been able to ambulate to the restroom but has some increased back pain while doing so. At admittance, she was also diagnosed with pneumonia, urinary tract infection, and ileus is currently being treated for these medical diagnoses. She continues to have improvement of her constipation patient since admittance. She did not have a bowel movement yesterday but had 2 the day prior. Patient denies any abdominal pain. She continues to be treated for pneumonia and is currently on an O2 nasal cannula. Patient states her most significant symptom is her severe low back pain. Patient continues to be followed by Dr. Jorge in infectious disease and Dr. Levine in medicine. Patient has been receiving [place] 10 mg/325 mg, Dilaudid, and morphine for some control of her symptoms. A prescription for a Spinomed TLSO was written and ordered Thursday. This brace has been delivered on Thursday but did not fit appropriately. A second brace is scheduled to be delivered 06/01/2017. Physical exam: Patient is awake, alert, and oriented 3 Vital signs stable Good chest excursion with deep inspiration and expiration; patient currently on O2 nasal cannula; she appears to be breathing appropriately Abdomen soft nontender Dorsiflexion, plantarflexion, and extensor hallucis longus positive sustained bilaterally Lower extremity strength 5/5 bilaterally No signs or symptoms of DVT; no calf pain Evidence of a dressing over the right calf Evidence of a healing wound over the right knee No pain with internal and external rotation of the hips bilaterally Neurovascularly intact Pertinent studies: CT abdomen and pelvis taken on 05/25/2017: L1 compression fracture deformity of the inferior endplate with approximately 20% height loss centrally; L2-3 and L3- 4 severe degenerative disc disease; large bowel fluid level consistent with diarrhea and ileus X-rays lumbosacral spine taken on 05/18/2017: Evidence of L1 compression fracture deformity of the inferior endplate; spondylosis throughout the lumbar spine; lumbar degenerative disc disease Assessment: Acute traumatic L1 compression fracture deformity status post fall Intractable low back pain Lumbar degenerative disc disease Lumbar spondylosis Pneumonia Ileus Urinary tract infection Plan: 1. We will continue with our plan as set forth previously. After physical examination the patient, reviewing of imaging, and discussion with the patient, we will currently planned to continue with conservative treatment in regards to her acute traumatic L1 compression fracture deformity. Thursday a prescription was written for a Spinomed TLSO brace. This brace had been delivered but did not fit appropriately. Nursing states a second brace is planned to be delivered hopefully 06/01/2017, that may fit the patient more appropriately. Once this brace has been delivered and fitted properly, she should wear this brace while sitting upright at greater than 45, during ambulation, during increase activities, and while working with physical therapy. Brace does not have to be worn while lying in bed or while bathing. We discussed patient may ambulate to the restroom and may sit in a bedside chair without the brace intact but should avoid working through formal physical therapy until this brace is delivered and fitted appropriately. Once this brace has been delivered and fitted appropriately, patient may begin to work with physical therapy to increase mobility and ambulation. At that time, she will also be cleared for discharge from orthopedic spine standpoint. We discussed following discharge, patient will plan to follow-up in approximately 2 weeks for further evaluation at our office at [facility]. She should avoid excessive bending, twisting, and lifting. No lifting greater than 10 pounds. 2. Continue pain control as prescribed by medicine; patient is currently receiving [place] 10 mg/325 mg, Dilaudid, and morphine as prescribed as needed for control of her symptoms. 3. Dr. Jorge in infectious disease and Dr. Levine in medicine will continue to follow patient closely for her other medical diagnoses including pneumonia, urinary tract infection, and ileus 4. Following discharge, patient may follow-up with Jeromy Curtis PA-C or Dr. Jose L Carlisle at [facility] in approximately 2 weeks for further evaluation 5. Patient has been discussed in detail with Dr. Jose L Carlisle
[2017-05-31] MEDS ORDERED: VANCOMYCIN TROUGH DUE 1 EACH MISC MISCELLANE ONE (11:00)
[2017-05-31 11:46] LABS: Glucose,Whole Blood 108 mg/dL (75-99)
[2017-05-31] MEDS: LOSARTAN-HCTZ 50-12.5 MG 1 EACH TAB PO SCH (12:38)
[2017-05-31] MEDS: SPIRONOLACTONE 25 MG TAB PO SCH (12:38)
[2017-05-31] MEDS: FUROSEMIDE 20 MG TAB PO SCH (12:39)
[2017-05-31 17:23] LABS: Glucose,Whole Blood 133 mg/dL (75-99)
[2017-05-31 19:50] LABS: Glucose,Whole Blood 169 mg/dL (75-99)
[2017-05-31] MEDS: POLYETHYLENE GLYCOL 3350 17 GM POWD.PACK PO SCH (22:00)
[2017-05-31] MEDS: MONTELUKAST 10 MG TAB PO SCH (22:00)
[2017-05-31] MEDS: LATANOPROST 0.005% OPHTH DROPS 2.5 ML BTL RIGHT EYE SCH (22:01)
[2017-05-31] MEDS: ATORVASTATIN 40 MG TAB PO SCH (22:01)
[2017-05-31] MEDS: INSULIN DETEMIR 100 UNIT/ML 10 ML VIAL SQ SCH (22:05)
[2017-06-01] MEDS: HYDROmorphone 4 MG TABLET PO PRN ×3 (00:33→14:13)
[2017-06-01] MEDS: HYDROcodone/APAP 10-325MG 1 EACH TAB PO PRN ×2 (04:53→11:25)
[2017-06-01 06:16] LABS: Basophils % (A) 0 %; Eosinophils # (A) 0.5 k/uL (0-0.7); Eosinophils % (A) 5 %; HCT 39.5 % (34.0-46.0); HGB 12.3 gm/dL (11.4-16.0); Hypochromasia Moderate; Lymphocytes # (A) 2.3 k/uL (1.0-4.8); Lymphocytes % (A) 25 %; MCH 29.2 pg (25.0-35.0); MCV 94.1 fL (80.0-100.0); Mean Platelet Volume 7.2; Monocytes # (A) 0.8 k/uL (0-1.0); Monocytes % (A) 9 %; Neutrophils # (A) 5.6 k/uL (1.3-7.7); Neutrophils % (A) 59 %; Platelet Count 305 k/uL (150-450); RDW 13.3 % (11.5-15.5); WBC 9.5 k/uL (3.8-10.6)
[2017-06-01 06:32] LABS: ALT 29 U/L (9-52); AST 27 U/L (14-36); Alkaline Phosphatase 86 U/L (38-126); Blood Urea Nitrogen 18 mg/dL (7-17); Calcium 9.6 mg/dL (8.4-10.2); Chloride 92 mmol/L (98-107); Glucose 78 mg/dL (74-99); Potassium 4.3 mmol/L (3.5-5.1); Sodium 141 mmol/L (137-145); Total Bilirubin 0.3 mg/dL (0.2-1.3); Total Protein 5.3 g/dL (6.3-8.2)
[2017-06-01 06:38] LABS: Anion Gap 6 mmol/L
[2017-06-01 06:45] LABS: Carbon Dioxide 43 mmol/L (22-30)
[2017-06-01 07:02] LABS: Glucose,Whole Blood 77 mg/dL (75-99)
[2017-06-01] MEDS: IPRATROPIUM-ALBUTEROL 3 ML NEB INHALATION SCH ×3 (07:05→15:03)
[2017-06-01] MEDS: BUDESONIDE 0.5 MG/2 ML NEBU INHALATION SCH (07:05)
[2017-06-01] MEDS: INSULIN ASPART 100 UNIT/ML 1 ML 10 ML VIAL SQ SCH ×4 (08:14→11:34)
--- NOTE | 2017-06-01 08:32 | P.PN ---
Progress Note - Text Progress Note Date: 06/01/17 Patient is a very pleasant 76-year-old female who is seen and examined at the bedside for follow-up evaluation for her known L1 compression fracture deformity. Since being seen and examined yesterday, she has not had any significant improvement or change in her symptoms. Continues to experience severe low back pain that is exacerbated with increased activities. Today she states her pain is most significant along the midline of the lower lumbar spine. She is currently lying comfortably in bed. She has been able to ambulate to the restroom but has some increased back pain while doing so. She did not ambulate to the restroom yesterday. She continues to have a female external catheter intact. She has not had a bowel movement within the past 2 days. She denies any abdominal pain or discomfort. She states she was able to sit in a bedside chair yesterday. At admittance, she was also diagnosed with pneumonia, urinary tract infection, and ileus is currently being treated for these medical diagnoses. She continues to have improvement of her constipation patient since admittance. She continues to be treated for pneumonia and is currently on an O2 nasal cannula. Patient states her most significant symptom is her severe low back pain. Patient continues to be followed by Dr. Jorge in infectious disease and Dr. Levine in medicine. Patient has been receiving [place] 10 mg/325 mg, Dilaudid, and morphine for some control of her symptoms. A prescription for a Spinomed TLSO was written and ordered Thursday. This brace has been delivered on Thursday but did not fit appropriately. A second brace is scheduled to be delivered Today, 06/01/2017. Physical exam: Patient is awake, alert, and oriented 3 Vital signs stable Good chest excursion with deep inspiration and expiration; patient currently on O2 nasal cannula; she appears to be breathing appropriately Abdomen soft nontender Examination of lumbar spine reveals skin is intact with no abrasions, lacerations, or bruises; no erythema, purulence or signs of infection Significant pain with palpation along the midline of the lower lumbar spine Dorsiflexion, plantarflexion, and extensor hallucis longus positive sustained bilaterally Lower extremity strength 5/5 bilaterally No signs or symptoms of DVT; no calf pain Evidence of a dressing over the right calf Evidence of a healing wound over the right knee No pain with internal and external rotation of the hips bilaterally Neurovascularly intact Female external catheter intact Pertinent studies: CT abdomen and pelvis taken on 05/25/2017: L1 compression fracture deformity of the inferior endplate with approximately 20% height loss centrally; L2-3 and L3- 4 severe degenerative disc disease; large bowel fluid level consistent with diarrhea and ileus X-rays lumbosacral spine taken on 05/18/2017: Evidence of L1 compression fracture deformity of the inferior endplate; spondylosis throughout the lumbar spine; lumbar degenerative disc disease Assessment: Acute traumatic L1 compression fracture deformity status post fall Intractable low back pain Lumbar degenerative disc disease Lumbar spondylosis Pneumonia Ileus Urinary tract infection Plan: 1. We will continue with our plan as set forth previously. After physical examination the patient, reviewing of imaging, and discussion with the patient, we will currently planned to continue with conservative treatment in regards to her acute traumatic L1 compression fracture deformity. Thursday a prescription was written for a Spinomed TLSO brace. This brace had been delivered but did not fit appropriately. Nursing states a second brace is planned to be delivered hopefully Today, 06/01/2017, that may fit the patient more appropriately. Once this brace has been delivered and fitted properly, she should wear this brace while sitting upright at greater than 45, during ambulation, during increase activities, and while working with physical therapy. Brace does not have to be worn while lying in bed or while bathing. We discussed patient may ambulate to the restroom and may sit in a bedside chair without the brace intact but should avoid working through formal physical therapy until this brace is delivered and fitted appropriately. Once this brace has been delivered and fitted appropriately, patient may begin to work with physical therapy to increase mobility and ambulation. At that time, she will also be cleared for discharge from orthopedic spine standpoint. We discussed following discharge, patient will plan to follow-up in approximately 2 weeks for further evaluation at our office at [facility]. She should avoid excessive bending, twisting, and lifting. No lifting greater than 10 pounds. Patient is encouraged to get out of bed following the delivery and fitting of her brace. 2. Continue pain control as prescribed by medicine; patient is currently receiving [place] 10 mg/325 mg, Dilaudid, and morphine as prescribed as needed for control of her symptoms. 3. Dr. Jorge in infectious disease and Dr. Levine in medicine will continue to follow patient closely for her other medical diagnoses including pneumonia, urinary tract infection, and ileus 4. Following discharge, patient may follow-up with Jeromy Curtis PA-C or Dr. Jose L Carlisle at [facility] in approximately 2 weeks for further evaluation 5. Patient has been discussed in detail with Dr. Jose L Carlisle
[2017-06-01] MEDS: CLINDAMYCIN 150 MG CAP PO SCH (08:47)
[2017-06-01] MEDS: APIXABAN 5 MG TAB PO SCH (08:47)
[2017-06-01] MEDS: DOCUSATE 100 MG CAP PO SCH (08:48)
[2017-06-01] MEDS: METOPROLOL SUCCINATE (ER) 50 MG TAB.ER.24H PO SCH (08:48)
[2017-06-01] MEDS: LEVOTHYROXINE 50 MCG TAB PO SCH (08:48)
[2017-06-01] MEDS: FAMOTIDINE 20 MG TAB PO SCH (08:48)
[2017-06-01] MEDS: PETROLAT,WHITE/LAN/8-HYDROXYQU 227 GM OINT TOPICAL SCH (08:49)
[2017-06-01] MEDS: AMMONIUM LACTATE 12% CREAM 140 GM TUBE TOPICAL SCH (08:49)
[2017-06-01] MEDS: ASPIRIN 81 MG PO SCH (08:49)
[2017-06-01 09:37] VITALS: BP 140/86; PULSE 68; TEMP 97
[2017-06-01 10:55] LABS: Glucose,Whole Blood 115 mg/dL (75-99)
[2017-06-01] MEDS: LOSARTAN-HCTZ 50-12.5 MG 1 EACH TAB PO SCH (11:27)
[2017-06-01] MEDS: AMIODARONE 100 MG TAB PO SCH (11:27)
[2017-06-01] MEDS: ISOSORBIDE MONONITRATE ER 30 MG TAB.ER.24H PO SCH (11:27)
[2017-06-01] MEDS: FUROSEMIDE 20 MG TAB PO SCH (11:27)
[2017-06-01] MEDS: SPIRONOLACTONE 25 MG TAB PO SCH (11:28)
[2017-06-01 13:09] VITALS: BMI 45.3
--- NOTE | 2017-06-01 13:13 | P.DS ---
Providers Date of admission: 05/25/17 23:44 Expected date of discharge: 06/01/17 Attending physician: Farzana Levine Consults: 05/26/17 10:43 Consult Physician Routine Consulting Provider: Pawel Jorge Consult Reason/Comments: pneumonia, UTI, leg cellulitis Do you want consulting provider notified?: Yes 05/28/17 16:48 Consult Physician Routine Consulting Provider: Jenniffer Carlisle Consult Reason/Comments: back pain Do you want consulting provider notified?: Yes Primary care physician: [facility] Hospital Course: Discharge diagnosis 1. Intractable back pain with severe compression fracture near the thoracolumbar junction noted on chest x-ray. Dr. Carlisle will be consulted. I will resume patient's [place] and oral Dilaudid. Continue the IV morphine as needed, input from Dr. Carlisle reviewed awaiting a back brace delivery and fitting. Continue was pain management. 2. Pneumonia: Seen by infectious disease. They're recommending doxycycline at discharge 3. UTI: Urine culture showing no growth 4. Right lower extremity cellulitis. Had been on Bactrim outpatient. Bactrim discontinued. Continue with current antibiotic until seen by infectious disease. Had previous venous Doppler in April which was negative for DVT. It did note a fluid collection along the tibia.Continue doxycycline. Evaluated by infectious disease 5. Constipation: Likely related to pain meds. with a computed tomography scan of the abdomen showing evidence of large bowel fluid levels consistent with diarrhea and ileus. Constipation did improve with medications. We'll continue MiraLAX and Colace at [facility] 6. Acute kidney injury likely related to dehydration from patient's vomiting showing improvement. Will resume patient's home dose of diuretics and Hep-Lock IV fluids 7. History of ischemic cardiomyopathy status post AICD 8. Diabetes mellitus type 2: Resume patient's insulin and add sliding scale coverage 9. History of paroxysmal atrial fibrillation: Continue metoprolol amiodarone and Eliquis for anticoagulation 10. Chronic respiratory failure home O2 dependent 11. Essential hypertension Hospital course This is a 76-year-old female with a known past medical history of ischemic cardiomyopathy with AICD, diabetes mellitus, as well atrial fibrillation anticoagulated with Eliquis, chronic respiratory failure home O2 dependent, hyperlipidemia, hypertension and coronary artery disease with stents. Patient has been having falls at home. She is complaining of lower back pain. She initially had an x-ray May 18 which showed no fracture of the lumbar spine. However, patient is reporting that the pain in her lower back is worsening. She also has a cough and has been having issues with constipation and a few episodes of vomiting. She's had a decrease in her appetite. She also has 2 more days of Bactrim for her cellulitis of the right leg. He had been hospitalized earlier in April for her right leg cellulitis. X-ray of that leg was negative for fracture. And venous Doppler was negative for DVT. Did reveal indeterminant fluid collection could represent seroma, hematoma and correlate for possible infection. Patient also being treated for UTI. Placed on Aztreonam in the emergency room. White count 14.5 she did have some evidence of dehydration with a creatinine of 1.15 likely related to her vomiting and poor oral intake. Computed tomography scan of the abdomen shows large bowel fluid levels consistent with diarrhea and ileus. No free air. Right middle lobe and left lower lobe linear infiltrate and atelectasis. Cardiomegaly. Nonobstructing right renal calculus and mild sigmoid diverticulosis. Chest x-ray showed cardiomegaly with right basilar atelectasis or infiltrate and tiny effusion. Mild central venous congestion in the differential diagnosis. There is a severe compression fracture near the thoracolumbar junction. Patient is currently on antibiotics. Infectious disease consulted. And Dr. Carlisle will be consulted in regards to her spinal fracture. Patient does admit to having low-grade fevers at home with some chills and sweats. Admits having a productive cough. A few episodes of vomiting which are brown in color. No bowel movement for 5 days. Her main source of pain is her lower back. She reports that she has been able to walk however it hurts her back to walk. She admits to urinary frequency which is not new for her. But denies any burning with urination. Patient was treated for pneumonia and cellulitis of the right lower extremity. She was evaluated by infectious disease at this time the recommending doxycycline at discharge for 4 more doses. Patient also seen by orthopedics regarding her compression fracture at the thoracolumbar junction. She was seen by Dr. vázquez and his PA. Still awaiting the back brace. The back brace will be sent to [facility] for the patient. Patient will be discharged to [facility]. She is medically stable for discharge. She has been cleared by consulting physicians. Dr. Levine will follow patient's care at [facility] I performed an examination of the patient and discussed their management with the physician Traffic Or System Dispatcher. I have reviewed the Physician Traffic Or System Dispatcher's notes and agree with the documented findings and plan of care Patient Condition at Discharge: Stable Plan - Discharge Summary Discharge Rx Participant: Yes New Discharge Prescriptions: New Ammonium Lactate Cream [Lac-Hydrin 12% Cream] 1 applic TOPICAL BID cream Clindamycin [Cleocin] 450 mg PO TID #4 cap Docusate [Colace] 100 mg PO BID cap HYDROcodone/APAP 10-325MG [[place] 10-325] 1 each PO Q4H PRN #40 tab PRN Reason: Pain Polyethylene Glycol 3350 [Miralax] 17 gm PO HS powd.pack Continue Montelukast [Singulair] 10 mg PO HS Isosorbide Mononitrate ER [Imdur] 30 mg PO DAILY metFORMIN HCL 1,000 mg PO DAILY Atorvastatin [Lipitor] 40 mg PO HS #60 tab Nitroglycerin Sl Tabs [Nitrostat] 0.4 mg SUBLINGUAL Q5M PRN PRN Reason: Chest Pain Insulin Glargine [Lantus] 44 unit SQ HS Ipratropium-Albuterol Nebulize [Duoneb 0.5 mg-3 mg/3 ml Soln] 3 ml INHALATION RT-QID Aspirin EC [Ecotrin Low Dose] 81 mg PO DAILY Budesonide [Pulmicort] 0.5 mg INHALATION RT-BID Latanoprost Ophth [Xalatan 0.005%] 1 drop RIGHT EYE HS INSULIN LISPRO (HumaLOG) [humaLOG] 3 - 8 units SQ AC-TID Ergocalciferol [Vitamin D2 (DRISDOL)] 50,000 unit PO TU Spironolactone [Aldactone] 12.5 mg PO DAILY@1200 Levothyroxine Sodium [Synthroid] 50 mcg PO DAILY Furosemide [Lasix] 20 mg PO DAILY@1200 Losartan-Hctz 50-12.5 mg [Hyzaar 50-12.5] 1 tab PO DAILY@1200 Amiodarone [Cordarone] 100 mg PO DAILY tab Metoprolol Succinate (ER) [Toprol XL] 150 mg PO DAILY #100 tab Apixaban [Eliquis] 5 mg PO BID #60 tab HYDROmorphone [Dilaudid] 4 mg PO QID PRN #40 tab PRN Reason: Pain Discontinued Sulfamethox-Tmp 400-80Mg [Bactrim SS 400-80 mg] 1 tab PO Q12HR #10 tablet HYDROcodone/APAP 10-325MG [[place] 10-325] 1 tab PO Q6H PRN #40 tab PRN Reason: Pain Discharge Medication List Isosorbide Mononitrate ER [Imdur] 30 mg PO DAILY 04/24/14 [History] Montelukast [Singulair] 10 mg PO HS 04/24/14 [History] metFORMIN HCL 1,000 mg PO DAILY 04/29/14 [History] Atorvastatin [Lipitor] 40 mg PO HS #60 tab 05/01/14 [Rx] Nitroglycerin Sl Tabs [Nitrostat] 0.4 mg SUBLINGUAL Q5M PRN 06/02/14 [History] Aspirin EC [Ecotrin Low Dose] 81 mg PO DAILY 11/18/14 [History] Budesonide [Pulmicort] 0.5 mg INHALATION RT-BID 11/18/14 [History] Insulin Glargine [Lantus] 44 unit SQ HS 11/18/14 [History] Ipratropium-Albuterol Nebulize [Duoneb 0.5 mg-3 mg/3 ml Soln] 3 ml INHALATION RT -QID 11/18/14 [History] Latanoprost Ophth [Xalatan 0.005%] 1 drop RIGHT EYE HS 11/18/14 [History] Ergocalciferol [Vitamin D2 (DRISDOL)] 50,000 unit PO TU 05/01/17 [History] Furosemide [Lasix] 20 mg PO DAILY@1200 05/01/17 [History] INSULIN LISPRO (HumaLOG) [humaLOG] 3 - 8 units SQ AC-TID 05/01/17 [History] Levothyroxine Sodium [Synthroid] 50 mcg PO DAILY 05/01/17 [History] Losartan-Hctz 50-12.5 mg [Hyzaar 50-12.5] 1 tab PO DAILY@1200 05/01/17 [History] Spironolactone [Aldactone] 12.5 mg PO DAILY@1200 05/01/17 [History] Amiodarone [Cordarone] 100 mg PO DAILY tab 05/04/17 [Rx] Metoprolol Succinate (ER) [Toprol XL] 150 mg PO DAILY #100 tab 05/06/17 [Rx] Apixaban [Eliquis] 5 mg PO BID #60 tab 05/07/17 [Rx] Ammonium Lactate Cream [Lac-Hydrin 12% Cream] 1 applic TOPICAL BID cream [Rx] Clindamycin [Cleocin] 450 mg PO TID #4 cap 06/01/17 [Rx] Docusate [Colace] 100 mg PO BID cap 06/01/17 [Rx] HYDROcodone/APAP 10-325MG [[place] 10-325] 1 each PO Q4H PRN #40 tab 06/01/17 [Rx] HYDROmorphone [Dilaudid] 4 mg PO QID PRN #40 tab 06/01/17 [Rx] Polyethylene Glycol 3350 [Miralax] 17 gm PO HS powd.pack 06/01/17 [Rx] Follow up Appointment(s)/Referral(s): Jeromy Curtis PAC [PHYSICIAN TUBE MACHINE OPERATOR HELPER] - 2 Weeks (Patient may follow-up with Jeromy Curtis PA-C or Dr. Jose L Carlisle at [facility] in 2 weeks following discharge. ) Farzana Levine MD [Primary Care Provider] - 1 Week Activity/Diet/Wound Care/Special Instructions: 1. Patient may wear Spinomed TLSO brace for comfort and support while sitting upright at greater than 45, while working with therapy, and while ambulating; patient does not have to wear the brace while lying in bed or bathing 2. Patient should avoid excessive bending, twisting, and lifting; no lifting greater than 10 pounds 3. TLSO Brace - [phone]- [employer] - will fit at the bedside today Diet: cardiac, diabetic Dr. Levine will follow patient at [facility] Discharge Disposition: TRANSFER TO SNF/ECF
== END 2017-06-01 14:42 | DRG 551 ==
LOC: EC 17:26 → 3SUR 23:44
PROVIDERS: ADMIT Internal Medicine; ATTEND Internal Medicine
DX: S32.019A Unspecified fracture of first lumbar vertebra, initial encounter for closed fracture (principal); J18.9 Pneumonia, unspecified organism; N17.9 Acute kidney failure, unspecified; J96.10 Chronic respiratory failure, unspecified whether with hypoxia or hypercapnia; I11.0 Hypertensive heart disease with heart failure; I48.0 Paroxysmal atrial fibrillation; K56.7 Ileus, unspecified; I50.9 Heart failure, unspecified; L03.115 Cellulitis of right lower limb; N39.0 Urinary tract infection, site not specified; J44.0 Chronic obstructive pulmonary disease with (acute) lower respiratory infection; I25.5 Ischemic cardiomyopathy; I25.10 Atherosclerotic heart disease of native coronary artery without angina pectoris; E86.0 Dehydration; E11.9 Type 2 diabetes mellitus without complications; E78.5 Hyperlipidemia, unspecified; W19.XXXA Unspecified fall, initial encounter; I25.2 Old myocardial infarction; K57.30 Diverticulosis of large intestine without perforation or abscess without bleeding; M46.96 Unspecified inflammatory spondylopathy, lumbar region; M51.36 Other intervertebral disc degeneration, lumbar region; N20.0 Calculus of kidney; M47.816 Spondylosis without myelopathy or radiculopathy, lumbar region; R63.3 Feeding difficulties; S81.011A Laceration without foreign body, right knee, initial encounter; Z79.01 Long term (current) use of anticoagulants; Z79.4 Long term (current) use of insulin; Z80.1 Family history of malignant neoplasm of trachea, bronchus and lung; Z80.8 Family history of malignant neoplasm of other organs or systems; Z82.49 Family history of ischemic heart disease and other diseases of the circulatory system; Z87.891 Personal history of nicotine dependence; Z90.710 Acquired absence of both cervix and uterus; Z95.5 Presence of coronary angioplasty implant and graft; Z95.810 Presence of automatic (implantable) cardiac defibrillator; Z99.81 Dependence on supplemental oxygen; Z86.718 Personal history of other venous thrombosis and embolism; H40.9 Unspecified glaucoma; E03.9 Hypothyroidism, unspecified; H26.9 Unspecified cataract; Z82.0 Family history of epilepsy and other diseases of the nervous system; Z79.899 Other long term (current) drug therapy; Z79.84 Long term (current) use of oral hypoglycemic drugs; Z79.82 Long term (current) use of aspirin; Z79.890 Hormone replacement therapy; Z79.51 Long term (current) use of inhaled steroids; K59.03 Drug induced constipation; T40.2X5A Adverse effect of other opioids, initial encounter; Z88.1 Allergy status to other antibiotic agents; Z88.5 Allergy status to narcotic agent; Z88.0 Allergy status to penicillin; Z88.8 Allergy status to other drugs, medicaments and biological substances
CPT/HCPCS: 36415; 71046; 74018; 74176; 80053; 81001; 82150; 83605; 83690; 83880; 85025; 87040; 87070; 87086; 87205; 94640; 94760; 96361; 96374; 96376; 99285

== ENCOUNTER 2017-07-12 10:58 | Inpatient (IN) | payer MEDICARE, BC ==
[2017-07-12] MEDS ORDERED: IPRATROPIUM-ALBUTEROL 3 ML NEB INHALATION STA (11:00)
[2017-07-12] MEDS ORDERED: FUROSEMIDE 10 MG/ML 4 ML VIAL IV STA (11:00)
[2017-07-12 11:19] LABS: Basophils % (A) 1 %; Eosinophils # (A) 0.3 k/uL (0-0.7); Eosinophils % (A) 3 %; HCT 40.2 % (34.0-46.0); HGB 12.3 gm/dL (11.4-16.0); Hypochromasia Slight; Lymphocytes # (A) 2.1 k/uL (1.0-4.8); Lymphocytes % (A) 24 %; MCH 28.5 pg (25.0-35.0); MCHC 30.6 g/dL (31.0-37.0); MCV 92.9 fL (80.0-100.0); Mean Platelet Volume 7.6; Monocytes # (A) 0.5 k/uL (0-1.0); Monocytes % (A) 6 %; Neutrophils # (A) 5.7 k/uL (1.3-7.7); Neutrophils % (A) 65 %; Platelet Count 324 k/uL (150-450); RBC 4.32 m/uL (3.80-5.40); RDW 14.2 % (11.5-15.5); WBC 8.8 k/uL (3.8-10.6)
--- NOTE | 2017-07-12 11:20 | XR ---
EXAMINATION TYPE: XR chest 1V portable DATE OF EXAM: 07/12/2017 COMPARISON: Prior chest 05/26/2017 HISTORY: Shortness of breath and respiratory rest TECHNIQUE: Single frontal view of the chest is obtained. FINDINGS: There is no focal air space opacity, pleural effusion, or pneumothorax seen. The cardiac silhouette size is stable. Central vascularity is again prominent. Generator and defibrillator leads are stable. The osseous structures are intact. IMPRESSION: Stable cardiomegaly. There may be a component of chronic compensated congestive failure.
[2017-07-12 11:32] LABS: Albumin 3.4 g/dL (3.5-5.0); Magnesium 1.9 mg/dL (1.6-2.3); Potassium 4.5 mmol/L (3.5-5.1); Total Bilirubin 0.3 mg/dL (0.2-1.3); Total Protein 5.6 g/dL (6.3-8.2)
--- NOTE | 2017-07-12 11:34 | ED ---
General Adult HPI - General Chief complaint: Shortness of Breath Stated complaint: AFSHIN Time Seen by Provider: 07/12/17 11:00 Source: patient, EMS, RN notes reviewed, old records reviewed Mode of arrival: EMS Limitations: no limitations - History of Present Illness Initial comments: This is a 76-year-old female to the ER for evaluation. Patient comes in for evaluation of severe shortness of breath. Patient has history of CHF and heart disease. No recent hospital admissions no travel history no chest pain. EMS found patient was significantly low oxygen in the 70s, patient was then placed on CPAP, placed on BiPAP prior and once arrival to emergency room, unable to significant history secondary to clinical condition - Related Data Home Medications Medication Instructions Recorded Confirmed Isosorbide Mononitrate ER [Imdur] 30 mg PO DAILY 04/24/14 05/25/17 Montelukast [Singulair] 10 mg PO HS 04/24/14 05/25/17 metFORMIN HCL 1,000 mg PO DAILY 04/29/14 05/25/17 Nitroglycerin Sl Tabs [Nitrostat] 0.4 mg SUBLINGUAL Q5M PRN 06/02/14 05/25/17 Aspirin EC [Ecotrin Low Dose] 81 mg PO DAILY 11/18/14 05/25/17 Budesonide [Pulmicort] 0.5 mg INHALATION RT-BID 11/18/14 05/25/17 Insulin Glargine [Lantus] 44 unit SQ HS 11/18/14 05/25/17 Ipratropium-Albuterol Nebulize 3 ml INHALATION RT-QID 11/18/14 05/25/17 [Duoneb 0.5 mg-3 mg/3 ml Soln] Latanoprost Ophth [Xalatan 0.005%] 1 drop RIGHT EYE 11/18/14 05/25/17 Ergocalciferol [Vitamin D2 50,000 unit PO TU 05/01/17 05/25/17 (DRISDOL)] Furosemide [Lasix] 20 mg PO DAILY@1200 05/01/17 05/25/17 INSULIN LISPRO (HumaLOG) [humaLOG] 3 - 8 units SQ AC-TID 05/01/17 05/25/17 Levothyroxine Sodium [Synthroid] 50 mcg PO DAILY 05/01/17 05/25/17 Losartan-Hctz 50-12.5 mg [Hyzaar 1 tab PO DAILY@1200 05/01/17 05/25/17 50-12.5] Spironolactone [Aldactone] 12.5 mg PO DAILY@1200 05/01/17 05/25/17 Previous Rx's Medication Instructions Recorded Atorvastatin [Lipitor] 40 mg PO HS #60 tab 05/01/14 Amiodarone [Cordarone] 100 mg PO DAILY tab 05/04/17 Metoprolol Succinate (ER) [Toprol 150 mg PO DAILY #100 tab 05/06/17 XL] Apixaban [Eliquis] 5 mg PO BID #60 tab 05/07/17 Ammonium Lactate Cream [Lac-Hydrin 1 applic TOPICAL BID cream 06/01/17 12% Cream] Clindamycin [Cleocin] 450 mg PO TID #4 cap 06/01/17 Docusate [Colace] 100 mg PO BID cap 06/01/17 HYDROcodone/APAP 10-325MG [[place] 1 each PO Q4H PRN #40 tab 06/01/17 10-325] HYDROmorphone [Dilaudid] 4 mg PO QID PRN #40 tab 06/01/17 Polyethylene Glycol 3350 [Miralax] 17 gm PO HS powd.pack 06/01/17 Allergies Allergy/AdvReac Type Severity Reaction Status Date / Time meperidine HCl [From Demerol] Allergy Severe Anaphylaxis Verified 05/25/17 19:39 cephalexin monohydrate Allergy Rash/Hives Verified 05/25/17 19:39 [From Keflex] erythromycin base Allergy Rapid Verified 05/25/17 19:39 Heart Rate lorazepam [From Ativan] Allergy Dyspnea Verified 05/25/17 19:39 Penicillins Allergy Rash/Hives Verified 05/25/17 19:39 doxycycline calcium AdvReac Nausea & Verified 05/25/17 19:39 [From Vibramycin] Vomiting doxycycline hyclate AdvReac Nausea & Verified 05/25/17 19:39 [From Vibramycin] Vomiting doxycycline monohydrate AdvReac Nausea & Verified 05/25/17 19:39 [From Vibramycin] Vomiting tetracycline AdvReac Nausea & Verified 05/25/17 19:39 Vomiting Review of Systems ROS Statement: Those systems with pertinent positive or pertinent negative responses have been documented in the HPI. ROS Other: All systems not noted in ROS Statement are negative. Past Medical History Past Medical History: Atrial Fibrillation, Asthma, Coronary Artery Disease (CAD) , Heart Failure, COPD, Diabetes Mellitus, Deep Vein Thrombosis (DVT), Eye Disorder, Hyperlipidemia, Hypertension, Myocardial Infarction (CA) Additional Past Medical History / Comment(s): Pt recently admitted to [facility] on with R lower extremity cellulitis. Other Hx: Chronic respiratory failure with O2 dependence-2L/NC ATC, bronchitis, ischemic cardiomyopathy, murmur, thoracic outlet syndrome, IDDM type II, DVT left leg twice after childbirths, glaucoma R eye, arthritis multiple joints, osteoporosis, pancreatitis once, hypothyroid, past cellulitis R knee and L leg, R eye cataract , varicosities. Last Myocardial Infarction Date:: 1999 History of Any Multi-Drug Resistant Organisms: VRE Date of last positivie culture/infection: 06/08/17 MDRO Source:: vre urine Past Surgical History: Adenoidectomy, AICD, Heart Catheterization With Stent, Hernia Repair, Hysterectomy, Tonsillectomy Additional Past Surgical History / Comment(s): 1999 PCI with stents (3), 2014 BiV AICD, L upper rib removed d/t thoracic outlet syndrome, R knee I&D, bilateral carpal tunnel releases, colonoscopy, D&C, bladder suspension, umbilical hernia repair. Past Anesthesia/Blood Transfusion Reactions: No Reported Reaction Additional Past Anesthesia/Blood Transfusion Reaction / Comment(s): Pt has never had a blood transfusion. Date of Last Stent Placement:: 1999 Type of Cardiac Device: AICD Device Placement Date:: 06-27-14 Past Psychological History: No Psychological Hx Reported Smoking Status: Former smoker Past Alcohol Use History: None Reported Past Drug Use History: None Reported - Past Family History Brother(s) Family Medical History: Cancer Additional Family Medical History / Comment(s): Pt had 2 brothers with lung cancer. Father Family Medical History: Coronary Artery Disease (CAD), CVA/TIA, Myocardial Infarction (CA) Additional Family Medical History / Comment(s): fATHER AT 57 YRS OF AGE Mother Family Medical History: Cancer, Dementia Additional Family Medical History / Comment(s): throat cancer General Exam Limitations: no limitations General appearance: in distress, obese Head exam: Present: atraumatic, normocephalic, normal inspection Eye exam: Present: normal appearance, PERRL, EOMI. Absent: scleral icterus, conjunctival injection, periorbital swelling ENT exam: Present: normal exam, mucous membranes moist Neck exam: Present: normal inspection. Absent: tenderness, meningismus, lymphadenopathy Respiratory exam: Present: respiratory distress, wheezes, rales, accessory muscle use, decreased breath sounds, prolonged expiratory. Absent: normal lung sounds bilaterally, rhonchi, stridor Cardiovascular Exam: Present: normal rhythm, tachycardia, normal heart sounds. Absent: systolic murmur, diastolic murmur, rubs, gallop, clicks GI/Abdominal exam: Present: soft, normal bowel sounds. Absent: distended, tenderness, guarding, rebound, rigid Extremities exam: Present: normal inspection, full ROM, normal capillary refill. Absent: tenderness, pedal edema, joint swelling, calf tenderness Back exam: Present: normal inspection Neurological exam: Present: alert, oriented X3, CN II-XII intact Psychiatric exam: Present: normal affect, normal mood Skin exam: Present: warm, dry, intact, normal color. Absent: rash Course Vital Signs 07/12/17 07/12/17 10:59 11:06 Temperature 97.8 F Pulse Rate 101 H 109 H Respiratory 20 Rate Blood Pressure 126/70 O2 Sat by Pulse 95 Oximetry Medical Decision Making - Medical Decision Making 76 female the ER for evaluation, patient's presented for evaluation regards to severe shortness of breath, patient has COPD and CHF on BiPAP. - Lab Data Result diagrams: 07/12/17 11:05 07/12/17 11:05 Lab Results 07/12/17 07/12/17 07/12/17 Range/Units 11:05 11:05 11:05 WBC 8.8 (3.8-10.6) k/uL RBC 4.32 (3.80-5.40) m/uL Hgb 12.3 (11.4-16.0) gm/dL Hct 40.2 (34.0-46.0) % MCV 92.9 (80.0-100.0) fL MCH 28.5 (25.0-35.0) pg MCHC 30.6 L (31.0-37.0) g/dL RDW 14.2 (11.5-15.5) % Plt Count 324 (150-450) k/uL Neutrophils % 65 % Lymphocytes % 24 % Monocytes % 6 % Eosinophils % 3 % Basophils % 1 % Neutrophils # 5.7 (1.3-7.7) k/uL Lymphocytes # 2.1 (1.0-4.8) k/uL Monocytes # 0.5 (0-1.0) k/uL Eosinophils # 0.3 (0-0.7) k/uL Basophils # 0.0 (0-0.2) k/uL Hypochromasia Slight PT 10.1 (9.0-12.0) sec INR 1.0 (<1.2) APTT 26.0 (22.0-30.0) sec Sodium 142 (137-145) mmol/L Potassium 4.5 (3.5-5.1) mmol/L Chloride 97 L (98-107) mmol/L Carbon Dioxide 34 H (22-30) mmol/L Anion Gap 11 mmol/L BUN 57 H (7-17) mg/dL Creatinine 1.41 H (0.52-1.04) mg/dL Est GFR (CKD-EPI)AfAm 42 (>60 ml/min/1.73 sqM) Est GFR (CKD-EPI)NonAf 37 (>60 ml/min/1.73 sqM) Glucose 131 H (74-99) mg/dL Calcium 9.0 (8.4-10.2) mg/dL Magnesium 1.9 (1.6-2.3) mg/dL Total Bilirubin 0.3 (0.2-1.3) mg/dL AST 24 (14-36) U/L ALT 41 (9-52) U/L Alkaline Phosphatase 99 (38-126) U/L Total Protein 5.6 L (6.3-8.2) g/dL Albumin 3.4 L (3.5-5.0) g/dL - Radiology Data Radiology results: report reviewed (Chest x-rays negative for acute disease), image reviewed Critical Care Time Critical Care Time: Yes Total Critical Care Time: 31 Disposition Clinical Impression: Hypoxia, COPD (chronic obstructive pulmonary disease), Acute pulmonary edema, Atrial fibrillation, Congestive heart failure Disposition: ADMITTED IP TO THIS [facility] Condition: Serious Referrals: Farzana Levine MD [Primary Care Provider] - 1-2 days
[2017-07-12 11:35] LABS: Prothrombin Time 10.1 sec (9.0-12.0)
[2017-07-12] MEDS ORDERED: IPRATROPIUM 0.5 MG/2.5 ML NEBU INHALATION STA (11:49)
[2017-07-12] MEDS ORDERED: ALBUTEROL NEBULIZED 2.5 MG/3 ML INHALATION STA (11:49)
[2017-07-12] MEDS ORDERED: methylPREDNISolone SOD SUCCI 125 MG/2 ML VIAL IV STA (11:49)
[2017-07-12 12:01] LABS: Creatine Kinase MB 1.2 ng/mL (0.0-2.4); Troponin I 0.02 ng/mL (0.000-0.034)
[2017-07-12] MEDS ORDERED: ONDANSETRON 4 MG/2 ML VIAL IVP STA (12:11)
[2017-07-12] MEDS ORDERED: LORazepam 2 MG/ML INJ IV STA (12:11)
[2017-07-12 12:39] LABS: Appearance,Urine Clear (Clear); Bilirubin,Urine Negative (Negative); Blood,Urine Negative (Negative); Color,Urine Light Yellow; Glucose,Urine (UA) Negative (Negative); Ketones,Urine Negative (Negative); Leukocyte Esterase,Urine Negative (Negative); Nitrite,Urine Negative (Negative); Protein,Urine Negative (Negative); Specific Gravity,Urine 1.009 (1.001-1.035); Urobilinogen,Urine <2.0 mg/dL (<2.0)
[2017-07-12] MEDS ORDERED: DIAZEPAM 5 MG/ML 2 ML INJ IVP STA (13:11)
[2017-07-12] MEDS ORDERED: NITROGLYCERIN SL TABS 0.4 MG TAB SUBLINGUAL PRN (15:24)
[2017-07-12] MEDS: IPRATROPIUM-ALBUTEROL 3 ML NEB INHALATION SCH ×3 (15:26→20:20)
--- NOTE | 2017-07-12 15:29 | P.HPIM ---
History of Present Illness H&P Date: 07/12/17 Chief Complaint: Shortness of breath Maryam Rhodes is a 76-year-old female well known to my practice who presented to [facility] emergency room with a chief complaint of severe shortness of breath. Patient has history of congestive heart failure. No recent hospital admissions no travel history no chest pain. When patient was evaluated by EMS personnel her pulse oximetry was down to 75%. Patient was then placed on CPAP, placed on BiPAP prior and once arrival to emergency room. Patient was James eyes she was given IV Solu-Medrol in the emergency room and was admitted to telemetry floor. Patient was seen and examined on telemetry floor she is alert and oriented 3 she is maintained on oxygen 3 L via nasal cannula, her pulse oximetry is 90%. She is complaining of shortness of breath, she is complaining of cough with sputum production, she denies any chest pain there is no fever or chills no headache no dizziness, no nausea or vomiting no abdominal pain no diarrhea and no urinary symptoms. Past Medical History Past Medical History: Atrial Fibrillation, Asthma, Coronary Artery Disease (CAD) , Heart Failure, COPD, Diabetes Mellitus, Deep Vein Thrombosis (DVT), Eye Disorder, Hyperlipidemia, Hypertension, Myocardial Infarction ([place]) Additional Past Medical History / Comment(s): Pt recently admitted to [facility] on with R lower extremity cellulitis. Other Hx: Chronic respiratory failure with O2 dependence-2L/NC ATC, bronchitis, ischemic cardiomyopathy, murmur, thoracic outlet syndrome, IDDM type II, DVT left leg twice after childbirths, glaucoma R eye, arthritis multiple joints, osteoporosis, pancreatitis once, hypothyroid, past cellulitis R knee and L leg, R eye cataract , varicosities. Last Myocardial Infarction Date:: 1999 History of Any Multi-Drug Resistant Organisms: VRE Date of last positivie culture/infection: 06/08/17 MDRO Source:: vre urine Past Surgical History: Adenoidectomy, AICD, Heart Catheterization With Stent, Hernia Repair, Hysterectomy, Tonsillectomy Additional Past Surgical History / Comment(s): 1999 PCI with stents (3), 2014 BiV AICD, L upper rib removed d/t thoracic outlet syndrome, R knee I&D, bilateral carpal tunnel releases, colonoscopy, D&C, bladder suspension, umbilical hernia repair. Past Anesthesia/Blood Transfusion Reactions: No Reported Reaction Additional Past Anesthesia/Blood Transfusion Reaction / Comment(s): Pt has never had a blood transfusion. Date of Last Stent Placement:: 1999 Type of Cardiac Device: AICD Device Placement Date:: 06-27-14 Past Psychological History: No Psychological Hx Reported Smoking Status: Former smoker Past Alcohol Use History: None Reported Past Drug Use History: None Reported - Past Family History Brother(s) Family Medical History: Cancer Additional Family Medical History / Comment(s): Pt had 2 brothers with lung cancer. Father Family Medical History: Coronary Artery Disease (CAD), CVA/TIA, Myocardial Infarction ([place]) Additional Family Medical History / Comment(s): fATHER AT 57 YRS OF AGE Mother Family Medical History: Cancer, Dementia Additional Family Medical History / Comment(s): throat cancer Medications and Allergies Home Medications Medication Instructions Recorded Confirmed Type Isosorbide Mononitrate ER [Imdur] 30 mg PO DAILY 04/24/14 05/25/17 History Montelukast [Singulair] 10 mg PO HS 04/24/14 05/25/17 History metFORMIN HCL 1,000 mg PO DAILY 04/29/14 05/25/17 History Atorvastatin [Lipitor] 40 mg PO HS #60 tab 05/01/14 05/25/17 Rx Nitroglycerin Sl Tabs [Nitrostat] 0.4 mg SUBLINGUAL Q5M PRN 06/02/14 05/25/17 History Aspirin EC [Ecotrin Low Dose] 81 mg PO DAILY 11/18/14 05/25/17 History Budesonide [Pulmicort] 0.5 mg INHALATION RT-BID 11/18/14 05/25/17 History Insulin Glargine [Lantus] 44 unit SQ HS 11/18/14 05/25/17 History Ipratropium-Albuterol Nebulize 3 ml INHALATION RT-QID 11/18/14 05/25/17 History [Duoneb 0.5 mg-3 mg/3 ml Soln] Latanoprost Ophth [Xalatan 0.005%] 1 drop RIGHT EYE HS 11/18/14 05/25/17 History Ergocalciferol [Vitamin D2 50,000 unit PO TU 05/01/17 05/25/17 History (DRISDOL)] Furosemide [Lasix] 20 mg PO DAILY@1200 05/01/17 05/25/17 History INSULIN LISPRO (HumaLOG) [humaLOG] 3 - 8 units SQ AC-TID 05/01/17 05/25/17 History Levothyroxine Sodium [Synthroid] 50 mcg PO DAILY 05/01/17 05/25/17 History Losartan-Hctz 50-12.5 mg [Hyzaar 1 tab PO DAILY@1200 05/01/17 05/25/17 History 50-12.5] Spironolactone [Aldactone] 12.5 mg PO DAILY@1200 05/01/17 05/25/17 History Amiodarone [Cordarone] 100 mg PO DAILY tab 05/04/17 05/25/17 Rx Metoprolol Succinate (ER) [Toprol 150 mg PO DAILY #100 tab 05/06/17 05/25/17 Rx XL] Apixaban [Eliquis] 5 mg PO BID #60 tab 05/07/17 05/25/17 Rx Ammonium Lactate Cream [Lac-Hydrin 1 applic TOPICAL BID cream 06/01/17 Rx 12% Cream] Clindamycin [Cleocin] 450 mg PO TID #4 cap 06/01/17 Rx Docusate [Colace] 100 mg PO BID cap 06/01/17 Rx Polyethylene Glycol 3350 [Miralax] 17 gm PO HS powd.pack 06/01/17 Rx Diazepam [Valium] 2.5 mg PO DAILY@0800,1200 07/12/17 07/12/17 History Diazepam [Valium] 5 mg PO HS 07/12/17 07/12/17 History HYDROcodone/APAP 10-325MG [[place] 1 tab PO Q4H PRN 07/12/17 07/12/17 History 10-325] Allergies Allergy/AdvReac Type Severity Reaction Status Date / Time meperidine HCl [From Demerol] Allergy Severe Anaphylaxis Verified 07/12/17 15:10 cephalexin monohydrate Allergy Rash/Hives Verified 07/12/17 15:10 [From Keflex] erythromycin base Allergy Rapid Verified 07/12/17 15:10 Heart Rate lorazepam [From Ativan] Allergy Dyspnea Verified 07/12/17 15:10 Penicillins Allergy Rash/Hives Verified 07/12/17 15:10 doxycycline calcium AdvReac Nausea & Verified 07/12/17 15:10 [From Vibramycin] Vomiting doxycycline hyclate AdvReac Nausea & Verified 07/12/17 15:10 [From Vibramycin] Vomiting doxycycline monohydrate AdvReac Nausea & Verified 07/12/17 15:10 [From Vibramycin] Vomiting tetracycline AdvReac Nausea & Verified 07/12/17 15:10 Vomiting Physical Exam Vitals: Vital Signs Temp Pulse Resp BP Pulse Ox 07/12/17 14:00 106 H 07/12/17 13:44 104 H 07/12/17 13:30 102 H 07/12/17 13:20 108 H 20 114/73 100 07/12/17 13:12 112 H 07/12/17 12:00 108 H 22 151/77 100 07/12/17 11:20 109 H 07/12/17 11:06 109 H 07/12/17 10:59 97.8 F 101 H 20 126/70 95 Intake and Output 07/12/17 07/12/17 07/12/17 06:59 14:59 22:59 Other: Weight 99.79 kg In general patient is alert and oriented 3 in no apparent distress HEENT head normocephalic and atraumatic Neck is supple no JVD no goiter no lymphadenopathy Chest exam reveals a few scattered crackles no wheezing Cardiac exam reveals regular heart sounds S1 and S2 no gallops no murmurs Abdomen is soft nontender no organomegaly with normal bowel sounds Sacral area reveals area of pressure with erythema and small ulceration Extremity exam reveals no edema no cyanosis or clubbing Neurological examination reveals no gross focal deficit Results CBC & Chem 7: 07/12/17 11:05 07/12/17 11:05 Labs: Abnormal Lab Results - Last 24 Hours (Table) 07/12/17 07/12/17 07/12/17 Range/Units 11:05 11:05 11:05 MCHC 30.6 L (31.0-37.0) g/dL Chloride 97 L (98-107) mmol/L Carbon Dioxide 34 H (22-30) mmol/L BUN 57 H (7-17) mg/dL Creatinine 1.41 H (0.52-1.04) mg/dL Glucose 131 H (74-99) mg/dL Total Creatine Kinase 25 L (30-135) U/L Total Protein 5.6 L (6.3-8.2) g/dL Albumin 3.4 L (3.5-5.0) g/dL Assessment and Plan Plan: #1 acute on chronic hypoxic respiratory failure #2 acute exacerbation of congestive heart failure #3 acute purulent bronchitis #4 acute exacerbation of chronic obstructive pulmonary disease #5 sacral ulcer #6 underlying history of cardiac arrhythmia #7 intractable back pain with recent vertebral fracture #8 recent pneumonia #9 underlying history of ischemic cardiomyopathy with previous history of AICD placement #10 underlying history of diabetes mellitus type 2 #11 underlying history of hypertension #12 underlying history of hypothyroidism. At this time patient is improving gradually She is maintained on IV Lasix, IV steroids, and inhaled bronchodilators Pulmonary and cardiology consultation are requested Prognosis is guarded will follow closely
[2017-07-12] MEDS ORDERED: IPRATROPIUM-ALBUTEROL 3 ML NEB INHALATION SCH (16:00)
[2017-07-12 16:39] LABS: Glucose,Whole Blood 124 mg/dL (75-99)
[2017-07-12] MEDS: HYDROcodone/APAP 10-325MG 1 EACH TAB PO PRN ×2 (17:16→22:22)
[2017-07-12] MEDS: ISOSORBIDE MONONITRATE ER 30 MG TAB.ER.24H PO SCH ×2 (17:52→18:58)
[2017-07-12] MEDS: METOPROLOL SUCCINATE (ER) 50 MG TAB.ER.24H PO SCH (17:53)
[2017-07-12] MEDS: CLINDAMYCIN 150 MG CAP PO SCH ×2 (17:53→21:22)
[2017-07-12] MEDS: LEVOTHYROXINE 50 MCG TAB PO SCH (17:53)
[2017-07-12] MEDS: methylPREDNISolone SOD SUCCI 125 MG/2 ML VIAL IV SCH ×2 (17:56→23:44)
[2017-07-12] MEDS: AMIODARONE 100 MG TAB PO SCH (18:12)
[2017-07-12] MEDS: BUDESONIDE 0.5 MG/2 ML NEBU INHALATION SCH (20:20)
[2017-07-12] MEDS ORDERED: FUROSEMIDE 20 MG TAB PO SCH (21:00)
[2017-07-12] MEDS: ATORVASTATIN 40 MG TAB PO SCH (21:22)
[2017-07-12] MEDS: APIXABAN 5 MG TAB PO SCH (21:22)
[2017-07-12] MEDS: FUROSEMIDE 10 MG/ML 4 ML VIAL IV SCH (21:22)
[2017-07-12] MEDS: DOCUSATE 100 MG CAP PO SCH (21:22)
[2017-07-12] MEDS: MONTELUKAST 10 MG TAB PO SCH (21:22)
[2017-07-12] MEDS: guaiFENesin 600 MG TABLET.ER PO SCH (21:22)
[2017-07-12] MEDS: LATANOPROST 0.005% OPHTH DROPS 2.5 ML BTL RIGHT EYE SCH (21:23)
[2017-07-12] MEDS: POLYETHYLENE GLYCOL 3350 17 GM POWD.PACK PO SCH (21:23)
[2017-07-12 22:07] LABS: Glucose,Whole Blood 281 mg/dL (75-99)
[2017-07-12] MEDS: AMMONIUM LACTATE 12% CREAM 140 GM TUBE TOPICAL SCH (22:15)
[2017-07-12] MEDS: INSULIN DETEMIR 100 UNIT/ML 10 ML VIAL SQ SCH (22:15)
[2017-07-13] MEDS: HYDROcodone/APAP 10-325MG 1 EACH TAB PO PRN ×5 (05:01→21:26)
[2017-07-13] MEDS: LEVOTHYROXINE 50 MCG TAB PO SCH (05:07)
[2017-07-13] MEDS: methylPREDNISolone SOD SUCCI 125 MG/2 ML VIAL IV SCH ×3 (05:07→17:53)
[2017-07-13 06:21] LABS: Glucose,Whole Blood 228 mg/dL (75-99)
[2017-07-13 07:29] LABS: Basophils % (A) 0 %; Eosinophils % (A) 0 %; HCT 35.7 % (34.0-46.0); HGB 10.9 gm/dL (11.4-16.0); Hypochromasia Moderate; Lymphocytes # (A) 1.1 k/uL (1.0-4.8); Lymphocytes % (A) 20 %; MCH 29.1 pg (25.0-35.0); MCHC 30.5 g/dL (31.0-37.0); MCV 95.3 fL (80.0-100.0); Mean Platelet Volume 7.2; Monocytes % (A) 1 %; Neutrophils # (A) 4.5 k/uL (1.3-7.7); Neutrophils % (A) 79 %; Platelet Count 285 k/uL (150-450); RBC 3.74 m/uL (3.80-5.40); WBC 5.7 k/uL (3.8-10.6)
[2017-07-13] MEDS: IPRATROPIUM-ALBUTEROL 3 ML NEB INHALATION SCH ×4 (07:43→19:37)
[2017-07-13] MEDS: BUDESONIDE 0.5 MG/2 ML NEBU INHALATION SCH ×2 (07:43→19:37)
[2017-07-13 07:50] LABS: Albumin 2.9 g/dL (3.5-5.0); Calcium 8.8 mg/dL (8.4-10.2); Potassium 5.1 mmol/L (3.5-5.1); Total Bilirubin 0.2 mg/dL (0.2-1.3)
[2017-07-13] MEDS: DOCUSATE 100 MG CAP PO SCH ×2 (08:09→21:28)
[2017-07-13] MEDS: APIXABAN 5 MG TAB PO SCH ×2 (08:09→21:27)
[2017-07-13] MEDS: guaiFENesin 600 MG TABLET.ER PO SCH ×2 (08:09→21:28)
[2017-07-13] MEDS: AMIODARONE 100 MG TAB PO SCH (08:09)
[2017-07-13] MEDS: ISOSORBIDE MONONITRATE ER 30 MG TAB.ER.24H PO SCH (08:10)
[2017-07-13] MEDS: FUROSEMIDE 10 MG/ML 4 ML VIAL IV SCH ×2 (08:10→21:28)
[2017-07-13] MEDS: CLINDAMYCIN 150 MG CAP PO SCH ×3 (08:10→21:29)
[2017-07-13] MEDS: DIAZEPAM 5 MG TAB PO SCH ×3 (08:14→21:26)
[2017-07-13] MEDS: ASPIRIN 81 MG PO SCH (08:14)
[2017-07-13] MEDS ORDERED: ZINC OXIDE 20% OINT 28.4 GM TUBE TOPICAL PRN (09:16)
--- NOTE | 2017-07-13 09:44 | P.CRDCN ---
History of Present Illness Consult date: 07/13/17 Requesting physician: Farzana Levine Consult reason: shortness of breath Chief complaint: Shortness of breath and productive cough of yellow sputum History of present illness: This is a 76-year-old female with history of ischemic cardiomyopathy and prior IV AICD, chronic persistent atrial fibrillation, COPD, diabetes, hyperlipidemia, prior DVT, systolic congestive heart failure acute on chronic, history of bilateral lower extremity cellulitis, coronary artery disease with prior stent placements, sleep apnea, who presented to the hospital with symptoms of severe shortness of breath and associated productive cough. No fever or chills. No chest discomfort. The patient had been at [facility], currently is at home, most information was obtained from the granddaughter who is at bedside. She apparently has been quite inactive since she was at [facility] , at the time of EMS arrival was documented that her oxygen saturation was in the 70 range. The patient was placed on CPAP, stable on arrival to the emergency room. EKG on arrival here showed intermittent paced rhythm with underlying atrial fibrillation and left bundle branch block pattern. Blood pressure on arrival here 126/70 with a heart rate in the low 100s, 95% on CPAP. White blood cell count is normal, hemoglobin on admission 12.3, 10.9 this morning. Platelet count 285. Sodium 138, potassium 5.1, BUN 61, creatinine 1.4. BNP level 6060, troponin 0.020. Influenza A and B are negative. At the time of my examination this morning, there are multiple family members at bedside, patient is currently on high flow cannula satting 99%. Heart rate continues to be in the 110 range. Past Medical History Past Medical History: Atrial Fibrillation, Asthma, Coronary Artery Disease (CAD) , Heart Failure, COPD, Diabetes Mellitus, Deep Vein Thrombosis (DVT), Eye Disorder, Hyperlipidemia, Hypertension, Myocardial Infarction ([place]) Additional Past Medical History / Comment(s): Pt recently admitted to [facility] on with R lower extremity cellulitis. Other Hx: Chronic respiratory failure with O2 dependence-2L/NC ATC, bronchitis, ischemic cardiomyopathy, murmur, thoracic outlet syndrome, IDDM type II, DVT left leg twice after childbirths, glaucoma R eye, arthritis multiple joints, osteoporosis, pancreatitis once, hypothyroid, past cellulitis R knee and L leg, R eye cataract , varicosities. Last Myocardial Infarction Date:: 1999 History of Any Multi-Drug Resistant Organisms: VRE Date of last positivie culture/infection: 06/08/17 MDRO Source:: vre urine Past Surgical History: Adenoidectomy, AICD, Heart Catheterization With Stent, Hernia Repair, Hysterectomy, Tonsillectomy Additional Past Surgical History / Comment(s): 1999 PCI with stents (3), 2014 BiV AICD, L upper rib removed d/t thoracic outlet syndrome, R knee I&D, bilateral carpal tunnel releases, colonoscopy, D&C, bladder suspension, umbilical hernia repair. Past Anesthesia/Blood Transfusion Reactions: No Reported Reaction Additional Past Anesthesia/Blood Transfusion Reaction / Comment(s): Pt has never had a blood transfusion. Date of Last Stent Placement:: 1999 Type of Cardiac Device: AICD Device Placement Date:: 06-27-14 Past Psychological History: No Psychological Hx Reported Smoking Status: Former smoker Past Alcohol Use History: None Reported Past Drug Use History: None Reported - Past Family History Brother(s) Family Medical History: Cancer Additional Family Medical History / Comment(s): Pt had 2 brothers with lung cancer. Father Family Medical History: Coronary Artery Disease (CAD), CVA/TIA, Myocardial Infarction ([place]) Additional Family Medical History / Comment(s): fATHER AT 57 YRS OF AGE Mother Family Medical History: Cancer, Dementia Additional Family Medical History / Comment(s): throat cancer Medications and Allergies Home Medications Medication Instructions Recorded Confirmed Type Isosorbide Mononitrate ER [Imdur] 30 mg PO DAILY 04/24/14 07/12/17 History Montelukast [Singulair] 10 mg PO HS 04/24/14 07/12/17 History metFORMIN HCL 1,000 mg PO DAILY 04/29/14 07/12/17 History Atorvastatin [Lipitor] 40 mg PO HS #60 tab 05/01/14 07/12/17 Rx Nitroglycerin Sl Tabs [Nitrostat] 0.4 mg SUBLINGUAL Q5M PRN 06/02/14 07/12/17 History Aspirin EC [Ecotrin Low Dose] 81 mg PO DAILY 11/18/14 07/12/17 History Budesonide [Pulmicort] 0.5 mg INHALATION RT-BID 11/18/14 07/12/17 History Insulin Glargine [Lantus] 44 unit SQ HS 11/18/14 07/12/17 History Ipratropium-Albuterol Nebulize 3 ml INHALATION RT-QID 11/18/14 07/12/17 History [Duoneb 0.5 mg-3 mg/3 ml Soln] Latanoprost Ophth [Xalatan 0.005%] 1 drop RIGHT EYE HS 11/18/14 07/12/17 History Ergocalciferol [Vitamin D2 50,000 unit PO TU 05/01/17 07/12/17 History (DRISDOL)] Furosemide [Lasix] 20 mg PO BID 05/01/17 07/12/17 History INSULIN LISPRO (HumaLOG) [humaLOG] See Protocol SQ AC-TID 05/01/17 07/12/17 History Levothyroxine Sodium [Synthroid] 50 mcg PO DAILY 05/01/17 07/12/17 History Losartan-Hctz 50-12.5 mg [Hyzaar 1 tab PO DAILY@1200 05/01/17 07/12/17 History 50-12.5] Spironolactone [Aldactone] 12.5 mg PO DAILY@1200 05/01/17 07/12/17 History Amiodarone [Cordarone] 100 mg PO DAILY tab 05/04/17 07/12/17 Rx Metoprolol Succinate (ER) [Toprol 150 mg PO DAILY #100 tab 05/06/17 07/12/17 Rx XL] Apixaban [Eliquis] 5 mg PO BID #60 tab 05/07/17 07/12/17 Rx Ammonium Lactate Cream [Lac-Hydrin 1 applic TOPICAL BID cream 06/01/17 Rx 12% Cream] Clindamycin [Cleocin] 450 mg PO TID #4 cap 06/01/17 07/12/17 Rx Docusate [Colace] 100 mg PO BID cap 06/01/17 07/12/17 Rx Polyethylene Glycol 3350 [Miralax] 17 gm PO HS powd.pack 06/01/17 07/12/17 Rx Diazepam [Valium] 2.5 mg PO DAILY@0800,1200 07/12/17 07/12/17 History Diazepam [Valium] 5 mg PO HS 07/12/17 07/12/17 History HYDROcodone/APAP 10-325MG [[place] 1 tab PO Q4H PRN 07/12/17 07/12/17 History 10-325] Allergies Allergy/AdvReac Type Severity Reaction Status Date / Time meperidine HCl [From Demerol] Allergy Severe Anaphylaxis Verified 07/12/17 15:10 cephalexin monohydrate Allergy Rash/Hives Verified 07/12/17 15:10 [From Keflex] erythromycin base Allergy Rapid Verified 07/12/17 15:10 Heart Rate lorazepam [From Ativan] Allergy Dyspnea Verified 07/12/17 15:10 Penicillins Allergy Rash/Hives Verified 07/12/17 15:10 doxycycline calcium AdvReac Nausea & Verified 07/12/17 15:10 [From Vibramycin] Vomiting doxycycline hyclate AdvReac Nausea & Verified 07/12/17 15:10 [From Vibramycin] Vomiting doxycycline monohydrate AdvReac Nausea & Verified 07/12/17 15:10 [From Vibramycin] Vomiting tetracycline AdvReac Nausea & Verified 07/12/17 15:10 Vomiting Physical Exam Vitals: Vital Signs Temp Pulse Pulse Resp BP BP Pulse Ox 07/13/17 08:08 110 H 07/13/17 07:46 106 H 07/13/17 05:22 99 07/13/17 04:00 97.9 F 56 L 20 119/70 100 07/13/17 00:00 98.0 F 58 L 19 98/67 96 07/12/17 20:36 93 L 07/12/17 20:32 108 H 07/12/17 20:23 110 H 07/12/17 20:00 97.9 F 61 20 94/45 97 07/12/17 18:33 20 07/12/17 18:32 98 F 108 H 20 85/60 90 L 07/12/17 16:38 97 07/12/17 16:01 110 H 07/12/17 15:39 110 H 07/12/17 14:00 106 H 07/12/17 13:44 104 H 07/12/17 13:30 102 H 07/12/17 13:20 108 H 20 114/73 100 07/12/17 13:12 112 H 07/12/17 12:59 98.5 F 103 H 20 88/68 90 L 07/12/17 12:00 108 H 22 151/77 100 07/12/17 11:20 109 H 07/12/17 11:06 109 H 07/12/17 10:59 97.8 F 101 H 20 126/70 95 Intake and Output 07/12/17 07/13/17 07/13/17 22:59 06:59 14:59 Output Total 400 125 Balance -400 -125 Output: Urine 400 125 Other: Voiding Method Indwelling Catheter Indwelling Catheter # Voids 1 Weight 76.5 kg PHYSICAL EXAMINATION: HEENT: Head is atraumatic, normocephalic. Pupils equal, round. Neck is supple. There is elevated jugular venous pressure. HEART EXAMINATION: Heart S1 and S2 irregularly irregular systolic murmur is heard. CHEST EXAMINATION: On's reveal coarse scattered rhonchi throughout. ABDOMEN: Soft, obese, nontender. Bowel sounds are heard. No organomegaly noted. EXTREMITIES: 2+ peripheral pulses with trace to 1+ evidence of peripheral edema and no calf tenderness noted. NEUROLOGIC patient is awake, alert and oriented -2. . Results 07/13/17 06:50 07/13/17 06:50 Cardiac Enzymes 07/12/17 07/12/17 07/13/17 Range/Units 11:05 11:05 06:50 AST 24 16 (14-36) U/L CK-MB (CK-2) 1.2 (0.0-2.4) ng/mL Troponin I 0.020 (0.000-0.034) ng/mL Coagulation 07/12/17 Range/Units 11:05 PT 10.1 (9.0-12.0) sec APTT 26.0 (22.0-30.0) sec CBC 07/12/17 07/13/17 Range/Units 11:05 06:50 WBC 8.8 5.7 (3.8-10.6) k/uL RBC 4.32 3.74 L (3.80-5.40) m/uL Hgb 12.3 10.9 L (11.4-16.0) gm/dL Hct 40.2 35.7 (34.0-46.0) % Plt Count 324 285 (150-450) k/uL Comprehensive Metabolic Panel 07/12/17 07/13/17 Range/Units 11:05 06:50 Sodium 142 138 (137-145) mmol/L Potassium 4.5 5.1 (3.5-5.1) mmol/L Chloride 97 L 97 L (98-107) mmol/L Carbon Dioxide 34 H 30 (22-30) mmol/L BUN 57 H 61 H (7-17) mg/dL Creatinine 1.41 H 1.40 H (0.52-1.04) mg/dL Glucose 131 H 163 H (74-99) mg/dL Calcium 9.0 8.8 (8.4-10.2) mg/dL AST 24 16 (14-36) U/L ALT 41 36 (9-52) U/L Alkaline Phosphatase 99 73 (38-126) U/L Total Protein 5.6 L 5.0 L (6.3-8.2) g/dL Albumin 3.4 L 2.9 L (3.5-5.0) g/dL Current Medications Generic Name Dose Route Start Last Admin Trade Name Freq PRN Reason Stop Dose Admin Hydrocodone Bitart/Acetaminophen 1 each 07/12/17 15:24 07/13/17 09:24 [place] 10 PO 1 each Q4H PRN Administration Moderate Pain Albuterol/Ipratropium 3 ml 07/12/17 12:00 07/13/17 07:43 Duoneb 0.5 Mg-3 Mg/3 Ml Soln INHALATION 3 ml RT-QID HANNAH Administration Amiodarone HCl 100 mg 07/12/17 15:45 07/13/17 08:09 Cordarone PO 100 mg DAILY HANNAH Administration Apixaban 5 mg 07/12/17 21:00 07/13/17 08:09 Eliquis PO 5 mg BID HANNAH Administration Aspirin 81 mg 07/13/17 09:00 07/13/17 08:14 Aspirin PO 81 mg DAILY [facility]ANNAH Administration Atorvastatin Calcium 40 mg 07/12/17 21:00 07/12/17 21:22 Lipitor PO 40 mg HS [facility]ANNAH Administration Budesonide 0.5 mg 07/12/17 20:00 07/13/17 07:43 Pulmicort INHALATION 0.5 mg RT-BID [facility]ANNAH Administration Clindamycin HCl 450 mg 07/12/17 16:00 07/13/17 08:10 Cleocin PO 450 mg TID [facility]ANNAH Administration Diazepam 2.5 mg 07/13/17 08:00 07/13/17 08:14 Valium PO 2.5 mg DAILY@0800,1200 [facility]ANNA[facility] Administration Diazepam 5 mg 07/13/17 21:00 Valium PO HS [facility] Docusate Sodium 100 mg 07/12/17 21:00 07/13/17 08:09 Colace PO 100 mg BID [facility]ANNA[facility] Administration Ergocalciferol 50,000 unit 07/14/17 12:00 Vitamin D2 PO Tu@1200 [facility] Furosemide 40 mg 07/12/17 21:00 07/13/17 08:10 Lasix IV 40 mg Q12H [facility] Administration Guaifenesin 600 mg 07/12/17 21:00 07/13/17 08:09 Mucinex PO 600 mg Q12HR [facility] Administration HCTZ/Losartan Potassium 1 each 07/13/17 12:00 Hyzaar 50-12.5 PO DAILY@1200 [facility] Insulin Detemir 44 unit 07/12/17 21:00 07/12/17 22:15 Levemir SQ 44 unit HS [facility] Administration Isosorbide Mononitrate 30 mg 07/12/17 15:45 07/13/17 08:10 Imdur PO 30 mg DAILY [facility] Administration Lactic Acid 1 applic 07/12/17 21:00 07/12/17 22:15 Ammonium Lactate TOPICAL 1 applic BID [facility] Administration Latanoprost 1 drops 07/12/17 21:00 07/12/17 21:23 Xalatan 0.005% RIGHT EYE 1 drops HS [facility] Administration Levothyroxine Sodium 50 mcg 07/12/17 15:45 07/13/17 05:07 Synthroid PO 50 mcg DAILY@0630 [facility] Administration Methylprednisolone Sodium Succinate 60 mg 07/12/17 18:00 07/13/17 05:07 Solu-Medrol IV 60 mg Q6HR [facility] Administration Metoprolol Succinate 150 mg 07/12/17 15:45 07/12/17 17:53 Toprol Xl PO 150 mg DAILY [facility] Administration Montelukast Sodium 10 mg 07/12/17 21:00 07/12/17 21:22 Singulair PO 10 mg HS [facility] Administration Multi-Ingredient Ointment 1 applic 07/13/17 09:16 Zinc Oxide 20% Oint TOPICAL QID PRN Skin Irritation Nitroglycerin 0.4 mg 07/12/17 15:24 Nitrostat SUBLINGUAL Q5M PRN Chest Pain Polyethylene Glycol 17 gm 07/12/17 21:00 07/12/17 21:23 Miralax PO 17 gm HS [facility] Administration Spironolactone 12.5 mg 07/13/17 12:00 Aldactone PO DAILY@1200 [facility] Intake and Output 07/12/17 07/13/17 07/13/17 22:59 06:59 14:59 Output Total 400 125 Balance -400 -125 Output: Urine 400 125 Other: Voiding Method Indwelling Catheter Indwelling Catheter # Voids 1 Weight 76.5 kg 07/13/17 06:50 07/13/17 06:50 EKG Interpretations (text) EKG shows atrial fibrillation with intermittent paced rhythm. Assessment and Plan Plan: Assessment and plan #1 hypoxic respiratory failure, likely secondary to COPD exacerbation, mild congestive heart failure systolic acute on chronic and a possible acute tracheobronchitis. #2 chronic persistent atrial fibrillation on Eliquis for anticoagulation #3 ischemic cardio myopathy with prior by V AICD #4 known history of coronary artery disease with prior PCI's #5 diabetes #6 hyperlipidemia #7 hypertension #8 prior DVT #9 history of bilateral lower extremity cellulitis #10 acute on chronic renal insufficiency Plan We will check a d-dimer level on this patient, oxygen level on EMS arrival 70%, tachycardic with a heart rate of 120, rule out PE in spite of the fact the patient is taking anticoagulation. Continue current dose of IV Lasix. Continue antibiotics. Further recommendations to follow. DNP note has been reviewed, I agree with a documented findings and plan of care. Patient was seen and examined.
[2017-07-13] MEDS: METOPROLOL SUCCINATE (ER) 50 MG TAB.ER.24H PO SCH (10:14)
--- NOTE | 2017-07-13 10:57 | P.PN ---
Subjective Progress Note Date: 07/13/17 Maryam Rhodes is a 76-year-old female well known to my practice who presented to [facility] emergency room with a chief complaint of severe shortness of breath. Patient has history of congestive heart failure. No recent hospital admissions no travel history no chest pain. When patient was evaluated by EMS personnel her pulse oximetry was down to 75%. Patient was then placed on CPAP, placed on BiPAP prior and once arrival to emergency room. Patient was James eyes she was given IV Solu-Medrol in the emergency room and was admitted to telemetry floor. Patient was seen and examined on telemetry floor she is alert and oriented 3 she is maintained on oxygen 3 L via nasal cannula, her pulse oximetry is 90%. She is complaining of shortness of breath, she is complaining of cough with sputum production, she denies any chest pain there is no fever or chills no headache no dizziness, no nausea or vomiting no abdominal pain no diarrhea and no urinary symptoms. 07/13/2017 patient is lying in bed comfortably. She is currently on the AIRVO at 45%. Still having rhonchi. Patient did have an oxygen saturation around 75% . She is being treated for COPD and CHF exacerbation. Cardiology was concerned about a possible PE. D-dimer ordered and is within normal range. Patient denies any chest pain. Does report some improvement in her breathing. Denies any nausea or vomiting. Reports having bowel movements. Patient is fully catheter in place with adequate urine output. She is complaining about a sacral ulcer. Will apply zinc oxide to the area. Objective - Vital Signs Vital signs: Vital Signs Temp 97.9 F 07/13/17 04:00 Pulse 110 H 07/13/17 08:08 Resp 20 07/13/17 04:00 BP 119/70 07/13/17 04:00 Pulse Ox 99 07/13/17 05:22 Intake & Output 07/12/17 07/13/17 07/13/17 18:59 06:59 18:59 Output Total 525 Balance -525 Weight 99.79 kg 76.5 kg Output: Urine 525 Other: Voiding Method Indwelling Catheter # Voids 1 - Exam Head normocephalic Neck supple Lungs rhonchi noted bilaterally Heart regular rate and rhythm S1-S2, no rub or gallop Abdomen is soft nontender nondistended positive bowel sounds no hepatosplenomegaly Extremities +1 edema on the right +2 edema on the left Neuro alert and orientated to 3 - Labs CBC & Chem 7: 07/13/17 06:50 07/13/17 06:50 Labs: Abnormal Lab Results - Last 24 Hours (Table) 07/12/17 07/12/17 07/12/17 Range/Units 11:05 11:05 11:05 RBC (3.80-5.40) m/uL Hgb (11.4-16.0) gm/dL MCHC 30.6 L (31.0-37.0) g/dL Chloride 97 L (98-107) mmol/L Carbon Dioxide 34 H (22-30) mmol/L BUN 57 H (7-17) mg/dL Creatinine 1.41 H (0.52-1.04) mg/dL Glucose 131 H (74-99) mg/dL POC Glucose (mg/dL) (75-99) mg/dL Total Creatine Kinase 25 L (30-135) U/L Total Protein 5.6 L (6.3-8.2) g/dL Albumin 3.4 L (3.5-5.0) g/dL 07/12/17 07/12/17 07/13/17 Range/Units 16:37 22:06 05:59 RBC (3.80-5.40) m/uL Hgb (11.4-16.0) gm/dL MCHC (31.0-37.0) g/dL Chloride (98-107) mmol/L Carbon Dioxide (22-30) mmol/L BUN (7-17) mg/dL Creatinine (0.52-1.04) mg/dL Glucose (74-99) mg/dL POC Glucose (mg/dL) 124 H 281 H 228 H (75-99) mg/dL Total Creatine Kinase (30-135) U/L Total Protein (6.3-8.2) g/dL Albumin (3.5-5.0) g/dL 07/13/17 07/13/17 Range/Units 06:50 06:50 RBC 3.74 L (3.80-5.40) m/uL Hgb 10.9 L (11.4-16.0) gm/dL MCHC 30.5 L (31.0-37.0) g/dL Chloride 97 L (98-107) mmol/L Carbon Dioxide (22-30) mmol/L BUN 61 H (7-17) mg/dL Creatinine 1.40 H (0.52-1.04) mg/dL Glucose 163 H (74-99) mg/dL POC Glucose (mg/dL) (75-99) mg/dL Total Creatine Kinase (30-135) U/L Total Protein 5.0 L (6.3-8.2) g/dL Albumin 2.9 L (3.5-5.0) g/dL Microbiology - Last 24 Hours (Table) 07/12/17 22:00 Urine Culture - Preliminary Urine,Catheterized 07/12/17 12:20 Urine Culture - Preliminary Urine,Catheterized Assessment and Plan Assessment: #1 acute on chronic hypoxic respiratory failure secondary to COPD exacerbation, CHF exacerbation and bronchitis. PE ruled out. d-dimer normal #2 acute exacerbation of systolic congestive heart failure: Continue IV Lasix. Followed by cardiology #3 acute purulent bronchitis: Continue Cleocin. Check sputum culture #4 acute exacerbation of chronic obstructive pulmonary disease #5 sacral ulcer stage I to stage II: Zinc oxide ordered. Continue to rotate patient of the area #6 chronic persistent atrial fibrillation anticoagulated with Eliquis and amiodarone #7 intractable back pain with recent vertebral fracture #8 recent pneumonia #9 underlying history of ischemic cardiomyopathy with previous history of AICD placement #10 underlying history of diabetes mellitus type 2 #11 underlying history of hypertension #12 underlying history of hypothyroidism. #13 generalized anxiety disorder: Patient restarted on her home Valium. #14 possible underlying depression. Cannot start SSRI due to its interaction with the amiodarone. #15 acute kidney injury: Monitor kidney functions closely while on Lasix GI prophylaxis Protonix and DVT prophylaxis Eliquis I performed an examination of the patient and discussed their management with the physician Clerical Supervisor. I have reviewed the Physician Clerical Supervisor's notes and agree with the documented findings and plan of care
[2017-07-13 11:59] LABS: Glucose,Whole Blood 179 mg/dL (75-99)
[2017-07-13] MEDS: LOSARTAN-HCTZ 50-12.5 MG 1 EACH TAB PO SCH (12:31)
[2017-07-13] MEDS: AMMONIUM LACTATE 12% CREAM 140 GM TUBE TOPICAL SCH ×2 (12:31→21:30)
[2017-07-13] MEDS: SPIRONOLACTONE 25 MG TAB PO SCH (12:31)
--- NOTE | 2017-07-13 16:51 | P.CNPUL ---
History of Present Illness Consult date: 07/13/17 Reason for consult: dyspnea, cough, COPD, hypoxemia, obstructive sleep apnea Chief complaint: Progressive increased shortness of breath with significant desaturation History of present illness: 76-year-old morbidly obese female who was seen evaluated examined on selective care patient has been admitted to hospital with 3 day history of progressive increased shortness breath cough congestion and thick purulent sputum production patient was evaluated by EMS and noted to have oxygen saturation of only 75% patient was initially treated with CPAP and eventually placed on BiPAP patient was subsequently arriving the emergency department was treated with IV steroids breathing treatment slightly more awake and alert but still require airvo 45% oxygen, data predominantly obtained from the patient and daughter present bedside, on patient denies hemoptysis denies any chest pain denies any loss of consciousness improves his desire and denies any bowel or bladder dysfunction, patient is a significant history of coronary artery disease and congestive heart failure with history of deep venous thromboses dyslipidemia and prior RI patient has a chronic bilateral lower extremity cellulitis also has chronic hypoxic respirator failure has been on oxygen-dependent, she has been found to have sleep disordered breathing and sleep apnea was recommended BiPAP at home but couldn't tolerated due to severe claustrophobia Review of Systems All systems: negative Past Medical History Past Medical History: Atrial Fibrillation, Asthma, Coronary Artery Disease (CAD) , Heart Failure, COPD, Diabetes Mellitus, Deep Vein Thrombosis (DVT), Eye Disorder, Hyperlipidemia, Hypertension, Myocardial Infarction (RI) Additional Past Medical History / Comment(s): Pt recently admitted to [facility] on with R lower extremity cellulitis. Other Hx: Chronic respiratory failure with O2 dependence-2L/NC ATC, bronchitis, ischemic cardiomyopathy, murmur, thoracic outlet syndrome, IDDM type II, DVT left leg twice after childbirths, glaucoma R eye, arthritis multiple joints, osteoporosis, pancreatitis once, hypothyroid, past cellulitis R knee and L leg, R eye cataract , varicosities. Last Myocardial Infarction Date:: 1999 History of Any Multi-Drug Resistant Organisms: VRE Date of last positivie culture/infection: 06/08/17 MDRO Source:: vre urine Past Surgical History: Adenoidectomy, AICD, Heart Catheterization With Stent, Hernia Repair, Hysterectomy, Tonsillectomy Additional Past Surgical History / Comment(s): 1999 PCI with stents (3), 2015 BiV AICD, L upper rib removed d/t thoracic outlet syndrome, R knee I&D, bilateral carpal tunnel releases, colonoscopy, D&C, bladder suspension, umbilical hernia repair. Past Anesthesia/Blood Transfusion Reactions: No Reported Reaction Additional Past Anesthesia/Blood Transfusion Reaction / Comment(s): Pt has never had a blood transfusion. Date of Last Stent Placement:: 1999 Type of Cardiac Device: AICD Device Placement Date:: 06-27-14 Past Psychological History: No Psychological Hx Reported Smoking Status: Former smoker Past Alcohol Use History: None Reported Past Drug Use History: None Reported - Past Family History Brother(s) Family Medical History: Cancer Additional Family Medical History / Comment(s): Pt had 2 brothers with lung cancer. Father Family Medical History: Coronary Artery Disease (CAD), CVA/TIA, Myocardial Infarction (RI) Additional Family Medical History / Comment(s): fATHER AT 57 YRS OF AGE Mother Family Medical History: Cancer, Dementia Additional Family Medical History / Comment(s): throat cancer Medications and Allergies Home Medications Medication Instructions Recorded Confirmed Type Isosorbide Mononitrate ER [Imdur] 30 mg PO DAILY 04/24/14 07/12/17 History Montelukast [Singulair] 10 mg PO HS 04/24/14 07/12/17 History metFORMIN HCL 1,000 mg PO DAILY 04/29/14 07/12/17 History Atorvastatin [Lipitor] 40 mg PO HS #60 tab 05/01/14 07/12/17 Rx Nitroglycerin Sl Tabs [Nitrostat] 0.4 mg SUBLINGUAL Q5M PRN 06/02/14 07/12/17 History Aspirin EC [Ecotrin Low Dose] 81 mg PO DAILY 11/18/14 07/12/17 History Budesonide [Pulmicort] 0.5 mg INHALATION RT-BID 11/18/14 07/12/17 History Insulin Glargine [Lantus] 44 unit SQ HS 11/18/14 07/12/17 History Ipratropium-Albuterol Nebulize 3 ml INHALATION RT-QID 11/18/14 07/12/17 History [Duoneb 0.5 mg-3 mg/3 ml Soln] Latanoprost Ophth [Xalatan 0.005%] 1 drop RIGHT EYE HS 11/18/14 07/12/17 History Ergocalciferol [Vitamin D2 50,000 unit PO TU 05/01/17 07/12/17 History (DRISDOL)] Furosemide [Lasix] 20 mg PO BID 05/01/17 07/12/17 History INSULIN LISPRO (HumaLOG) [humaLOG] See Protocol SQ AC-TID 05/01/17 07/12/17 History Levothyroxine Sodium [Synthroid] 50 mcg PO DAILY 05/01/17 07/12/17 History Losartan-Hctz 50-12.5 mg [Hyzaar 1 tab PO DAILY@1200 05/01/17 07/12/17 History 50-12.5] Spironolactone [Aldactone] 12.5 mg PO DAILY@1200 05/01/17 07/12/17 History Amiodarone [Cordarone] 100 mg PO DAILY tab 05/04/17 07/12/17 Rx Metoprolol Succinate (ER) [Toprol 150 mg PO DAILY #100 tab 05/06/17 07/12/17 Rx XL] Apixaban [Eliquis] 5 mg PO BID #60 tab 05/07/17 07/12/17 Rx Ammonium Lactate Cream [Lac-Hydrin 1 applic TOPICAL BID cream 06/01/17 Rx 12% Cream] Clindamycin [Cleocin] 450 mg PO TID #4 cap 06/01/17 07/12/17 Rx Docusate [Colace] 100 mg PO BID cap 06/01/17 07/12/17 Rx Polyethylene Glycol 3350 [Miralax] 17 gm PO HS powd.pack 06/01/17 07/12/17 Rx Diazepam [Valium] 2.5 mg PO DAILY@0800,1200 07/12/17 07/12/17 History Diazepam [Valium] 5 mg PO HS 07/12/17 07/12/17 History HYDROcodone/APAP 10-325MG [Leopold 1 tab PO Q4H PRN 07/12/17 07/12/17 History 10-325] Allergies Allergy/AdvReac Type Severity Reaction Status Date / Time meperidine HCl [From Demerol] Allergy Severe Anaphylaxis Verified 07/12/17 15:10 cephalexin monohydrate Allergy Rash/Hives Verified 07/12/17 15:10 [From Keflex] erythromycin base Allergy Rapid Verified 07/12/17 15:10 Heart Rate lorazepam [From Ativan] Allergy Dyspnea Verified 07/12/17 15:10 Penicillins Allergy Rash/Hives Verified 07/12/17 15:10 doxycycline calcium AdvReac Nausea & Verified 07/12/17 15:10 [From Vibramycin] Vomiting doxycycline hyclate AdvReac Nausea & Verified 07/12/17 15:10 [From Vibramycin] Vomiting doxycycline monohydrate AdvReac Nausea & Verified 07/12/17 15:10 [From Vibramycin] Vomiting tetracycline AdvReac Nausea & Verified 07/12/17 15:10 Vomiting Physical Exam Vitals: Vital Signs Temp Pulse Pulse Resp BP Pulse Ox 07/13/17 15:23 110 H 07/13/17 15:14 108 H 07/13/17 12:00 97 F L 54 L 18 116/59 99 07/13/17 11:31 110 H 07/13/17 11:17 108 H 07/13/17 08:08 110 H 07/13/17 08:00 96.7 F L 52 L 18 98/61 97 07/13/17 07:46 106 H 07/13/17 05:22 99 07/13/17 04:00 97.9 F 56 L 20 119/70 100 07/13/17 00:00 98.0 F 58 L 19 98/67 96 07/12/17 20:36 93 L 07/12/17 20:32 108 H 07/12/17 20:23 110 H 07/12/17 20:00 97.9 F 61 20 94/45 97 07/12/17 18:33 20 07/12/17 18:32 98 F 108 H 20 85/60 90 L Intake and Output 07/13/17 07/13/17 07/13/17 06:59 14:59 22:59 Output Total 125 Balance -125 Output: Urine 125 Other: Voiding Method Indwelling Catheter Indwelling Catheter # Voids 1 Weight 76.5 kg 76.5 kg - Constitutional General appearance: cooperative, disheveled, mild distress, morbidly obese - EENT Eyes: EOMI, PERRLA, normal appearance ENT: hard of hearing Ears: bilateral: normal - Neck Neck: normal ROM Carotids: bilateral: upstroke normal, bruit absent Thyroid: bilateral: normal size - Respiratory Respiratory: bilateral: rales (Bibasilar), rhonchi (Bilateral respiratory and expiratory), wheezing, prolonged expiration - Cardiovascular Heart sounds: normal: S1, S2 - Gastrointestinal General gastrointestinal: normal bowel sounds, soft - Integumentary Integumentary: normal, normal turgor - Neurologic Neurologic: CNII-XII intact - Musculoskeletal Musculoskeletal: gait normal, generalized weakness, strength equal bilaterally - Psychiatric Psychiatric: A&O x's 3, appropriate affect, intact judgment & insight Chronic lower extremity trace edema with his skin changes Results - Laboratory Findings CBC and BMP: 07/13/17 06:50 07/13/17 06:50 PT/INR, D-dimer PT 10.1 sec (9.0-12.0) 07/12/17 11:05 INR 1.0 (<1.2) 07/12/17 11:05 D-Dimer 0.56 mg/L FEU (<0.60) 07/13/17 09:11 Abnormal lab findings: Abnormal Labs 07/12/17 07/12/17 07/12/17 11:05 11:05 11:05 RBC Hgb MCHC 30.6 L Chloride 97 L Carbon Dioxide 34 H BUN 57 H Creatinine 1.41 H Glucose 131 H POC Glucose (mg/dL) Total Creatine Kinase 25 L Total Protein 5.6 L Albumin 3.4 L 07/12/17 07/12/17 07/13/17 16:37 22:06 05:59 RBC Hgb MCHC Chloride Carbon Dioxide BUN Creatinine Glucose POC Glucose (mg/dL) 124 H 281 H 228 H Total Creatine Kinase Total Protein Albumin 07/13/17 07/13/17 07/13/17 06:50 06:50 11:54 RBC 3.74 L Hgb 10.9 L MCHC 30.5 L Chloride 97 L Carbon Dioxide BUN 61 H Creatinine 1.40 H Glucose 163 H POC Glucose (mg/dL) 179 H Total Creatine Kinase Total Protein 5.0 L Albumin 2.9 L - Diagnostic Findings Chest x-ray: report reviewed, image reviewed (Noted d-dimer is normal with very high BNP indicated above acute exacerbation of CHF) Additional studies: EKG left bundle branch block Assessment and Plan Assessment: Acute hypoxic respirator failure Acute exacerbation of CHF likely acute on chronic diastolic and systolic heart failure COPD exacerbation and acute Chronic persistent asthma Severe morbid obesity and sleep disorder breathing and sleep apnea Hypertension hypertensive cardiovascular disease Prior history of deep venous thrombosis Sacral ulcers stage I to 2 Chronic atrial fibrillation Ischemic cardiomyopathy with history of AICD Chronic renal failure stage III Plan: Continue airvo 45%, titrated as tolerated Breathing treatment IV steroids and broad-spectrum antibiotics Gentle diuresis Continue home medications Continue deep breathing exercises incentive spirometry We'll follow clinical course closely further recommendations pending plan of care as per clinical response of the patient Time with Patient: Greater than 30
[2017-07-13 17:11] LABS: Glucose,Whole Blood 210 mg/dL (75-99)
[2017-07-13] MEDS: INSULIN ASPART 100 UNIT/ML 1 ML 10 ML VIAL SQ SCH ×2 (18:31→21:42)
[2017-07-13 20:58] LABS: Glucose,Whole Blood 256 mg/dL (75-99)
[2017-07-13] MEDS ORDERED: INSULIN ASPART 100 UNIT/ML 1 ML 10 ML VIAL SQ SCH (21:00)
[2017-07-13] MEDS: LATANOPROST 0.005% OPHTH DROPS 2.5 ML BTL RIGHT EYE SCH (21:28)
[2017-07-13] MEDS: ATORVASTATIN 40 MG TAB PO SCH (21:28)
[2017-07-13] MEDS: MONTELUKAST 10 MG TAB PO SCH (21:29)
[2017-07-13] MEDS: POLYETHYLENE GLYCOL 3350 17 GM POWD.PACK PO SCH (21:29)
[2017-07-13] MEDS: INSULIN DETEMIR 100 UNIT/ML 10 ML VIAL SQ SCH (21:42)
[2017-07-14] MEDS: methylPREDNISolone SOD SUCCI 125 MG/2 ML VIAL IV SCH ×5 (00:08→23:28)
[2017-07-14] MEDS: HYDROcodone/APAP 10-325MG 1 EACH TAB PO PRN ×2 (03:58→17:29)
[2017-07-14] MEDS: PANTOPRAZOLE 40 MG TABLET PO SCH (06:06)
[2017-07-14] MEDS: LEVOTHYROXINE 50 MCG TAB PO SCH (06:06)
[2017-07-14 06:16] LABS: Glucose,Whole Blood 146 mg/dL (75-99)
[2017-07-14] MEDS: INSULIN ASPART 100 UNIT/ML 1 ML 10 ML VIAL SQ SCH ×4 (06:25→21:29)
--- NOTE | 2017-07-14 07:31 | ECHOF ---
Referral Reason:chf MEASUREMENTS -------- HEIGHT: 152.4 cm WEIGHT: 76.2 kg BP: 119/70 RVIDd: 2.9 cm (< 3.3) IVSd: 1.0 cm (0.6 - 1.1) LVIDd: 6.4 cm (3.9 - 5.3) LVPWd: 1.1 cm (0.6 - 1.1) IVSs: 1.2 cm LVIDs: 6.1 cm LVPWs: 0.9 cm LA Diam: 4.3 cm (2.7 - 3.8) LAESV Index (A-L): 77.72 ml/m Ao Diam: 2.8 cm (2.0 - 3.7) AV Cusp: 2.1 cm (1.5 - 2.6) LA Diam: 4.6 cm (2.7 - 3.8) MV EXCURSION: 7.375 mm (> 18.000) MV EF SLOPE: 37 mm/s (70 - 150) EPSS: 1.4 cm MV E Haroon: 0.92 m/s MV DecT: 198 ms MV A Haroon: 0.31 m/s MV E/A Ratio: 3.02 RAP: 5.00 mmHg RVSP: 21.42 mmHg FINDINGS -------- Paced rhythm. This was a technically good study. The left ventricle is moderately dilated. Overall left ventricular systolic function is severely im paired with, an EF between 20 - 25 %. The right ventricle is normal in size. The left atrium is moderately dilated. LA is severely dilated >40 ml/m2 Mild spontaneous echo con trast present in the left atrium. The right atrial size is normal. The aortic valve is trileaflet, and appears structurally normal. No aortic stenosis or regurgitation. Mild mitral regurgitation is present. Mild tricuspid regurgitation present. There is no evidence of pulmonary hypertension. The right v entricular systolic pressure, as measured by Doppler, is 21.42mmHg. There is no pulmonic regurgitation present. The aortic root size is normal. There is no pericardial effusion. CONCLUSIONS -------- 1. Paced rhythm. 2. The left ventricle is moderately dilated. 3. Overall left ventricular systolic function is severely impaired with, an EF between 20 - 25 %. 4. The left atrium is moderately dilated. 5. Mild spontaneous echo contrast present in the left atrium. 6. The right atrial size is normal. 7. The aortic valve is trileaflet, and appears structurally normal. No aortic stenosis or regurgitati on. 8. Mild mitral regurgitation is present. 9. Mild tricuspid regurgitation present. 10. There is no evidence of pulmonary hypertension. 11. The right ventricular systolic pressure, as measured by Doppler, is 21.42mmHg. 12. There is no pulmonic regurgitation present. 13. The aortic root size is normal. 14. There is no pericardial effusion. AUTO SERVICE WRITER: Kiki River RDCS
[2017-07-14 07:32] LABS: Basophils % (A) 0 %; Eosinophils % (A) 0 %; HCT 37.1 % (34.0-46.0); HGB 11.3 gm/dL (11.4-16.0); Hypochromasia Moderate; Lymphocytes # (A) 1.3 k/uL (1.0-4.8); Lymphocytes % (A) 10 %; MCH 28.5 pg (25.0-35.0); MCHC 30.5 g/dL (31.0-37.0); MCV 93.4 fL (80.0-100.0); Mean Platelet Volume 7.1; Monocytes # (A) 0.4 k/uL (0-1.0); Monocytes % (A) 3 %; Neutrophils # (A) 10.8 k/uL (1.3-7.7); Neutrophils % (A) 86 %; Platelet Count 307 k/uL (150-450); RBC 3.97 m/uL (3.80-5.40); RDW 14.3 % (11.5-15.5); WBC 12.6 k/uL (3.8-10.6)
[2017-07-14 07:41] LABS: Potassium 4.6 mmol/L (3.5-5.1)
[2017-07-14 07:42] LABS: Albumin 3.1 g/dL (3.5-5.0); Calcium 8.8 mg/dL (8.4-10.2); Total Bilirubin 0.2 mg/dL (0.2-1.3); Total Protein 5.1 g/dL (6.3-8.2)
[2017-07-14] MEDS: IPRATROPIUM-ALBUTEROL 3 ML NEB INHALATION SCH ×4 (08:10→20:18)
[2017-07-14] MEDS: BUDESONIDE 0.5 MG/2 ML NEBU INHALATION SCH ×2 (08:10→20:18)
[2017-07-14] MEDS: DIAZEPAM 5 MG TAB PO SCH ×3 (09:19→20:57)
[2017-07-14] MEDS: CLINDAMYCIN 150 MG CAP PO SCH ×3 (09:20→20:51)
[2017-07-14] MEDS: DOCUSATE 100 MG CAP PO SCH ×2 (09:22→20:49)
[2017-07-14] MEDS: guaiFENesin 600 MG TABLET.ER PO SCH ×2 (09:22→20:50)
[2017-07-14] MEDS: ASPIRIN 81 MG PO SCH (09:22)
[2017-07-14] MEDS: METOPROLOL SUCCINATE (ER) 50 MG TAB.ER.24H PO SCH (09:23)
[2017-07-14] MEDS: AMIODARONE 100 MG TAB PO SCH (09:23)
[2017-07-14] MEDS: AMMONIUM LACTATE 12% CREAM 140 GM TUBE TOPICAL SCH ×2 (09:24→22:07)
[2017-07-14] MEDS: APIXABAN 5 MG TAB PO SCH ×2 (09:24→20:49)
[2017-07-14] MEDS: FUROSEMIDE 10 MG/ML 4 ML VIAL IV SCH ×2 (09:25→20:49)
[2017-07-14 11:58] LABS: Glucose,Whole Blood 110 mg/dL (75-99)
[2017-07-14] MEDS ORDERED: ERGOCALCIFEROL 50,000 UNIT CAP PO SCH (12:00)
[2017-07-14] MEDS: ISOSORBIDE MONONITRATE ER 30 MG TAB.ER.24H PO SCH (13:04)
[2017-07-14] MEDS: SPIRONOLACTONE 25 MG TAB PO SCH (13:06)
[2017-07-14] MEDS: LOSARTAN-HCTZ 50-12.5 MG 1 EACH TAB PO SCH (13:09)
--- NOTE | 2017-07-14 14:02 | P.PN ---
Subjective Progress Note Date: 07/14/17 Maryam Rhodes is a 76-year-old female well known to my practice who presented to [facility] emergency room with a chief complaint of severe shortness of breath. Patient has history of congestive heart failure. No recent hospital admissions no travel history no chest pain. When patient was evaluated by EMS personnel her pulse oximetry was down to 75%. Patient was then placed on CPAP, placed on BiPAP prior and once arrival to emergency room. Patient was James eyes she was given IV Solu-Medrol in the emergency room and was admitted to telemetry floor. Patient was seen and examined on telemetry floor she is alert and oriented 3 she is maintained on oxygen 3 L via nasal cannula, her pulse oximetry is 90%. She is complaining of shortness of breath, she is complaining of cough with sputum production, she denies any chest pain there is no fever or chills no headache no dizziness, no nausea or vomiting no abdominal pain no diarrhea and no urinary symptoms. 07/13/2017 patient is lying in bed comfortably. She is currently on the AIRVO at 45%. Still having rhonchi. Patient did have an oxygen saturation around 75% . She is being treated for COPD and CHF exacerbation. Cardiology was concerned about a possible PE. D-dimer ordered and is within normal range. Patient denies any chest pain. Does report some improvement in her breathing. Denies any nausea or vomiting. Reports having bowel movements. Patient is fully catheter in place with adequate urine output. She is complaining about a sacral ulcer. Will apply zinc oxide to the area. 07/14/2017 patient is still requiring AIRVO 45%. Still having evidence of rhonchi or shortness of breath. Patient denies any chest pain. Denies any nausea or vomiting. Granddaughter at bedside concerned of patient feeling depressed. Patient has been having crying episodes. Granddaughter had to return to the hospital for the patient due to the crying episodes. Patient has had a decrease in her weight since being on the Lasix. Current weight is 76.5 kg. Admitting weight 99.79 kg Objective - Vital Signs Vital signs: Vital Signs Temp 96.9 F L 07/14/17 07:50 Pulse 102 H 07/14/17 11:59 Resp 20 07/14/17 07:50 BP 112/70 07/14/17 07:50 Pulse Ox 98 07/14/17 07:50 Intake & Output 07/13/17 07/14/17 07/14/17 18:59 06:59 18:59 Intake Total 340 240 120 Output Total 500 750 Balance -160 -510 120 Weight 76.5 kg 76.5 kg Intake: Oral 340 240 120 Output: Urine 500 750 Other: Voiding Method Indwelling Catheter Indwelling Catheter # Voids 0 - Exam Head normocephalic Neck supple Lungs rhonchi noted bilaterally Heart regular rate and rhythm S1-S2, no rub or gallop Abdomen is soft nontender nondistended positive bowel sounds no hepatosplenomegaly Extremities +1 edema on the right +2 edema on the left Neuro alert and orientated to 3 - Labs CBC & Chem 7: 07/14/17 06:42 07/14/17 06:42 Labs: Abnormal Lab Results - Last 24 Hours (Table) 07/13/17 07/13/17 07/14/17 Range/Units 16:51 20:54 06:12 WBC (3.8-10.6) k/uL Hgb (11.4-16.0) gm/dL MCHC (31.0-37.0) g/dL Neutrophils # (1.3-7.7) k/uL Chloride (98-107) mmol/L Carbon Dioxide (22-30) mmol/L BUN (7-17) mg/dL Creatinine (0.52-1.04) mg/dL Glucose (74-99) mg/dL POC Glucose (mg/dL) 210 H 256 H 146 H (75-99) mg/dL Total Protein (6.3-8.2) g/dL Albumin (3.5-5.0) g/dL 07/14/17 07/14/17 07/14/17 Range/Units 06:42 06:42 11:41 WBC 12.6 H (3.8-10.6) k/uL Hgb 11.3 L (11.4-16.0) gm/dL MCHC 30.5 L (31.0-37.0) g/dL Neutrophils # 10.8 H (1.3-7.7) k/uL Chloride 96 L (98-107) mmol/L Carbon Dioxide 38 H (22-30) mmol/L BUN 69 H (7-17) mg/dL Creatinine 1.28 H (0.52-1.04) mg/dL Glucose 120 H (74-99) mg/dL POC Glucose (mg/dL) 110 H (75-99) mg/dL Total Protein 5.1 L (6.3-8.2) g/dL Albumin 3.1 L (3.5-5.0) g/dL Microbiology - Last 24 Hours (Table) 07/12/17 22:00 Urine Culture - Final Urine,Catheterized 07/13/17 17:00 Gram Stain - Preliminary Sputum Sputum Culture - Preliminary 07/12/17 12:20 Urine Culture - Final Urine,Catheterized Assessment and Plan Assessment: #1 acute on chronic hypoxic respiratory failure secondary to COPD exacerbation, CHF exacerbation and bronchitis. PE ruled out. d-dimer normal #2 acute exacerbation of systolic congestive heart failure: Continue IV Lasix. Followed by cardiology. Echo shows an EF of 20-25% #3 acute purulent bronchitis: Continue Cleocin. Check sputum culture #4 acute exacerbation of chronic obstructive pulmonary disease #5 sacral pressure ulcer stage I to stage II: Zinc oxide ordered. Continue to rotate patient of the area #6 chronic persistent atrial fibrillation anticoagulated with Eliquis and amiodarone #7 intractable back pain with recent vertebral fracture #8 recent pneumonia #9 underlying history of ischemic cardiomyopathy with previous history of AICD placement #10 underlying history of diabetes mellitus type 2 #11 underlying history of hypertension #12 underlying history of hypothyroidism. #13 generalized anxiety disorder: Patient restarted on her home Valium. #14 depression: Patient will be started on a low dose of Zoloft. This medication is better tolerated with amiodarone compared to other SSRIs. This medication was discussed with pharmacy #15 acute kidney injury: Monitor kidney functions closely while on Lasix. Creatinine is down to 1.28 #16 insomnia will add melatonin GI prophylaxis Protonix and DVT prophylaxis Eliquis I performed an examination of the patient and discussed their management with the physician Head Of Insight. I have reviewed the Physician Head Of Insight's notes and agree with the documented findings and plan of care
--- NOTE | 2017-07-14 14:05 | P.PN ---
Progress Note - Text Progress Note Date: 07/14/17 Family meeting this afternoon with the granddaughter and patient's daughters present. Dr. Levine did discuss patient's overall condition. At this time patient will continue with the full medical management and treatment. We will monitor over this week to see how she tolerates treatment. Zoloft and melatonin will be added to help her sleep and to treat her depression. We will continue to monitor patient's progress. Patient is currently a no code. At this time patient is not a candidate for hospice or comfort care. She'll be monitored closely. If her condition starts to decline or worsen then hospice and comfort care will be readdressed with the family. Family has agreed to this and all of their questions have been answered.
[2017-07-14] MEDS: SERTRALINE 25 MG TAB PO SCH (14:22)
--- NOTE | 2017-07-14 15:30 | P.PN ---
Subjective Progress Note Date: 07/14/17 This is a 76-year-old female with history of ischemic cardiomyopathy and prior IV AICD, chronic persistent atrial fibrillation, COPD, diabetes, hyperlipidemia, prior DVT, systolic congestive heart failure acute on chronic, history of bilateral lower extremity cellulitis, coronary artery disease with prior stent placements, sleep apnea, who presented to the hospital with symptoms of severe shortness of breath and associated productive cough. No fever or chills. No chest discomfort. The patient had been at [facility], currently is at home, most information was obtained from the granddaughter who is at bedside. She apparently has been quite inactive since she was at [facility] , at the time of EMS arrival was documented that her oxygen saturation was in the 70 range. The patient was placed on CPAP, stable on arrival to the emergency room. EKG on arrival here showed intermittent paced rhythm with underlying atrial fibrillation and left bundle branch block pattern. Blood pressure on arrival here 126/70 with a heart rate in the low 100s, 95% on CPAP. White blood cell count is normal, hemoglobin on admission 12.3, 10.9 this morning. Platelet count 285. Sodium 138, potassium 5.1, BUN 61, creatinine 1.4. BNP level 6060, troponin 0.020. Influenza A and B are negative. At the time of my examination this morning, there are multiple family members at bedside, patient is currently on high flow cannula satting 99%. Heart rate continues to be in the 110 range. 07/14/2017 Patient seen and examined this morning, continues to be short of breath, has significant rhonchi throughout. Requiring air low at 45%. Family members are at bedside, quite concerned about the patient's depression. Dr. Levine did have a family meeting today with them, they wish to continue current medical therapy at this time. Patient's weight is down from admission, her creatinine is 1.2 today. She continues to be on IV Lasix which we will continue for another 24 hours. Objective - Vital Signs Vital signs: Vital Signs Temp 96.8 F L 07/14/17 11:45 Pulse 100 07/14/17 15:14 Resp 20 07/14/17 11:45 BP 109/64 07/14/17 11:45 Pulse Ox 99 07/14/17 11:45 Intake & Output 07/13/17 07/14/17 07/14/17 18:59 06:59 18:59 Intake Total 340 240 520 Output Total 500 750 Balance -160 -510 520 Weight 76.5 kg 76.5 kg Intake: Oral 340 240 520 Output: Urine 500 750 Other: Voiding Method Indwelling Catheter Indwelling Catheter # Voids 0 - Exam PHYSICAL EXAMINATION: HEENT: Head is atraumatic, normocephalic. Pupils equal, round. Neck is supple. There is elevated jugular venous pressure. HEART EXAMINATION: Heart S1 and S2 irregularly irregular systolic murmur is heard. CHEST EXAMINATION: On's reveal coarse scattered rhonchi throughout. ABDOMEN: Soft, obese, nontender. Bowel sounds are heard. No organomegaly noted. EXTREMITIES: 2+ peripheral pulses with trace to 1+ evidence of peripheral edema and no calf tenderness noted. NEUROLOGIC patient is awake, alert and oriented -2. . - Labs CBC & Chem 7: 07/14/17 06:42 07/14/17 06:42 Labs: Abnormal Lab Results - Last 24 Hours (Table) 07/13/17 07/13/17 07/14/17 Range/Units 16:51 20:54 06:12 WBC (3.8-10.6) k/uL Hgb (11.4-16.0) gm/dL MCHC (31.0-37.0) g/dL Neutrophils # (1.3-7.7) k/uL Chloride (98-107) mmol/L Carbon Dioxide (22-30) mmol/L BUN (7-17) mg/dL Creatinine (0.52-1.04) mg/dL Glucose (74-99) mg/dL POC Glucose (mg/dL) 210 H 256 H 146 H (75-99) mg/dL Total Protein (6.3-8.2) g/dL Albumin (3.5-5.0) g/dL 07/14/17 07/14/17 07/14/17 Range/Units 06:42 06:42 11:41 WBC 12.6 H (3.8-10.6) k/uL Hgb 11.3 L (11.4-16.0) gm/dL MCHC 30.5 L (31.0-37.0) g/dL Neutrophils # 10.8 H (1.3-7.7) k/uL Chloride 96 L (98-107) mmol/L Carbon Dioxide 38 H (22-30) mmol/L BUN 69 H (7-17) mg/dL Creatinine 1.28 H (0.52-1.04) mg/dL Glucose 120 H (74-99) mg/dL POC Glucose (mg/dL) 110 H (75-99) mg/dL Total Protein 5.1 L (6.3-8.2) g/dL Albumin 3.1 L (3.5-5.0) g/dL Microbiology - Last 24 Hours (Table) 07/12/17 22:00 Urine Culture - Final Urine,Catheterized 07/13/17 17:00 Gram Stain - Preliminary Sputum Sputum Culture - Preliminary 07/12/17 12:20 Urine Culture - Final Urine,Catheterized Assessment and Plan Plan: Assessment and plan #1 hypoxic respiratory failure, likely secondary to COPD exacerbation, mild congestive heart failure systolic acute on chronic and a possible acute tracheobronchitis. #2 chronic persistent atrial fibrillation on Eliquis for anticoagulation #3 ischemic cardio myopathy with prior by V AICD #4 known history of coronary artery disease with prior PCI's #5 diabetes #6 hyperlipidemia #7 hypertension #8 prior DVT #9 history of bilateral lower extremity cellulitis #10 acute on chronic renal insufficiency Plan From cardiology's perspective, we'll continue current dose of IV Lasix for 24 hours, continue to monitor intake and output along with daily weights. DNP note has been reviewed, I agree with a documented findings and plan of care. Patient was seen and examined.
[2017-07-14 16:31] LABS: Glucose,Whole Blood 95 mg/dL (75-99)
[2017-07-14] MEDS: ATORVASTATIN 40 MG TAB PO SCH (20:49)
[2017-07-14] MEDS: LATANOPROST 0.005% OPHTH DROPS 2.5 ML BTL RIGHT EYE SCH (20:50)
[2017-07-14] MEDS: MONTELUKAST 10 MG TAB PO SCH (20:51)
[2017-07-14 21:13] LABS: Glucose,Whole Blood 201 mg/dL (75-99)
[2017-07-14] MEDS: INSULIN DETEMIR 100 UNIT/ML 10 ML VIAL SQ SCH (21:28)
[2017-07-14] MEDS: MELATONIN 5 MG TABLET PO SCH (22:07)
[2017-07-14] MEDS: POLYETHYLENE GLYCOL 3350 17 GM POWD.PACK PO SCH (22:07)
[2017-07-15] MEDS: HYDROcodone/APAP 10-325MG 1 EACH TAB PO PRN (03:51)
[2017-07-15] MEDS: methylPREDNISolone SOD SUCCI 125 MG/2 ML VIAL IV SCH ×4 (06:34→23:45)
[2017-07-15] MEDS: PANTOPRAZOLE 40 MG TABLET PO SCH (06:37)
[2017-07-15] MEDS: LEVOTHYROXINE 50 MCG TAB PO SCH (06:37)
[2017-07-15] MEDS: INSULIN ASPART 100 UNIT/ML 1 ML 10 ML VIAL SQ SCH ×4 (06:41→21:50)
[2017-07-15 06:42] LABS: Glucose,Whole Blood 184 mg/dL (75-99)
[2017-07-15 06:49] LABS: Basophils % (A) 0 %; Eosinophils % (A) 0 %; HCT 36.2 % (34.0-46.0); HGB 11.3 gm/dL (11.4-16.0); Hypochromasia Moderate; Lymphocytes % (A) 11 %; MCH 29.4 pg (25.0-35.0); MCHC 31.4 g/dL (31.0-37.0); MCV 93.9 fL (80.0-100.0); Monocytes # (A) 0.3 k/uL (0-1.0); Monocytes % (A) 3 %; Neutrophils # (A) 8.1 k/uL (1.3-7.7); Neutrophils % (A) 86 %; Platelet Count 268 k/uL (150-450); RBC 3.85 m/uL (3.80-5.40); WBC 9.4 k/uL (3.8-10.6)
[2017-07-15 07:04] LABS: Albumin 2.9 g/dL (3.5-5.0); Calcium 9.2 mg/dL (8.4-10.2); Potassium 4.5 mmol/L (3.5-5.1); Total Bilirubin 0.2 mg/dL (0.2-1.3)
[2017-07-15] MEDS: DIAZEPAM 5 MG TAB PO SCH ×3 (07:49→21:50)
[2017-07-15] MEDS: IPRATROPIUM-ALBUTEROL 3 ML NEB INHALATION SCH ×4 (08:39→19:45)
[2017-07-15] MEDS: BUDESONIDE 0.5 MG/2 ML NEBU INHALATION SCH ×2 (08:39→19:45)
[2017-07-15] MEDS: ISOSORBIDE MONONITRATE ER 30 MG TAB.ER.24H PO SCH (09:29)
[2017-07-15] MEDS: AMIODARONE 100 MG TAB PO SCH (09:29)
[2017-07-15] MEDS: METOPROLOL SUCCINATE (ER) 50 MG TAB.ER.24H PO SCH (09:30)
[2017-07-15] MEDS: guaiFENesin 600 MG TABLET.ER PO SCH ×2 (09:31→21:46)
[2017-07-15] MEDS: FUROSEMIDE 10 MG/ML 4 ML VIAL IV SCH ×2 (09:31→21:46)
[2017-07-15] MEDS: DOCUSATE 100 MG CAP PO SCH ×2 (09:32→21:46)
[2017-07-15] MEDS: APIXABAN 5 MG TAB PO SCH ×2 (09:32→21:45)
[2017-07-15] MEDS: ASPIRIN 81 MG PO SCH (09:32)
[2017-07-15] MEDS: CLINDAMYCIN 150 MG CAP PO SCH ×3 (09:33→21:42)
[2017-07-15] MEDS: SERTRALINE 25 MG TAB PO SCH (09:33)
--- NOTE | 2017-07-15 10:48 | P.PN ---
Subjective Progress Note Date: 07/15/17 Maryam Rhodes is a 76-year-old female well known to my practice who presented to [facility] emergency room with a chief complaint of severe shortness of breath. Patient has history of congestive heart failure. No recent hospital admissions no travel history no chest pain. When patient was evaluated by EMS personnel her pulse oximetry was down to 75%. Patient was then placed on CPAP, placed on BiPAP prior and once arrival to emergency room. Patient was James eyes she was given IV Solu-Medrol in the emergency room and was admitted to telemetry floor. Patient was seen and examined on telemetry floor she is alert and oriented 3 she is maintained on oxygen 3 L via nasal cannula, her pulse oximetry is 90%. She is complaining of shortness of breath, she is complaining of cough with sputum production, she denies any chest pain there is no fever or chills no headache no dizziness, no nausea or vomiting no abdominal pain no diarrhea and no urinary symptoms. 07/13/2017 patient is lying in bed comfortably. She is currently on the AIRVO at 45%. Still having rhonchi. Patient did have an oxygen saturation around 75% . She is being treated for COPD and CHF exacerbation. Cardiology was concerned about a possible PE. D-dimer ordered and is within normal range. Patient denies any chest pain. Does report some improvement in her breathing. Denies any nausea or vomiting. Reports having bowel movements. Patient is fully catheter in place with adequate urine output. She is complaining about a sacral ulcer. Will apply zinc oxide to the area. 07/14/2017 patient is still requiring AIRVO 45%. Still having evidence of rhonchi or shortness of breath. Patient denies any chest pain. Denies any nausea or vomiting. Granddaughter at bedside concerned of patient feeling depressed. Patient has been having crying episodes. Granddaughter had to return to the hospital for the patient due to the crying episodes. Patient has had a decrease in her weight since being on the Lasix. Current weight is 76.5 kg. Admitting weight 99.79 kg On 2017 patient is more alert today she is still maintained on AIRVO 36% , she states she has chest pain when she eats mostly related to gastroesophageal reflux disease, she is still having shortness of breath with any activity, there is no nausea or vomiting no abdominal pain no diarrhea, Vazquez catheter is still in Objective - Vital Signs Vital signs: Vital Signs Temp 96.5 F L 07/15/17 07:50 Pulse 60 07/15/17 08:43 Resp 20 07/15/17 07:50 BP 124/86 07/15/17 07:50 Pulse Ox 100 07/15/17 07:50 Intake & Output 07/14/17 07/15/17 07/15/17 18:59 06:59 18:59 Intake Total 756 200 0 Output Total 1900 Balance 756 -1700 0 Weight 80 kg Intake: Oral 756 200 0 Output: Urine 1900 Other: Voiding Method Indwelling Catheter - Exam HEENT head normocephalic and atraumatic Neck is supple no JVD no goiter Chest exam reveals a few scattered crackles bilaterally no wheezing Cardiac exam reveals regular heart sounds no gallops no murmurs Abdomen is soft nontender no organomegaly, no palpable masses Extremity exam reveals no edema no cyanosis or clubbing - Labs CBC & Chem 7: 07/15/17 06:37 07/15/17 06:37 Labs: Abnormal Lab Results - Last 24 Hours (Table) 07/14/17 07/14/17 07/15/17 Range/Units 11:41 21:12 06:36 Hgb (11.4-16.0) gm/dL Neutrophils # (1.3-7.7) k/uL Chloride (98-107) mmol/L Carbon Dioxide (22-30) mmol/L BUN (7-17) mg/dL Creatinine (0.52-1.04) mg/dL Glucose (74-99) mg/dL POC Glucose (mg/dL) 110 H 201 H 184 H (75-99) mg/dL Total Protein (6.3-8.2) g/dL Albumin (3.5-5.0) g/dL 07/15/17 07/15/17 Range/Units 06:37 06:37 Hgb 11.3 L (11.4-16.0) gm/dL Neutrophils # 8.1 H (1.3-7.7) k/uL Chloride 94 L (98-107) mmol/L Carbon Dioxide 42 H* (22-30) mmol/L BUN 69 H (7-17) mg/dL Creatinine 1.05 H (0.52-1.04) mg/dL Glucose 169 H (74-99) mg/dL POC Glucose (mg/dL) (75-99) mg/dL Total Protein 5.0 L (6.3-8.2) g/dL Albumin 2.9 L (3.5-5.0) g/dL Microbiology - Last 24 Hours (Table) 07/12/17 22:00 Urine Culture - Final Urine,Catheterized Assessment and Plan Plan: #1 acute on chronic hypoxic respiratory failure secondary to COPD exacerbation, CHF exacerbation and bronchitis. PE ruled out. d-dimer normal, maintained on AIRVO 36%, trying to decrease oxygen requirement gradually #2 acute exacerbation of systolic congestive heart failure: Continue IV Lasix. Followed by cardiology. Echo shows an EF of 20-25% #3 acute purulent bronchitis: Continue Cleocin. Check sputum culture #4 acute exacerbation of chronic obstructive pulmonary disease #5 sacral pressure ulcer stage I to stage II: Zinc oxide ordered. Continue to rotate patient of the area #6 chronic persistent atrial fibrillation anticoagulated with Eliquis and amiodarone #7 intractable back pain with recent vertebral fracture #8 recent pneumonia #9 underlying history of ischemic cardiomyopathy with previous history of AICD placement #10 underlying history of diabetes mellitus type 2 #11 underlying history of hypertension #12 underlying history of hypothyroidism. #13 generalized anxiety disorder: Patient restarted on her home Valium. #14 depression: Patient will be started on a low dose of Zoloft. This medication is better tolerated with amiodarone compared to other SSRIs. This medication was discussed with pharmacy #15 acute kidney injury: Monitor kidney functions closely while on Lasix. Creatinine is down to 1.28 #16 insomnia added melatonin yesterday patient did better last night #17 elevated CO2 Diamox 250 mg by mouth twice a day added to regimen
[2017-07-15 11:47] LABS: Glucose,Whole Blood 200 mg/dL (75-99)
[2017-07-15] MEDS: SPIRONOLACTONE 25 MG TAB PO SCH (12:28)
[2017-07-15] MEDS: LOSARTAN-HCTZ 50-12.5 MG 1 EACH TAB PO SCH (12:30)
[2017-07-15] MEDS: acetaZOLAMIDE 250 MG TAB PO SCH ×2 (12:33→21:45)
--- NOTE | 2017-07-15 12:50 | P.PN ---
Subjective Progress Note Date: 07/14/17 (Late entry note) Principal diagnosis: Acute hypoxic respirator failure, acute exacerbation of CHF likely related to acute on chronic systolic heart failure, acute COPD exacerbation, chronic persistent asthma, sleep disorder breathing and sleep apnea, hypertension hypertensive cardiovascular disease, deep venous thrombosis, chronic atrial fibrillation, ischemic cardiomyopathy, chronic renal failure stage III 07/14/2017, patient seen and evaluated examined during the rounds he she remains on airvo 45%, she has refused the BiPAP machine she is being diuresed still have significant shortness of breath, still have dry intermittent cough present tolerating breathing treatments very well however patient remains somewhat anxious 76-year-old morbidly obese female who was seen evaluated examined on selective care patient has been admitted to hospital with 3 day history of progressive increased shortness breath cough congestion and thick purulent sputum production patient was evaluated by EMS and noted to have oxygen saturation of only 75% patient was initially treated with CPAP and eventually placed on BiPAP patient was subsequently arriving the emergency department was treated with IV steroids breathing treatment slightly more awake and alert but still require airvo 45% oxygen, data predominantly obtained from the patient and daughter present bedside, on patient denies hemoptysis denies any chest pain denies any loss of consciousness improves his desire and denies any bowel or bladder dysfunction, patient is a significant history of coronary artery disease and congestive heart failure with history of deep venous thromboses dyslipidemia and prior [place] patient has a chronic bilateral lower extremity cellulitis also has chronic hypoxic respirator failure has been on oxygen-dependent, she has been found to have sleep disordered breathing and sleep apnea was recommended BiPAP at home but couldn't tolerated due to severe claustrophobia Objective - Vital Signs Vital signs: Vital Signs Temp 96.5 F L 07/15/17 07:50 Pulse 64 07/15/17 11:37 Resp 20 07/15/17 07:50 BP 124/86 07/15/17 07:50 Pulse Ox 100 07/15/17 07:50 Intake & Output 07/14/17 07/15/17 07/15/17 18:59 06:59 18:59 Intake Total 756 200 0 Output Total 1900 Balance 756 -1700 0 Weight 80 kg Intake: Oral 756 200 0 Output: Urine 1900 Other: Voiding Method Indwelling Catheter - Exam - Constitutional General appearance: cooperative, disheveled, mild distress, morbidly obese - EENT Eyes: EOMI, PERRLA, normal appearance ENT: hard of hearing Ears: bilateral: normal - Neck Neck: normal ROM Carotids: bilateral: upstroke normal, bruit absent Thyroid: bilateral: normal size - Respiratory Respiratory: bilateral: rales (Bibasilar), rhonchi (Bilateral respiratory and expiratory), wheezing, prolonged expiration - Cardiovascular Heart sounds: normal: S1, S2 - Gastrointestinal General gastrointestinal: normal bowel sounds, soft - Integumentary Integumentary: normal, normal turgor - Neurologic Neurologic: CNII-XII intact - Musculoskeletal Musculoskeletal: gait normal, generalized weakness, strength equal bilaterally - Psychiatric Psychiatric: A&O x's 3, appropriate affect, intact judgment & insight Chronic lower extremity trace edema with his skin changes - Labs CBC & Chem 7: 07/15/17 06:37 07/15/17 06:37 Labs: Abnormal Lab Results - Last 24 Hours (Table) 07/14/17 07/15/17 07/15/17 Range/Units 21:12 06:36 06:37 Hgb 11.3 L (11.4-16.0) gm/dL Neutrophils # 8.1 H (1.3-7.7) k/uL Chloride (98-107) mmol/L Carbon Dioxide (22-30) mmol/L BUN (7-17) mg/dL Creatinine (0.52-1.04) mg/dL Glucose (74-99) mg/dL POC Glucose (mg/dL) 201 H 184 H (75-99) mg/dL Total Protein (6.3-8.2) g/dL Albumin (3.5-5.0) g/dL 07/15/17 07/15/17 Range/Units 06:37 11:27 Hgb (11.4-16.0) gm/dL Neutrophils # (1.3-7.7) k/uL Chloride 94 L (98-107) mmol/L Carbon Dioxide 42 H* (22-30) mmol/L BUN 69 H (7-17) mg/dL Creatinine 1.05 H (0.52-1.04) mg/dL Glucose 169 H (74-99) mg/dL POC Glucose (mg/dL) 200 H (75-99) mg/dL Total Protein 5.0 L (6.3-8.2) g/dL Albumin 2.9 L (3.5-5.0) g/dL Microbiology - Last 24 Hours (Table) 07/12/17 22:00 Urine Culture - Final Urine,Catheterized Assessment and Plan Assessment: Acute hypoxic respirator failure Acute exacerbation of CHF likely acute on chronic diastolic and systolic heart failure COPD exacerbation and acute Chronic persistent asthma Severe morbid obesity and sleep disorder breathing and sleep apnea Hypertension hypertensive cardiovascular disease Prior history of deep venous thrombosis Sacral ulcers stage I to 2 Chronic atrial fibrillation Ischemic cardiomyopathy with history of AICD Chronic renal failure stage III Plan: Continue airvo 45%, titrated as tolerated, as some slow recovery and improvement noted will try supplemental oxygen and see the response of patient Breathing treatment IV steroids and broad-spectrum antibiotics Gentle diuresis Continue home medications Continue deep breathing exercises incentive spirometry We'll follow clinical course closely further recommendations pending plan of care as per clinical response of the patient Time with Patient: Greater than 30
--- NOTE | 2017-07-15 12:54 | P.PN ---
Subjective Progress Note Date: 07/15/17 Principal diagnosis: Acute hypoxic respirator failure, acute exacerbation of CHF likely related to acute on chronic systolic heart failure, acute COPD exacerbation, chronic persistent asthma, sleep disorder breathing and sleep apnea, hypertension hypertensive cardiovascular disease, deep venous thrombosis, chronic atrial fibrillation, ischemic cardiomyopathy, chronic renal failure stage III 07/15/2017, patient seen eval examined during the rounds shortness of breath slightly better patient is being diuresed swelling in the lower extremity has improved crackles has improved as well FiO2 is down to 2 L patient is somewhat more composed today, labs reviewed medications reviewed him a his sputum cultures is positive for polymicrobial organism present we'll wait for final report, continue breathing treatments we will taper down the steroids 07/14/2017, patient seen and evaluated examined during the rounds he she remains on airvo 45%, she has refused the BiPAP machine she is being diuresed still have significant shortness of breath, still have dry intermittent cough present tolerating breathing treatments very well however patient remains somewhat anxious 76-year-old morbidly obese female who was seen evaluated examined on selective care patient has been admitted to hospital with 3 day history of progressive increased shortness breath cough congestion and thick purulent sputum production patient was evaluated by EMS and noted to have oxygen saturation of only 75% patient was initially treated with CPAP and eventually placed on BiPAP patient was subsequently arriving the emergency department was treated with IV steroids breathing treatment slightly more awake and alert but still require airvo 45% oxygen, data predominantly obtained from the patient and daughter present bedside, on patient denies hemoptysis denies any chest pain denies any loss of consciousness improves his desire and denies any bowel or bladder dysfunction, patient is a significant history of coronary artery disease and congestive heart failure with history of deep venous thromboses dyslipidemia and prior [place] patient has a chronic bilateral lower extremity cellulitis also has chronic hypoxic respirator failure has been on oxygen-dependent, she has been found to have sleep disordered breathing and sleep apnea was recommended BiPAP at home but couldn't tolerated due to severe claustrophobia Objective - Vital Signs Vital signs: Vital Signs Temp 96.5 F L 07/15/17 07:50 Pulse 64 07/15/17 11:37 Resp 20 07/15/17 07:50 BP 124/86 07/15/17 07:50 Pulse Ox 100 07/15/17 07:50 Intake & Output 07/14/17 07/15/17 07/15/17 18:59 06:59 18:59 Intake Total 756 200 0 Output Total 1900 Balance 756 -1700 0 Weight 80 kg Intake: Oral 756 200 0 Output: Urine 1900 Other: Voiding Method Indwelling Catheter - Exam - Constitutional General appearance: cooperative, disheveled, mild distress, morbidly obese - EENT Eyes: EOMI, PERRLA, normal appearance ENT: hard of hearing Ears: bilateral: normal - Neck Neck: normal ROM Carotids: bilateral: upstroke normal, bruit absent Thyroid: bilateral: normal size - Respiratory Respiratory: bilateral: rales (Bibasilar), rhonchi (Bilateral respiratory and expiratory), wheezing, prolonged expiration - Cardiovascular Heart sounds: normal: S1, S2 - Gastrointestinal General gastrointestinal: normal bowel sounds, soft - Integumentary Integumentary: normal, normal turgor - Neurologic Neurologic: CNII-XII intact - Musculoskeletal Musculoskeletal: gait normal, generalized weakness, strength equal bilaterally - Psychiatric Psychiatric: A&O x's 3, appropriate affect, intact judgment & insight Chronic lower extremity trace edema with his skin changes - Labs CBC & Chem 7: 07/15/17 06:37 07/15/17 06:37 Labs: Abnormal Lab Results - Last 24 Hours (Table) 07/14/17 07/15/17 07/15/17 Range/Units 21:12 06:36 06:37 Hgb 11.3 L (11.4-16.0) gm/dL Neutrophils # 8.1 H (1.3-7.7) k/uL Chloride (98-107) mmol/L Carbon Dioxide (22-30) mmol/L BUN (7-17) mg/dL Creatinine (0.52-1.04) mg/dL Glucose (74-99) mg/dL POC Glucose (mg/dL) 201 H 184 H (75-99) mg/dL Total Protein (6.3-8.2) g/dL Albumin (3.5-5.0) g/dL 07/15/17 07/15/17 Range/Units 06:37 11:27 Hgb (11.4-16.0) gm/dL Neutrophils # (1.3-7.7) k/uL Chloride 94 L (98-107) mmol/L Carbon Dioxide 42 H* (22-30) mmol/L BUN 69 H (7-17) mg/dL Creatinine 1.05 H (0.52-1.04) mg/dL Glucose 169 H (74-99) mg/dL POC Glucose (mg/dL) 200 H (75-99) mg/dL Total Protein 5.0 L (6.3-8.2) g/dL Albumin 2.9 L (3.5-5.0) g/dL Microbiology - Last 24 Hours (Table) 07/12/17 22:00 Urine Culture - Final Urine,Catheterized Assessment and Plan Assessment: Acute hypoxic respirator failure Acute exacerbation of CHF likely acute on chronic diastolic and systolic heart failure COPD exacerbation and acute Chronic persistent asthma Severe morbid obesity and sleep disorder breathing and sleep apnea Hypertension hypertensive cardiovascular disease Prior history of deep venous thrombosis Sacral ulcers stage I to 2 Chronic atrial fibrillation Ischemic cardiomyopathy with history of AICD Chronic renal failure stage III Plan: Continue O2 2 L nasal cannula, titrated as tolerated, as some slow recovery and improvement noted Breathing treatment IV steroids and broad-spectrum antibiotics I start titrating steroids down Gentle diuresis Continue home medications Continue deep breathing exercises incentive spirometry We'll follow clinical course closely further recommendations pending plan of care as per clinical response of the patient Time with Patient: Greater than 30
--- NOTE | 2017-07-15 15:09 | P.PN ---
Subjective Progress Note Date: 07/15/17 This is a 76-year-old female with history of ischemic cardiomyopathy and prior IV AICD, chronic persistent atrial fibrillation, COPD, diabetes, hyperlipidemia, prior DVT, systolic congestive heart failure acute on chronic, history of bilateral lower extremity cellulitis, coronary artery disease with prior stent placements, sleep apnea, who presented to the hospital with symptoms of severe shortness of breath and associated productive cough. No fever or chills. No chest discomfort. The patient had been at [facility], currently is at home, most information was obtained from the granddaughter who is at bedside. She apparently has been quite inactive since she was at [facility] , at the time of EMS arrival was documented that her oxygen saturation was in the 70 range. The patient was placed on CPAP, stable on arrival to the emergency room. EKG on arrival here showed intermittent paced rhythm with underlying atrial fibrillation and left bundle branch block pattern. Blood pressure on arrival here 126/70 with a heart rate in the low 100s, 95% on CPAP. White blood cell count is normal, hemoglobin on admission 12.3, 10.9 this morning. Platelet count 285. Sodium 138, potassium 5.1, BUN 61, creatinine 1.4. BNP level 6060, troponin 0.020. Influenza A and B are negative. At the time of my examination this morning, there are multiple family members at bedside, patient is currently on high flow cannula satting 99%. Heart rate continues to be in the 110 range. 07/14/2017 Patient seen and examined this morning, continues to be short of breath, has significant rhonchi throughout. Requiring air low at 45%. Family members are at bedside, quite concerned about the patient's depression. Dr. Levine did have a family meeting today with them, they wish to continue current medical therapy at this time. Patient's weight is down from admission, her creatinine is 1.2 today. She continues to be on IV Lasix which we will continue for another 24 hours. 07/15/2017 Patient seen and examined this morning, quite depressed. Family members have been staying at her bedside. She is diuresing well on the IV Lasix, edema seems to be significantly less. We will continue current dose of IV Lasix today. Blood pressure 127/60, 100% on 50 O2 high flow. Objective - Vital Signs Vital signs: Vital Signs Temp 95.8 F L 05/23/18 11:00 Pulse 64 07/15/17 11:37 Resp 20 07/15/17 11:00 BP 127/63 07/15/17 11:00 Pulse Ox 100 07/15/17 11:00 Intake & Output 07/14/17 07/15/17 07/15/17 18:59 06:59 18:59 Intake Total 756 200 0 Output Total 1900 Balance 756 -1700 0 Weight 80 kg Intake: Oral 756 200 0 Output: Urine 1900 Other: Voiding Method Indwelling Catheter # Bowel Movements 1 - Exam PHYSICAL EXAMINATION: HEENT: Head is atraumatic, normocephalic. Pupils equal, round. Neck is supple. There is elevated jugular venous pressure. HEART EXAMINATION: Heart S1 and S2 irregularly irregular systolic murmur is heard. CHEST EXAMINATION: On's reveal coarse scattered rhonchi throughout. ABDOMEN: Soft, obese, nontender. Bowel sounds are heard. No organomegaly noted. EXTREMITIES: 2+ peripheral pulses with trace to 1+ evidence of peripheral edema and no calf tenderness noted. NEUROLOGIC patient is awake, alert and oriented -2. . - Labs CBC & Chem 7: 07/15/17 06:37 07/15/17 06:37 Labs: Abnormal Lab Results - Last 24 Hours (Table) 07/14/17 07/15/17 07/15/17 Range/Units 21:12 06:36 06:37 Hgb 11.3 L (11.4-16.0) gm/dL Neutrophils # 8.1 H (1.3-7.7) k/uL Chloride (98-107) mmol/L Carbon Dioxide (22-30) mmol/L BUN (7-17) mg/dL Creatinine (0.52-1.04) mg/dL Glucose (74-99) mg/dL POC Glucose (mg/dL) 201 H 184 H (75-99) mg/dL Total Protein (6.3-8.2) g/dL Albumin (3.5-5.0) g/dL 07/15/17 07/15/17 Range/Units 06:37 11:27 Hgb (11.4-16.0) gm/dL Neutrophils # (1.3-7.7) k/uL Chloride 94 L (98-107) mmol/L Carbon Dioxide 42 H* (22-30) mmol/L BUN 69 H (7-17) mg/dL Creatinine 1.05 H (0.52-1.04) mg/dL Glucose 169 H (74-99) mg/dL POC Glucose (mg/dL) 200 H (75-99) mg/dL Total Protein 5.0 L (6.3-8.2) g/dL Albumin 2.9 L (3.5-5.0) g/dL Microbiology - Last 24 Hours (Table) 07/13/17 17:00 Gram Stain - Preliminary Sputum Sputum Culture - Preliminary Gram Neg Bacilli 07/12/17 22:00 Urine Culture - Final Urine,Catheterized Assessment and Plan Plan: Assessment and plan #1 hypoxic respiratory failure, likely secondary to COPD exacerbation, mild congestive heart failure systolic acute on chronic and a possible acute tracheobronchitis. #2 chronic persistent atrial fibrillation on Eliquis for anticoagulation #3 ischemic cardio myopathy with prior by V AICD #4 known history of coronary artery disease with prior PCI's #5 diabetes #6 hyperlipidemia #7 hypertension #8 prior DVT #9 history of bilateral lower extremity cellulitis #10 acute on chronic renal insufficiency Plan From cardiology's perspective, we'll continue current dose of IV Lasix for 24 hours, continue to monitor intake and output along with daily weights. DNP note has been reviewed, I agree with a documented findings and plan of care. Patient was seen and examined.
[2017-07-15 16:39] LABS: Glucose,Whole Blood 137 mg/dL (75-99)
[2017-07-15 21:03] LABS: Glucose,Whole Blood 250 mg/dL (75-99)
[2017-07-15] MEDS: POLYETHYLENE GLYCOL 3350 17 GM POWD.PACK PO SCH (21:42)
[2017-07-15] MEDS: MONTELUKAST 10 MG TAB PO SCH (21:42)
[2017-07-15] MEDS: MELATONIN 5 MG TABLET PO SCH (21:42)
[2017-07-15] MEDS: LATANOPROST 0.005% OPHTH DROPS 2.5 ML BTL RIGHT EYE SCH (21:42)
[2017-07-15] MEDS: AMMONIUM LACTATE 12% CREAM 140 GM TUBE TOPICAL SCH (21:46)
[2017-07-15] MEDS: ATORVASTATIN 40 MG TAB PO SCH (21:46)
[2017-07-15] MEDS: INSULIN DETEMIR 100 UNIT/ML 10 ML VIAL SQ SCH (21:51)
[2017-07-16] MEDS: HYDROcodone/APAP 10-325MG 1 EACH TAB PO PRN ×2 (00:42→07:40)
[2017-07-16 06:18] LABS: Glucose,Whole Blood 246 mg/dL (75-99)
[2017-07-16 06:23] LABS: Basophils % (A) 0 %; Eosinophils % (A) 0 %; HCT 41.7 % (34.0-46.0); HGB 12.7 gm/dL (11.4-16.0); Hypochromasia Marked; Lymphocytes # (A) 1.1 k/uL (1.0-4.8); Lymphocytes % (A) 10 %; MCH 28.7 pg (25.0-35.0); MCHC 30.4 g/dL (31.0-37.0); MCV 94.3 fL (80.0-100.0); Monocytes # (A) 0.4 k/uL (0-1.0); Monocytes % (A) 3 %; Neutrophils % (A) 86 %; Platelet Count 333 k/uL (150-450); RBC 4.43 m/uL (3.80-5.40); WBC 11.6 k/uL (3.8-10.6)
[2017-07-16 06:41] LABS: Albumin 3.1 g/dL (3.5-5.0); Calcium 9.7 mg/dL (8.4-10.2); Potassium 4.1 mmol/L (3.5-5.1); Total Bilirubin 0.3 mg/dL (0.2-1.3); Total Protein 5.2 g/dL (6.3-8.2)
[2017-07-16] MEDS: LEVOTHYROXINE 50 MCG TAB PO SCH ×2 (06:49→06:59)
[2017-07-16] MEDS: INSULIN ASPART 100 UNIT/ML 1 ML 10 ML VIAL SQ SCH ×4 (06:49→21:52)
[2017-07-16] MEDS: methylPREDNISolone SOD SUCCI 125 MG/2 ML VIAL IV SCH ×2 (06:50→11:58)
[2017-07-16] MEDS: PANTOPRAZOLE 40 MG TABLET PO SCH ×2 (06:51→06:59)
[2017-07-16] MEDS: ISOSORBIDE MONONITRATE ER 30 MG TAB.ER.24H PO SCH (07:38)
[2017-07-16] MEDS: METOPROLOL SUCCINATE (ER) 50 MG TAB.ER.24H PO SCH (07:38)
[2017-07-16] MEDS: APIXABAN 5 MG TAB PO SCH ×2 (07:38→21:03)
[2017-07-16] MEDS: guaiFENesin 600 MG TABLET.ER PO SCH ×2 (07:38→21:04)
[2017-07-16] MEDS: acetaZOLAMIDE 250 MG TAB PO SCH ×2 (07:39→21:03)
[2017-07-16] MEDS: ASPIRIN 81 MG PO SCH (07:39)
[2017-07-16] MEDS: CLINDAMYCIN 150 MG CAP PO SCH ×3 (07:39→21:05)
[2017-07-16] MEDS: SERTRALINE 25 MG TAB PO SCH (07:39)
[2017-07-16] MEDS: DIAZEPAM 5 MG TAB PO SCH ×3 (07:39→21:04)
[2017-07-16] MEDS: AMIODARONE 100 MG TAB PO SCH (07:39)
[2017-07-16] MEDS: DOCUSATE 100 MG CAP PO SCH ×2 (07:39→21:04)
[2017-07-16] MEDS: FUROSEMIDE 10 MG/ML 4 ML VIAL IV SCH ×2 (07:40→21:04)
[2017-07-16] MEDS: AMMONIUM LACTATE 12% CREAM 140 GM TUBE TOPICAL SCH ×2 (07:40→21:03)
[2017-07-16] MEDS: IPRATROPIUM-ALBUTEROL 3 ML NEB INHALATION SCH ×4 (08:27→20:28)
[2017-07-16] MEDS: BUDESONIDE 0.5 MG/2 ML NEBU INHALATION SCH ×2 (08:27→20:29)
[2017-07-16] MEDS ORDERED: AMIODARONE 100 MG TAB PO STA (09:48)
[2017-07-16] MEDS: MAGNESIUM SULFATE-D5W PMX 1 GM in DEXTROSE/WATER 1 100ML.BAG IVPB SCH ×2 (10:04→12:14)
[2017-07-16 11:51] LABS: Glucose,Whole Blood 120 mg/dL (75-99)
[2017-07-16] MEDS: LOSARTAN-HCTZ 50-12.5 MG 1 EACH TAB PO SCH (12:15)
[2017-07-16] MEDS: SPIRONOLACTONE 25 MG TAB PO SCH (12:15)
--- NOTE | 2017-07-16 12:59 | P.PN ---
Subjective Progress Note Date: 07/16/17 This is a 76-year-old female with history of ischemic cardiomyopathy and prior IV AICD, chronic persistent atrial fibrillation, COPD, diabetes, hyperlipidemia, prior DVT, systolic congestive heart failure acute on chronic, history of bilateral lower extremity cellulitis, coronary artery disease with prior stent placements, sleep apnea, who presented to the hospital with symptoms of severe shortness of breath and associated productive cough. No fever or chills. No chest discomfort. The patient had been at [facility], currently is at home, most information was obtained from the granddaughter who is at bedside. She apparently has been quite inactive since she was at [facility] , at the time of EMS arrival was documented that her oxygen saturation was in the 70 range. The patient was placed on CPAP, stable on arrival to the emergency room. EKG on arrival here showed intermittent paced rhythm with underlying atrial fibrillation and left bundle branch block pattern. Blood pressure on arrival here 126/70 with a heart rate in the low 100s, 95% on CPAP. White blood cell count is normal, hemoglobin on admission 12.3, 10.9 this morning. Platelet count 285. Sodium 138, potassium 5.1, BUN 61, creatinine 1.4. BNP level 6060, troponin 0.020. Influenza A and B are negative. At the time of my examination this morning, there are multiple family members at bedside, patient is currently on high flow cannula satting 99%. Heart rate continues to be in the 110 range. 07/14/2017 Patient seen and examined this morning, continues to be short of breath, has significant rhonchi throughout. Requiring air low at 45%. Family members are at bedside, quite concerned about the patient's depression. Dr. Levine did have a family meeting today with them, they wish to continue current medical therapy at this time. Patient's weight is down from admission, her creatinine is 1.2 today. She continues to be on IV Lasix which we will continue for another 24 hours. 07/15/2017 Patient seen and examined this morning, quite depressed. Family members have been staying at her bedside. She is diuresing well on the IV Lasix, edema seems to be significantly less. We will continue current dose of IV Lasix today. Blood pressure 127/60, 100% on 50 O2 high flow. 07/16/2017 Patient seen and examined this morning, sitting up in the chair today. Significantly better overall. She does have family members at bedside. Weight is down 2 kg today, diuresing well on IV Lasix. BUN 57 today, creatinine 1.0, sodium 143. Magnesium 1.9. Patient is noted on the monitor to have frequent runs of nonsustained ventricular tachycardia. We will give her 2 g of magnesium today and increase the dose amiodarone to 200 mg daily. Continue IV Lasix and repeat chest x-ray in the morning. Objective - Vital Signs Vital signs: Vital Signs Temp 96.9 F L 07/16/17 11:22 Pulse 114 H 07/16/17 11:22 Resp 20 07/16/17 11:23 BP 106/60 07/16/17 11:22 Pulse Ox 100 07/16/17 11:22 Intake & Output 07/15/17 07/16/17 07/16/17 18:59 06:59 18:59 Intake Total 236 300 200 Output Total 1250 1200 Balance -1014 -900 200 Weight 98.7 kg Intake: Intake, IV Titration 200 Amount Magnesium Sulfate-D5w Pmx 200 1 gm In Dextrose/Water 1 100ml.bag @ 100 mls/hr IVPB Q1H [facility]ANNAH Rx#: [id number] Oral 236 300 Output: Urine 1250 1200 Other: Voiding Method Indwelling Catheter Indwelling Catheter # Bowel Movements 1 1 - Exam PHYSICAL EXAMINATION: HEENT: Head is atraumatic, normocephalic. Pupils equal, round. Neck is supple. There is elevated jugular venous pressure. HEART EXAMINATION: Heart S1 and S2 irregularly irregular systolic murmur is heard. CHEST EXAMINATION: On's reveal coarse scattered rhonchi throughout. ABDOMEN: Soft, obese, nontender. Bowel sounds are heard. No organomegaly noted. EXTREMITIES: 2+ peripheral pulses with trace to 1+ evidence of peripheral edema and no calf tenderness noted. NEUROLOGIC patient is awake, alert and oriented -2. . - Labs CBC & Chem 7: 07/16/17 06:04 07/16/17 06:04 Labs: Abnormal Lab Results - Last 24 Hours (Table) 07/15/17 07/15/17 07/16/17 Range/Units 16:30 21:02 06:04 WBC 11.6 H (3.8-10.6) k/uL MCHC 30.4 L (31.0-37.0) g/dL Neutrophils # 10.0 H (1.3-7.7) k/uL Chloride (98-107) mmol/L Carbon Dioxide (22-30) mmol/L BUN (7-17) mg/dL Creatinine (0.52-1.04) mg/dL Glucose (74-99) mg/dL POC Glucose (mg/dL) 137 H 250 H (75-99) mg/dL Total Protein (6.3-8.2) g/dL Albumin (3.5-5.0) g/dL 07/16/17 07/16/17 07/16/17 Range/Units 06:04 06:16 11:31 WBC (3.8-10.6) k/uL MCHC (31.0-37.0) g/dL Neutrophils # (1.3-7.7) k/uL Chloride 91 L (98-107) mmol/L Carbon Dioxide 42 H* (22-30) mmol/L BUN 57 H (7-17) mg/dL Creatinine 1.10 H (0.52-1.04) mg/dL Glucose 151 H (74-99) mg/dL POC Glucose (mg/dL) 246 H 120 H (75-99) mg/dL Total Protein 5.2 L (6.3-8.2) g/dL Albumin 3.1 L (3.5-5.0) g/dL Microbiology - Last 24 Hours (Table) 07/13/17 17:00 Gram Stain - Final Sputum Sputum Culture - Preliminary Gram Neg Bacilli Assessment and Plan Plan: Assessment and plan #1 hypoxic respiratory failure, likely secondary to COPD exacerbation, mild congestive heart failure systolic acute on chronic and a possible acute tracheobronchitis. #2 chronic persistent atrial fibrillation on Eliquis for anticoagulation #3 ischemic cardio myopathy with prior by V AICD #4 known history of coronary artery disease with prior PCI's #5 diabetes #6 hyperlipidemia #7 hypertension #8 prior DVT #9 history of bilateral lower extremity cellulitis #10 acute on chronic renal insufficiency #11 nonsustained ventricular tachycardia Plan From cardiology's perspective, we'll continue current dose of IV Lasix for 24 hours, continue to monitor intake and output along with daily weights. Repeat chest x-ray in the morning. Increase amiodarone to 200 mg daily, replace magnesium. DNP note has been reviewed, I agree with a documented findings and plan of care. Patient was seen and examined.
--- NOTE | 2017-07-16 13:41 | P.PN ---
Subjective Progress Note Date: 07/16/17 Maryam Rhodes is a 76-year-old female well known to my practice who presented to [facility] emergency room with a chief complaint of severe shortness of breath. Patient has history of congestive heart failure. No recent hospital admissions no travel history no chest pain. When patient was evaluated by EMS personnel her pulse oximetry was down to 75%. Patient was then placed on CPAP, placed on BiPAP prior and once arrival to emergency room. Patient was James eyes she was given IV Solu-Medrol in the emergency room and was admitted to telemetry floor. Patient was seen and examined on telemetry floor she is alert and oriented 3 she is maintained on oxygen 3 L via nasal cannula, her pulse oximetry is 90%. She is complaining of shortness of breath, she is complaining of cough with sputum production, she denies any chest pain there is no fever or chills no headache no dizziness, no nausea or vomiting no abdominal pain no diarrhea and no urinary symptoms. 07/13/2017 patient is lying in bed comfortably. She is currently on the AIRVO at 45%. Still having rhonchi. Patient did have an oxygen saturation around 75% . She is being treated for COPD and CHF exacerbation. Cardiology was concerned about a possible PE. D-dimer ordered and is within normal range. Patient denies any chest pain. Does report some improvement in her breathing. Denies any nausea or vomiting. Reports having bowel movements. Patient is fully catheter in place with adequate urine output. She is complaining about a sacral ulcer. Will apply zinc oxide to the area. 07/14/2017 patient is still requiring AIRVO 45%. Still having evidence of rhonchi or shortness of breath. Patient denies any chest pain. Denies any nausea or vomiting. Granddaughter at bedside concerned of patient feeling depressed. Patient has been having crying episodes. Granddaughter had to return to the hospital for the patient due to the crying episodes. Patient has had a decrease in her weight since being on the Lasix. Current weight is 76.5 kg. Admitting weight 99.79 kg 07/16/2017 patient having episodes of nonsustained ventricle tachycardia. Case discussed with cardiology. They've increased her amiodarone from 100-200 mg daily. Also given her magnesium 2 g for a magnesium 1.9. Patient is off of the Airvo and is currently on 2 and half liters of oxygen. She is still having episodes of agitation and confusion during the evening. We'll have nursing staff notify pulmonary service to adjust antibiotics. There may be some underlying steroid psychosis. Patient is sleepy but arousable. She denies any chest pain. Started some shortness of breath and wheezing. Denies any nausea or vomiting. Denies any bowel movement changes or urinary symptoms. Family's questions were answered at bedside Objective - Vital Signs Vital signs: Vital Signs Temp 96.9 F L 07/16/17 11:22 Pulse 114 H 07/16/17 11:22 Resp 20 07/16/17 11:23 BP 106/60 07/16/17 11:22 Pulse Ox 100 07/16/17 11:22 Intake & Output 07/15/17 07/16/17 07/16/17 18:59 06:59 18:59 Intake Total 236 300 200 Output Total 1250 1200 Balance -1014 -900 200 Weight 98.7 kg Intake: Intake, IV Titration 200 Amount Magnesium Sulfate-D5w Pmx 200 1 gm In Dextrose/Water 1 100ml.bag @ 100 mls/hr IVPB Q1H [facility] Rx#: [id number] Oral 236 300 Output: Urine 1250 1200 Other: Voiding Method Indwelling Catheter Indwelling Catheter # Bowel Movements 1 1 - Exam Head normocephalic Neck supple Lungs wheezing bilaterally but improvement in air movement Heart regular rate and rhythm S1-S2, no rub or gallop Abdomen is soft nontender nondistended positive bowel sounds no hepatosplenomegaly Extremities +1 edema on the right +2 edema on the left Neuro alert and orientated to 3 - Labs CBC & Chem 7: 07/16/17 06:04 07/16/17 06:04 Labs: Abnormal Lab Results - Last 24 Hours (Table) 07/15/17 07/15/17 07/16/17 Range/Units 16:30 21:02 06:04 WBC 11.6 H (3.8-10.6) k/uL MCHC 30.4 L (31.0-37.0) g/dL Neutrophils # 10.0 H (1.3-7.7) k/uL Chloride (98-107) mmol/L Carbon Dioxide (22-30) mmol/L BUN (7-17) mg/dL Creatinine (0.52-1.04) mg/dL Glucose (74-99) mg/dL POC Glucose (mg/dL) 137 H 250 H (75-99) mg/dL Total Protein (6.3-8.2) g/dL Albumin (3.5-5.0) g/dL 07/16/17 07/16/17 07/16/17 Range/Units 06:04 06:16 11:31 WBC (3.8-10.6) k/uL MCHC (31.0-37.0) g/dL Neutrophils # (1.3-7.7) k/uL Chloride 91 L (98-107) mmol/L Carbon Dioxide 42 H* (22-30) mmol/L BUN 57 H (7-17) mg/dL Creatinine 1.10 H (0.52-1.04) mg/dL Glucose 151 H (74-99) mg/dL POC Glucose (mg/dL) 246 H 120 H (75-99) mg/dL Total Protein 5.2 L (6.3-8.2) g/dL Albumin 3.1 L (3.5-5.0) g/dL Microbiology - Last 24 Hours (Table) 07/13/17 17:00 Gram Stain - Final Sputum Sputum Culture - Preliminary Gram Neg Bacilli Assessment and Plan Assessment: #1 acute on chronic hypoxic respiratory failure secondary to COPD exacerbation, CHF exacerbation and bronchitis. PE ruled out. d-dimer normal #2 acute exacerbation of systolic congestive heart failure: Continue IV Lasix. Followed by cardiology. Echo shows an EF of 20-25% #3 acute purulent bronchitis: Continue Cleocin. Sputum culture growing gram- negative bacilli continue to monitor #4 acute exacerbation of chronic obstructive pulmonary disease #5 sacral pressure ulcer stage I to stage II: Zinc oxide ordered. Continue to rotate patient of the area #6 chronic persistent atrial fibrillation anticoagulated with Eliquis and amiodarone #7 intractable back pain with recent vertebral fracture #8 recent pneumonia #9 underlying history of ischemic cardiomyopathy with previous history of AICD placement #10 underlying history of diabetes mellitus type 2 #11 underlying history of hypertension #12 underlying history of hypothyroidism. #13 generalized anxiety disorder: Adjust Valium order. Discontinue a.m. Valium dose. Continue with 2.5 mg in the afternoon and 5 mg in the evening #14 depression: Patient will be started on a low dose of Zoloft. This medication is better tolerated with amiodarone compared to other SSRIs. This medication was discussed with pharmacy #15 acute kidney injury: Monitor kidney functions closely while on Lasix. Creatinine is down to 1.10 #16 insomnia continue melatonin #17 episodes of nonsustained ventricular tachycardia: Cardiology is increased the amiodarone to 200 mg daily. Patient is also given magnesium 2 g IV 1. Repeat magnesium level. Case discussed with cardiology #18 possible steroid psychosis: Pulmonary service has decreased the steroids to 40 mg IV every 12 hours. Continue to monitor. Also bedside sitter ordered GI prophylaxis Protonix and DVT prophylaxis Eliquis I performed an examination of the patient and discussed their management with the physician Order Takers Supervisor. I have reviewed the Physician Order Takers Supervisor's notes and agree with the documented findings and plan of care
--- NOTE | 2017-07-16 16:45 | P.PN ---
Subjective Progress Note Date: 07/16/17 Principal diagnosis: Acute hypoxic respirator failure, acute exacerbation of CHF likely related to acute on chronic systolic heart failure, acute COPD exacerbation, chronic persistent asthma, sleep disorder breathing and sleep apnea, hypertension hypertensive cardiovascular disease, deep venous thrombosis, chronic atrial fibrillation, ischemic cardiomyopathy, chronic renal failure stage III 07/16/2017, patient seen eval examined during the rounds clinically patient has been doing slightly better but remains very anxious intermittently agitated a sitter is present at bedside steroid dose of being tapered down, patient has intermittent nonsustained ventricular tachycardia cardiovascular service adjusting amiodarone and being replaced magnesium as well patient is on 2 L oxygen breathing more comfortably no obvious distress present from respiratory standpoint my sputum is positive for gram-negative bacilli, noted patient is on just clindamycin consider adding aztreonam, steroids are already being tapered to twice a day hopefully next 24-48 hours we will DC the steroids, we'll repeat a chest x-ray tomorrow as well 07/15/2017, patient seen eval examined during the rounds shortness of breath slightly better patient is being diuresed swelling in the lower extremity has improved crackles has improved as well FiO2 is down to 2 L patient is somewhat more composed today, labs reviewed medications reviewed him a his sputum cultures is positive for polymicrobial organism present we'll wait for final report, continue breathing treatments we will taper down the steroids 07/14/2017, patient seen and evaluated examined during the rounds he she remains on airvo 45%, she has refused the BiPAP machine she is being diuresed still have significant shortness of breath, still have dry intermittent cough present tolerating breathing treatments very well however patient remains somewhat anxious 76-year-old morbidly obese female who was seen evaluated examined on selective care patient has been admitted to hospital with 3 day history of progressive increased shortness breath cough congestion and thick purulent sputum production patient was evaluated by EMS and noted to have oxygen saturation of only 75% patient was initially treated with CPAP and eventually placed on BiPAP patient was subsequently arriving the emergency department was treated with IV steroids breathing treatment slightly more awake and alert but still require airvo 45% oxygen, data predominantly obtained from the patient and daughter present bedside, on patient denies hemoptysis denies any chest pain denies any loss of consciousness improves his desire and denies any bowel or bladder dysfunction, patient is a significant history of coronary artery disease and congestive heart failure with history of deep venous thromboses dyslipidemia and prior [place] patient has a chronic bilateral lower extremity cellulitis also has chronic hypoxic respirator failure has been on oxygen-dependent, she has been found to have sleep disordered breathing and sleep apnea was recommended BiPAP at home but couldn't tolerated due to severe claustrophobia Objective - Vital Signs Vital signs: Vital Signs Temp 96.9 F L 07/16/17 11:22 Pulse 106 H 07/16/17 15:22 Resp 20 07/16/17 15:22 BP 117/87 07/16/17 15:22 Pulse Ox 98 07/16/17 15:22 Intake & Output 07/15/17 07/16/17 07/16/17 18:59 06:59 18:59 Intake Total 236 300 318 Output Total 1250 1200 Balance -1014 -900 318 Weight 98.7 kg Intake: Intake, IV Titration 200 Amount Magnesium Sulfate-D5w Pmx 200 1 gm In Dextrose/Water 1 100ml.bag @ 100 mls/hr IVPB Q1H [facility] Rx#: [id number] Oral 236 300 118 Output: Urine 1250 1200 Other: Voiding Method Indwelling Catheter Indwelling Catheter # Bowel Movements 1 1 - Exam - Constitutional General appearance: cooperative, disheveled, mild distress, morbidly obese - EENT Eyes: EOMI, PERRLA, normal appearance ENT: hard of hearing Ears: bilateral: normal - Neck Neck: normal ROM Carotids: bilateral: upstroke normal, bruit absent Thyroid: bilateral: normal size - Respiratory Respiratory: bilateral: rales (Bibasilar), rhonchi (Bilateral respiratory and expiratory), wheezing, prolonged expiration - Cardiovascular Heart sounds: normal: S1, S2 - Gastrointestinal General gastrointestinal: normal bowel sounds, soft - Integumentary Integumentary: normal, normal turgor - Neurologic Neurologic: CNII-XII intact - Musculoskeletal Musculoskeletal: gait normal, generalized weakness, strength equal bilaterally - Psychiatric Psychiatric: A&O x's 3, appropriate affect, intact judgment & insight Chronic lower extremity trace edema with his skin changes - Labs CBC & Chem 7: 07/16/17 06:04 07/16/17 06:04 Labs: Abnormal Lab Results - Last 24 Hours (Table) 07/15/17 07/15/17 07/16/17 Range/Units 16:30 21:02 06:04 WBC 11.6 H (3.8-10.6) k/uL MCHC 30.4 L (31.0-37.0) g/dL Neutrophils # 10.0 H (1.3-7.7) k/uL Chloride (98-107) mmol/L Carbon Dioxide (22-30) mmol/L BUN (7-17) mg/dL Creatinine (0.52-1.04) mg/dL Glucose (74-99) mg/dL POC Glucose (mg/dL) 137 H 250 H (75-99) mg/dL Total Protein (6.3-8.2) g/dL Albumin (3.5-5.0) g/dL 07/16/17 07/16/17 07/16/17 Range/Units 06:04 06:16 11:31 WBC (3.8-10.6) k/uL MCHC (31.0-37.0) g/dL Neutrophils # (1.3-7.7) k/uL Chloride 91 L (98-107) mmol/L Carbon Dioxide 42 H* (22-30) mmol/L BUN 57 H (7-17) mg/dL Creatinine 1.10 H (0.52-1.04) mg/dL Glucose 151 H (74-99) mg/dL POC Glucose (mg/dL) 246 H 120 H (75-99) mg/dL Total Protein 5.2 L (6.3-8.2) g/dL Albumin 3.1 L (3.5-5.0) g/dL Microbiology - Last 24 Hours (Table) 07/13/17 17:00 Gram Stain - Final Sputum Sputum Culture - Preliminary Gram Neg Bacilli Assessment and Plan Assessment: Gram-negative pneumonia Acute hypoxic respirator failure Acute exacerbation of CHF likely acute on chronic diastolic and systolic heart failure COPD exacerbation and acute Chronic persistent asthma Severe morbid obesity and sleep disorder breathing and sleep apnea Hypertension hypertensive cardiovascular disease Prior history of deep venous thrombosis Sacral ulcers stage I to 2 Chronic atrial fibrillation Ischemic cardiomyopathy with history of AICD Chronic renal failure stage III Plan: Continue O2 2 L nasal cannula, titrated as tolerated, as some slow recovery and improvement noted Breathing treatment IV steroids and broad-spectrum antibiotics I start titrating steroids down Add aztreonam Gentle diuresis Continue home medications Continue deep breathing exercises incentive spirometry We'll follow clinical course closely further recommendations pending plan of care as per clinical response of the patient Time with Patient: Greater than 30
[2017-07-16 16:51] LABS: Glucose,Whole Blood 160 mg/dL (75-99)
--- NOTE | 2017-07-16 19:07 | XR ---
EXAMINATION TYPE: XR chest 1V portable DATE OF EXAM: 07/16/2017 COMPARISON: 07/12/2017 HISTORY: Follow-up heart failure short of breath TECHNIQUE: Single frontal view of the chest is obtained. FINDINGS: Heart is enlarged. There is no gross heart failure. There is left axillary pacemaker with the lead tips over the right ventricle. There are chest leads. I see no definite pleural effusion. IMPRESSION: Cardiomegaly. No gross heart failure. No significant change compared to last exam. No pu lmonary consolidation.
[2017-07-16] MEDS ORDERED: methylPREDNISolone SOD SUCCI 40 MG/ML 1 ML VIAL IV SCH (21:00)
[2017-07-16] MEDS: ATORVASTATIN 40 MG TAB PO SCH (21:03)
[2017-07-16] MEDS: MELATONIN 5 MG TABLET PO SCH (21:04)
[2017-07-16] MEDS: LATANOPROST 0.005% OPHTH DROPS 2.5 ML BTL RIGHT EYE SCH (21:04)
[2017-07-16] MEDS: POLYETHYLENE GLYCOL 3350 17 GM POWD.PACK PO SCH (21:05)
[2017-07-16] MEDS: MONTELUKAST 10 MG TAB PO SCH (21:05)
[2017-07-16] MEDS: AZTREONAM 1 GM in SODIUM CHLORIDE 0.9% 50 ML IVPB SCH (21:41)
[2017-07-16 21:46] LABS: Glucose,Whole Blood 128 mg/dL (75-99)
[2017-07-16] MEDS: INSULIN DETEMIR 100 UNIT/ML 10 ML VIAL SQ SCH (21:52)
[2017-07-17 06:05] LABS: Basophils % (A) 0 %; Eosinophils % (A) 0 %; HCT 42.3 % (34.0-46.0); HGB 13.2 gm/dL (11.4-16.0); Hypochromasia Moderate; Lymphocytes # (A) 1.4 k/uL (1.0-4.8); Lymphocytes % (A) 12 %; MCHC 31.1 g/dL (31.0-37.0); MCV 93.2 fL (80.0-100.0); Mean Platelet Volume 7.4; Monocytes # (A) 0.5 k/uL (0-1.0); Monocytes % (A) 5 %; Neutrophils # (A) 9.2 k/uL (1.3-7.7); Neutrophils % (A) 82 %; Platelet Count 329 k/uL (150-450); RBC 4.54 m/uL (3.80-5.40); RDW 14.1 % (11.5-15.5); WBC 11.2 k/uL (3.8-10.6)
[2017-07-17 06:16] LABS: Albumin 3.1 g/dL (3.5-5.0); Calcium 9.7 mg/dL (8.4-10.2); Magnesium 2.2 mg/dL (1.6-2.3); Potassium 3.8 mmol/L (3.5-5.1); Total Bilirubin 0.4 mg/dL (0.2-1.3); Total Protein 5.1 g/dL (6.3-8.2)
[2017-07-17] MEDS: PANTOPRAZOLE 40 MG TABLET PO SCH (06:44)
[2017-07-17] MEDS: LEVOTHYROXINE 50 MCG TAB PO SCH (06:44)
[2017-07-17 06:47] LABS: Glucose,Whole Blood 231 mg/dL (75-99)
[2017-07-17] MEDS: INSULIN ASPART 100 UNIT/ML 1 ML 10 ML VIAL SQ SCH ×4 (06:51→21:58)
[2017-07-17] MEDS: BUDESONIDE 0.5 MG/2 ML NEBU INHALATION SCH ×2 (07:28→20:08)
[2017-07-17] MEDS: IPRATROPIUM-ALBUTEROL 3 ML NEB INHALATION SCH ×4 (07:28→20:08)
--- NOTE | 2017-07-17 07:28 | P.PN ---
Subjective Progress Note Date: 07/17/17 Principal diagnosis: Acute hypoxic respirator failure, acute exacerbation of CHF likely related to acute on chronic systolic heart failure, acute COPD exacerbation, chronic persistent asthma, sleep disorder breathing and sleep apnea, hypertension hypertensive cardiovascular disease, deep venous thrombosis, chronic atrial fibrillation, ischemic cardiomyopathy, chronic renal failure stage III 07/17/2017, patient seen eval examined during the rounds patient is more awake now but remains intermittently anxious and agitated she continued to have intermittent run of V. tach, still short of breath and does have audible wheezing, her labs from today reviewed her CO2 continue to go up with stable renal functions rising CO2 indicated above metabolic alkalosis as well as some component of respiratory acidosis, patient has refused BiPAP machine, patient also is a no code as per her advance directive and wishes and does not want to be on respirator 07/16/2017, patient seen eval examined during the rounds clinically patient has been doing slightly better but remains very anxious intermittently agitated a sitter is present at bedside steroid dose of being tapered down, patient has intermittent nonsustained ventricular tachycardia cardiovascular service adjusting amiodarone and being replaced magnesium as well patient is on 2 L oxygen breathing more comfortably no obvious distress present from respiratory standpoint my sputum is positive for gram-negative bacilli, noted patient is on just clindamycin consider adding aztreonam, steroids are already being tapered to twice a day hopefully next 24-48 hours we will DC the steroids, we'll repeat a chest x-ray tomorrow as well 07/15/2017, patient seen eval examined during the rounds shortness of breath slightly better patient is being diuresed swelling in the lower extremity has improved crackles has improved as well FiO2 is down to 2 L patient is somewhat more composed today, labs reviewed medications reviewed him a his sputum cultures is positive for polymicrobial organism present we'll wait for final report, continue breathing treatments we will taper down the steroids 07/14/2017, patient seen and evaluated examined during the rounds he she remains on airvo 45%, she has refused the BiPAP machine she is being diuresed still have significant shortness of breath, still have dry intermittent cough present tolerating breathing treatments very well however patient remains somewhat anxious 76-year-old morbidly obese female who was seen evaluated examined on selective care patient has been admitted to hospital with 3 day history of progressive increased shortness breath cough congestion and thick purulent sputum production patient was evaluated by EMS and noted to have oxygen saturation of only 75% patient was initially treated with CPAP and eventually placed on BiPAP patient was subsequently arriving the emergency department was treated with IV steroids breathing treatment slightly more awake and alert but still require airvo 45% oxygen, data predominantly obtained from the patient and daughter present bedside, on patient denies hemoptysis denies any chest pain denies any loss of consciousness improves his desire and denies any bowel or bladder dysfunction, patient is a significant history of coronary artery disease and congestive heart failure with history of deep venous thromboses dyslipidemia and prior [place] patient has a chronic bilateral lower extremity cellulitis also has chronic hypoxic respirator failure has been on oxygen-dependent, she has been found to have sleep disordered breathing and sleep apnea was recommended BiPAP at home but couldn't tolerated due to severe claustrophobia Objective - Vital Signs Vital signs: Vital Signs Temp 97.4 F L 07/17/17 04:00 Pulse 118 H 07/17/17 04:00 Resp 20 07/17/17 04:00 BP 98/67 07/17/17 04:00 Pulse Ox 96 07/17/17 04:00 Intake & Output 07/16/17 07/17/17 07/17/17 18:59 06:59 18:59 Intake Total 318 350 Output Total 900 Balance 318 -550 Weight 96.8 kg Intake: Intake, IV Titration 200 50 Amount Aztreonam 1 gm In Sodium 50 Chloride 0.9% 50 ml @ 100 mls/hr IVPB Q12HR [facility] Rx #:[id number] Magnesium Sulfate-D5w Pmx 200 1 gm In Dextrose/Water 1 100ml.bag @ 100 mls/hr IVPB Q1H [facility] Rx#: [id number] Oral 118 300 Output: Urine 900 Other: Voiding Method Indwelling Catheter Indwelling Catheter - Exam - Constitutional General appearance: cooperative, disheveled, mild distress, morbidly obese, continued to be agitated and intermittently anxious and restless - EENT Eyes: EOMI, PERRLA, normal appearance ENT: hard of hearing Ears: bilateral: normal - Neck Neck: normal ROM Carotids: bilateral: upstroke normal, bruit absent Thyroid: bilateral: normal size - Respiratory Respiratory: bilateral: rales (Bibasilar), rhonchi (Bilateral respiratory and expiratory), wheezing, prolonged expiration, severity has improved however compared to prior exam - Cardiovascular Heart sounds: normal: S1, S2 - Gastrointestinal General gastrointestinal: normal bowel sounds, soft - Integumentary Integumentary: normal, normal turgor - Neurologic Neurologic: CNII-XII intact - Musculoskeletal Musculoskeletal: gait normal, generalized weakness, strength equal bilaterally - Psychiatric Psychiatric: A&O x's 2, appropriate affect, appears to have intermittent intact judgment & insight Chronic lower extremity trace edema with his skin changes - Labs CBC & Chem 7: 07/17/17 05:33 07/17/17 05:33 Labs: Abnormal Lab Results - Last 24 Hours (Table) 07/16/17 07/16/17 07/16/17 Range/Units 11:31 16:45 21:44 WBC (3.8-10.6) k/uL Neutrophils # (1.3-7.7) k/uL Chloride (98-107) mmol/L Carbon Dioxide (22-30) mmol/L BUN (7-17) mg/dL Creatinine (0.52-1.04) mg/dL Glucose (74-99) mg/dL POC Glucose (mg/dL) 120 H 160 H 128 H (75-99) mg/dL Total Protein (6.3-8.2) g/dL Albumin (3.5-5.0) g/dL 07/17/17 07/17/17 07/17/17 Range/Units 05:33 05:33 06:37 WBC 11.2 H (3.8-10.6) k/uL Neutrophils # 9.2 H (1.3-7.7) k/uL Chloride 88 L (98-107) mmol/L Carbon Dioxide 44 H* (22-30) mmol/L BUN 52 H (7-17) mg/dL Creatinine 1.10 H (0.52-1.04) mg/dL Glucose 202 H (74-99) mg/dL POC Glucose (mg/dL) 231 H (75-99) mg/dL Total Protein 5.1 L (6.3-8.2) g/dL Albumin 3.1 L (3.5-5.0) g/dL Microbiology - Last 24 Hours (Table) 07/13/17 17:00 Gram Stain - Final Sputum Sputum Culture - Preliminary Gram Neg Bacilli Assessment and Plan Assessment: Gram-negative pneumonia Acute hypoxic and hypercapnic respirator failure Acute exacerbation of CHF likely acute on chronic diastolic and systolic heart failure COPD exacerbation and acute Chronic persistent asthma Severe morbid obesity and sleep disorder breathing and sleep apnea Hypertension hypertensive cardiovascular disease Prior history of deep venous thrombosis Sacral ulcers stage I to 2 Chronic atrial fibrillation Ischemic cardiomyopathy with history of AICD Chronic renal failure stage III Intermittent episodes of severe degree or restlessness, anxiety and a prehension Plan: Continue O2 2 L nasal cannula, titrated as tolerated, as some slow recovery and improvement noted Breathing treatment IV steroids I start titrating steroids, we'll lower it to once daily continue broad-spectrum antibiotics continue aztreonam Gentle diuresis Continue home medications Continue deep breathing exercises incentive spirometry We'll follow clinical course closely further recommendations pending plan of care as per clinical response of the patient Patient is a no code as per advanced active and her wishes, overall prognosis is poor with poor likelihood of recovery Time with Patient: Greater than 30
[2017-07-17] MEDS: CLINDAMYCIN 150 MG CAP PO SCH ×3 (08:47→21:58)
[2017-07-17] MEDS: SERTRALINE 25 MG TAB PO SCH (08:47)
[2017-07-17] MEDS: METOPROLOL SUCCINATE (ER) 50 MG TAB.ER.24H PO SCH (08:47)
[2017-07-17] MEDS: guaiFENesin 600 MG TABLET.ER PO SCH ×2 (08:47→21:57)
[2017-07-17] MEDS: FUROSEMIDE 10 MG/ML 4 ML VIAL IV SCH (08:48)
[2017-07-17] MEDS: DOCUSATE 100 MG CAP PO SCH ×2 (08:48→21:57)
[2017-07-17] MEDS: ASPIRIN 81 MG PO SCH (08:48)
[2017-07-17] MEDS: AZTREONAM 1 GM in SODIUM CHLORIDE 0.9% 50 ML IVPB SCH ×2 (08:48→21:57)
[2017-07-17] MEDS: AMMONIUM LACTATE 12% CREAM 140 GM TUBE TOPICAL SCH ×2 (08:49→21:57)
[2017-07-17] MEDS: acetaZOLAMIDE 250 MG TAB PO SCH ×2 (08:49→21:57)
[2017-07-17] MEDS: ISOSORBIDE MONONITRATE ER 30 MG TAB.ER.24H PO SCH (08:50)
[2017-07-17] MEDS: APIXABAN 5 MG TAB PO SCH ×2 (08:50→21:57)
[2017-07-17 11:58] LABS: Glucose,Whole Blood 141 mg/dL (75-99)
[2017-07-17] MEDS: methylPREDNISolone SOD SUCCI 40 MG/ML 1 ML VIAL IV SCH (11:59)
[2017-07-17] MEDS: AMIODARONE 200 MG TAB PO SCH (11:59)
--- NOTE | 2017-07-17 13:19 | P.PN ---
Subjective Progress Note Date: 07/17/17 This is a 76-year-old female with history of ischemic cardiomyopathy and prior IV AICD, chronic persistent atrial fibrillation, COPD, diabetes, hyperlipidemia, prior DVT, systolic congestive heart failure acute on chronic, history of bilateral lower extremity cellulitis, coronary artery disease with prior stent placements, sleep apnea, who presented to the hospital with symptoms of severe shortness of breath and associated productive cough. No fever or chills. No chest discomfort. The patient had been at [facility], currently is at home, most information was obtained from the granddaughter who is at bedside. She apparently has been quite inactive since she was at [facility] , at the time of EMS arrival was documented that her oxygen saturation was in the 70 range. The patient was placed on CPAP, stable on arrival to the emergency room. EKG on arrival here showed intermittent paced rhythm with underlying atrial fibrillation and left bundle branch block pattern. Blood pressure on arrival here 126/70 with a heart rate in the low 100s, 95% on CPAP. White blood cell count is normal, hemoglobin on admission 12.3, 10.9 this morning. Platelet count 285. Sodium 138, potassium 5.1, BUN 61, creatinine 1.4. BNP level 6060, troponin 0.020. Influenza A and B are negative. At the time of my examination this morning, there are multiple family members at bedside, patient is currently on high flow cannula satting 99%. Heart rate continues to be in the 110 range. 07/14/2017 Patient seen and examined this morning, continues to be short of breath, has significant rhonchi throughout. Requiring air low at 45%. Family members are at bedside, quite concerned about the patient's depression. Dr. Levine did have a family meeting today with them, they wish to continue current medical therapy at this time. Patient's weight is down from admission, her creatinine is 1.2 today. She continues to be on IV Lasix which we will continue for another 24 hours. 07/15/2017 Patient seen and examined this morning, quite depressed. Family members have been staying at her bedside. She is diuresing well on the IV Lasix, edema seems to be significantly less. We will continue current dose of IV Lasix today. Blood pressure 127/60, 100% on 50 O2 high flow. 07/16/2017 Patient seen and examined this morning, sitting up in the chair today. Significantly better overall. She does have family members at bedside. Weight is down 2 kg today, diuresing well on IV Lasix. BUN 57 today, creatinine 1.0, sodium 143. Magnesium 1.9. Patient is noted on the monitor to have frequent runs of nonsustained ventricular tachycardia. We will give her 2 g of magnesium today and increase the dose amiodarone to 200 mg daily. Continue IV Lasix and repeat chest x-ray in the morning. 07/17/2017 Patient was seen and examined this morning sitting up in the chair at bedside. Spitting out her pills today. She is still having some short runs of nonsustained ventricular tachycardia, however she is not taking any of her pills either her weight today is down 2 kg, we'll discontinue the IV Lasix and change her to oral diuretics today. Objective - Vital Signs Vital signs: Vital Signs Temp 97 F L 07/17/17 08:00 Pulse 121 H 07/17/17 12:00 Resp 16 07/17/17 12:00 BP 116/69 07/17/17 12:00 Pulse Ox 95 07/17/17 12:00 Intake & Output 07/16/17 07/17/17 07/17/17 18:59 06:59 18:59 Intake Total 318 350 Output Total 900 Balance 318 -550 Weight 96.8 kg Intake: Intake, IV Titration 200 50 Amount Aztreonam 1 gm In Sodium 50 Chloride 0.9% 50 ml @ 100 mls/hr IVPB Q12HR [facility] Rx #:[id number] Magnesium Sulfate-D5w Pmx 200 1 gm In Dextrose/Water 1 100ml.bag @ 100 mls/hr IVPB Q1H [facility] Rx#: [id number] Oral 118 300 Output: Urine 900 Other: Voiding Method Indwelling Catheter Indwelling Catheter Indwelling Catheter - Exam PHYSICAL EXAMINATION: HEENT: Head is atraumatic, normocephalic. Pupils equal, round. Neck is supple. There is elevated jugular venous pressure. HEART EXAMINATION: Heart S1 and S2 irregularly irregular systolic murmur is heard. CHEST EXAMINATION: On's reveal coarse scattered rhonchi throughout. ABDOMEN: Soft, obese, nontender. Bowel sounds are heard. No organomegaly noted. EXTREMITIES: 2+ peripheral pulses with trace to 1+ evidence of peripheral edema and no calf tenderness noted. NEUROLOGIC patient is awake, alert and oriented -2. . - Labs CBC & Chem 7: 07/17/17 05:33 07/17/17 05:33 Labs: Abnormal Lab Results - Last 24 Hours (Table) 07/16/17 07/16/17 07/17/17 Range/Units 16:45 21:44 05:33 WBC 11.2 H (3.8-10.6) k/uL Neutrophils # 9.2 H (1.3-7.7) k/uL Chloride (98-107) mmol/L Carbon Dioxide (22-30) mmol/L BUN (7-17) mg/dL Creatinine (0.52-1.04) mg/dL Glucose (74-99) mg/dL POC Glucose (mg/dL) 160 H 128 H (75-99) mg/dL Total Protein (6.3-8.2) g/dL Albumin (3.5-5.0) g/dL 07/17/17 07/17/17 07/17/17 Range/Units 05:33 06:37 11:56 WBC (3.8-10.6) k/uL Neutrophils # (1.3-7.7) k/uL Chloride 88 L (98-107) mmol/L Carbon Dioxide 44 H* (22-30) mmol/L BUN 52 H (7-17) mg/dL Creatinine 1.10 H (0.52-1.04) mg/dL Glucose 202 H (74-99) mg/dL POC Glucose (mg/dL) 231 H 141 H (75-99) mg/dL Total Protein 5.1 L (6.3-8.2) g/dL Albumin 3.1 L (3.5-5.0) g/dL Microbiology - Last 24 Hours (Table) 07/13/17 17:00 Gram Stain - Final Sputum Sputum Culture - Preliminary Gram Neg Bacilli Assessment and Plan Plan: Assessment and plan #1 hypoxic respiratory failure, likely secondary to COPD exacerbation, mild congestive heart failure systolic acute on chronic and a possible acute tracheobronchitis. #2 chronic persistent atrial fibrillation on Eliquis for anticoagulation #3 ischemic cardio myopathy with prior by V AICD #4 known history of coronary artery disease with prior PCI's #5 diabetes #6 hyperlipidemia #7 hypertension #8 prior DVT #9 history of bilateral lower extremity cellulitis #10 acute on chronic renal insufficiency #11 nonsustained ventricular tachycardia Plan From cardiology's perspective, patient may be transferred to rehab for ECF once cleared by primary. We will make her a follow-up appointment in the office post discharge. DNP note has been reviewed, I agree with a documented findings and plan of care. Patient was seen and examined.
[2017-07-17 13:37] VITALS: BMI 40.3
--- NOTE | 2017-07-17 13:56 | P.PN ---
Subjective Progress Note Date: 07/17/17 Patient is lethargic and hardly arousable today. She was more awake this morning. Her sitter. Objective - Vital Signs Vital signs: Vital Signs Temp 97 F L 07/17/17 08:00 Pulse 121 H 07/17/17 12:00 Resp 16 07/17/17 12:00 BP 116/69 07/17/17 12:00 Pulse Ox 95 07/17/17 12:00 Intake & Output 07/16/17 07/17/17 07/17/17 18:59 06:59 18:59 Intake Total 318 350 Output Total 900 Balance 318 -550 Weight 96.8 kg 96.8 kg Intake: Intake, IV Titration 200 50 Amount Aztreonam 1 gm In Sodium 50 Chloride 0.9% 50 ml @ 100 mls/hr IVPB Q12HR [facility] Rx #:[id number] Magnesium Sulfate-D5w Pmx 200 1 gm In Dextrose/Water 1 100ml.bag @ 100 mls/hr IVPB Q1H [facility] Rx#: [id number] Oral 118 300 Output: Urine 900 Other: Voiding Method Indwelling Catheter Indwelling Catheter Indwelling Catheter - Exam General: The patient is lethargic and hardly arousable Eye: there is normal conjunctiva bilaterally. Neck: The neck is supple, there is no JVD. Cardiovascular: Normal S1-S2, no S3-S4, no murmurs. Respiratory: Lungs clear to auscultation bilaterally Gastrointestinal: Abdomen is soft, nontender Musculoskeletal: There is +1 pedal edema. . Skin: Skin is warm and dry - Labs CBC & Chem 7: 07/17/17 05:33 07/17/17 05:33 Labs: Abnormal Lab Results - Last 24 Hours (Table) 07/16/17 07/16/17 07/17/17 Range/Units 16:45 21:44 05:33 WBC 11.2 H (3.8-10.6) k/uL Neutrophils # 9.2 H (1.3-7.7) k/uL Chloride (98-107) mmol/L Carbon Dioxide (22-30) mmol/L BUN (7-17) mg/dL Creatinine (0.52-1.04) mg/dL Glucose (74-99) mg/dL POC Glucose (mg/dL) 160 H 128 H (75-99) mg/dL Total Protein (6.3-8.2) g/dL Albumin (3.5-5.0) g/dL 07/17/17 07/17/17 07/17/17 Range/Units 05:33 06:37 11:56 WBC (3.8-10.6) k/uL Neutrophils # (1.3-7.7) k/uL Chloride 88 L (98-107) mmol/L Carbon Dioxide 44 H* (22-30) mmol/L BUN 52 H (7-17) mg/dL Creatinine 1.10 H (0.52-1.04) mg/dL Glucose 202 H (74-99) mg/dL POC Glucose (mg/dL) 231 H 141 H (75-99) mg/dL Total Protein 5.1 L (6.3-8.2) g/dL Albumin 3.1 L (3.5-5.0) g/dL Microbiology - Last 24 Hours (Table) 07/13/17 17:00 Gram Stain - Final Sputum Sputum Culture - Preliminary Gram Neg Bacilli Assessment and Plan Assessment: #1 acute on chronic hypoxic respiratory failure secondary to COPD exacerbation, CHF exacerbation and bronchitis. PE ruled out. d-dimer normal #2 acute exacerbation of systolic congestive heart failure: Continue Lasix. Followed by cardiology. Echo shows an EF of 20-25% #3 acute purulent bronchitis: Now on Cleocin and aztreonam. Will finish 7 days course of antibiotic. #4 acute exacerbation of chronic obstructive pulmonary disease #5 sacral pressure ulcer stage I to stage II: Zinc oxide ordered. Continue to rotate patient of the area #6 chronic persistent atrial fibrillation anticoagulated with Eliquis and amiodarone #7 intractable back pain with recent vertebral fracture #8 recent pneumonia #9 Ischemic cardiomyopathy with previous history of AICD placement #10 Diabetes mellitus type 2 #11 underlying history of hypertension #12 Hypothyroidism. #13 generalized anxiety disorder: on Valium 2.5 mg in the afternoon and 5 mg in the evening #14 depression: Patient will be started on a low dose of Zoloft. This medication is better tolerated with amiodarone compared to other SSRIs. This medication was discussed with pharmacy #15 acute kidney injury: Monitor kidney functions closely while on Lasix. #16 insomnia continue melatonin #17 episodes of nonsustained ventricular tachycardia: Cardiology increased the amiodarone to 200 mg daily. #18 possible steroid psychosis: Pulmonary service has decreased the steroids to 40 mg IV daily. Continue to monitor. GI prophylaxis Protonix and DVT prophylaxis Eliquis
[2017-07-17] MEDS: HYDROcodone/APAP 10-325MG 1 EACH TAB PO PRN ×2 (14:41→21:43)
[2017-07-17] MEDS: FUROSEMIDE 20 MG TAB PO SCH (14:41)
[2017-07-17] MEDS: LOSARTAN-HCTZ 50-12.5 MG 1 EACH TAB PO SCH (14:41)
[2017-07-17] MEDS: DIAZEPAM 5 MG TAB PO SCH ×2 (15:27→21:43)
[2017-07-17] MEDS: SPIRONOLACTONE 25 MG TAB PO SCH (15:27)
[2017-07-17 17:02] LABS: Glucose,Whole Blood 233 mg/dL (75-99)
[2017-07-17 20:31] LABS: Glucose,Whole Blood 142 mg/dL (75-99)
[2017-07-17] MEDS: ATORVASTATIN 40 MG TAB PO SCH (21:57)
[2017-07-17] MEDS: LATANOPROST 0.005% OPHTH DROPS 2.5 ML BTL RIGHT EYE SCH (21:58)
[2017-07-17] MEDS: MONTELUKAST 10 MG TAB PO SCH (21:58)
[2017-07-17] MEDS: POLYETHYLENE GLYCOL 3350 17 GM POWD.PACK PO SCH (21:58)
[2017-07-17] MEDS: INSULIN DETEMIR 100 UNIT/ML 10 ML VIAL SQ SCH (21:58)
[2017-07-17] MEDS: MELATONIN 5 MG TABLET PO SCH (21:58)
[2017-07-17] MEDS: MORPHINE SULFATE 4 MG/ML SYRINGE IVP PRN (22:03)
[2017-07-18] MEDS: MORPHINE SULFATE 4 MG/ML SYRINGE IVP PRN ×4 (03:33→21:35)
[2017-07-18] MEDS: HYDROcodone/APAP 10-325MG 1 EACH TAB PO PRN ×2 (05:23→20:30)
[2017-07-18] MEDS: LEVOTHYROXINE 50 MCG TAB PO SCH (06:21)
[2017-07-18] MEDS: PANTOPRAZOLE 40 MG TABLET PO SCH (06:21)
[2017-07-18] MEDS: INSULIN ASPART 100 UNIT/ML 1 ML 10 ML VIAL SQ SCH ×4 (06:22→20:34)
[2017-07-18] MEDS: IPRATROPIUM-ALBUTEROL 3 ML NEB INHALATION SCH ×5 (08:12→20:06)
[2017-07-18] MEDS: BUDESONIDE 0.5 MG/2 ML NEBU INHALATION SCH ×2 (08:12→20:06)
[2017-07-18] MEDS: acetaZOLAMIDE 250 MG TAB PO SCH (10:14)
[2017-07-18] MEDS: ASPIRIN 81 MG PO SCH (10:14)
[2017-07-18] MEDS: CLINDAMYCIN 150 MG CAP PO SCH (10:15)
[2017-07-18] MEDS: APIXABAN 5 MG TAB PO SCH (10:15)
[2017-07-18] MEDS: AMMONIUM LACTATE 12% CREAM 140 GM TUBE TOPICAL SCH ×2 (10:15→20:33)
[2017-07-18] MEDS: AMIODARONE 200 MG TAB PO SCH (10:15)
[2017-07-18] MEDS: FUROSEMIDE 20 MG TAB PO SCH (10:16)
[2017-07-18] MEDS: DOCUSATE 100 MG CAP PO SCH ×2 (10:16→20:33)
[2017-07-18] MEDS: methylPREDNISolone SOD SUCCI 40 MG/ML 1 ML VIAL IV SCH (10:17)
[2017-07-18] MEDS: ISOSORBIDE MONONITRATE ER 30 MG TAB.ER.24H PO SCH (10:17)
[2017-07-18] MEDS: guaiFENesin 600 MG TABLET.ER PO SCH (10:17)
[2017-07-18] MEDS: METOPROLOL SUCCINATE (ER) 50 MG TAB.ER.24H PO SCH (10:18)
[2017-07-18] MEDS: SERTRALINE 25 MG TAB PO SCH (10:18)
[2017-07-18] MEDS: AZTREONAM 1 GM in SODIUM CHLORIDE 0.9% 50 ML IVPB SCH (11:32)
[2017-07-18] MEDS: LOSARTAN-HCTZ 50-12.5 MG 1 EACH TAB PO SCH (11:34)
[2017-07-18] MEDS: SPIRONOLACTONE 25 MG TAB PO SCH (11:34)
[2017-07-18] MEDS: DIAZEPAM 5 MG TAB PO SCH ×2 (12:14→20:33)
--- NOTE | 2017-07-18 14:00 | P.PN ---
Subjective Patient is comfortable today. Granddaughter at bedside. Objective - Vital Signs Vital signs: Vital Signs Temp 97.5 F L 07/18/17 07:50 Pulse 109 H 07/18/17 12:05 Resp 18 07/18/17 12:00 BP 98/41 07/18/17 07:50 Pulse Ox 94 L 07/18/17 07:50 Intake & Output 07/17/17 07/18/17 07/18/17 18:59 06:59 18:59 Intake Total 120 10 118 Output Total 800 500 Balance -680 -490 118 Weight 96.8 kg 64 kg Intake: IV 10 0.9 10 Intake, IV Titration 0 Amount Aztreonam 1 gm In Sodium 0 Chloride 0.9% 50 ml @ 100 mls/hr IVPB Q12HR [facility] Rx #:[id number] Oral 120 118 Output: Urine 800 500 Other: Voiding Method Indwelling Catheter Indwelling Catheter Indwelling Catheter - Exam General: The patient is awake and comfortable Eye: there is normal conjunctiva bilaterally. Neck: The neck is supple, there is no JVD. Cardiovascular: Normal S1-S2, no S3-S4, no murmurs. Respiratory: Lungs clear to auscultation bilaterally Gastrointestinal: Abdomen is soft, nontender Musculoskeletal: There is +1 pedal edema. . Skin: Skin is warm and dry - Labs CBC & Chem 7: 07/17/17 05:33 07/17/17 05:33 Labs: Abnormal Lab Results - Last 24 Hours (Table) 07/17/17 07/17/17 Range/Units 16:41 20:28 POC Glucose (mg/dL) 233 H 142 H (75-99) mg/dL Assessment and Plan Assessment: I had a long discussion with her granddaughter at bedside and her other granddaughter who is her legal guardian over the phone. They are interested to pursue comfort measures/hospice care. Consultation for hospice was requested. Awaiting clarification for placement for possible hospice house versus local assisted facility in hospice. Discontinue unnecessary medications. Below is evidence of her medical problems addressed during this hospitalization #1 acute on chronic hypoxic respiratory failure secondary to COPD exacerbation, CHF exacerbation and bronchitis. #2 acute exacerbation of systolic congestive heart failure #3 acute purulent bronchitis #4 acute exacerbation of chronic obstructive pulmonary disease #5 sacral pressure ulcer stage I to stage II #6 chronic persistent atrial fibrillation #7 intractable back pain with recent vertebral fracture #8 recent pneumonia #9 Ischemic cardiomyopathy with previous history of AICD placement #10 Diabetes mellitus type 2 #11 underlying history of hypertension #12 Hypothyroidism.
--- NOTE | 2017-07-18 15:09 | P.PN ---
Subjective Progress Note Date: 07/18/17 Principal diagnosis: Acute hypoxic respirator failure, acute exacerbation of CHF likely related to acute on chronic systolic heart failure, acute COPD exacerbation, chronic persistent asthma, sleep disorder breathing and sleep apnea, hypertension hypertensive cardiovascular disease, deep venous thrombosis, chronic atrial fibrillation, ischemic cardiomyopathy, chronic renal failure stage III 07/18/2017, patient seen eval examined during the rounds she is sitting upright on the chair family is present the rounds she is more awake and alert she's more composed less anxious and agitated, patient remains on breathing treatment , being observed off of steroids as well as benzodiazepine, family is seeking hospice evaluation 07/17/2017, patient seen eval examined during the rounds patient is more awake now but remains intermittently anxious and agitated she continued to have intermittent run of V. tach, still short of breath and does have audible wheezing, her labs from today reviewed her CO2 continue to go up with stable renal functions rising CO2 indicated above metabolic alkalosis as well as some component of respiratory acidosis, patient has refused BiPAP machine, patient also is a no code as per her advance directive and wishes and does not want to be on respirator 07/16/2017, patient seen eval examined during the rounds clinically patient has been doing slightly better but remains very anxious intermittently agitated a sitter is present at bedside steroid dose of being tapered down, patient has intermittent nonsustained ventricular tachycardia cardiovascular service adjusting amiodarone and being replaced magnesium as well patient is on 2 L oxygen breathing more comfortably no obvious distress present from respiratory standpoint my sputum is positive for gram-negative bacilli, noted patient is on just clindamycin consider adding aztreonam, steroids are already being tapered to twice a day hopefully next 24-48 hours we will DC the steroids, we'll repeat a chest x-ray tomorrow as well 07/15/2017, patient seen eval examined during the rounds shortness of breath slightly better patient is being diuresed swelling in the lower extremity has improved crackles has improved as well FiO2 is down to 2 L patient is somewhat more composed today, labs reviewed medications reviewed him a his sputum cultures is positive for polymicrobial organism present we'll wait for final report, continue breathing treatments we will taper down the steroids 07/14/2017, patient seen and evaluated examined during the rounds he she remains on airvo 45%, she has refused the BiPAP machine she is being diuresed still have significant shortness of breath, still have dry intermittent cough present tolerating breathing treatments very well however patient remains somewhat anxious 76-year-old morbidly obese female who was seen evaluated examined on selective care patient has been admitted to hospital with 3 day history of progressive increased shortness breath cough congestion and thick purulent sputum production patient was evaluated by EMS and noted to have oxygen saturation of only 75% patient was initially treated with CPAP and eventually placed on BiPAP patient was subsequently arriving the emergency department was treated with IV steroids breathing treatment slightly more awake and alert but still require airvo 45% oxygen, data predominantly obtained from the patient and daughter present bedside, on patient denies hemoptysis denies any chest pain denies any loss of consciousness improves his desire and denies any bowel or bladder dysfunction, patient is a significant history of coronary artery disease and congestive heart failure with history of deep venous thromboses dyslipidemia and prior [place] patient has a chronic bilateral lower extremity cellulitis also has chronic hypoxic respirator failure has been on oxygen-dependent, she has been found to have sleep disordered breathing and sleep apnea was recommended BiPAP at home but couldn't tolerated due to severe claustrophobia Objective - Vital Signs Vital signs: Vital Signs Temp 97.5 F L 07/18/17 07:50 Pulse 109 H 07/18/17 12:05 Resp 18 07/18/17 12:00 BP 98/41 07/18/17 07:50 Pulse Ox 94 L 07/18/17 07:50 Intake & Output 07/17/17 07/18/17 07/18/17 18:59 06:59 18:59 Intake Total 120 10 118 Output Total 800 500 Balance -680 -490 118 Weight 96.8 kg 64 kg Intake: IV 10 0.9 10 Intake, IV Titration 0 Amount Aztreonam 1 gm In Sodium 0 Chloride 0.9% 50 ml @ 100 mls/hr IVPB Q12HR [facility] Rx #:[id number] Oral 120 118 Output: Urine 800 500 Other: Voiding Method Indwelling Catheter Indwelling Catheter Indwelling Catheter - Exam - Constitutional General appearance: cooperative, disheveled, mild distress, morbidly obese, not noted anymore to be agitated anxious and restless - EENT Eyes: EOMI, PERRLA, normal appearance ENT: hard of hearing Ears: bilateral: normal - Neck Neck: normal ROM Carotids: bilateral: upstroke normal, bruit absent Thyroid: bilateral: normal size - Respiratory Respiratory: bilateral: rales (Bibasilar), rhonchi (Bilateral respiratory and expiratory), wheezing, prolonged expiration, severity has improved however compared to prior exam - Cardiovascular Heart sounds: normal: S1, S2 - Gastrointestinal General gastrointestinal: normal bowel sounds, soft - Integumentary Integumentary: normal, normal turgor - Neurologic Neurologic: CNII-XII intact - Musculoskeletal Musculoskeletal: gait normal, generalized weakness, strength equal bilaterally - Psychiatric Psychiatric: A&O x's 2, appropriate affect, appears to have intermittent intact judgment & insight Chronic lower extremity trace edema with his skin changes - Labs CBC & Chem 7: 07/17/17 05:33 07/17/17 05:33 Labs: Abnormal Lab Results - Last 24 Hours (Table) 07/17/17 07/17/17 Range/Units 16:41 20:28 POC Glucose (mg/dL) 233 H 142 H (75-99) mg/dL Assessment and Plan Assessment: Gram-negative pneumonia Acute hypoxic and hypercapnic respirator failure Acute exacerbation of CHF likely acute on chronic diastolic and systolic heart failure COPD exacerbation and acute Chronic persistent asthma Severe morbid obesity and sleep disorder breathing and sleep apnea Hypertension hypertensive cardiovascular disease Prior history of deep venous thrombosis Sacral ulcers stage I to 2 Chronic atrial fibrillation Ischemic cardiomyopathy with history of AICD Chronic renal failure stage III Intermittent episodes of severe degree or restlessness, anxiety and a prehension Plan: Continue O2 2 L nasal cannula, titrated as tolerated, as some slow recovery and improvement noted Breathing treatment Continue supportive care and hospice is being planned we'll be available if needed her eyes Patient is a no code as per advanced active and her wishes, overall prognosis is poor Time with Patient: Greater than 30
[2017-07-18] MEDS: POLYETHYLENE GLYCOL 3350 17 GM POWD.PACK PO SCH (20:34)
[2017-07-18] MEDS: LATANOPROST 0.005% OPHTH DROPS 2.5 ML BTL RIGHT EYE SCH (20:34)
[2017-07-18] MEDS: INSULIN DETEMIR 100 UNIT/ML 10 ML VIAL SQ SCH (20:34)
[2017-07-18] MEDS: MELATONIN 5 MG TABLET PO SCH (21:57)
[2017-07-18 23:49] VITALS: TEMP 97.6
[2017-07-19] MEDS: MORPHINE SULFATE 4 MG/ML SYRINGE IVP PRN ×3 (04:57→13:58)
[2017-07-19] MEDS: LEVOTHYROXINE 50 MCG TAB PO SCH (05:02)
[2017-07-19] MEDS: IPRATROPIUM-ALBUTEROL 3 ML NEB INHALATION SCH ×3 (08:57→16:17)
[2017-07-19] MEDS: BUDESONIDE 0.5 MG/2 ML NEBU INHALATION SCH (08:57)
[2017-07-19] MEDS: METOPROLOL SUCCINATE (ER) 50 MG TAB.ER.24H PO SCH (09:43)
[2017-07-19] MEDS: INSULIN ASPART 100 UNIT/ML 1 ML 10 ML VIAL SQ SCH ×3 (09:43→16:02)
[2017-07-19] MEDS: AMIODARONE 200 MG TAB PO SCH (09:43)
[2017-07-19] MEDS: DOCUSATE 100 MG CAP PO SCH (09:44)
[2017-07-19] MEDS: PANTOPRAZOLE 40 MG TABLET PO SCH (09:49)
[2017-07-19] MEDS: SERTRALINE 25 MG TAB PO SCH (09:49)
[2017-07-19] MEDS: ASPIRIN 81 MG PO SCH (09:49)
[2017-07-19] MEDS: AMMONIUM LACTATE 12% CREAM 140 GM TUBE TOPICAL SCH ×2 (12:45→16:02)
[2017-07-19 12:51] VITALS: BP 91/63; PULSE 114; RESP 22
[2017-07-19] MEDS: DIAZEPAM 5 MG TAB PO SCH (12:52)
--- NOTE | 2017-07-19 12:59 | P.PN ---
Subjective Progress Note Date: 07/19/17 Principal diagnosis: Acute hypoxic respirator failure, acute exacerbation of CHF likely related to acute on chronic systolic heart failure, acute COPD exacerbation, chronic persistent asthma, sleep disorder breathing and sleep apnea, hypertension hypertensive cardiovascular disease, deep venous thrombosis, chronic atrial fibrillation, ischemic cardiomyopathy, chronic renal failure stage III 07/19/2017, patient is in process of being evaluated by hospice hemodynamic status stable except intermittent episodes of tachycardia patient does not appear to be in pain blood pressure remains marginal she is on 3 L oxygen 07/18/2017, patient seen eval examined during the rounds she is sitting upright on the chair family is present the rounds she is more awake and alert she's more composed less anxious and agitated, patient remains on breathing treatment , being observed off of steroids as well as benzodiazepine, family is seeking hospice evaluation 07/17/2017, patient seen eval examined during the rounds patient is more awake now but remains intermittently anxious and agitated she continued to have intermittent run of V. tach, still short of breath and does have audible wheezing, her labs from today reviewed her CO2 continue to go up with stable renal functions rising CO2 indicated above metabolic alkalosis as well as some component of respiratory acidosis, patient has refused BiPAP machine, patient also is a no code as per her advance directive and wishes and does not want to be on respirator 07/16/2017, patient seen eval examined during the rounds clinically patient has been doing slightly better but remains very anxious intermittently agitated a sitter is present at bedside steroid dose of being tapered down, patient has intermittent nonsustained ventricular tachycardia cardiovascular service adjusting amiodarone and being replaced magnesium as well patient is on 2 L oxygen breathing more comfortably no obvious distress present from respiratory standpoint my sputum is positive for gram-negative bacilli, noted patient is on just clindamycin consider adding aztreonam, steroids are already being tapered to twice a day hopefully next 24-48 hours we will DC the steroids, we'll repeat a chest x-ray tomorrow as well 07/15/2017, patient seen evmagdaleno examined during the rounds shortness of breath slightly better patient is being diuresed swelling in the lower extremity has improved crackles has improved as well FiO2 is down to 2 L patient is somewhat more composed today, labs reviewed medications reviewed him a his sputum cultures is positive for polymicrobial organism present we'll wait for final report, continue breathing treatments we will taper down the steroids 07/14/2017, patient seen and evaluated examined during the rounds he she remains on airvo 45%, she has refused the BiPAP machine she is being diuresed still have significant shortness of breath, still have dry intermittent cough present tolerating breathing treatments very well however patient remains somewhat anxious 76-year-old morbidly obese female who was seen evaluated examined on selective care patient has been admitted to hospital with 3 day history of progressive increased shortness breath cough congestion and thick purulent sputum production patient was evaluated by EMS and noted to have oxygen saturation of only 75% patient was initially treated with CPAP and eventually placed on BiPAP patient was subsequently arriving the emergency department was treated with IV steroids breathing treatment slightly more awake and alert but still require airvo 45% oxygen, data predominantly obtained from the patient and daughter present bedside, on patient denies hemoptysis denies any chest pain denies any loss of consciousness improves his desire and denies any bowel or bladder dysfunction, patient is a significant history of coronary artery disease and congestive heart failure with history of deep venous thromboses dyslipidemia and prior [place] patient has a chronic bilateral lower extremity cellulitis also has chronic hypoxic respirator failure has been on oxygen-dependent, she has been found to have sleep disordered breathing and sleep apnea was recommended BiPAP at home but couldn't tolerated due to severe claustrophobia Objective - Vital Signs Vital signs: Vital Signs Temp 97.6 F 07/18/17 22:40 Pulse 60 07/19/17 12:10 Resp 22 07/19/17 11:45 BP 91/63 07/19/17 11:45 Pulse Ox 99 07/19/17 11:45 Intake & Output 07/18/17 07/19/17 07/19/17 18:59 06:59 18:59 Intake Total 118 Output Total 300 500 Balance -182 -500 Weight 96.842 kg Intake: Oral 118 Output: Urine 300 500 Uretheral (Vazquez) 500 Other: Voiding Method Indwelling Catheter Indwelling Catheter Indwelling Catheter - Exam - Constitutional General appearance: cooperative, disheveled, mild distress, morbidly obese, not noted anymore to be agitated anxious and restless - EENT Eyes: EOMI, PERRLA, normal appearance ENT: hard of hearing Ears: bilateral: normal - Neck Neck: normal ROM Carotids: bilateral: upstroke normal, bruit absent Thyroid: bilateral: normal size - Respiratory Respiratory: bilateral: rales (Bibasilar), rhonchi (Bilateral respiratory and expiratory), wheezing, prolonged expiration, severity has improved however compared to prior exam - Cardiovascular Heart sounds: normal: S1, S2 - Gastrointestinal General gastrointestinal: normal bowel sounds, soft - Integumentary Integumentary: normal, normal turgor - Neurologic Neurologic: CNII-XII intact - Musculoskeletal Musculoskeletal: gait normal, generalized weakness, strength equal bilaterally - Psychiatric Psychiatric: A&O x's 2, appropriate affect, appears to have intermittent intact judgment & insight Chronic lower extremity trace edema with his skin changes - Labs CBC & Chem 7: 07/17/17 05:33 07/17/17 05:33 Assessment and Plan Assessment: Gram-negative pneumonia final growth is normal respiratory cecilio patient is being monitored off of antibiotics Acute hypoxic and hypercapnic respirator failure Acute exacerbation of CHF likely acute on chronic diastolic and systolic heart failure COPD exacerbation and acute Chronic persistent asthma Severe morbid obesity and sleep disorder breathing and sleep apnea Hypertension hypertensive cardiovascular disease Prior history of deep venous thrombosis Sacral ulcers stage I to 2 Chronic atrial fibrillation Ischemic cardiomyopathy with history of AICD Chronic renal failure stage III Intermittent episodes of severe degree or restlessness, anxiety and a prehension Plan: Continue O2 2 L to 3 L nasal cannula, titrated as tolerated, as some slow recovery and improvement noted Breathing treatment Continue supportive care and hospice is being planned we'll be available if needed her eyes, we will sign off now Patient is a no code as per advanced active and her wishes, overall prognosis is poor Time with Patient: Less than 30
[2017-07-19] MEDS ORDERED: MORPHINE SULFATE 4 MG/ML SYRINGE IVP PRN (16:08)
--- NOTE | 2017-07-19 16:11 | P.PN ---
Subjective Progress Note Date: 07/19/17 Patient is awake and alert. Her grandson at bedside. She is complaining that her pain is not well controlled with current regimen. Objective - Vital Signs Vital signs: Vital Signs Temp 97.6 F 07/18/17 22:40 Pulse 60 07/19/17 12:10 Resp 22 07/19/17 11:45 BP 91/63 07/19/17 11:45 Pulse Ox 99 07/19/17 11:45 Intake & Output 07/18/17 07/19/17 07/19/17 18:59 06:59 18:59 Intake Total 118 Output Total 300 500 250 Balance -182 -500 -250 Weight 96.842 kg Intake: Oral 118 Output: Urine 300 500 250 Uretheral (Vazquez) 500 Other: Voiding Method Indwelling Catheter Indwelling Catheter Indwelling Catheter - Exam General: The patient is awake Eye: there is normal conjunctiva bilaterally. Neck: The neck is supple, there is no JVD. Cardiovascular: Normal S1-S2, no S3-S4, no murmurs. Respiratory: Lungs with rhonchi Gastrointestinal: Abdomen is soft, nontender Musculoskeletal: There is +1 pedal edema. . Skin: Skin is warm and dry - Labs CBC & Chem 7: 07/17/17 05:33 07/17/17 05:33 Assessment and Plan Assessment: During this admission, I had a long discussion with her granddaughter at bedside and her other granddaughter who is her legal guardian over the phone. They are interested to pursue comfort measures/hospice care. Consultation for hospice was requested. Nursing staff would clarify whether patient is currently open to hospice or not. Plan is to go home with hospice at home. This will probably take place on Thursday. Discontinue unnecessary medications. Below is evidence of her medical problems addressed during this hospitalization #1 acute on chronic hypoxic respiratory failure secondary to COPD exacerbation, CHF exacerbation and bronchitis. #2 acute exacerbation of systolic congestive heart failure #3 acute purulent bronchitis #4 acute exacerbation of chronic obstructive pulmonary disease #5 sacral pressure ulcer stage I to stage II #6 chronic persistent atrial fibrillation #7 intractable back pain with recent vertebral fracture #8 recent pneumonia #9 Ischemic cardiomyopathy with previous history of AICD placement #10 Diabetes mellitus type 2 #11 underlying history of hypertension #12 Hypothyroidism.
== END 2017-07-19 16:49 | disposition hospice, home (50) | DRG 291 ==
LOC: EC 10:58 → 6SEL 11:49 → 5ONC 07-18 16:39
PROVIDERS: ADMIT Internal Medicine; ATTEND Internal Medicine
PROC: 5A09557 Assistance with Respiratory Ventilation, Greater than 96 Consecutive Hours, Continuous Positive Airway Pressure (ICD-10-PCS; principal; 2017-07-12)
DX: I50.43 Acute on chronic combined systolic (congestive) and diastolic (congestive) heart failure (principal); J96.21 Acute and chronic respiratory failure with hypoxia; J15.6 Pneumonia due to other Gram-negative bacteria; I13.0 Hypertensive heart and chronic kidney disease with heart failure and stage 1 through stage 4 chronic kidney disease, or unspecified chronic kidney disease; J44.0 Chronic obstructive pulmonary disease with (acute) lower respiratory infection; J44.1 Chronic obstructive pulmonary disease with (acute) exacerbation; Z68.41 Body mass index [BMI] 40.0-44.9, adult; N17.9 Acute kidney failure, unspecified; I47.2 Ventricular tachycardia; E87.4 Mixed disorder of acid-base balance; E11.22 Type 2 diabetes mellitus with diabetic chronic kidney disease; E66.01 Morbid (severe) obesity due to excess calories; I48.2 Chronic atrial fibrillation; J20.9 Acute bronchitis, unspecified; N18.3 Chronic kidney disease, stage 3 (moderate); L89.151 Pressure ulcer of sacral region, stage 1; L89.152 Pressure ulcer of sacral region, stage 2; I25.5 Ischemic cardiomyopathy; I44.7 Left bundle-branch block, unspecified; Z66 Do not resuscitate; Z51.5 Encounter for palliative care; I25.10 Atherosclerotic heart disease of native coronary artery without angina pectoris; E78.5 Hyperlipidemia, unspecified; M54.9 Dorsalgia, unspecified; I25.2 Old myocardial infarction; H40.9 Unspecified glaucoma; F32.9 Major depressive disorder, single episode, unspecified; F41.1 Generalized anxiety disorder; F40.240 Claustrophobia; G47.00 Insomnia, unspecified; G47.33 Obstructive sleep apnea (adult) (pediatric); K21.9 Gastro-esophageal reflux disease without esophagitis; E03.9 Hypothyroidism, unspecified; Z99.81 Dependence on supplemental oxygen; Z79.01 Long term (current) use of anticoagulants; Z79.2 Long term (current) use of antibiotics; Z79.82 Long term (current) use of aspirin; Z79.890 Hormone replacement therapy; Z79.4 Long term (current) use of insulin; Z79.51 Long term (current) use of inhaled steroids; Z79.899 Other long term (current) drug therapy; Z90.710 Acquired absence of both cervix and uterus; Z95.810 Presence of automatic (implantable) cardiac defibrillator; Z95.5 Presence of coronary angioplasty implant and graft; Z87.891 Personal history of nicotine dependence; Z87.01 Personal history of pneumonia (recurrent); Z86.718 Personal history of other venous thrombosis and embolism; Z87.81 Personal history of (healed) traumatic fracture; Z87.19 Personal history of other diseases of the digestive system; Z86.19 Personal history of other infectious and parasitic diseases; Z88.1 Allergy status to other antibiotic agents; Z88.5 Allergy status to narcotic agent; Z88.0 Allergy status to penicillin; Z88.8 Allergy status to other drugs, medicaments and biological substances; Z71.3 Dietary counseling and surveillance; Z80.1 Family history of malignant neoplasm of trachea, bronchus and lung; Z82.49 Family history of ischemic heart disease and other diseases of the circulatory system; Z80.8 Family history of malignant neoplasm of other organs or systems; Z81.8 Family history of other mental and behavioral disorders; Z82.3 Family history of stroke
CPT/HCPCS: 36415; 51702; 71045; 80053; 81003; 82550; 82553; 83735; 83880; 84443; 84484; 85025; 85379; 85610; 85730; 87070; 87086; 87205; 87502; 93306; 94640; 94644; 94660; 96374; 96375; 99291

== ENCOUNTER 2017-07-19 17:04 | Inpatient (IN) | payer MEDICAID, OTHER ==
[2017-07-19 17:45] VITALS: BMI 45.3
[2017-07-19] MEDS ORDERED: ACETAMINOPHEN SUPPOSITORY 650 MG SUPP RECTAL PRN (17:46)
[2017-07-19] MEDS ORDERED: MORPHINE ORAL SOL CONC 20 MG/ML BOTTLE SL PRN (17:49)
[2017-07-19] MEDS ORDERED: PROCHLORPERAZINE 10 MG TAB PO PRN (17:52)
[2017-07-19] MEDS ORDERED: IBUPROFEN 400 MG TAB PO PRN (17:54)
[2017-07-19] MEDS ORDERED: ACETAMINOPHEN TAB 500 MG TAB PO PRN (17:55)
[2017-07-19] MEDS ORDERED: ONDANSETRON 4 MG TAB PO PRN (17:58)
[2017-07-19] MEDS ORDERED: SCOPOLAMINE 1.5MG/72HR PATCH TRANSDERM SCH (18:00)
[2017-07-19] MEDS: MORPHINE CONC SOLN 10mg/0.5mL ORAL SYRG SL PRN (20:11)
[2017-07-20] MEDS: MORPHINE CONC SOLN 10mg/0.5mL ORAL SYRG SL PRN ×4 (00:48→18:26)
[2017-07-20] MEDS ORDERED: HALOPERIDOL ORAL SOLN 10 MG/5 ML CUP PO PRN ×2 (11:42→12:38)
--- NOTE | 2017-07-20 15:08 | P.PN ---
Subjective Progress Note Date: 07/20/17 Patient appears comfortable today. She is currently on hospice care. Objective - Vital Signs Vital signs: Intake & Output 07/19/17 07/20/17 07/20/17 18:59 06:59 18:59 Intake Total 100 180 Output Total 200 20 410 Balance -200 80 -230 Weight 108.862 kg 108.862 kg Intake: Oral 100 180 Output: Urine 200 410 Emesis 20 Other: Voiding Method Indwelling Catheter - Exam General: The patient is lethargic but easily arousable Eye: there is normal conjunctiva bilaterally. Neck: The neck is supple, there is no JVD. Cardiovascular: Normal S1-S2, no S3-S4, no murmurs. Respiratory: Lungs with some rhonchi to anterior chest Gastrointestinal: Abdomen is very obese. soft, nontender Musculoskeletal: There is +1 pedal edema. . Skin: Skin is warm and dry Assessment and Plan Assessment: During this admission, I had a long discussion with her granddaughter at bedside and her other granddaughter who is her legal guardian over the phone. They are interested to pursue comfort measures/hospice care. Consultation for hospice was requested. Nursing staff would clarify whether patient is currently open to hospice or not. Plan is to go home with hospice at home. This will probably take place on Thursday. Discontinue unnecessary medications. Below is evidence of her medical problems addressed during this hospitalization #1 acute on chronic hypoxic respiratory failure secondary to COPD exacerbation, CHF exacerbation and bronchitis. #2 acute exacerbation of systolic congestive heart failure #3 acute purulent bronchitis #4 acute exacerbation of chronic obstructive pulmonary disease #5 sacral pressure ulcer stage I to stage II #6 chronic persistent atrial fibrillation #7 intractable back pain with recent vertebral fracture #8 recent pneumonia #9 Ischemic cardiomyopathy with previous history of AICD placement #10 Diabetes mellitus type 2 #11 underlying history of hypertension #12 Hypothyroidism.
[2017-07-21] MEDS: MORPHINE CONC SOLN 10mg/0.5mL ORAL SYRG SL PRN ×4 (02:35→11:19)
--- NOTE | 2017-07-21 11:18 | P.DS ---
Providers Date of admission: 07/19/17 17:04 Expected date of discharge: 07/21/17 Attending physician: Farzana Levine Primary care physician: Farzana Levine Hospital Course: Discharge diagnosis Hospice diagnosis: Chronic hypoxic respiratory failure with COPD and systolic CHF exacerbations #1 acute on chronic hypoxic respiratory failure secondary to COPD exacerbation, CHF exacerbation and bronchitis. #2 acute exacerbation of systolic congestive heart failure #3 acute purulent bronchitis #4 acute exacerbation of chronic obstructive pulmonary disease #5 sacral pressure ulcer stage I to stage II #6 chronic persistent atrial fibrillation #7 intractable back pain with recent vertebral fracture #8 recent pneumonia #9 Ischemic cardiomyopathy with previous history of AICD placement #10 Diabetes mellitus type 2 #11 underlying history of hypertension #12 Hypothyroidism. 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 She was found have evidence of acute CHF exacerbation and COPD exacerbation. She was given IV steroids and IV Lasix. I' ll start on antibiotics for possible bronchitis. Patient was seen by both pulmonary service and cardiology. She had evidence of an acute on chronic hypoxic respiratory failure due to her COPD and CHF and was placed on AIRVO. She did have a computed tomography scan of the chest which showed no evidence of PE. Patient's overall prognosis was poor and guarded. Initially patient was treated aggressively with the steroids and IV Lasix. Other also concerns with some underlying depression and she was started on Zoloft. During her hospitalization patient expressed herself that she did not want to continue further treatment. Patient again did not have much improvement in her symptoms. Family discussed again with patient and family and patient decided to proceed with comfort care and hospice. They have agreed to going home with [facility]. Hospice medications will be through Dr. Dennis. Patient is having hospice equipment delivered to her house. I performed an examination of the patient and discussed their management with the physician Shirt Ironer Supervisor. I have reviewed the Physician Shirt Ironer Supervisor's notes and agree with the documented findings and plan of care Patient Condition at Discharge: Stable Plan - Discharge Summary New Discharge Prescriptions: Discontinued Montelukast [Singulair] 10 mg PO HS Isosorbide Mononitrate ER [Imdur] 30 mg PO DAILY metFORMIN HCL 1,000 mg PO DAILY Atorvastatin [Lipitor] 40 mg PO HS #60 tab Nitroglycerin Sl Tabs [Nitrostat] 0.4 mg SUBLINGUAL Q5M PRN PRN Reason: Chest Pain Insulin Glargine [Lantus] 44 unit SQ HS Ipratropium-Albuterol Nebulize [Duoneb 0.5 mg-3 mg/3 ml Soln] 3 ml INHALATION RT-QID Aspirin EC [Ecotrin Low Dose] 81 mg PO DAILY Budesonide [Pulmicort] 0.5 mg INHALATION RT-BID Latanoprost Ophth [Xalatan 0.005%] 1 drop RIGHT EYE HS INSULIN LISPRO (HumaLOG) [humaLOG] See Protocol SQ AC-TID Ergocalciferol [Vitamin D2 (DRISDOL)] 50,000 unit PO TU Spironolactone [Aldactone] 12.5 mg PO DAILY@1200 Levothyroxine Sodium [Synthroid] 50 mcg PO DAILY Furosemide [Lasix] 20 mg PO BID Losartan-Hctz 50-12.5 mg [Hyzaar 50-12.5] 1 tab PO DAILY@1200 Amiodarone [Cordarone] 100 mg PO DAILY tab Metoprolol Succinate (ER) [Toprol XL] 150 mg PO DAILY #100 tab Apixaban [Eliquis] 5 mg PO BID #60 tab Ammonium Lactate Cream [Lac-Hydrin 12% Cream] 1 applic TOPICAL BID cream Clindamycin [Cleocin] 450 mg PO TID #4 cap Docusate [Colace] 100 mg PO BID cap Polyethylene Glycol 3350 [Miralax] 17 gm PO HS powd.pack Diazepam [Valium] 5 mg PO HS HYDROcodone/APAP 10-325MG [Eads 10-325] 1 tab PO Q4H PRN PRN Reason: Pain Diazepam [Valium] 2.5 mg PO DAILY@0800,1200 Activity/Diet/Wound Care/Special Instructions: Hospice meds per [facility] physician Discharge patient home with [facility] Discharge Disposition: HOME WITH HOSPICE
== END 2017-07-21 12:45 | disposition hospice, home (50) | DRG 291 ==
LOC: 5ONC 17:04
PROVIDERS: ADMIT Internal Medicine; ATTEND Internal Medicine
DX: I11.0 Hypertensive heart disease with heart failure (principal); J96.21 Acute and chronic respiratory failure with hypoxia; J44.0 Chronic obstructive pulmonary disease with (acute) lower respiratory infection; J44.1 Chronic obstructive pulmonary disease with (acute) exacerbation; I48.1 Persistent atrial fibrillation; N17.9 Acute kidney failure, unspecified; I47.2 Ventricular tachycardia; Z88.1 Allergy status to other antibiotic agents; Z88.0 Allergy status to penicillin; Z88.8 Allergy status to other drugs, medicaments and biological substances; J20.9 Acute bronchitis, unspecified; Z87.891 Personal history of nicotine dependence; L89.151 Pressure ulcer of sacral region, stage 1; L89.152 Pressure ulcer of sacral region, stage 2; I48.2 Chronic atrial fibrillation; E03.9 Hypothyroidism, unspecified; E11.9 Type 2 diabetes mellitus without complications; F32.9 Major depressive disorder, single episode, unspecified; F41.1 Generalized anxiety disorder; I25.5 Ischemic cardiomyopathy; I50.23 Acute on chronic systolic (congestive) heart failure; Z51.5 Encounter for palliative care; Z87.01 Personal history of pneumonia (recurrent); Z95.810 Presence of automatic (implantable) cardiac defibrillator; M54.9 Dorsalgia, unspecified; Z79.890 Hormone replacement therapy; Z79.4 Long term (current) use of insulin; Z79.899 Other long term (current) drug therapy